=== PATIENT | male | born 1970 ===

== ENCOUNTER 2021-03-23 11:44 | Emergency (ER) | payer MEDICAID, SELFPAY ==
[2021-03-23 12:10] VITALS: BP 158/92; PULSE 94; RESP 18; TEMP 36.6; O2SAT 98; BMI 27.8
[2021-03-23 15:34] LABS: MANUAL DIFF FLAG NO
[2021-03-23 15:36] LABS: Basophils Percent Auto 0.4 % (0-2); Eosinophils Absolute Auto 0.3 X10*3/uL (0.0-0.4); Eosinophils Percent Auto 3.6 % (0-4); Hemoglobin 16.1 g/dl (14.0-18.0); Imm Gran Abs Auto 0.03 X10*3/uL (0.00-0.03); Imm Gran Pct Auto 0.4 % (0.0-0.4); Lymphocytes Absolute Auto 1.2 X10*3/uL (1.2-4.9); Lymphocytes Percent Auto 17.4 % (20-40); Mean Corpuscular HGB Conc 33.5 g/dl (31.0-36.0); Mean Corpuscular Hemoglobin 28.2 pg (27.0-33.0); Mean Corpuscular Volume 84.1 fL (80.0-98.0); Mean Platelet Volume 9.8 fL (9.4-12.4); Monocytes Absolute Auto 0.4 X10*3/uL (0.1-1.2); Monocytes Percent Auto 6.2 % (2-11); Platelet Count 180 X10*3/uL (160-400); Red Blood Count 5.71 X10*6/uL (4.60-5.80); Red Cell Distribution Width 12.3 % (11.0-16.0)
--- NOTE | 2021-03-23 15:50 | ED_ITS ---
HPI - General Adult General Chief complaint: Weakness Stated complaint: HEADACHE WEAK Time Seen by Provider: 03/23/21 15:50 Source: patient Mode of arrival: ambulatory Limitations: no limitations History of Present Illness HPI narrative: Patient is here today for complaining of headache for the past month. Patient was placed by his PCP on medications for migraine, however he reports that this is not working. Patient reports that last year he had right temporal discomfort and had biopsy that was normal and negative for temporal arthritis per patient. Patient denies any dizziness, blurry vision, any cold symptoms. Denies any chest pain, palpitations, shortness of breath with or without exertion. Patient reports that he has frontal and paranasal sinus pressure. Reports to have lymph nodes swelling, denies dysphagia, dyspepsia or odynophagia. Onset (ago): week(s) Location: head Radiation: non-radiation Severity: moderate Quality: aching Related Data Previous Rx's Medication Instructions Recorded omeprazole 20 mg capsule,delayed 20 mg PO BID 30 Days #60 cap 12/01/20 release ciprofloxacin 0.3 %-dexamethasone 4 drp OTIC (EARS) Q12H #7.5 ml 03/23/21 0.1 % ear drops,suspension (Ciprodex) fluticasone propionate 50 1 spray INTRANASAL BID #16 g 03/23/21 mcg/actuation nasal spray,suspension (Flonase Allergy Relief) ibuprofen 600 mg tablet 600 mg PO Q8H PRN #20 tab 03/23/21 Allergies Allergy/AdvReac Type Severity Reaction Status Date / Time No Known Allergies Allergy Verified 03/23/21 12:10 [No Known Allergies*] Review of Systems Review of Systems: Constitutional : No Weight loss, No Fever, No Chills, No Night Sweats, No Fatigue, No Malaise ENT/Mouth : No Hearing loss, No Ear Pain, No Nasal Congestion, Sinus Pain, No Hoarseness, sore throat, No Rhinorrhea, No Swallowing Difficulty Eyes: No Eye Pain, No Swelling, No Redness, No Foreign Body, No Discharge, No Vision Changes Head: Headache for over a month Cardiovascular : No Chest Pain, No SOB, No Dyspnea on Exertion, No Orthopnea, No Edema, No Palpitations Respiratory : No Cough, No Sputum, No Wheezing, No Smoke Exposure, No Dyspnea Gastrointestinal : No Nausea, No Vomiting, No Diarrhea, No Constipation, No abdominal Pain, No Hematochezia, No Melena Genitourinary : no irregular bleeding, No Dysuria, No Urinary Frequency, No Hematuria, No Urinary Incontinence, No Urgency, No Flank Pain, No Urinary Flow Changes, No Hesitancy Musculoskeletal : No joint pain, No Myalgias, No Joint Swelling Skin : No Skin Lesions, No rash Neuro : No Weakness, No Numbness, No Paresthesias, No Loss of Consciousness, No Dizziness, No Headache Psych : No Anxiety/Panic, No Depression, No SI/HI/AH/VH, No Social Issues, Yes all other systems are reviewed and are negative [facility] Social History Social History Advance Directives: No Advance Directives Information Provided: No Physical Exam Vital Signs: Vital Signs: Last Vital Signs Temp 98.2 F 03/23/21 19:23 Pulse 85 03/23/21 20:12 Resp 16 03/23/21 20:12 BP 175/99 H 03/23/21 20:12 Pulse Ox 97 03/23/21 19:23 Body Mass Index 27.8 Const: General: healthy appearing, no acute distress and well developed Nutritional Appearance: well nourished Orientation/consciousness: patient oriented x3 HENMT: Other: 50-year-old male is here today for complaining of headache for the last month. Patient reports that last year he was ruled out for temporal arthritis. Patient reports that the pain started about month ago, does not remember any contributing factors to it. Patient reports to have frontal lobe headache and paint below his eyes around paranasal sinuses. Patient denies postnasal drip rhinorrhea. Denies any ear pain. Reports to have swelling of his tonsils and lymph nodes. Patient denies any nausea or vomiting. Patient reports that he was placed on medication for migraine however reports that that has not been affective. Patient denies any dizziness, blurred vision, sensitivity to light. Patient denies any dyspepsia, dysphagia or odynophagia. Denies any chest pain, palpitation, shortness of breath with or without exertion, presyncope, syncope, PND. Head: Yes normal to inspection, Yes normocephalic, Yes atraumatic and Yes other Ears: hearing grossly normal bilaterally and external ear abnormal (Bilaterally) General nose exam: Normal external nose present Face and sinus: Yes normal facial exam and Yes sinus tenderness (Frontal and paranasal) Mouth: Normal oral and palatal mucosa present Throat: Yes posterior oropharynx normal, Yes tonsils normal and Yes uvula midline Eyes: General: appearance normal, both eyes and all related structures Neck: Neck: Yes normal visual inspection, Yes full ROM and Yes trachea midline Thyroid: Thyroid normal Resp: Effort & Inspection: normal respiratory effort, able to speak in complete sentences, no tracheal deviation and symmetric chest movement Auscultation: clear to auscultation bilaterally Cardio: Jugular venous distension: no JVD Rate: regular rate Rhythm: regular rhythm Heart sounds: S1 normal heart sound present, S2 normal heart sound present, no gallops and no murmurs GI: Inspection: Yes normal to inspection and No distended Palpation (GI): Soft to palpation, not firm, nontender and No hepatosplenomegaly present Auscultation: normal bowel sounds : General: Yes no CVA tenderness Back/Spine/Pelvis: Back: no CVA tenderness Skin: General skin exam: elasticity normal, turgor normal and dry skin Neuro: General: patient oriented x3 Psych: Appearance: grossly normal Mental Status: mental status grossly normal Speech and movement: Normal speech and movement present Affect: normal affect Attitude: cooperative Thought process: Normal thought process present Thought content: Normal thought content present Insight: Good insight present (Psych) Judgement: Good judgement present (Psych) Course Course Course Narrative: 50-year-old male is here today for complaining of headache for over a month. Patient was given script for migraine headache, however he reports that this is not working. Reports to have a sinus pressure and frontal and paraspinal area. Exam shows bilateral external otitis media and maxillary lymph node swelling. Positive tenderness to frontal and paranasal sinuses. Will do blood work to check for infection. Reevaluation(s) Reevaluation #1: Blood work show no leukocytosis. Patient was medicated with Toradol and had some improvement. Will send patient home to follow-up with his PCP and neurologist. Will send him home with ibuprofen and script for antibiotic ear drops, ibuprofen and Flonase. Patient is agreeable to this plan and verbalizes understanding of instructions. Medical Decision Making Lab Data Result diagrams: 03/23/21 15:29 03/23/21 15:29 Labs: Lab Results 03/23/21 03/23/21 03/23/21 Range/Units 15:29 15:29 17:37 WBC 7.0 (4.8-10.8) X10*3/uL RBC 5.71 (4.60-5.80) X10*6/uL Hgb 16.1 (14.0-18.0) g/dl Hct 48.0 (42.0-52.0) % MCV 84.1 (80.0-98.0) fL MCH 28.2 (27.0-33.0) pg MCHC 33.5 (31.0-36.0) g/dl RDW 12.3 (11.0-16.0) % Plt Count 180 (160-400) X10*3/uL MPV 9.8 (9.4-12.4) fL Immature Gran % (Auto) 0.4 (0.0-0.4) % Neut % (Auto) 72.0 (45-73) % Lymph % (Auto) 17.4 L (20-40) % [place] % (Auto) 6.2 (2-11) % Eos % (Auto) 3.6 (0-4) % Baso % (Auto) 0.4 (0-2) % Lymph # (Auto) 1.2 (1.2-4.9) X10*3/uL [place] # (Auto) 0.4 (0.1-1.2) X10*3/uL Eos # (Auto) 0.3 (0.0-0.4) X10*3/uL Baso # (Auto) 0.0 (0.0-0.2) X10*3/uL Abs Immat Gran (auto) 0.03 (0.00-0.03) X10*3/uL Absolute Neuts (auto) 5.0 (2.0-8.3) x10*3/uL Absolute Nucleated RBC 0.000 (0.0-0.012) X10*3/uL Nucleated RBC % (auto) 0.0 (0.0-0.2) /100WBC Sodium 138 (135-145) mmol/L Potassium 4.2 (3.3-5.1) mmol/L Chloride 103 (96-108) mmol/L Carbon Dioxide 28 (22-29) mmol/L Anion Gap 11 L (12-20) BUN 14 (9-16) mg/dL Creatinine 1.10 (0.5-1.4) mg/dL Estim Creat Clear Calc 87.2 Estimated GFR > 60 Random Glucose 195 H (60-115) mg/dL Calcium 9.0 (8.4-10.2) mg/dL Total Bilirubin 0.3 (0.0-1.0) mg/dL AST 23 (5-37) U/L ALT 45 H (0-40) U/L Alkaline Phosphatase 128 H (39-117) U/L Total Protein 7.5 (6.5-8.0) g/dL Albumin 4.2 (3.5-5.0) g/dL Influenza Type A (PCR) NEGATIVE (Negative) Influenza Type B (PCR) NEGATIVE (Negative) RSV RNA Qual (PCR) NEGATIVE (Negative) SARS-CoV-2 RNA (RT-PCR) NEGATIVE (Negative) S. pyogenes GrpA JOSE (Negative) 03/23/21 Range/Units 17:37 WBC (4.8-10.8) X10*3/uL RBC (4.60-5.80) X10*6/uL Hgb (14.0-18.0) g/dl Hct (42.0-52.0) % MCV (80.0-98.0) fL MCH (27.0-33.0) pg MCHC (31.0-36.0) g/dl RDW (11.0-16.0) % Plt Count (160-400) X10*3/uL MPV (9.4-12.4) fL Immature Gran % (Auto) (0.0-0.4) % Neut % (Auto) (45-73) % Lymph % (Auto) (20-40) % [place] % (Auto) (2-11) % Eos % (Auto) (0-4) % Baso % (Auto) (0-2) % Lymph # (Auto) (1.2-4.9) X10*3/uL [place] # (Auto) (0.1-1.2) X10*3/uL Eos # (Auto) (0.0-0.4) X10*3/uL Baso # (Auto) (0.0-0.2) X10*3/uL Abs Immat Gran (auto) (0.00-0.03) X10*3/uL Absolute Neuts (auto) (2.0-8.3) x10*3/uL Absolute Nucleated RBC (0.0-0.012) X10*3/uL Nucleated RBC % (auto) (0.0-0.2) /100WBC Sodium (135-145) mmol/L Potassium (3.3-5.1) mmol/L Chloride (96-108) mmol/L Carbon Dioxide (22-29) mmol/L Anion Gap (12-20) BUN (9-16) mg/dL Creatinine (0.5-1.4) mg/dL Estim Creat Clear Calc Estimated GFR Random Glucose (60-115) mg/dL Calcium (8.4-10.2) mg/dL Total Bilirubin (0.0-1.0) mg/dL AST (5-37) U/L ALT (0-40) U/L Alkaline Phosphatase (39-117) U/L Total Protein (6.5-8.0) g/dL Albumin (3.5-5.0) g/dL Influenza Type A (PCR) (Negative) Influenza Type B (PCR) (Negative) RSV RNA Qual (PCR) (Negative) SARS-CoV-2 RNA (RT-PCR) (Negative) S. pyogenes GrpA JOSE Negative (Negative) Discharge Plan Discharge Clinical Impression: Sinus pressure Headache Qualifiers: Headache type: unspecified Headache chronicity pattern: chronic headache Int ractability: not intractable Qualified Code(s): R51.9 - Headache, unspecified Otitis externa Qualifiers: Otitis externa type: unspecified type Chronicity: unspecified Laterality: bilateral Qualified Code(s): H60.93 - Unspecified otitis externa, bilateral Patient Disposition: Home, Self-Care Instructions: Sinusitis (ED) Additional Instructions: Lo vieron aqu? hoy por un dolor de jorden que liriano estado sucediendo rebecca m?s de un mes. Puede vernon ibuprofeno. Tiene infecci?n en los o?dos externos de 2 a?os. Lleve gotas para los o?dos a ambos a?os dos veces al d?a rebecca 7 d?as. Tambi?n puede vernon Flonase para ayudarlo con la presi?n y el dolor de los senos nasales. Puede regresar al departamento de emergencias si yin s?ntomas empeoran o si experimenta s?ntomas preocupantes adicionales. Prescriptions: New ibuprofen 600 mg tablet 600 mg PO Q8H PRN (Reason: pain) Qty: 20 RF: 0 fluticasone propionate [Flonase Allergy Relief] 50 mcg/actuation spray,suspension 1 spray intranasal BID Qty: 16 RF: 0 ciprofloxacin-dexamethasone [Ciprodex] 0.3-0.1 % drops,suspension 4 drp otic (ears) Q12H Qty: 7.5 RF: 0 No Action omeprazole 20 mg capsule,delayed release(DR/EC) 20 mg PO BID 30 Days Qty: 60 RF: 6 Interventions: ED Discharge Assessment Last Done: 03/23/21 20:13 Discharge Date/Time: 03/23/21 20:14
[2021-03-23 15:53] LABS: Alanine Aminotransferase 45 U/L (0-40); Albumin Level 4.2 g/dL (3.5-5.0); Alkaline Phosphatase 128 U/L (39-117); Anion Gap 11 (12-20); Aspartate Amino Transferase 23 U/L (5-37); Bilirubin Total 0.3 mg/dL (0.0-1.0); Blood Urea Nitrogen 14 mg/dL (9-16); Carbon Dioxide 28 mmol/L (22-29); Chloride 103 mmol/L (96-108); Creatinine Clr Calc Pharmacy 87.2; Estimated Glomerular Filt Rate > 60; Glucose Random 195 mg/dL (60-115); Potassium 4.2 mmol/L (3.3-5.1); Sodium 138 mmol/L (135-145); Total Protein 7.5 g/dL (6.5-8.0)
[2021-03-23] MEDS: Ketorolac Tromethamine 15 MG/ML VIAL 30 MG IVPUSH (17:36)
[2021-03-23] MEDS: 0.9 % Sodium Chloride 1,000 ML 999 ML IV (17:36)
[2021-03-23 18:00] LABS: IDNOW Serial# 9DD0AD1C; Strep A Nucleic Acid Negative (Negative)
[2021-03-23 18:36] LABS: Influenza A PCR NEGATIVE (Negative); Influenza B PCR NEGATIVE (Negative); Resp Syncy Virus RNA Qual PCR NEGATIVE (Negative); SARS COV2 PCR INHOUSE NEGATIVE (Negative)
[2021-03-23 19:23] VITALS: BP 185/98; PULSE 89; RESP 16; TEMP 36.8; O2SAT 97
[2021-03-23 20:12] VITALS: BP 175/99; PULSE 85; RESP 16
== END 2021-03-23 20:14 | disposition home or self-care (01) ==
PROVIDERS: Nurse Practitioner Family; Emergency Provider Emergency Medicine Emergency Medical Services
DX: J32.9 Chronic sinusitis, unspecified (principal); R51.9 Headache, unspecified; H60.93 Unspecified otitis externa, bilateral; Z20.822 Contact with and (suspected) exposure to COVID-19
CPT/HCPCS: 0241U; 36415; 80053; 85025; 87651; 96361; 96374; 99284; J1885

== ENCOUNTER 2021-05-09 12:17 | Emergency (ER) | payer MEDICAID, SELFPAY ==
--- NOTE | 2021-05-09 | ECG_ITS ---
Test Reason : palpitations Blood Pressure : / mmHG Vent. Rate : 105 BPM Atrial Rate : 105 BPM P-R Int : 186 ms QRS Dur : 100 ms QT Int : 346 ms P-R-T Axes : 054 -41 020 degrees QTc Int : 457 ms Sinus tachycardia Inferior infarct Left axis deviation Abnormal ECG When compared with ECG of 28-AUG-2018 09:38, T wave amplitude has increased in Anterior leads Referred By: Generic ED Physician Electronically Signed By:PATRICIA LOYA MD
[2021-05-09 13:52] VITALS: BP 163/105; PULSE 108; RESP 16; TEMP 36.9; O2SAT 98; BMI 27.6
[2021-05-09 14:40] LABS: COVID-19 Test Positive (Negative)
[2021-05-09 14:46] LABS: Alanine Aminotransferase 73 U/L (0-40); Albumin Level 4.2 g/dL (3.5-5.0); Alkaline Phosphatase 136 U/L (39-117); Anion Gap 9 (12-20); Aspartate Amino Transferase 34 U/L (5-37); Blood Urea Nitrogen 13 mg/dL (9-16); Calcium 9.1 mg/dL (8.4-10.2); Carbon Dioxide 29 mmol/L (22-29); Chloride 104 mmol/L (96-108); Creatinine Clr Calc Pharmacy 86.2; Estimated Glomerular Filt Rate > 60; Glucose Random 184 mg/dL (60-115); Potassium 4.4 mmol/L (3.3-5.1); Sodium 138 mmol/L (135-145); Total Protein 7.8 g/dL (6.5-8.0)
[2021-05-09 14:53] LABS: Bilirubin Total 0.4 mg/dL (0.0-1.0)
== END 2021-05-09 18:45 | disposition left against medical advice (07) ==
PROVIDERS: Emergency Provider Emergency Medicine
DX: U07.1 COVID-19 (principal); R51.9 Headache, unspecified; E11.9 Type 2 diabetes mellitus without complications; I10 Essential (primary) hypertension
CPT/HCPCS: 36415; 80053; 87635; 93005; 99283

== ENCOUNTER 2021-07-19 15:18 | Emergency (ER) | payer MEDICAID, SELFPAY ==
--- NOTE | 2021-07-19 | ECG_ITS ---
Test Reason : sob/chest pain Blood Pressure : / mmHG Vent. Rate : 097 BPM Atrial Rate : 097 BPM P-R Int : 182 ms QRS Dur : 094 ms QT Int : 344 ms P-R-T Axes : 030 -46 014 degrees QTc Int : 436 ms Normal sinus rhythm Left axis deviation Inferior infarct , age undetermined Abnormal ECG When compared with ECG of 09-MAY-2021 14:11, No significant change was found Referred By: Harris Mccoy Electronically Signed By:CHRIS LOPES
--- NOTE | ~2021-07-19 | CT_ITS ---
EXAMINATION: CT ABDOMEN AND PELVIS WITH CONTRAST CLINICAL INFORMATION: Epigastric pain radiating to right lower quadrant COMPARISON: CT abdomen pelvis 08/28/2018 TECHNIQUE: Multidetector volumetric images were obtained from the superior aspect of the liver through the pubic symphysis following administration 85 mL of Omnipaque 350 intravenous contrast. Sagittal and coronal reformatted images were obtained on the technologist's workstation. Oral contrast: No This CT examination was performed using dose optimization techniques as appropriate, variously including the following: *Automated exposure control *Adjustment of mA and/or kV according to patient size (this includes techniques or standardized protocols for targeted exams where dose is matched to indication/reason for exam; i.e. extremities or head) *Use of iterative reconstruction technique DLP: 689 mGy-cm FINDINGS: LUNG BASES: New right lower lobe platelike atelectasis is present. There is continued presence of atelectasis at the left lung base. No pleural effusions or suspicious lung masses are seen. There is a small 5 mm right paracardiac lymph node present (3:1). LIVER, GALLBLADDER, AND BILIARY TREE: The liver is enlarged measuring 19 cm in greatest length and demonstrates decreased attenuation consistent with hepatic steatosis. This finding was better seen on the 08/28/[address] scan. No focal hepatic lesion or biliary ductal dilatation is present. Status post cholecystectomy. PANCREAS: Unremarkable. A single punctate calcification is present in the pancreatic tail. SPLEEN: There is mild splenomegaly with the spleen measuring 12.9 cm in greatest dimension. ADRENAL GLANDS: Unremarkable. KIDNEYS AND URETERS: The kidneys are normal in size, shape, and attenuation. Two. Bosniak class I renal cysts are noted in the right kidney, the largest 3.4 cm. There are some smaller cysts present bilaterally as well. These findings need no further imaging or follow-up. No solid renal masses. No hydronephrosis, hydroureter, or calculi seen. No perinephric stranding. BLADDER: Bladder is markedly distended but unremarkable GASTROINTESTINAL TRACT: The small and large bowel are unremarkable. The appendix is unremarkable. ABDOMINAL WALL: No significant hernia is appreciated. LYMPH NODES: Normal. VASCULAR: Unremarkable. PELVIC VISCERA: Unremarkable. OSSEOUS STRUCTURES: Mild degenerative changes present spine most marked at L5-S1. No bony destructive lesions. CT/CT abdomen pelvis w con IMPRESSION: An etiology for the patient's epigastric pain has not been found. Incidental findings as described above. Fleischner guidelines were followed.
[2021-07-19 16:06] VITALS: BP 176/98; PULSE 101; RESP 18; TEMP 36.9; O2SAT 98; BMI 27.6
--- NOTE | 2021-07-19 16:22 | ED.CHESTPAIN ---
HPI - Chest Pain General Chief Complaint: Chest Pain Stated Complaint: sob, headache Time Seen by Provider: 07/19/21 16:22 Source: patient Mode of arrival: ambulatory Limitations: no limitations History of Present Illness HPI narrative: This is a 51-year-old male past medical history significant for hypertension, diabetes presenting to the emergency department with chest pain, shortness of breath and abdominal pain X2 days. He tells me that this chest pain is episodic, substernal, stabbing, nonradiating. He cannot tell me what makes this chest pain better or worse. He also reports shortness of breath, he tells me it is worse with exertion, particularly climbing stairs. He also reports epigastric pain that is radiating to his right lower quadrant. Patient reports a normal appetite normal diet with no dietary changes recently. Patient tells me that he has headaches every single day he has a little 1 right now and feels like his typical headache. He denies fevers, chills, nausea, vomiting, vision changes, dizziness. To note, patient tells me that he has been seen here multiple times for the same thing over the past few months. Denies any anxiety or stress at this time. MD complaint: chest pain Onset (ago): day(s) (1) Timing of current episode: episodic Prior episodes: Yes Pain location: substernal Pain radiation: none Severity: mild Quality: tightness Relieving factors: nothing Exacerbating factors: nothing Associated symptoms: dyspnea Treatment prior to arrival: none Related Data Previous Rx's Medication Instructions Recorded omeprazole 20 mg capsule,delayed 20 mg PO BID 30 Days #60 cap 12/01/20 release ciprofloxacin 0.3 %-dexamethasone 4 drp OTIC (EARS) Q12H #7.5 ml 03/23/21 0.1 % ear drops,suspension (Ciprodex) fluticasone propionate 50 1 spray INTRANASAL BID #16 g 03/23/21 mcg/actuation nasal spray,suspension (Flonase Allergy Relief) ibuprofen 600 mg tablet 600 mg PO Q8H PRN #20 tab 03/23/21 Allergies Allergy/AdvReac Type Severity Reaction Status Date / Time No Known Allergies Allergy Verified 03/23/21 12:10 [No Known Allergies*] Review of Systems Review of Systems: Constitutional : No Weight loss, No Fever, No Chills, No Fatigue, No Malaise ENT/Mouth : No sore throat, No Rhinorrhea Eyes: No Eye Pain, No Swelling, No Redness Cardiovascular : + Chest Pain, No SOB, + Dyspnea on Exertion, No Orthopnea, No Edema, No Palpitations Respiratory : No Cough, No Sputum, No Wheezing Gastrointestinal : No Nausea, No Vomiting, No Diarrhea, No Constipation, + abdominal Pain, No Hematochezia, No Melena Genitourinary : No Dysuria, No Urinary Frequency, No Hematuria, Musculoskeletal : No joint pain, No Myalgias, No Joint Swelling Skin : No Skin Lesions, No rash Neuro : No Weakness, No Numbness, No Dizziness, No Headache Psych : No Anxiety/Panic, No Depression All other systems reviewed and are negative Yes all other systems are reviewed and are negative [facility] Past Medical History Attestation statement: The following information was validated with the patient. Source: old records reviewed and nursing notes reviewed Medical History Diabetes mellitus, type 2 Fibromyalgia Hypertension Social History Social History Advance Directives: No Advance Directives Information Provided: No Physical Exam Vital Signs: Vital Signs: Last Vital Signs Temp 98.5 F 07/19/21 19:30 Pulse 88 07/19/21 19:30 Resp 18 07/19/21 19:30 BP 166/96 H 07/19/21 19:30 Pulse Ox 98 07/19/21 19:30 BMI result Body Mass Index 27.6 Vital signs stable. Appearance: Alert.? Oriented X3.? No acute distress.? Head: Normocephalic, atraumatic, no step-offs or deformities Eyes: Pupils equal, round and reactive to light.? ENT: Pharynx normal.? Neck: Normal inspection.? Neck supple.? CVS: Normal heart rate and rhythm.? Pulses normal.? Respiratory: No respiratory distress.? Breath sounds normal.? Abdomen: Soft and + tenderness to epigastric region RLQ.? Skin: Skin warm and dry.? Normal skin color.? Normal skin turgor.? Extremities: No lower extremity edema.? No calf ttp. 5/5 strength to bilateral upper and lower extremities Back: No midline tenderness, no C-spine tenderness, full range of motion, no CVA tenderness bilaterally Neuro: Oriented X 3.? No motor deficit.? No sensory deficit. CN 2-12 intact Course Reevaluation(s) Reevaluation #1: CBC appears to be at patient's baseline. No acute electrolyte abnormalities. Troponin negative, no acute ischemia on EKG unlikely that this is ACS. Lipase within normal limits. COVID negative. CT of abdomen and pelvis within normal limits unable to identify a reason for patient's pain. Time: 20:04 Reevaluation #2: Patient tells me that his chest pain has subsided. And his abdominal pain is much better after GI cocktai. I informed patient that this may be gastritis. I will give him follow-up with the GI doctor. Advised him to return to the emergency department with new or worsening symptoms and to follow-up with his PCP. Patient feels good to go home. Patient's epigastric pain likely gastritis. Patient's cardiac workup was negative, unlikely that this is ACS. Time: 20:07 MDM - Chest Pain MDM Narrative Medical decision making narrative: 1625 51 yo m pmhx dm, htn presents w/ cp, sob and epigastric pain radiating to RLQ. Physical examination significant for pain on palpation in epigastric region and right lower quadrant. Negative Wilma bilaterally. History and physical examination not consistent with pulmonary embolism. Plan at this time is urine, basic labs and imaging. Will rule out appendicitis, ACS. Medical Records Data Attestation: I reviewed the patient's medical records. Lab Data Attestation: I reviewed the patient's lab results. Result diagrams: 07/19/21 17:02 07/19/21 17:02 Labs: Lab Results 07/19/21 07/19/21 07/19/21 Range/Units 17:02 17:02 17:02 WBC 6.9 (4.8-10.8) X10*3/uL RBC 5.22 (4.60-5.80) X10*6/uL Hgb 14.7 (14.0-18.0) g/dl Hct 44.3 (42.0-52.0) % MCV 84.9 (80.0-98.0) fL MCH 28.2 (27.0-33.0) pg MCHC 33.2 (31.0-36.0) g/dl RDW 12.8 (11.0-16.0) % Plt Count 167 (160-400) X10*3/uL MPV 10.1 (9.4-12.4) fL Immature Gran % (Auto) 0.4 (0.0-0.4) % Neut % (Auto) 73.8 H (45-73) % Lymph % (Auto) 16.5 L (20-40) % [place] % (Auto) 6.7 (2-11) % Eos % (Auto) 2.3 (0-4) % Baso % (Auto) 0.3 (0-2) % Lymph # (Auto) 1.1 L (1.2-4.9) X10*3/uL [place] # (Auto) 0.5 (0.1-1.2) X10*3/uL Eos # (Auto) 0.2 (0.0-0.4) X10*3/uL Baso # (Auto) 0.0 (0.0-0.2) X10*3/uL Abs Immat Gran (auto) 0.03 (0.00-0.03) X10*3/uL Absolute Neuts (auto) 5.1 (2.0-8.3) x10*3/uL Absolute Nucleated RBC 0.000 (0.0-0.012) X10*3/uL Nucleated RBC % (auto) 0.0 (0.0-0.2) /100WBC Sodium 139 (135-145) mmol/L Potassium 4.8 (3.3-5.1) mmol/L Chloride 104 (96-108) mmol/L Carbon Dioxide 29 (22-29) mmol/L Anion Gap 11 L (12-20) BUN 11 (9-16) mg/dL Creatinine 1.01 (0.5-1.4) mg/dL Estim Creat Clear Calc 93.9 Estimated GFR > 60 Random Glucose 146 H (60-115) mg/dL Calcium 9.1 (8.4-10.2) mg/dL Magnesium 1.5 L (1.6-2.6) mg/dL Total Bilirubin 0.3 (0.0-1.0) mg/dL AST 28 (5-37) U/L ALT 60 H (0-40) U/L Alkaline Phosphatase 115 (39-117) U/L Troponin I High Sens (<3.5-35.0) ng/L B-Natriuretic Peptide (<100) pg/mL Total Protein 7.1 (6.5-8.0) g/dL Albumin 4.0 (3.5-5.0) g/dL Lipase 31 (8-78) U/L COVID-19 (JULIA) Negative (Negative) COVID-19 Clin Com See Note 07/19/21 Range/Units 17:02 WBC (4.8-10.8) X10*3/uL RBC (4.60-5.80) X10*6/uL Hgb (14.0-18.0) g/dl Hct (42.0-52.0) % MCV (80.0-98.0) fL MCH (27.0-33.0) pg MCHC (31.0-36.0) g/dl RDW (11.0-16.0) % Plt Count (160-400) X10*3/uL MPV (9.4-12.4) fL Immature Gran % (Auto) (0.0-0.4) % Neut % (Auto) (45-73) % Lymph % (Auto) (20-40) % [place] % (Auto) (2-11) % Eos % (Auto) (0-4) % Baso % (Auto) (0-2) % Lymph # (Auto) (1.2-4.9) X10*3/uL [place] # (Auto) (0.1-1.2) X10*3/uL Eos # (Auto) (0.0-0.4) X10*3/uL Baso # (Auto) (0.0-0.2) X10*3/uL Abs Immat Gran (auto) (0.00-0.03) X10*3/uL Absolute Neuts (auto) (2.0-8.3) x10*3/uL Absolute Nucleated RBC (0.0-0.012) X10*3/uL Nucleated RBC % (auto) (0.0-0.2) /100WBC Sodium (135-145) mmol/L Potassium (3.3-5.1) mmol/L Chloride (96-108) mmol/L Carbon Dioxide (22-29) mmol/L Anion Gap (12-20) BUN (9-16) mg/dL Creatinine (0.5-1.4) mg/dL Estim Creat Clear Calc Estimated GFR Random Glucose (60-115) mg/dL Calcium (8.4-10.2) mg/dL Magnesium (1.6-2.6) mg/dL Total Bilirubin (0.0-1.0) mg/dL AST (5-37) U/L ALT (0-40) U/L Alkaline Phosphatase (39-117) U/L Troponin I High Sens < 3.5 (<3.5-35.0) ng/L B-Natriuretic Peptide 29 (<100) pg/mL Total Protein (6.5-8.0) g/dL Albumin (3.5-5.0) g/dL Lipase (8-78) U/L COVID-19 (JULIA) (Negative) COVID-19 Clin Com ECG Data ECG #1: Attestation: I personally reviewed and interpreted this ECG as follows: ECG interpretation date: 07/19/21 ECG interpretation time: 18:59 Prior ECG tracings: available for review Interpretation: Ventricular rate 97, [place] normal, QRS normal, QT/QTC normal. No ST elevations or inversions concerning for ischemia. No significant changes when compared to EKG from August 2018. Critical Care Time Critical Care Time Critical Care Time: No Discharge Plan Discharge Clinical Impression: Chest pain not due to acute coronary syndrome, Epigastric abdominal pain, Gastritis Patient Disposition: Home, Self-Care Instructions: Epigastric Pain (ED), Upper Endoscopy (DC), Gastritis (DC), Diet for Stomach Ulcers and Gastritis (ED), Chest Pain (ED) Additional Instructions: Take your medications as prescribed. If you were prescribed antibiotics today, it is important that you take your medication to their entirety, do not skip any doses, do not finish them early. Follow-up with your primary care provider this week. Follow-up with the GI doctor, number attached below. Return to the emergency department with new or worsening symptoms. Such as fevers, chills, chest pain, shortness of breath, nausea, vomiting, dizziness, headache, vision changes, lethargy In case of emergency call 911 Prescriptions: No Action omeprazole 20 mg capsule,delayed release(DR/EC) 20 mg PO BID 30 Days Qty: 60 6RF Rx Instructions: Take one capsule by mouth twice daily in the morning and in the evening ibuprofen 600 mg tablet 600 mg PO Q8H PRN (Reason: pain) Qty: 20 0RF fluticasone propionate [Flonase Allergy Relief] 50 mcg/actuation spray,suspension 1 spray intranasal BID Qty: 16 0RF Rx Instructions: administer into each nostril ciprofloxacin-dexamethasone [Ciprodex] 0.3-0.1 % drops,suspension 4 drp otic (ears) Q12H Qty: 7.5 0RF Rx Instructions: For drops in each ear twice a day for 7 days Referrals: Mikhail Moore [Physician] - 1 week Center,[facility] [Primary Care Provider] - 2 days Stand Alone Forms: Work/School Release
[2021-07-19 17:10] LABS: MANUAL DIFF FLAG NO
[2021-07-19 17:13] LABS: Basophils Percent Auto 0.3 % (0-2); Eosinophils Absolute Auto 0.2 X10*3/uL (0.0-0.4); Eosinophils Percent Auto 2.3 % (0-4); Hematocrit 44.3 % (42.0-52.0); Hemoglobin 14.7 g/dl (14.0-18.0); Imm Gran Abs Auto 0.03 X10*3/uL (0.00-0.03); Imm Gran Pct Auto 0.4 % (0.0-0.4); Lymphocytes Absolute Auto 1.1 X10*3/uL (1.2-4.9); Lymphocytes Percent Auto 16.5 % (20-40); Mean Corpuscular HGB Conc 33.2 g/dl (31.0-36.0); Mean Corpuscular Hemoglobin 28.2 pg (27.0-33.0); Mean Corpuscular Volume 84.9 fL (80.0-98.0); Mean Platelet Volume 10.1 fL (9.4-12.4); Monocytes Absolute Auto 0.5 X10*3/uL (0.1-1.2); Monocytes Percent Auto 6.7 % (2-11); Neutrophils Absolute Auto 5.1 x10*3/uL (2.0-8.3); Neutrophils Percent Auto 73.8 % (45-73); Platelet Count 167 X10*3/uL (160-400); Red Blood Count 5.22 X10*6/uL (4.60-5.80); Red Cell Distribution Width 12.8 % (11.0-16.0); White Blood Count 6.9 X10*3/uL (4.8-10.8)
[2021-07-19] MEDS: Lidocaine HCl Viscous 2 % 15 ML SOLUTION MUCOUS MEM (17:18)
[2021-07-19] MEDS: Famotidine 20 MG TABLET PO (17:18)
[2021-07-19] MEDS: Magnesium Hydrox/Alum Hydrox 30 ML ORAL.SUSP PO (17:18)
[2021-07-19 17:33] LABS: COVID-19 Test Negative (Negative)
[2021-07-19 17:37] LABS: Alanine Aminotransferase 60 U/L (0-40); Alkaline Phosphatase 115 U/L (39-117); Anion Gap 11 (12-20); Aspartate Amino Transferase 28 U/L (5-37); Bilirubin Total 0.3 mg/dL (0.0-1.0); Blood Urea Nitrogen 11 mg/dL (9-16); Calcium 9.1 mg/dL (8.4-10.2); Carbon Dioxide 29 mmol/L (22-29); Chloride 104 mmol/L (96-108); Creatinine Clr Calc Pharmacy 93.9; Estimated Glomerular Filt Rate > 60; Glucose Random 146 mg/dL (60-115); Lipase 31 U/L (8-78); Magnesium 1.5 mg/dL (1.6-2.6); Potassium 4.8 mmol/L (3.3-5.1); Sodium 139 mmol/L (135-145); Total Protein 7.1 g/dL (6.5-8.0)
[2021-07-19 17:38] LABS: Troponin-I High Sensitivity < 3.5 ng/L (<3.5-35.0)
[2021-07-19 18:21] LABS: B Type Natriuretic Peptide 29 pg/mL (<100)
[2021-07-19] MEDS: iohexoL 350 MG/ML 100 ML INFUS..BTL IV (19:08)
[2021-07-19] MEDS: Ketorolac Tromethamine 15 MG/ML VIAL IVPUSH (19:16)
--- NOTE | 2021-07-19 19:21 | PC.NURSE ---
IV placed, pt to Ct in stretcher. Pt rating midsternal cp 11/12. pt medicated for pain as per emar. will continue to monitor pt.
[2021-07-19 19:30] VITALS: BP 166/96; PULSE 88; RESP 18; TEMP 36.9; O2SAT 98
== END 2021-07-19 20:24 | disposition home or self-care (01) ==
PROVIDERS: Physician Assistant; Emergency Provider Emergency Medicine
DX: R07.89 Other chest pain (principal); K29.70 Gastritis, unspecified, without bleeding; R06.02 Shortness of breath; E11.9 Type 2 diabetes mellitus without complications; R51.9 Headache, unspecified; Z20.822 Contact with and (suspected) exposure to COVID-19; Z79.899 Other long term (current) drug therapy
CPT/HCPCS: 36415; 74177; 80053; 83690; 83735; 83880; 84484; 85025; 87635; 93005; 96374; 99284; J1885; Q9967

== ENCOUNTER 2021-08-07 09:49 | Observation (INO) | payer MEDICAID, SELFPAY ==
--- NOTE | ~2021-08-07 | NM_ITS ---
EXAMINATION: PULMONARY PERFUSION STUDY CLINICAL INFORMATION: Shortness of breath, positive d-dimer. COMPARISON: No previous lung scan is available for comparison. A radiograph the chest dated 08/07/2021, the same date as this lung scan, is available for comparison. TECHNIQUE: Following the intravenous injection of 4.0 mCi Tc-99m MAA, an 8-view perfusion study was performed using a gamma scintillation camera. FINDINGS: No segmental perfusion defects are present. There is homogeneous distribution of activity bilaterally. There are no focal anatomic appearing perfusion defects present. NM/NM pul perfusion IMPRESSION: Normal radionuclide lung perfusion scan.
--- NOTE | ~2021-08-07 | XR_ITS ---
EXAMINATION: XR CHEST CLINICAL INFORMATION: Shortness of breath COMPARISON: 08/07/2016 TECHNIQUE: Frontal view of the chest was obtained. FINDINGS: Mild elevation of the right hemidiaphragm. No consolidation, edema, or effusion. No pneumothorax. The cardiomediastinal silhouette is within normal limits. XR/XR chest 1V IMPRESSION: No acute pulmonary finding.
[2021-08-07 10:20] VITALS: BP 116/77; PULSE 98; RESP 20; TEMP 37.7; O2SAT 96; BMI 28.4
--- NOTE | 2021-08-07 10:41 | ED.GENADULT ---
HPI - General Adult General Chief complaint: General Medical Stated complaint: SOB Time Seen by Provider: 08/07/21 10:41 Source: patient Mode of arrival: ambulatory Limitations: no limitations History of Present Illness HPI narrative: shortness of breath and weakness with papitations. The patient has had these symptoms for 5 days, patient states he has fibromyalgia. Patient states he had an EKG one month prior. Onset (ago): day(s) Severity: mild Associated symptoms: shortness of breath and weakness Related Data Home Medications Medication Instructions Recorded Confirmed amitriptyline 150 mg tablet 1 tab PO BEDTIME 08/07/21 08/07/21 amlodipine 10 mg tablet 1 tab PO BEDTIME 08/07/21 08/07/21 aspirin 81 mg tablet,delayed 1 tab PO BEDTIME 08/07/21 08/07/21 release atorvastatin 10 mg tablet 1 tab PO BEDTIME 08/07/21 08/07/21 carbamazepine 200 mg tablet 1 tab PO BEDTIME 08/07/21 08/07/21 cholecalciferol (vitamin D3) 25 1 cap PO QAM 08/07/21 08/07/21 mcg (1,000 unit) capsule (Vitamin D3) clonazepam 1 mg tablet 1 tab PO BID 08/07/21 08/07/21 doxepin 75 mg capsule 1 cap PO BEDTIME 08/07/21 08/07/21 dulaglutide 1.5 mg/0.5 mL 1.5 mg SUBCUT MO 08/07/21 08/07/21 subcutaneous pen injector (Trulicity) glipizide 10 mg tablet, extended 1 tab PO BID 08/07/21 08/07/21 release 24 hr lidocaine 5 % topical patch 1 patch TOPICAL DAILY 08/07/21 08/07/21 (Lidoderm) metformin 1,000 mg tablet 1 tab PO BID 08/07/21 08/07/21 metoprolol succinate 25 mg 1 tab PO BID 08/07/21 08/07/21 tablet,extended release 24 hr omeprazole 20 mg capsule,delayed 1 cap PO BID 08/07/21 08/07/21 release pregabalin 150 mg capsule 1 cap PO BID 08/07/21 08/07/21 ropinirole 2 mg tablet 1 tab PO BEDTIME 08/07/21 08/07/21 zolpidem 10 mg tablet 1 tab PO BEDTIME PRN 08/07/21 08/07/21 Allergies Allergy/AdvReac Type Severity Reaction Status Date / Time No Known Allergies Allergy Verified 03/23/21 12:10 [No Known Allergies*] Review of Systems Constitutional: Constitutional: Reports no additional constitutional complaints Eyes: Eyes: Reports no additional eye complaints ENT: Denies dizziness Cardiovascular: Cardiovascular: Reports no additional cardiovascular complaints Respiratory: Respiratory: Reports as per HPI Gastrointestinal: Gastrointestinal: Reports no additional gastrointestinal complaints Musculoskeletal: Musculoskeletal: Reports no additional musculoskeletal complaints Integumentary/Breasts: Skin/Breast: Denies rash Neurologic: Reports system reviewed and no additional complaints, except as documented, Denies dizziness and Denies Sensory deficit (Neuro) Psychiatric: Psychiatric: Denies anxiety [facility] Past Medical History Medical History (Updated 08/16/21 @ 00:03 by Chan Moralez) Chronic pain Diabetes mellitus, type 2 Fibromyalgia History of testicular cancer Hypertension Surgical History (Updated 08/07/21 @ 15:24 by Isabela Bragg MD) History of orchiectomy Social History Social History service: No Current occupational status: disabled Physical Exam ED Vital Signs: Vital Signs - 24 hr 08/07/21 10:20 Temperature 99.9 F Pulse Rate 98 Respiratory Rate 20 Blood Pressure 116/77 Pulse Oximetry 96 BMI result Body Mass Index 28.4 Const General: healthy appearing Nutritional Appearance: average body habitus Orientation/consciousness: oriented to person and patient oriented x3 Limitations: no limitations HENMT Head: Yes normal to inspection Ears: external ears normal General nose exam: Normal external nose present Mouth: Normal oral and palatal mucosa present and oropharynx normal Throat: Yes posterior oropharynx normal Eyes General: appearance normal, both eyes and all related structures Neck Neck: Yes normal visual inspection Chest Chest palpation & inspection: normal inspection of the chest Resp Auscultation: clear to auscultation bilaterally Cardio Jugular venous distension: no JVD Rate: regular rate Rhythm: regular rhythm Heart sounds: S1 normal heart sound present and S2 normal heart sound present GI Inspection: Yes normal to inspection Palpation (GI): Soft to palpation, nontender and No hepatosplenomegaly present Auscultation: normal bowel sounds General: Yes no CVA tenderness Back/Spine/Pelvis Back: no CVA tenderness Skin General skin exam: no rashes or lesions noted Neuro General: oriented to person and patient oriented x3 Cranial nerves: Yes CN's II-XII intact bilaterally Motor exam (neuro): 5/5 motor strength present throughout Sensory Exam: No Sensory deficit (Neuro) Extrem General: Yes normal to inspection Psych Appearance: grossly normal Course Reevaluation(s) Reevaluation #1: patient did not Have PE. Needed admission for dehydration, hyperglycemia, and kidney failure Time: 10:18 Medical Decision Making Lab Data Result diagrams: 08/07/21 11:25 08/08/21 06:36 Labs: Lab Results 08/07/21 08/07/21 08/07/21 Range/Units 11:25 11:25 11:25 WBC 10.1 (4.8-10.8) X10*3/uL RBC 6.05 H (4.60-5.80) X10*6/uL Hgb 17.7 D (14.0-18.0) g/dl Hct 49.9 (42.0-52.0) % MCV 82.5 (80.0-98.0) fL MCH 29.3 (27.0-33.0) pg MCHC 35.5 (31.0-36.0) g/dl RDW 12.3 (11.0-16.0) % Plt Count 195 (160-400) X10*3/uL MPV 10.8 (9.4-12.4) fL Immature Gran % (Auto) 0.4 (0.0-0.4) % Neut % (Auto) 75.4 H (45-73) % Lymph % (Auto) 15.5 L (20-40) % [place] % (Auto) 6.5 (2-11) % Eos % (Auto) 1.9 (0-4) % Baso % (Auto) 0.3 (0-2) % Lymph # (Auto) 1.6 (1.2-4.9) X10*3/uL [place] # (Auto) 0.7 (0.1-1.2) X10*3/uL Eos # (Auto) 0.2 (0.0-0.4) X10*3/uL Baso # (Auto) 0.0 (0.0-0.2) X10*3/uL Abs Immat Gran (auto) 0.04 H (0.00-0.03) X10*3/uL Absolute Neuts (auto) 7.6 (2.0-8.3) x10*3/uL Absolute Nucleated RBC 0.000 (0.0-0.012) X10*3/uL Nucleated RBC % (auto) 0.0 (0.0-0.2) /100WBC D-Dimer High Sensitivty 292 NG/ML Sodium 132 L (135-145) mmol/L Potassium 5.9 H D (3.3-5.1) mmol/L Chloride 97 (96-108) mmol/L Carbon Dioxide 25 (22-29) mmol/L Anion Gap 16 (12-20) BUN 29 H D (9-16) mg/dL Creatinine 1.82 H (0.5-1.4) mg/dL Estim Creat Clear Calc 56.7 Estimated GFR 39 POC Glucose (60-115) mg/dL Random Glucose 427 H* (60-115) mg/dL Estimat Average Glucose mg/dL Hemoglobin A1c % % Calcium 10.0 D (8.4-10.2) mg/dL Troponin I High Sens (<3.5-35.0) ng/L TSH 1.34 (0.32-4.0) uIU/mL COVID-19 (JULIA) (Negative) COVID-19 Clin Com 08/07/21 08/07/21 08/07/21 Range/Units 11:25 11:25 14:40 WBC (4.8-10.8) X10*3/uL RBC (4.60-5.80) X10*6/uL Hgb (14.0-18.0) g/dl Hct (42.0-52.0) % MCV (80.0-98.0) fL MCH (27.0-33.0) pg MCHC (31.0-36.0) g/dl RDW (11.0-16.0) % Plt Count (160-400) X10*3/uL MPV (9.4-12.4) fL Immature Gran % (Auto) (0.0-0.4) % Neut % (Auto) (45-73) % Lymph % (Auto) (20-40) % [place] % (Auto) (2-11) % Eos % (Auto) (0-4) % Baso % (Auto) (0-2) % Lymph # (Auto) (1.2-4.9) X10*3/uL [place] # (Auto) (0.1-1.2) X10*3/uL Eos # (Auto) (0.0-0.4) X10*3/uL Baso # (Auto) (0.0-0.2) X10*3/uL Abs Immat Gran (auto) (0.00-0.03) X10*3/uL Absolute Neuts (auto) (2.0-8.3) x10*3/uL Absolute Nucleated RBC (0.0-0.012) X10*3/uL Nucleated RBC % (auto) (0.0-0.2) /100WBC D-Dimer High Sensitivty NG/ML Sodium (135-145) mmol/L Potassium (3.3-5.1) mmol/L Chloride (96-108) mmol/L Carbon Dioxide (22-29) mmol/L Anion Gap (12-20) BUN (9-16) mg/dL Creatinine (0.5-1.4) mg/dL Estim Creat Clear Calc Estimated GFR POC Glucose (60-115) mg/dL Random Glucose (60-115) mg/dL Estimat Average Glucose 209 mg/dL Hemoglobin A1c % 8.9 % Calcium (8.4-10.2) mg/dL Troponin I High Sens 7.1 D (<3.5-35.0) ng/L TSH (0.32-4.0) uIU/mL COVID-19 (JULIA) Negative (Negative) COVID-19 Clin Com See Note 08/07/21 Range/Units 14:55 WBC (4.8-10.8) X10*3/uL RBC (4.60-5.80) X10*6/uL Hgb (14.0-18.0) g/dl Hct (42.0-52.0) % MCV (80.0-98.0) fL MCH (27.0-33.0) pg MCHC (31.0-36.0) g/dl RDW (11.0-16.0) % Plt Count (160-400) X10*3/uL MPV (9.4-12.4) fL Immature Gran % (Auto) (0.0-0.4) % Neut % (Auto) (45-73) % Lymph % (Auto) (20-40) % [place] % (Auto) (2-11) % Eos % (Auto) (0-4) % Baso % (Auto) (0-2) % Lymph # (Auto) (1.2-4.9) X10*3/uL [place] # (Auto) (0.1-1.2) X10*3/uL Eos # (Auto) (0.0-0.4) X10*3/uL Baso # (Auto) (0.0-0.2) X10*3/uL Abs Immat Gran (auto) (0.00-0.03) X10*3/uL Absolute Neuts (auto) (2.0-8.3) x10*3/uL Absolute Nucleated RBC (0.0-0.012) X10*3/uL Nucleated RBC % (auto) (0.0-0.2) /100WBC D-Dimer High Sensitivty NG/ML Sodium (135-145) mmol/L Potassium (3.3-5.1) mmol/L Chloride (96-108) mmol/L Carbon Dioxide (22-29) mmol/L Anion Gap (12-20) BUN (9-16) mg/dL Creatinine (0.5-1.4) mg/dL Estim Creat Clear Calc Estimated GFR POC Glucose 205 H (60-115) mg/dL Random Glucose (60-115) mg/dL Estimat Average Glucose mg/dL Hemoglobin A1c % % Calcium (8.4-10.2) mg/dL Troponin I High Sens (<3.5-35.0) ng/L TSH (0.32-4.0) uIU/mL COVID-19 (JULIA) (Negative) COVID-19 Clin Com Imaging Data Chest x-ray: Radiologist's impression: FINDINGS: Mild elevation of the right hemidiaphragm. No consolidation, edema, or effusion. No pneumothorax. The cardiomediastinal silhouette is within normal limits. XR/XR chest 1V IMPRESSION: No acute pulmonary finding. ? V/Q scan: Radiologist's impression: FINDINGS: No segmental perfusion defects are present. There is homogeneous distribution of activity bilaterally. There are no focal anatomic appearing perfusion defects present. NM/NM pul perfusion IMPRESSION: Normal radionuclide lung perfusion scan. ECG Data Attestation: I personally reviewed and interpreted this ECG as follows: Interpretation: sinus 90, no st or twave changes Discharge Plan Discharge Clinical Impression: Acute kidney injury, Acute hyperglycemia, Acute dehydration Patient Disposition: Admitted As Inpatient Interventions: Admission Worksheet (ED) Last Done: 08/08/21 11:17 Discharge Date/Time: 08/08/21 11:18
--- NOTE | 2021-08-07 10:44 | ECG_ITS ---
Test Reason : SOB AND PALPITATION Blood Pressure : / mmHG Vent. Rate : 089 BPM Atrial Rate : 089 BPM P-R Int : 190 ms QRS Dur : 092 ms QT Int : 368 ms P-R-T Axes : 058 -35 018 degrees QTc Int : 447 ms Normal sinus rhythm Left axis deviation Possible Lateral infarct , age undetermined Inferior infarct (cited on or before 13-JUN-2016) Abnormal ECG When compared with ECG of 19-JUL-2021 16:12, No significant change was found Referred By: Tristan Gifford Electronically Signed By:PATRICIA LOYA MD
[2021-08-07 11:30] LABS: MANUAL DIFF FLAG NO
[2021-08-07 11:36] LABS: Basophils Percent Auto 0.3 % (0-2); Eosinophils Absolute Auto 0.2 X10*3/uL (0.0-0.4); Eosinophils Percent Auto 1.9 % (0-4); Hematocrit 49.9 % (42.0-52.0); Hemoglobin 17.7 g/dl (14.0-18.0); Imm Gran Abs Auto 0.04 X10*3/uL (0.00-0.03); Imm Gran Pct Auto 0.4 % (0.0-0.4); Lymphocytes Absolute Auto 1.6 X10*3/uL (1.2-4.9); Lymphocytes Percent Auto 15.5 % (20-40); Mean Corpuscular HGB Conc 35.5 g/dl (31.0-36.0); Mean Corpuscular Hemoglobin 29.3 pg (27.0-33.0); Mean Corpuscular Volume 82.5 fL (80.0-98.0); Mean Platelet Volume 10.8 fL (9.4-12.4); Monocytes Absolute Auto 0.7 X10*3/uL (0.1-1.2); Monocytes Percent Auto 6.5 % (2-11); Neutrophils Absolute Auto 7.6 x10*3/uL (2.0-8.3); Neutrophils Percent Auto 75.4 % (45-73); Platelet Count 195 X10*3/uL (160-400); Red Blood Count 6.05 X10*6/uL (4.60-5.80); Red Cell Distribution Width 12.3 % (11.0-16.0); White Blood Count 10.1 X10*3/uL (4.8-10.8)
[2021-08-07 11:46] LABS: D Dimer High Sensitivity 292 NG/ML
[2021-08-07 11:54] LABS: Anion Gap 16 (12-20); Blood Urea Nitrogen 29 mg/dL (9-16); Carbon Dioxide 25 mmol/L (22-29); Chloride 97 mmol/L (96-108); Creatinine Clr Calc Pharmacy 56.7; Estimated Glomerular Filt Rate 39; Glucose Random 427 mg/dL (60-115); Potassium 5.9 mmol/L (3.3-5.1); Sodium 132 mmol/L (135-145)
[2021-08-07 11:58] LABS: Troponin-I High Sensitivity 7.1 ng/L (<3.5-35.0)
[2021-08-07] MEDS: 0.9 % Sodium Chloride 1,000 ML 999 ML IVCONT ×2 (12:54→15:00)
[2021-08-07] MEDS: Insulin Lispro 100 UNIT/ML 3 ML VIAL 10 UNIT SUBCUT (12:57)
[2021-08-07 14:41] VITALS: BP 109/74; PULSE 83; RESP 15; O2SAT 97
[2021-08-07 14:59] LABS: Glucose, Whole Blood 205 mg/dL (60-115)
[2021-08-07 15:04] LABS: Estimated Average Glucose 209 mg/dL; Hemoglobin A1c % 8.9 %
--- NOTE | 2021-08-07 15:07 | PHA.MEDREC ---
Pharmacy Consult ? Medication Reconciliation Pharmacy has completed the medication reconciliation. Patient uses med box from [facility]. Verified all meds with patient. Thanks Tre
[2021-08-07 15:08] LABS: COVID-19 Test Negative (Negative)
--- NOTE | 2021-08-07 15:19 | P.HPHOSP_ITS ---
History of Present Illness Date of Service: 08/07/21 Chief Complaint: dyspnea, This history was taken in English from the patient. 51yo M with DM2, HTN, HLD, and chronic pain/fibromyalgia presents to [facility] ED with 4-5 days of dyspnea and generalized weakness/malaise along with chest palpitations. No fever. No cough or wheezing. No chest pain. No lightheaddness. No nausea, vomiting, abdominal pain or diarrhea. He has not been adherent with his medications for the last few days due to depression and anxiety. He denies SI/HI/AH/VH. Denies smoking, drinking, or substance abuse. He doesn't check his blood glucose. In the ED, vital signs were normal, but SCr was elevated to 1.82 from baseline of 1. Potassium was elevated at 5.9. BG 427. Initial hs-Tn-I indeterminate at 7.9. EKG showed NSR with old inferior Q waves. D-dimer 292; V/Q negative. He was given 10 units of IV regular insulin and 1L of normal saline IV. He is now eating lunch without any abdominal pain or N/V. Review of Systems Review of Systems: Yes all other systems are reviewed and are negative [facility] Medical History (Updated 08/07/21 @ 15:24 by Isabela Bragg MD) Chronic pain Diabetes mellitus, type 2 Fibromyalgia History of testicular cancer Hypertension Surgical History (Updated 08/07/21 @ 15:24 by Isabela Bragg MD) History of orchiectomy Social History Advance Directives: No Advance Directives Information Provided: No Meds Allergies Allergy/AdvReac Type Severity Reaction Status Date / Time No Known Allergies Allergy Verified 03/23/21 12:10 [No Known Allergies*] Active Medications: Current Medications Amitriptyline HCl (Amitriptyline Hcl 50 Mg Tablet) 150 mg PO BEDTIME TARA Amlodipine Besylate (Amlodipine Besylate 10 Mg Tablet) 10 mg PO BEDTIME TARA; Protocol Aspirin (Aspirin Enteric Coated 81 Mg Tablet.) 81 mg PO BEDTIME TARA Atorvastatin Calcium (Atorvastatin Calcium 10 Mg Tablet) 10 mg PO BEDTIME TARA Carbamazepine (Carbamazepine 200 Mg Tablet) 200 mg PO BEDTIME TARA Clonazepam (Clonazepam 1 Mg Tablet) 1 mg PO BID TARA Dextrose (Dextrose 50 % 25 Gm/50 Ml Syringe) 25 gm IVPUSH Q15M PRN; Protocol PRN Reason: per Hypoglycemia Standing Ord. Glucose (Glucose Gel 15 Gm Gel..Gram.) 15 gm PO Q15M PRN; Protocol PRN Reason: per Hypoglycemia Standing Ord. Insulin Human Lispro (Insulin Lispro 100 Unit/Ml 3 Ml Vial) 0 unit SUBCUT QI [facility]; Protocol Metoprolol Succinate (Metoprolol Succinate Er 25 Mg Tab.Er.24h) 25 mg PO BID TARA; Protocol Non-Formulary Medication (Doxepin) 1 cap PO BEDTIME [facility] Non-Formulary Medication (Lidocaine [Lidoderm]) 1 patch TOPICAL DAILY [facility] Omeprazole (Omeprazole 20 Mg Capsule.Dr) 20 mg PO BID [facility] Pharmacy Consult (Consult Rx Perform Med Rec) 1 each MISCELLANE ONCE PRN PRN Reason: Consult order Pregabalin (Pregabalin 150 Mg Capsule) 150 mg PO BID [facility] Ropinirole HCl (Ropinirole Hcl 2 Mg Tablet) 2 mg PO BEDTIME [facility] Vitamin D (Cholecalciferol (Vitamin D3) 25 Mcg Tablet) 25 mcg PO QAM [facility] Zolpidem Tartrate (Zolpidem Tartrate 5 Mg Tablet) 10 mg PO BEDTIME PRN PRN Reason: Insomnia Home Medications Medication Instructions Recorded Confirmed Last Taken Type amitriptyline 150 mg tablet 1 tab PO BEDTIME 08/07/21 08/07/21 08/06/21 History amlodipine 10 mg tablet 1 tab PO BEDTIME 08/07/21 08/07/21 08/06/21 History aspirin 81 mg tablet,delayed 1 tab PO BEDTIME 08/07/21 08/07/21 08/06/21 History release atorvastatin 10 mg tablet 1 tab PO BEDTIME 08/07/21 08/07/21 08/06/21 History carbamazepine 200 mg tablet 1 tab PO BEDTIME 08/07/21 08/07/21 08/06/21 History cholecalciferol (vitamin D3) 25 1 cap PO QAM 08/07/21 08/07/21 08/06/21 History mcg (1,000 unit) capsule (Vitamin D3) clonazepam 1 mg tablet 1 tab PO BID 08/07/21 08/07/21 08/06/21 History doxepin 75 mg capsule 1 cap PO BEDTIME 08/07/21 08/07/21 08/06/21 History dulaglutide 1.5 mg/0.5 mL 1.5 mg SUBCUT MO 08/07/21 08/07/21 07/31/21 History subcutaneous pen injector (Trulicity) enalapril maleate 20 mg tablet 1 tab PO BID 08/07/21 08/07/21 08/06/21 History glipizide 10 mg tablet, extended 1 tab PO BID 08/07/21 08/07/21 08/06/21 History release 24 hr hydrochlorothiazide 25 mg tablet 1 tab PO DAILY 08/07/21 08/07/21 08/06/21 History lidocaine 5 % topical patch 1 patch TOPICAL DAILY 08/07/21 08/07/21 08/06/21 His tory (Lidoderm) metformin 1,000 mg tablet 1 tab PO BID 08/07/21 08/07/21 08/06/21 History metoprolol succinate 25 mg 1 tab PO BID 08/07/21 08/07/21 08/06/21 History tablet,extended release 24 hr omeprazole 20 mg capsule,delayed 1 cap PO BID 08/07/21 08/07/21 08/06/21 History release pregabalin 150 mg capsule 1 cap PO BID 08/07/21 08/07/21 08/06/21 History ropinirole 2 mg tablet 1 tab PO BEDTIME 08/07/21 08/07/21 08/06/21 History zolpidem 10 mg tablet 1 tab PO BEDTIME PRN 08/07/21 08/07/21 08/06/21 History Physical Exam Vital Signs and Narrative: Vital Signs: Last Vital Signs Temp 99.9 F 08/07/21 10:20 Pulse 83 08/07/21 14:41 Resp 15 08/07/21 14:41 BP 109/74 08/07/21 14:41 Pulse Ox 97 08/07/21 14:41 BMI result Body Mass Index 28.4 Gen: in no acute distress HEENT: sclera anicteric, moist mucus membranes Neck: supple Lungs: clear to auscultation bilaterally Heart: regular rate and rhythm, no murmurs Abd: soft, non-tender, non-distended Ext: no edema Skin: warm/well-perfused Neuro: alert and oriented x3, no focal findings Psych: somewhat restricted affect Results Labs CBC and Chem 7: 08/07/21 11:25 08/07/21 11:25 Labs: Laboratory Results WBC 10.1 X10*3/uL (4.8-10.8) 08/07/21 11:25 RBC 6.05 X10*6/uL (4.60-5.80) H 08/07/21 11:25 Hgb 17.7 g/dl (14.0-18.0) D 08/07/21 11:25 Hct 49.9 % (42.0-52.0) 08/07/21 11:25 MCV 82.5 fL (80.0-98.0) 08/07/21 11:25 MCH 29.3 pg (27.0-33.0) 08/07/21 11:25 MCHC 35.5 g/dl (31.0-36.0) 08/07/21 11:25 RDW 12.3 % (11.0-16.0) 08/07/21 11:25 Plt Count 195 X10*3/uL (160-400) 08/07/21 11:25 MPV 10.8 fL (9.4-12.4) 08/07/21 11:25 Immature Gran % (Auto) 0.4 % (0.0-0.4) 08/07/21 11:25 Neut % (Auto) 75.4 % (45-73) H 08/07/21 11:25 Lymph % (Auto) 15.5 % (20-40) L 08/07/21 11:25 [place] % (Auto) 6.5 % (2-11) 08/07/21 11:25 Eos % (Auto) 1.9 % (0-4) 08/07/21 11:25 Baso % (Auto) 0.3 % (0-2) 08/07/21 11:25 Lymph # (Auto) 1.6 X10*3/uL (1.2-4.9) 08/07/21 11:25 [place] # (Auto) 0.7 X10*3/uL (0.1-1.2) 08/07/21 11:25 Eos # (Auto) 0.2 X10*3/uL (0.0-0.4) 08/07/21 11:25 Baso # (Auto) 0.0 X10*3/uL (0.0-0.2) 08/07/21 11:25 Abs Immat Gran (auto) 0.04 X10*3/uL (0.00-0.03) H 08/07/21 11:25 Absolute Neuts (auto) 7.6 x10*3/uL (2.0-8.3) 08/07/21 11:25 Absolute Nucleated RBC 0.000 X10*3/uL (0.0-0.012) 08/07/21 11:25 Nucleated RBC % (auto) 0.0 /100WBC (0.0-0.2) 08/07/21 11:25 D-Dimer High Sensitivty 292 NG/ML 08/07/21 11:25 Sodium 132 mmol/L (135-145) L 08/07/21 11:25 Potassium 5.9 mmol/L (3.3-5.1) H D 08/07/21 11:25 Chloride 97 mmol/L (96-108) 08/07/21 11:25 Carbon Dioxide 25 mmol/L (22-29) 08/07/21 11:25 Anion Gap 16 (12-20) 08/07/21 11:25 BUN 29 mg/dL (9-16) H D 08/07/21 11:25 Creatinine 1.82 mg/dL (0.5-1.4) H 08/07/21 11:25 Estim Creat Clear Calc 56.7 08/07/21 11:25 Estimated GFR 39 08/07/21 11:25 POC Glucose 205 mg/dL (60-115) H 08/07/21 14:55 Random Glucose 427 mg/dL (60-115) H* 08/07/21 11:25 Estimat Average Glucose 209 mg/dL 08/07/21 11:25 Hemoglobin A1c % 8.9 % 08/07/21 11:25 Calcium 10.0 mg/dL (8.4-10.2) D 08/07/21 11:25 Troponin I High Sens 7.1 ng/L (<3.5-35.0) D 08/07/21 11:25 COVID-19 (JULIA) Negative (Negative) 08/07/21 14:40 COVID-19 Clin Com See Note 08/07/21 14:40 Impressions Chest X-Ray 08/07/21 10:52 IMPRESSION: No acute pulmonary finding. Pulmonary Perfusion Imaging 08/07/21 13:30 IMPRESSION: Normal radionuclide lung perfusion scan. Imaging Radiologist's Impressions: Impressions Chest X-Ray 08/07/21 10:52 IMPRESSION: No acute pulmonary finding. Pulmonary Perfusion Imaging 08/07/21 13:30 IMPRESSION: Normal radionuclide lung perfusion scan. Assessment and Plan (1) Acute kidney injury: Status: Acute Plan 51yo M with DM2, HTN, HLD, chronic pain/FM presenting with dyspnea, malaise, and palpitations and found to be hyperglycemic with SAAD. # SAAD - likely prerenal; check FENa - admit to M/S on observation and give IV hydration, hold HCTZ + enalapril, also hold metformin, recheck BMP in am # hyperK - no EKG changes. give SPS 15g x 1 dose and recheck BMP in am. d/c'ed enalapril # HTN - holding HCTZ + enalapril, continue amlodipine + metoprolol # HLD - continue statin # chronic pain/FM # mood disorder - continue carbamazepine, clonazepam, doxepin, lidocaine patch, pregabalin. zolpidem # VTE ppx - LMWH # code - full Quality Stroke Does the patient have a stroke diagnosis?: No VTE Prior VTE?: No VTE Risk Level:: Medical - moderate - high VTE Device Contraindication: N/A - Device Ordered VTE Drug Contraindication: N/A - Med Ordered
[2021-08-07 16:02] LABS: Thyroid Stimulating Hormone 1.34 uIU/mL (0.32-4.0)
[2021-08-07] MEDS: Enoxaparin Sodium 40 MG/0.4 ML SYRINGE SUBCUT (16:15)
[2021-08-07] MEDS: Sodium Polystyrene Sulfon/Sorb 15 GM/60 ML ORAL.SUSP PO (16:15)
[2021-08-07] MEDS: Omeprazole 20 MG CAPSULE.DR PO (16:15)
[2021-08-07] MEDS: 0.9 % Sodium Chloride 1,000 ML 100 ML IVCONT (16:16)
[2021-08-07 16:30] LABS: Venous Blood Gas Refer to POC result
[2021-08-07 16:30] LABS: VBG Base Excess -1.8 mmol/L; VBG HCO3 22 mmol/L (22-26); VBG pCO2 38 mmHg; VBG pH 7.38 (7.32-7.43); VBG pO2 82 mmHg
[2021-08-07 16:34] LABS: Acetone, serum QL Negative (Negative)
[2021-08-07 16:42] VITALS: BP 106/68; PULSE 85; RESP 18; TEMP 36.8; O2SAT 95
[2021-08-07 16:46] LABS: Troponin-I High Sensitivity 6.5 ng/L (<3.5-35.0)
--- NOTE | 2021-08-07 18:26 | MHC.CM.PN ---
CM met with pt admitted to observation with bed assignment pending. A&O x3. bilingual interpreter present, however pt does speak Estonian well. [place] 08/07/2021. PCP at [facility], cannot remember name of provider. Declines HCP at this time. Fully vax x2 with Moderna and Boosted with Pfizer. Pt lives alone. Uses a cane, walker and diabetic testing supplies. No services. D/C plan is home without services. Pt to arrange transportation home. CM to follow for d/c needs.
[2021-08-07 18:48] LABS: Glucose, Whole Blood 253 mg/dL (60-115)
[2021-08-07] MEDS: Insulin Lispro 100 UNIT/ML 3 ML VIAL SUBCUT ×2 (18:55→22:12)
[2021-08-07 20:39] LABS: Glucose, Whole Blood 385 mg/dL (60-115)
[2021-08-07 20:42] VITALS: BP 118/75; PULSE 90; RESP 16; TEMP 36.9; O2SAT 98
[2021-08-07] MEDS: Amitriptyline HCl 50 MG TABLET 150 MG PO (21:33)
[2021-08-07] MEDS: clonazePAM 1 MG TABLET PO (21:34)
[2021-08-07] MEDS: Atorvastatin Calcium 10 MG TABLET PO (21:34)
[2021-08-07] MEDS: carBAMazepine 200 MG TABLET PO (21:34)
[2021-08-07] MEDS: amLODIPine Besylate 10 MG TABLET PO (21:34)
[2021-08-07] MEDS: Aspirin Enteric Coated 81 MG TABLET.DR PO (21:34)
[2021-08-07] MEDS: Doxepin HCl 25 MG CAPSULE 75 MG PO (21:36)
[2021-08-07] MEDS: rOPINIRole HCL 2 MG TABLET PO (21:37)
[2021-08-07] MEDS: Pregabalin 150 MG CAPSULE PO (21:37)
[2021-08-07] MEDS: Metoprolol Succinate ER 25 MG TAB.ER.24H PO (21:37)
[2021-08-07] MEDS: 0.9 % Sodium Chloride Flush 3 ML SYRINGE IVFLUSH (21:38)
--- NOTE | 2021-08-07 22:27 | PC.NURSE ---
Pt had a POC of 385. Dr was notified. MD ordered coverage per sliding scale. 10 units of insulin was given
[2021-08-08] MEDS: 0.9 % Sodium Chloride 1,000 ML 100 ML IVCONT (02:33)
[2021-08-08] MEDS: Omeprazole 20 MG CAPSULE.DR PO (06:23)
[2021-08-08 06:26] VITALS: BP 98/60; PULSE 71; RESP 16; O2SAT 97
--- NOTE | 2021-08-08 06:28 | PC.NURSE ---
This rn took over patient's care at 2300, patient is alert and oriented x3, no complaints of pain or discomfort at this time. L/s clear, abd soft. Patient aware of need for urine sample.
[2021-08-08 07:21] LABS: Anion Gap 11 (12-20); Blood Urea Nitrogen 22 mg/dL (9-16); Calcium 8.3 mg/dL (8.4-10.2); Carbon Dioxide 23 mmol/L (22-29); Chloride 107 mmol/L (96-108); Creatinine Clr Calc Pharmacy 89.8; Estimated Glomerular Filt Rate > 60; Glucose Random 239 mg/dL (60-115); Potassium 4.3 mmol/L (3.3-5.1); Sodium 137 mmol/L (135-145)
[2021-08-08 07:21] LABS: Glucose, Whole Blood 227 mg/dL (60-115)
[2021-08-08] MEDS: Pregabalin 150 MG CAPSULE PO (09:44)
[2021-08-08] MEDS: Metoprolol Succinate ER 25 MG TAB.ER.24H PO (09:44)
[2021-08-08] MEDS: clonazePAM 1 MG TABLET PO (09:44)
[2021-08-08] MEDS: Insulin Lispro 100 UNIT/ML 3 ML VIAL SUBCUT (09:45)
[2021-08-08] MEDS: Cholecalciferol (Vitamin D3) 25 MCG TABLET PO (09:45)
--- NOTE | 2021-08-08 09:47 | P.DS_ITS ---
DS: Providers Provider Date of Service: 08/08/21 Date of admission: 08/07/21 15:15 Date of discharge: 08/08/21 Primary care physician: [facility] DS: Diagnosis Discharge Diagnosis (1) Acute kidney injury: Status: Acute (2) Acute hyperglycemia: Status: Acute (3) Hyperkalemia: Status: Acute DS: Summary Hospital Course Hospital Course: from my admission history and physical, 08/07/21: 51yo M with DM2, HTN, HLD, and chronic pain/fibromyalgia presents to [facility] ED with 4-5 days of dyspnea and generalized weakness/malaise along with chest palpitations.? No fever.? No cough or wheezing.? No chest pain.? No lightheaddness. ? No nausea, vomiting, abdominal pain or diarrhea.? He has not been adherent with his medications for the last few days due to depression and anxiety.? He denies SI/HI/AH/VH.? Denies smoking, drinking, or substance abuse.? He doesn't check his blood glucose.? In the ED, vital signs were normal, but SCr was elevated to 1.82 from baseline of 1.? Potassium was elevated at 5.9.? BG 427.? ? Initial hs-Tn-I indeterminate at 7.9.? EKG showed NSR with old inferior Q waves.? D-dimer 292; V/Q negative.? He was given 10 units of IV regular insulin and 1L of normal saline IV.? He is now eating lunch without any abdominal pain or N/V. He was admitted to the hospitalist service on observation and given IV fluid hydration. HCTZ and enalapril were held. Creatinine and potassium normalized. He was discharged home with instructions to stop HCTZ and enalapril, recheck BMP in 1 week, and see his primary care doctor in 1-2 weeks. Symptoms of weakness, dyspnea, and palpitations resolved. Time Spent with Patient Time attestation: Total time spent providing and/or coordinating discharge services: Discharge coordination time: Less than 30 minutes Quality: Safe Use of Opioids Does Pt have an Active Cancer Diagnosis on the Problem List?: No Quality: Stroke Does the patient have a stroke diagnosis?: No Physical Exam Vital Signs: Vital Signs: Last Vital Signs Temp 98.5 F 08/07/21 20:42 Pulse 71 08/08/21 06:26 Resp 16 08/08/21 06:26 BP 98/60 08/08/21 06:26 Pulse Ox 97 08/08/21 06:26 BMI result Body Mass Index 28.4 Gen: in no acute distress HEENT: sclera anicteric, moist mucus membranes Neck: supple Lungs: clear to auscultation bilaterally Heart: regular rate and rhythm, no murmurs Abd: soft, non-tender, non-distended Ext: no edema Skin: warm/well-perfused Neuro: alert and oriented x3, no focal findings Psych: appropriate affect DS: Data Data Completed and Pending Completed studies during hospitalization [Text1]: Laboratory Results WBC 10.1 X10*3/uL (4.8-10.8) 08/07/21 11:25 RBC 6.05 X10*6/uL (4.60-5.80) H 08/07/21 11:25 Hgb 17.7 g/dl (14.0-18.0) D 08/07/21 11:25 Hct 49.9 % (42.0-52.0) 08/07/21 11:25 MCV 82.5 fL (80.0-98.0) 08/07/21 11:25 MCH 29.3 pg (27.0-33.0) 08/07/21 11:25 MCHC 35.5 g/dl (31.0-36.0) 08/07/21 11:25 RDW 12.3 % (11.0-16.0) 08/07/21 11:25 Plt Count 195 X10*3/uL (160-400) 08/07/21 11:25 MPV 10.8 fL (9.4-12.4) 08/07/21 11:25 Immature Gran % (Auto) 0.4 % (0.0-0.4) 08/07/21 11:25 Neut % (Auto) 75.4 % (45-73) H 08/07/21 11:25 Lymph % (Auto) 15.5 % (20-40) L 08/07/21 11:25 [place] % (Auto) 6.5 % (2-11) 08/07/21 11:25 Eos % (Auto) 1.9 % (0-4) 08/07/21 11:25 Baso % (Auto) 0.3 % (0-2) 08/07/21 11:25 Lymph # (Auto) 1.6 X10*3/uL (1.2-4.9) 08/07/21 11:25 [place] # (Auto) 0.7 X10*3/uL (0.1-1.2) 08/07/21 11:25 Eos # (Auto) 0.2 X10*3/uL (0.0-0.4) 08/07/21 11:25 Baso # (Auto) 0.0 X10*3/uL (0.0-0.2) 08/07/21 11:25 Abs Immat Gran (auto) 0.04 X10*3/uL (0.00-0.03) H 08/07/21 11:25 Absolute Neuts (auto) 7.6 x10*3/uL (2.0-8.3) 08/07/21 11:25 Absolute Nucleated RBC 0.000 X10*3/uL (0.0-0.012) 08/07/21 11:25 Nucleated RBC % (auto) 0.0 /100WBC (0.0-0.2) 08/07/21 11:25 D-Dimer High Sensitivty 292 NG/ML 08/07/21 11:25 VBG pH 7.38 (7.32-7.43) 08/07/21 16:24 VBG pCO2 38 mmHg 08/07/21 16:24 VBG pO2 82 mmHg 08/07/21 16:24 VBG HCO3 22 mmol/L (22-26) 08/07/21 16:24 VBG O2 Saturation 95.0 % 08/07/21 16:24 VBG Base Excess -1.8 mmol/L 08/07/21 16:24 Sodium 137 mmol/L (135-145) 08/08/21 06:36 Potassium 4.3 mmol/L (3.3-5.1) D 08/08/21 06:36 Chloride 107 mmol/L (96-108) 08/08/21 06:36 Carbon Dioxide 23 mmol/L (22-29) 08/08/21 06:36 Anion Gap 11 (12-20) L 08/08/21 06:36 BUN 22 mg/dL (9-16) H 08/08/21 06:36 Creatinine 1.15 mg/dL (0.5-1.4) 08/08/21 06:36 Estim Creat Clear Calc 89.8 08/08/21 06:36 Estimated GFR > 60 08/08/21 06:36 POC Glucose 227 mg/dL (60-115) H 08/08/21 07:16 Random Glucose 239 mg/dL (60-115) H D 08/08/21 06:36 Estimat Average Glucose 209 mg/dL 08/07/21 11:25 Hemoglobin A1c % 8.9 % 08/07/21 11:25 Calcium 8.3 mg/dL (8.4-10.2) L D 08/08/21 06:36 Troponin I High Sens 6.5 ng/L (<3.5-35.0) 08/07/21 16:22 TSH 1.34 uIU/mL (0.32-4.0) 08/07/21 11:25 Acetone, Qual Negative (Negative) 08/07/21 16:22 COVID-19 (JULIA) Negative (Negative) 08/07/21 14:40 COVID-19 Clin Com See Note 08/07/21 14:40 Impressions Chest X-Ray 08/07/21 10:52 IMPRESSION: No acute pulmonary finding. Pulmonary Perfusion Imaging 08/07/21 13:30 IMPRESSION: Normal radionuclide lung perfusion scan. Discharge Plan Discharge Patient Disposition: Home, Self-Care Discharge Diagnosis: acute kidney injury due to dehydration Referrals: [facility] [Primary Care Provider] - 1 Week Discharge Medications: Continued atorvastatin 10 mg tablet 1 tab PO BEDTIME 0RF amitriptyline 150 mg tablet 1 tab PO BEDTIME 0RF glipizide 10 mg tablet extended release 24hr 1 tab PO BID 0RF doxepin 75 mg capsule 1 cap PO BEDTIME 0RF clonazepam 1 mg tablet 1 tab PO BID 0RF aspirin 81 mg tablet,delayed release (DR/EC) 1 tab PO BEDTIME 0RF carbamazepine 200 mg tablet 1 tab PO BEDTIME 0RF amlodipine 10 mg tablet 1 tab PO BEDTIME 0RF ropinirole 2 mg tablet 1 tab PO BEDTIME 0RF metformin 1,000 mg tablet 1 tab PO BID 0RF lidocaine [Lidoderm] 5 % adhesive patch,medicated 1 patch topical DAILY 0RF omeprazole 20 mg capsule,delayed release(DR/EC) 1 cap PO BID 0RF metoprolol succinate 25 mg tablet extended release 24 hr 1 tab PO BID 0RF zolpidem 10 mg tablet 1 tab PO BEDTIME PRN (Reason: Insomnia) 0RF cholecalciferol (vitamin D3) [Vitamin D3] 25 mcg (1,000 unit) capsule 1 cap PO QAM 0RF pregabalin 150 mg capsule 1 cap PO BID 0RF Trulicity 1.5 mg/0.5 mL pen injector 1.5 mg subcut MO 0RF Discontinued enalapril maleate 20 mg tablet 1 tab PO BID 0RF hydrochlorothiazide 25 mg tablet 1 tab PO DAILY 0RF Discharge Orders: Discharge Order (Routine); Ordered 08/08/21 Ordered By: Isabela Bragg Diet: diabetic diet and low salt diet Activity on Discharge: As tolerated Stand Alone Forms: Patient Portal Discharge page Care Plan Goals: kidney health Health Concerns: acute kidney injury due to dehydration Plan of Treatment: Stop enalapril Stop hydrochlorothiazide Drink plenty of fluid [but avoid sugary drinks like soda or juice] Recheck labs [BMP, non-fasting] in 1 week See your primary care doctor in 1-2 weeks Assessment: See Discharge Summary Patient Instructions: Acute Kidney Injury (DC)
[2021-08-08 10:35] LABS: Appearance Urine CLEAR; Color Urine YELLOW; Glucose Urine UA >=1000 MG/DL (NEG); Leukocyte Esterase Urine NEG (NEG); Nitrite Urine NEG (NEG); Specific Gravity - Urine >= 1.030 (1.005-1.025); Urine Blood NEG (NEG); Urine Ketones NEG (NEG); Urine Protein NEG (NEG-TRACE)
--- NOTE | 2021-08-08 10:37 | MHC.CM.PN ---
PT WILL DC HOME TODAY WITH NO SERVICES FAMILY TO TRANSPORT
[2021-08-08 10:44] LABS: Amphetamine Screen Urine Not Detected (Not Detect); Barbiturates, Urine Not Detected (Not Detect); Benzodiazepines Screen Urine Not Detected (Not Detect); Cannabinoid Screen Urine Not Detected (Not Detect); Cocaine Screen Urine POSITIVE (Not Detect); Fentanyl, urine Not Detected (Not Detect); Opiate Screen Urine Not Detected (Not Detect); Phencyclidine Screen Urine Not Detected (Not Detect)
[2021-08-08 10:51] LABS: Bacteria Urine TRACE /LPF; RBC Urine 0 /HPF (0); Squamous Epithelial Cell Urine TRACE /LPF
--- NOTE | 2021-08-08 11:16 | PC.NURSE ---
Pt is A&Ox4, no complaints of pain, good PO intake and good output. Pt is independant around the unit. Plan for DC once orders are in. Call rosenberg within reach, will continue to monitor.
[2021-08-08 12:39] LABS: Creatinine Urine 117.87 mg/dL
== END 2021-08-08 11:22 | disposition home or self-care (01) ==
LOC: HO.ED 14:46 → HO.EDOVER 15:26
PROVIDERS: Admitting Provider Family Medicine; Emergency Provider Emergency Medicine; Visit Provider Family Medicine
DX: N17.9 Acute kidney failure, unspecified (principal); E86.0 Dehydration; E11.65 Type 2 diabetes mellitus with hyperglycemia; E87.5 Hyperkalemia; I10 Essential (primary) hypertension; E78.5 Hyperlipidemia, unspecified; G89.29 Other chronic pain; M79.7 Fibromyalgia; R06.00 Dyspnea, unspecified; R53.1 Weakness; R53.81 Other malaise; R00.2 Palpitations; R94.31 Abnormal electrocardiogram [ECG] [EKG]; F41.8 Other specified anxiety disorders; Z20.822 Contact with and (suspected) exposure to COVID-19; Z90.79 Acquired absence of other genital organ(s); Z91.14 Patient's other noncompliance with medication regimen; Z79.84 Long term (current) use of oral hypoglycemic drugs; Z79.899 Other long term (current) drug therapy
CPT/HCPCS: 36415; 71045; 78580; 80048; 80307; 81001; 82009; 82803; 82947; 83036; 84300; 84443; 84484; 85025; 85379; 87635; 93005; 96361; 96372; 96374; 96375; 99218; 99285; A9540; J1650

== ENCOUNTER 2021-12-13 11:42 | Outpatient (REF) | payer MEDICAID, SELFPAY ==
--- NOTE | ~2021-12-13 | XR_ITS ---
EXAMINATION: RIGHT KNEE LEFT KNEE CLINICAL INFORMATION: Pain COMPARISON: None TECHNIQUE: 2 views right knee 2 views left knee FINDINGS: Right knee: No acute fracture, subluxation or suspicious focal lesion. The joint spaces appear preserved. The articular surfaces appear smooth. No opaque loose body or significant joint fluid. No significant osteophytes Left knee: There is no acute fracture, subluxation or suspicious focal lesion. The joint spaces are preserved. The articular surfaces appear smooth. There is no opaque loose body or joint fluid. No significant osteophytes or erosions. XR/XR knee RT 2V IMPRESSION: No etiology for pain demonstrated.
--- NOTE | ~2021-12-13 | XR_ITS ---
EXAMINATION: RIGHT KNEE LEFT KNEE CLINICAL INFORMATION: Pain COMPARISON: None TECHNIQUE: 2 views right knee 2 views left knee FINDINGS: Right knee: No acute fracture, subluxation or suspicious focal lesion. The joint spaces appear preserved. The articular surfaces appear smooth. No opaque loose body or significant joint fluid. No significant osteophytes Left knee: There is no acute fracture, subluxation or suspicious focal lesion. The joint spaces are preserved. The articular surfaces appear smooth. There is no opaque loose body or joint fluid. No significant osteophytes or erosions. XR/XR knee LT 2V IMPRESSION: No etiology for pain demonstrated.
== END 2021-12-13 11:43 | disposition home or self-care (01) ==
LOC: HO.XRAY 11:42
PROVIDERS: PCP Nurse Practitioner Primary Care; Visit Provider Hospitalist
DX: M25.561 Pain in right knee (principal); M25.562 Pain in left knee
CPT/HCPCS: 73560

== ENCOUNTER 2021-12-20 12:27 | Emergency (ER) | payer MEDICAID, SELFPAY ==
--- NOTE | ~2021-12-20 | CT_ITS ---
EXAMINATION: CT HEAD WITHOUT CONTRAST CLINICAL INFORMATION: Hypertension, severe headache COMPARISON: None TECHNIQUE: Contiguous axial imaging was performed from the skull base to vertex without intravenous administration of contrast. This CT examination was performed using dose optimization techniques as appropriate, variously including the following: *Automated exposure control *Adjustment of mA and/or kV according to patient size (this includes techniques or standardized protocols for targeted exams where dose is matched to indication/reason for exam; i.e. extremities or head) *Use of iterative reconstruction technique DLP: 707 mGy-cm FINDINGS: There is no evidence of acute intracranial hemorrhage or territorial infarction. No abnormal mass effect or midline shift is seen. Hernandez to white matter differentiation is well preserved. No extra-axial fluid collections are identified. The ventricles are normal in size. There is no abnormal attenuation within the brain parenchyma. The osseous structures and soft tissues are normal. The mastoid air cells and visualized portions of the paranasal sinuses are well aerated. CT/CT head/brain wo con IMPRESSION: No acute intracranial pathology.
[2021-12-20 13:15] VITALS: BP 187/103; PULSE 100; RESP 16; TEMP 36.6; O2SAT 97; BMI 28.4
--- NOTE | 2021-12-20 18:01 | ECG_ITS ---
Test Reason : HTN Blood Pressure : / mmHG Vent. 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
[2021-12-20 18:02] VITALS: BP 167/99; PULSE 95; RESP 16; O2SAT 98
--- NOTE | 2021-12-20 18:21 | ED_ITS ---
HPI - Headache General Chief Complaint: Headache Stated Complaint: migraines/L side of face tingling Time Seen by Provider: 12/20/21 18:01 Source: patient Mode of arrival: ambulatory Limitations: no limitations History of Present Illness HPI Narrative: Patient comes to the emergency room complaining of 2 weeks of right-sided headache. Patient states that he has history of migraine headaches. Patient takes carbamazepine and amitriptyline. Patient states that he has also tried [id number] medications with no relief. Patient denies chest pain or shortness of breath, no visual changes. Related Data Home Medications Medication Instructions Recorded Confirmed amitriptyline 150 mg tablet 1 tab PO BEDTIME 08/07/21 08/07/21 amlodipine 10 mg tablet 1 tab PO BEDTIME 08/07/21 08/07/21 aspirin 81 mg tablet,delayed 1 tab PO BEDTIME 08/07/21 08/07/21 release atorvastatin 10 mg tablet 1 tab PO BEDTIME 08/07/21 08/07/21 carbamazepine 200 mg tablet 1 tab PO BEDTIME 08/07/21 08/07/21 cholecalciferol (vitamin D3) 25 1 cap PO QAM 08/07/21 08/07/21 mcg (1,000 unit) capsule (Vitamin D3) clonazepam 1 mg tablet 1 tab PO BID 08/07/21 08/07/21 doxepin 75 mg capsule 1 cap PO BEDTIME 08/07/21 08/07/21 dulaglutide 1.5 mg/0.5 mL 1.5 mg subcut MO 08/07/21 08/07/21 subcutaneous pen injector (Trulicity) glipizide 10 mg tablet, extended 1 tab PO BID 08/07/21 08/07/21 release 24 hr lidocaine 5 % topical patch 1 patch topical DAILY 08/07/21 08/07/21 (Lidoderm) metformin 1,000 mg tablet 1 tab PO BID 08/07/21 08/07/21 metoprolol succinate 25 mg 1 tab PO BID 08/07/21 08/07/21 tablet,extended release 24 hr omeprazole 20 mg capsule,delayed 1 cap PO BID 08/07/21 08/07/21 release pregabalin 150 mg capsule 1 cap PO BID 08/07/21 08/07/21 ropinirole 2 mg tablet 1 tab PO BEDTIME 08/07/21 08/07/21 zolpidem 10 mg tablet 1 tab PO BEDTIME PRN Insomnia 08/07/21 08/07/21 Previous Rx's Medication Instructions Recorded sumatriptan succinate 50 mg tablet See Rx Instructions PO .COMPLEX 12/20/21 #10 tabs Allergies Allergy/AdvReac Type Severity Reaction Status Date / Time No Known Allergies Allergy Verified 03/23/21 12:10 [No Known Allergies*] Review of Systems Review of Systems: Constitutional : No Weight loss, No Fever, No Chills, No Night Sweats, No Fatigue, No Malaise ENT/Mouth : No Hearing loss, No Ear Pain, No Nasal Congestion, No Sinus Pain, No Hoarseness, No sore throat, No Rhinorrhea, No Swallowing Difficulty Eyes: No Eye Pain, No Swelling, No Redness, No Foreign Body, No Discharge, No Vision Changes, complaining of photophobia Cardiovascular : No Chest Pain, No SOB, No Dyspnea on Exertion, No Orthopnea, No Edema, No Palpitations Respiratory : No Cough, No Sputum, No Wheezing, No Smoke Exposure, No Dyspnea Gastrointestinal : No Nausea, No Vomiting, No Diarrhea, No Constipation, No abdominal Pain, No Hematochezia, No Melena Genitourinary : no irregular bleeding, No Dysuria, No Urinary Frequency, No He maturia, No Urinary Incontinence, No Urgency, No Flank Pain, No Urinary Flow Changes, No Hesitancy Musculoskeletal : No joint pain, No Myalgias, No Joint Swelling Skin : No Skin Lesions, No rash Neuro : No Weakness, No Numbness, No Paresthesias, No Loss of Consciousness, No Dizziness, complaining of a right-sided headache for 2 days, no visual changes Psych : No Anxiety/Panic, No Depression, No SI/HI/AH/VH, No Social Issues, Heme/Lymph: No Bruising, No Bleeding,No Lymphadenopathy Endocrine : No Polyuria, No Polydipsia, No Temperature Intolerance [facility] Past Medical History Medical History Chronic pain Diabetes mellitus, type 2 Fibromyalgia History of testicular cancer Hypertension Surgical History History of orchiectomy Social History Social History Alcohol intake: former Patient Tobacco Use Status: Former Tobacco user Use of substances other than those prescribed or required for medical reasons: No Advance Directives: No Advance Directives Information Provided: Yes service: No Current occupational status: disabled Physical Exam Vital Signs: Vital Signs: Last Vital Signs Temp 98.1 F 12/20/21 18:27 Pulse 89 12/20/21 18:27 Resp 20 12/20/21 18:27 BP 145/92 H 12/20/21 18:27 Pulse Ox 96 12/20/21 18:27 O2 Del Method 12/20/21 18:27 BMI result Body Mass Index 28.4 Const: Other: Appearance: Alert. Oriented X3. No acute distress. Eyes: Pupils equal, round and reactive to light. ENT: Pharynx normal. Neck: Normal inspection. Neck supple. No lymph nodes noted. No crepitus CVS: Normal heart rate and rhythm. Pulses normal. Normal S1 and S2 Respiratory: No respiratory distress. Breath sounds normal. No Wheezing. No rales Abdomen: Soft and nontender. No rigidity. No distention. Skin: Skin warm and dry. Normal skin color. Normal skin turgor. Extremities: No lower extremity edema. No Lacerations. No Rash Neuro: Oriented X 3. No motor deficit. No sensory deficit. Moving all extremities. No slurred speech. CN 2 through 12 grossly intact Psych: calm, cooperative, normal affect Course Course Course Narrative: Head CT pending. Patient states that occasionally he has blurry vision usually when his blood sugar is high. We will go ahead and order a point of care. Patient getting IV fluids, IV Reglan, Toradol and Benadryl. 20:25, patient states that he feels much better, still has a little bit of a headache but feels ready to home. Patient given 1 dose of p.o. sumatriptan. Patient states in the past it has helped him. Head CT negative Blood pressure 145/92, blood pressure decreased once the headache improved MDM - Headache Lab Data Labs: Lab Results 12/20/21 Range/Units 18:39 POC Glucose 202 H (60-115) mg/dL Imaging Data CT scan - head: Radiologist's impression: FINDINGS: There is no evidence of acute intracranial hemorrhage or territorial infarction. No abnormal mass effect or midline shift is seen. Hernandez to white matter differentiation is well preserved. No extra-axial fluid collections are identified. The ventricles are normal in size. There is no abnormal attenuation within the brain parenchyma. The osseous structures and soft tissues are normal. The mastoid air cells and visualized portions of the paranasal sinuses are well aerated. ? CT/CT head/brain wo con IMPRESSION: No acute intracranial pathology. Discharge Plan Discharge Clinical Impression: Migraine Patient Disposition: Home, Self-Care Instructions: Migraine Headache (ED) Additional Instructions: Please follow-up with your primary care physician tomorrow. If you have any worsening or new symptoms, please return to the emergency room or call 911 Prescriptions: New sumatriptan succinate 50 mg tablet See Rx Instructions .ROUTE .COMPLEX Qty: 10 0RF Rx Instructions: take 1 tab at onset of headache; if no relief may repeat 1 tab after at least 2 hrs; max = 4 tabs/24 hr No Action atorvastatin 10 mg tablet 1 tab PO BEDTIME amitriptyline 150 mg tablet 1 tab PO BEDTIME glipizide 10 mg tablet extended release 24hr 1 tab PO BID doxepin 75 mg capsule 1 cap PO BEDTIME clonazepam 1 mg tablet 1 tab PO BID aspirin 81 mg tablet,delayed release (DR/EC) 1 tab PO BEDTIME carbamazepine 200 mg tablet 1 tab PO BEDTIME amlodipine 10 mg tablet 1 tab PO BEDTIME ropinirole 2 mg tablet 1 tab PO BEDTIME metformin 1,000 mg tablet 1 tab PO BID lidocaine [Lidoderm] 5 % adhesive patch,medicated 1 patch topical DAILY omeprazole 20 mg capsule,delayed release(DR/EC) 1 cap PO BID metoprolol succinate 25 mg tablet extended release 24 hr 1 tab PO BID zolpidem 10 mg tablet 1 tab PO BEDTIME PRN (Reason: Insomnia) cholecalciferol (vitamin D3) [Vitamin D3] 25 mcg (1,000 unit) capsule 1 cap PO QAM pregabalin 150 mg capsule 1 cap PO BID Trulicity 1.5 mg/0.5 mL pen injector 1.5 mg subcut MO
[2021-12-20 18:27] VITALS: BP 145/92; PULSE 89; RESP 20; TEMP 36.7; O2SAT 96
[2021-12-20 18:42] LABS: Glucose, Whole Blood 202 mg/dL (60-115)
[2021-12-20] MEDS: Ketorolac Tromethamine 30 MG/ML VIAL IVPUSH (19:17)
[2021-12-20] MEDS: Metoclopramide HCl 10 MG/2 ML VIAL IVPUSH (19:17)
[2021-12-20] MEDS: diphenhydrAMINE HCL 50 MG/ML VIAL 25 MG IVPUSH (19:18)
[2021-12-20] MEDS: 0.9 % Sodium Chloride 1,000 ML 999 ML IVCONT (19:18)
[2021-12-20 20:57] VITALS: BP 140/89; PULSE 83; RESP 16; TEMP 531.8; TEMP 989.3; O2SAT 98
== END 2021-12-20 20:59 | disposition home or self-care (01) ==
PROVIDERS: Emergency Provider Emergency Medicine; PCP Nurse Practitioner Primary Care
DX: G43.909 Migraine, unspecified, not intractable, without status migrainosus (principal); E11.9 Type 2 diabetes mellitus without complications; I10 Essential (primary) hypertension; E78.5 Hyperlipidemia, unspecified; Z79.82 Long term (current) use of aspirin; Z79.02 Long term (current) use of antithrombotics/antiplatelets; Z79.899 Other long term (current) drug therapy; Z79.84 Long term (current) use of oral hypoglycemic drugs; Z87.891 Personal history of nicotine dependence
CPT/HCPCS: 70450; 82947; 93005; 96361; 96374; 96375; 99284; 99285; J1200; J1885; J2765

== ENCOUNTER → 2022-02-01 11:24 | Outpatient (BNVA) | payer MEDICAID, SELFPAY | PROVIDERS: PCP Nurse Practitioner Primary Care; Visit Provider Internal Medicine Gastroenterology | DX: R13.14 Dysphagia, pharyngoesophageal phase (principal); Z86.010 Personal history of colon polyps; Z86.19 Personal history of other infectious and parasitic diseases | CPT/HCPCS: 99212 ==

== ENCOUNTER 2022-10-09 08:06 | Emergency (ER) | payer MEDICAID, SELFPAY ==
[2022-10-09 08:08] VITALS: BP 154/96; PULSE 96; RESP 18; TEMP 37; O2SAT 94; BMI 27.1
--- NOTE | 2022-10-09 09:13 | ED.BACK ---
HPI - Back Pain/Injury General Chief Complaint: Back Pain/Injury Stated Complaint: Back pain rad to legs Time Seen by Provider: 10/09/22 09:08 Source: patient, RN notes reviewed and old records reviewed Mode of arrival: ambulatory History of Present Illness MD elicited complaint: back pain Related Data Home Medications Medication Instructions Recorded Confirmed amitriptyline 150 mg tablet 1 tab PO BEDTIME 08/07/21 02/01/22 amlodipine 10 mg tablet 1 tab PO BEDTIME 08/07/21 02/01/22 aspirin 81 mg tablet,delayed 1 tab PO BEDTIME 08/07/21 02/01/22 release atorvastatin 10 mg tablet 1 tab PO BEDTIME 08/07/21 02/01/22 carbamazepine 200 mg tablet 1 tab PO BEDTIME 08/07/21 02/01/22 cholecalciferol (vitamin D3) 25 1 cap PO QAM 08/07/21 02/01/22 mcg (1,000 unit) capsule (Vitamin D3) clonazepam 1 mg tablet 1 tab PO BID 08/07/21 02/01/22 doxepin 75 mg capsule 1 cap PO BEDTIME 08/07/21 02/01/22 dulaglutide 1.5 mg/0.5 mL 1.5 mg subcut MO 08/07/21 02/01/22 subcutaneous pen injector (Trulicity) glipizide 10 mg tablet, extended 1 tab PO BID 08/07/21 02/01/22 release 24 hr lidocaine 5 % topical patch 1 patch topical DAILY 08/07/21 02/01/22 (Lidoderm) metformin 1,000 mg tablet 1 tab PO BID 08/07/21 02/01/22 metoprolol succinate 25 mg 1 tab PO BID 08/07/21 02/01/22 tablet,extended release 24 hr pregabalin 150 mg capsule 1 cap PO BID 08/07/21 02/01/22 ropinirole 2 mg tablet 1 tab PO BEDTIME 08/07/21 02/01/22 zolpidem 10 mg tablet 1 tab PO BEDTIME PRN Insomnia 08/07/21 02/01/22 Previous Rx's Medication Instructions Recorded sumatriptan succinate 50 mg tablet See Rx Instructions PO .COMPLEX 12/20/21 #10 tabs bisacodyl 5 mg tablet,delayed 10 mg PO ONCE 5 days #10 tabs 02/01/22 release (Dulcolax (bisacodyl)) polyethylene glycol 3350 17 17 g PO DAILY 1 day #238 grams 02/01/22 gram/dose oral powder (Miralax) omeprazole 20 mg capsule,delayed 20 mg PO BID #60 caps 05/31/22 release Allergies Allergy/AdvReac Type Severity Reaction Status Date / Time No Known Allergies Allergy Verified 10/09/22 08:13 [No Known Allergies*] Review of Systems Review of Systems: Constitutional: No Fever, No Chills ENT/Mouth: No Ear Pain, No Nasal Congestion, No sore throat, No Rhinorrhea, No Swallowing Difficulty Cardiovascular: No Chest Pain, No SOB Respiratory: No Cough, No Sputum, No Wheezing Gastrointestinal: No Nausea, No Vomiting, No Diarrhea, No Constipation, No Abdominal pain Genitourinary: No Dysuria, No Urinary Frequency, No Hematuria, No Urinary Incontinence/retention, No Urgency, No Flank Pain Musculoskeletal: + joint pain, No Myalgias, No Joint Swelling Skin: No Skin Lesions, No rash Neuro: No Weakness, No Numbness, + Paresthesias Yes all other systems are reviewed and are negative Constitutional: Constitutional: Reports as per [facility] Past Medical History Attestation statement: The following information was validated with the patient. Source: old records reviewed Medical History Chronic pain Diabetes mellitus, type 2 Fibromyalgia History of testicular cancer Hypertension Surgical History History of orchiectomy Social History Social History Alcohol intake: never Patient Tobacco Use Status: Former Tobacco user Smoked in Last 30 Days: No Use of substances other than those prescribed or required for medical reasons: No Advance Directives: No Advance Directives Information Provided: Yes service: No Current occupational status: disabled Physical Exam Vital Signs: Vital Signs: Last Vital Signs Temp 98.6 F 10/09/22 08:08 Pulse 96 10/09/22 08:08 Resp 18 10/09/22 08:08 BP 154/96 H 10/09/22 08:08 Pulse Ox 94 10/09/22 08:08 O2 Del Method Room Air 10/09/22 08:08 BMI result Body Mass Index 27.1 Const: General: cooperative, healthy appearing and no acute distress Orientation/consciousness: patient oriented x3 Limitations: no limitations HEENT: Head: Yes normal to inspection and Yes atraumatic Ears: hearing grossly normal bilaterally General nose exam: Normal external nose present Face and sinus: Yes normal facial exam Eyes: General: appearance normal, both eyes and all related structures EOM: EOMs intact bilaterally Neck: Neck: Yes normal visual inspection and Yes no meningeal signs Resp: Effort & Inspection: normal respiratory effort and no respiratory distress Auscultation: clear to auscultation bilaterally Cardio: Rate: regular rate Heart sounds: S1 normal heart sound present and S2 normal heart sound present GI: Inspection: Yes normal to inspection Palpation (GI): Soft to palpation, nontender, no guarding and not rigid : General: Yes no CVA tenderness Back/Spine/Pelvis: Back: no CVA tenderness Skin: Rashes: no rashes Wounds: no wounds Neuro: General: patient oriented x3, tone normal and no meningeal signs Gait exam (Neuro): Normal gait present Extrem: General: Yes normal to inspection Medical Decision Making Medical Decision Making MDM Narrative: Please refer to course for remaining clinical decision making, interpretation of labs/imaging results, and discussions with consultants and/or family members. Differential Diagnosis Differential Diagnoses: The differential diagnosis associated with the presentation includes As above Admission/Observation Consideration of admission/observation: Escalation of care including admission/observation considered Lab Data [facility] Lab Attestation statement: I reviewed the patient's lab results. Radiology Impression Discussion of test interpretation with radiology: I have reviewed the radiologist's reading. External Record Review External record reviewed: Inpatient record, Office record, Outpatient record, Prior outpatient labs, Prior outpatient radiology, Primary care record and Outside ED record Tests considered The following testing was considered but not selected: As above Discharge Plan Discharge Prescriptions: No Action omeprazole 20 mg capsule,delayed release(DR/EC) 20 mg PO BID Qty: 60 1RF atorvastatin 10 mg tablet 1 tab PO BEDTIME amitriptyline 150 mg tablet 1 tab PO BEDTIME glipizide 10 mg tablet extended release 24hr 1 tab PO BID doxepin 75 mg capsule 1 cap PO BEDTIME clonazepam 1 mg tablet 1 tab PO BID aspirin 81 mg tablet,delayed release (DR/EC) 1 tab PO BEDTIME carbamazepine 200 mg tablet 1 tab PO BEDTIME amlodipine 10 mg tablet 1 tab PO BEDTIME ropinirole 2 mg tablet 1 tab PO BEDTIME metformin 1,000 mg tablet 1 tab PO BID lidocaine [Lidoderm] 5 % adhesive patch,medicated 1 patch topical DAILY metoprolol succinate 25 mg tablet extended release 24 hr 1 tab PO BID zolpidem 10 mg tablet 1 tab PO BEDTIME PRN (Reason: Insomnia) cholecalciferol (vitamin D3) [Vitamin D3] 25 mcg (1,000 unit) capsule 1 cap PO QAM pregabalin 150 mg capsule 1 cap PO BID Trulicity 1.5 mg/0.5 mL pen injector 1.5 mg subcut MO sumatriptan succinate 50 mg tablet See Rx Instructions .ROUTE .COMPLEX Qty: 10 0RF Rx Instructions: take 1 tab at onset of headache; if no relief may repeat 1 tab after at least 2 hrs; max = 4 tabs/24 hr bisacodyl [Dulcolax (bisacodyl)] 5 mg tablet,delayed release (DR/EC) 10 mg PO ONCE 5 Days Qty: 10 0RF Rx Instructions: Take 2 tablets at 12 pm starting 5 days before colonoscopy polyethylene glycol 3350 [Miralax] 17 gram/dose powder 17 g PO DAILY 1 Days Qty: 238 0RF Rx Instructions: Mix Miralax with 64 oz(8 cups) of Crystal light. Take 2 tablets of Dulcolax qt 12 pm. Wait to have your 1st bowel movement, then begin drinking Miralax. Drink a glass of Miralax every 10-15 minutes until you are finished. You will drink at least another 4 cups of clear liquid of your choice over the next 2 hours. Please drink as many clear liquids as possible You may have clear liquids up to four hours before your procedure
--- NOTE | 2022-10-09 09:27 | PC.NURSE ---
Patient presents with 1 week of back pain that has been slowly getting worse; patient denies any trauma to the area, unsure what happened. Patient also complaining of a migraine that started this morning. Patient generally well appearing at this time sitting on stretcher calmly and cooperative at this time, able to move all extremities at this time.
--- NOTE | 2022-10-09 09:46 | ED_ITS ---
HPI - Back Pain/Injury General Chief Complaint: Back Pain/Injury Stated Complaint: Back pain rad to legs Time Seen by Provider: 10/09/22 09:08 Source: patient, RN notes reviewed and old records reviewed Mode of arrival: ambulatory Limitations: no limitations History of Present Illness HPI Narrative: 52 year old male with history significant for sciatica, migraines, HDL, & testicular cancer presenting to the ED with atraumatic bilateral lower back pain, greater on right with radiation down b/l LE x1 week. Reports history of sciatica 6-8 mo ago however states this feels worse. Able to ambulate without difficulty. Additionally complains of migraine treated with at-home meds carbamazapine, sumatriptan, and amytriptiline. Denies bowel/ bladder incontinence or retention, nausea, vomiting, fever, chills, groin paresthesias, LE numbness or weakness. Denies history of IVDU or spinal surgeries. no injury/fall MD elicited complaint: back pain Pertinent past history: other (sciatica) Onset (ago): week(s) (1) Timing: constant Severity: moderate Similar Symptoms Previously: Yes Location: lumbar spine and thoracic spine Radiation: left leg below the knee and right leg below the knee Exacerbating factors: movement Relieving factors: immobilization Related Data Home Medications Medication Instructions Recorded Confirmed amitriptyline 150 mg tablet 1 tab PO BEDTIME 08/07/21 02/01/22 amlodipine 10 mg tablet 1 tab PO BEDTIME 08/07/21 02/01/22 aspirin 81 mg tablet,delayed 1 tab PO BEDTIME 08/07/21 02/01/22 release atorvastatin 10 mg tablet 1 tab PO BEDTIME 08/07/21 02/01/22 carbamazepine 200 mg tablet 1 tab PO BEDTIME 08/07/21 02/01/22 cholecalciferol (vitamin D3) 25 1 cap PO QAM 08/07/21 02/01/22 mcg (1,000 unit) capsule (Vitamin D3) clonazepam 1 mg tablet 1 tab PO BID 08/07/21 02/01/22 doxepin 75 mg capsule 1 cap PO BEDTIME 08/07/21 02/01/22 dulaglutide 1.5 mg/0.5 mL 1.5 mg subcut MO 08/07/21 02/01/22 subcutaneous pen injector (Trulicity) glipizide 10 mg tablet, extended 1 tab PO BID 08/07/21 02/01/22 release 24 hr lidocaine 5 % topical patch 1 patch topical DAILY 08/07/21 02/01/22 (Lidoderm) metformin 1,000 mg tablet 1 tab PO BID 08/07/21 02/01/22 metoprolol succinate 25 mg 1 tab PO BID 08/07/21 02/01/22 tablet,extended release 24 hr pregabalin 150 mg capsule 1 cap PO BID 08/07/21 02/01/22 ropinirole 2 mg tablet 1 tab PO BEDTIME 08/07/21 02/01/22 zolpidem 10 mg tablet 1 tab PO BEDTIME PRN Insomnia 08/07/21 02/01/22 Previous Rx's Medication Instructions Recorded sumatriptan succinate 50 mg tablet See Rx Instructions PO .COMPLEX 12/20/21 #10 tabs bisacodyl 5 mg tablet,delayed 10 mg PO ONCE 5 days #10 tabs 02/01/22 release (Dulcolax (bisacodyl)) polyethylene glycol 3350 17 17 g PO DAILY 1 day #238 grams 02/01/22 gram/dose oral powder (Miralax) omeprazole 20 mg capsule,delayed 20 mg PO BID #60 caps 05/31/22 release acetaminophen 500 mg tablet 500 mg PO Q6H PRN fever or pain 10/09/22 (Tylenol Extra Strength) #14 tabs cyclobenzaprine 5 mg tablet 5 mg PO Q8H PRN pain (scale score 10/09/22 7-10) 5 days #14 tabs lidocaine 5 % topical patch 1 patch topical DAILY PRN pain #30 10/09/22 (Lidoderm) ea naproxen 500 mg tablet 500 mg PO BID PRN pain 10 days #20 10/09/22 tabs Allergies Allergy/AdvReac Type Severity Reaction Status Date / Time No Known Allergies Allergy Verified 10/09/22 08:13 [No Known Allergies*] Review of Systems Review of Systems: Constitutional: No Fever, No Chills ENT/Mouth: No Ear Pain, No Nasal Congestion, No Sinus Pain Cardiovascular: No Chest Pain, No SOB Respiratory: No Cough, No Sputum, No Wheezing Gastrointestinal: No Nausea, No Vomiting, No Diarrhea, No Constipation, No Abdominal pain Genitourinary: No Dysuria, No Urinary Frequency, No Hematuria, No Urinary Incontinence/retention, No Flank Pain Musculoskeletal: + back pain, + Myalgias, No Joint Swelling Skin: No Skin Lesions, No rash Neuro: No Weakness, No Numbness, No Paresthesias, + Headache Yes all other systems are reviewed and are negative Constitutional: Constitutional: Reports as per [facility] Past Medical History Attestation statement: The following information was validated with the patient. Source: old records reviewed Medical History Chronic pain Diabetes mellitus, type 2 Fibromyalgia History of testicular cancer Hypertension Surgical History History of orchiectomy Social History Social History Alcohol intake: never Patient Tobacco Use Status: Former Tobacco user Smoked in Last 30 Days: No Use of substances other than those prescribed or required for medical reasons: No Advance Directives: No Advance Directives Information Provided: Yes service: No Current occupational status: disabled Physical Exam Vital Signs: Vital Signs: Last Vital Signs Temp 98.6 F 10/09/22 08:08 Pulse 96 10/09/22 08:08 Resp 18 10/09/22 08:08 BP 154/96 H 10/09/22 08:08 Pulse Ox 94 10/09/22 08:08 O2 Del Method Room Air 10/09/22 08:08 BMI result Body Mass Index 27.1 VSS Const: General: cooperative, healthy appearing, no acute distress and alert Orientation/consciousness: patient oriented x3 Limitations: no limitations HEENT: Head: Yes normal to inspection and Yes atraumatic Ears: hearing grossly normal bilaterally General nose exam: Normal external nose present Face and sinus: Yes normal facial exam Eyes: General: appearance normal, both eyes and all related structures EOM: EOMs intact bilaterally Neck: Neck: Yes normal visual inspection and Yes no meningeal signs Resp: Effort & Inspection: normal respiratory effort and no respiratory distress Auscultation: clear to auscultation bilaterally Cardio: Rate: regular rate Heart sounds: S1 normal heart sound present and S2 normal heart sound present GI: Inspection: Yes normal to inspection Palpation (GI): Soft to palpation, nontender, no guarding and not rigid : General: Yes no CVA tenderness Back/Spine/Pelvis: Other: No midline cervical/thoracic/lumbar spinous tenderness/step-off or deformity. No erythema, ecchymosis, or deformity. +Right thoracic and lumbar paraspinal and msk tenderness. No CVA tenderness. Back: no CVA tenderness Thoracic/Lumbar Spine: thoracic and lumbar spine normal to inspection, paraspinal muscle tenderness on the right, No thoracic spinal tenderness and No lumbar spinal tenderness Skin: Rashes: no rashes Wounds: no wounds Neuro: Other: Strength intact throughout. No saddle anesthesia. Sensation intact to light touch. Neurovascular intact distally General: patient oriented x3, tone normal, moves all extremities, no meningeal signs and no focal motor deficits Gait exam (Neuro): Normal gait present Motor exam (neuro): 5/5 motor strength present throughout Extrem: General: Yes normal to inspection Psych: Appearance: grossly normal Mental Status: mental status grossly normal Speech and movement: Normal speech and movement present Affect: normal affect Attitude: cooperative Thought content: Normal thought content present Course Course Course Narrative: -[id number]--patient reports symptomatic improvement after medications given in the ED, sitting up in bed, requesting discharge Results discussed with patient including worrisome signs and symptoms and strict return precautions, and when to return to the emergency department. They verbalized understanding and feel safe for discharge at this time. Medications Administered Discontinued Medications Generic Name Dose Route Start Last Admin Trade Name Marcella PRN Reason Stop Dose Admin Cyclobenzaprine HCl 10 mg 10/09/22 09:49 10/09/22 10:37 Cyclobenzaprine Hcl 10 Mg Tablet PO 10/09/22 09:50 10 mg ONCE ONE Administration Ketorolac Tromethamine 30 mg 10/09/22 09:49 10/09/22 10:36 Ketorolac Tromethamine 30 Mg/Ml Vial IM 10/09/22 09:50 30 mg ONCE ONE Administration Lidocaine 1 patch 10/09/22 09:49 10/09/22 10:37 Lidocaine 4 % Patch Adh..Patch TRANSDERMA 10/09/22 09:50 1 patch ONCE ONE Administration Protocol Medical Decision Making Medical Decision Making MDM Narrative: 52 year old male with history significant for sciatica, migraines, HDL, & testicular cancer presenting to the ED with atraumatic bilateral lower back pain right more than left with radiation down b/l LE x1 week with previous episode 6- 8 mo ago, now worsening. On exam VSS, NAD, nontoxic appearing, PE as above, no midline midline spinous tenderness or red flag symptoms, ambulating with steady gait, reproducible pain. No focal neuro deficits. Concern for muscle strain vs sciatica & migraine headache. Low suspicion for cauda equina or spinal abscess, fracture cord compression, renal stone/pyelo, ICH/meningitis or encephalitis Plan: IM Toradol, p.o. Flexeril/Lidoderm patch, re-evaluate Please refer to course for remaining clinical decision making, interpretation of labs/imaging results, and discussions with consultants and/or family members. Differential Diagnosis Differential Diagnoses: The differential diagnosis associated with the presentation includes As above External Record Review External record reviewed: Inpatient record, Office record, Outpatient record, Prior outpatient labs, Prior outpatient radiology, Primary care record and Outside ED record Prescription Management I considered prescription management with: Pain Medication Discharge Plan Discharge Clinical Impression: Lumbar radiculopathy Patient Disposition: Home, Self-Care Instructions: Lumbar Radiculopathy (ED) Additional Instructions: Your pain is likely musculoskeletal Flexeril is a muscle relaxer, take at night as it makes you drowsy, do not drive, drink alcohol, or operate machinery while taking it Naproxen as an anti-inflammatory / pain medication, take with food Lidoderm patches are numbing patches, apply to painful area In addition take Tylenol at home If symptoms persist or worsen, pain becomes unbearable, you developed urinary retention or incontinence, or weakness return to the ED Prescriptions: New acetaminophen [Tylenol Extra Strength] 500 mg tablet 500 mg PO Q6H PRN (Reason: fever or pain) Qty: 14 0RF lidocaine [Lidoderm] 5 % adhesive patch,medicated 1 patch topical DAILY MDD remove after 12 hours PRN (Reason: pain) Qty: 30 0RF Rx Instructions: leave on most painful area for up to 12 hrs naproxen 500 mg tablet 500 mg PO BID PRN (Reason: pain) 10 Days Qty: 20 0RF cyclobenzaprine 5 mg tablet 5 mg PO Q8H PRN (Reason: pain (scale score 7-10)) 5 Days Qty: 14 0RF No Action omeprazole 20 mg capsule,delayed release(DR/EC) 20 mg PO BID Qty: 60 1RF atorvastatin 10 mg tablet 1 tab PO BEDTIME amitriptyline 150 mg tablet 1 tab PO BEDTIME glipizide 10 mg tablet extended release 24hr 1 tab PO BID doxepin 75 mg capsule 1 cap PO BEDTIME clonazepam 1 mg tablet 1 tab PO BID aspirin 81 mg tablet,delayed release (DR/EC) 1 tab PO BEDTIME carbamazepine 200 mg tablet 1 tab PO BEDTIME amlodipine 10 mg tablet 1 tab PO BEDTIME ropinirole 2 mg tablet 1 tab PO BEDTIME metformin 1,000 mg tablet 1 tab PO BID lidocaine [Lidoderm] 5 % adhesive patch,medicated 1 patch topical DAILY metoprolol succinate 25 mg tablet extended release 24 hr 1 tab PO BID zolpidem 10 mg tablet 1 tab PO BEDTIME PRN (Reason: Insomnia) cholecalciferol (vitamin D3) [Vitamin D3] 25 mcg (1,000 unit) capsule 1 cap PO QAM pregabalin 150 mg capsule 1 cap PO BID Trulicity 1.5 mg/0.5 mL pen injector 1.5 mg subcut MO sumatriptan succinate 50 mg tablet See Rx Instructions .ROUTE .COMPLEX Qty: 10 0RF Rx Instructions: take 1 tab at onset of headache; if no relief may repeat 1 tab after at least 2 hrs; max = 4 tabs/24 hr bisacodyl [Dulcolax (bisacodyl)] 5 mg tablet,delayed release (DR/EC) 10 mg PO ONCE 5 Days Qty: 10 0RF Rx Instructions: Take 2 tablets at 12 pm starting 5 days before colonoscopy polyethylene glycol 3350 [Miralax] 17 gram/dose powder 17 g PO DAILY 1 Days Qty: 238 0RF Rx Instructions: Mix Miralax with 64 oz(8 cups) of Crystal light. Take 2 tablets of Dulcolax qt 12 pm. Wait to have your 1st bowel movement, then begin drinking Miralax. Drink a glass of Miralax every 10-15 minutes until you are finished. You will drink at least another 4 cups of clear liquid of your choice over the next 2 hours. Please drink as many clear liquids as possible You may have clear liquids up to four hours before your procedure Referrals: Gemma Dennison, [employer] [Primary Care Provider] - 1 week
[2022-10-09] MEDS: Ketorolac Tromethamine 30 MG/ML VIAL IM (10:36)
[2022-10-09] MEDS: Cyclobenzaprine HCl 10 MG TABLET PO (10:37)
[2022-10-09] MEDS: Lidocaine 4 % Patch ADH..PATCH 1 PATCH TRANSDERMA (10:37)
== END 2022-10-09 11:05 | disposition home or self-care (01) ==
PROVIDERS: Emergency Provider Emergency Medicine; PCP Nurse Practitioner Primary Care
DX: M54.16 Radiculopathy, lumbar region (principal)
CPT/HCPCS: 96372; 99284; J1885

== ENCOUNTER 2022-11-20 10:01 | Emergency (ER) | payer MEDICAID, SELFPAY ==
--- NOTE | ~2022-11-20 | CT_ITS ---
EXAMINATION: CT HEAD WITHOUT CONTRAST CLINICAL INFORMATION: Frontal headache. New tremors. COMPARISON: 12/20/2021 TECHNIQUE: Contiguous axial imaging was performed from the skull base to vertex without intravenous contrast. This CT examination was performed using dose optimization techniques as appropriate, variously including the following: * Automated exposure control * Adjustment of mA and/or kV according to patient size (this includes techniques or standardized protocols for targeted exams where dose is matched to indication/reason for exam; i.e. extremities or head) Use of iterative reconstruction technique DLP: 684 mGy-cm. FINDINGS: There is no evidence of acute intracranial hemorrhage or territorial infarction. No abnormal mass effect or midline shift is seen. Hernandez to white matter differentiation is well preserved. No extra-axial fluid collections are identified. No hydrocephalus. No significant volume loss. There is no abnormal attenuation within the brain parenchyma. The osseous structures and soft tissues are normal. Mild opacification of the right maxillary sinus. The mastoid air cells and visualized portions of the paranasal sinuses are otherwise well aerated. CT/CT head/brain wo IV con IMPRESSION: No acute intracranial pathology.
[2022-11-20 10:19] VITALS: BP 152/89; PULSE 75; RESP 16; TEMP 36.1; O2SAT 99; BMI 27.5
[2022-11-20 10:36] LABS: MANUAL DIFF FLAG NO
[2022-11-20 10:40] LABS: Basophils Percent Auto 0.4 % (0-2); Eosinophils Absolute Auto 0.3 X10*3/uL (0.0-0.4); Eosinophils Percent Auto 4.1 % (0-4); Hematocrit 43.8 % (42.0-52.0); Hemoglobin 14.6 g/dl (14.0-18.0); Imm Gran Abs Auto 0.02 X10*3/uL (0.00-0.03); Imm Gran Pct Auto 0.2 % (0.0-0.4); Lymphocytes Absolute Auto 1.6 X10*3/uL (1.2-4.9); Lymphocytes Percent Auto 20.5 % (20-40); Mean Corpuscular HGB Conc 33.3 g/dl (31.0-36.0); Mean Corpuscular Hemoglobin 28.4 pg (27.0-33.0); Mean Corpuscular Volume 85.2 fL (80.0-98.0); Mean Platelet Volume 9.7 fL (9.4-12.4); Monocytes Absolute Auto 0.7 X10*3/uL (0.1-1.2); Monocytes Percent Auto 8.4 % (2-11); Neutrophils Absolute Auto 5.3 x10*3/uL (2.0-8.3); Neutrophils Percent Auto 66.4 % (45-73); Platelet Count 202 X10*3/uL (160-400); Red Blood Count 5.14 X10*6/uL (4.60-5.80); Red Cell Distribution Width 12.7 % (11.0-16.0)
[2022-11-20 10:54] LABS: Anion Gap 10 (12-20); Blood Urea Nitrogen 19 mg/dL (9-16); COVID-19 Test Negative (Negative); Calcium 8.8 mg/dL (8.4-10.2); Carbon Dioxide 30 mmol/L (22-29); Chloride 104 mmol/L (96-108); Creatinine Clr Calc Pharmacy 82.9; Estimated Glomerular Filt Rate > 60; Glucose Random 149 mg/dL (60-115); IDNOW Serial# 9DB6401D; Potassium 4.5 mmol/L (3.3-5.1); Sodium 139 mmol/L (135-145)
--- NOTE | 2022-11-20 14:12 | ED.HA ---
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 He states he has a prescription for migraine medication and has been taking it with some relief. He states he intermittently has some photophobia with his headache, is sharp in nature. It does not radiate. No neck pain. No fever or chills. He states he has intermittent shortness of breath for the last several years, no change from prior. He states he has ?whole body shakes.? He states involves his arms, legs, head and entire body. He denies history of baseline tremor. He denies any muscle pain. He states the tremors are constant but waxes and wane. States once in his legs are worse at night. There are causing him difficulty sleeping. MD elicited complaint: headache Pertinent past history: migraines Onset (ago): day(s) Onset description: gradually Location: frontal Severity: moderate Quality & Timing: sharp Exacerbating factors: light and noise Relieving factors: rest and prescription medication Context: occurred at rest Associated symptoms: photophobia and sensitivity to sound Treatments prior to arrival: none Related Data Home Medications Medication Instructions Recorded Confirmed amitriptyline 150 mg tablet 1 tab PO BEDTIME 08/07/21 02/01/22 amlodipine 10 mg tablet 1 tab PO BEDTIME 08/07/21 02/01/22 aspirin 81 mg tablet,delayed 1 tab PO BEDTIME 08/07/21 02/01/22 release atorvastatin 10 mg tablet 1 tab PO BEDTIME 08/07/21 02/01/22 carbamazepine 200 mg tablet 1 tab PO BEDTIME 08/07/21 02/01/22 cholecalciferol (vitamin D3) 25 1 cap PO QAM 08/07/21 02/01/22 mcg (1,000 unit) capsule (Vitamin D3) clonazepam 1 mg tablet 1 tab PO BID 08/07/21 02/01/22 doxepin 75 mg capsule 1 cap PO BEDTIME 08/07/21 02/01/22 dulaglutide 1.5 mg/0.5 mL 1.5 mg subcut MO 08/07/21 02/01/22 subcutaneous pen injector (Trulicity) glipizide 10 mg tablet, extended 1 tab PO BID 08/07/21 02/01/22 release 24 hr lidocaine 5 % topical patch 1 patch topical DAILY 08/07/21 02/01/22 (Lidoderm) metformin 1,000 mg tablet 1 tab PO BID 08/07/21 02/01/22 metoprolol succinate 25 mg 1 tab PO BID 08/07/21 02/01/22 tablet,extended release 24 hr pregabalin 150 mg capsule 1 cap PO BID 08/07/21 02/01/22 ropinirole 2 mg tablet 1 tab PO BEDTIME 08/07/21 02/01/22 zolpidem 10 mg tablet 1 tab PO BEDTIME PRN Insomnia 08/07/21 02/01/22 Previous Rx's Medication Instructions Recorded sumatriptan succinate 50 mg tablet See Rx Instructions PO .COMPLEX 12/20/21 #10 tabs bisacodyl 5 mg tablet,delayed 10 mg PO ONCE 5 days #10 tabs 02/01/22 release (Dulcolax (bisacodyl)) polyethylene glycol 3350 17 17 g PO DAILY 1 day #238 grams 02/01/22 gram/dose oral powder (Miralax) acetaminophen 500 mg tablet 500 mg PO Q6H PRN fever or pain 10/09/22 (Tylenol Extra Strength) #14 tabs cyclobenzaprine 5 mg tablet 5 mg PO Q8H PRN pain (scale score 10/09/22 7-10) 5 days #14 tabs lidocaine 5 % topical patch 1 patch topical DAILY PRN pain #30 10/09/22 (Lidoderm) ea naproxen 500 mg tablet 500 mg PO BID PRN pain 10 days #20 10/09/22 tabs omeprazole 20 mg capsule,delayed 20 mg PO BID 90 days #180 caps 10/26/22 release Allergies Allergy/AdvReac Type Severity Reaction Status Date / Time No Known Allergies Allergy Verified 10/09/22 08:13 [No Known Allergies*] Review of Systems Review of Systems: Yes all other systems are reviewed and are negative PMFSH Past Medical History Medical History Chronic pain Diabetes mellitus, type 2 Fibromyalgia History of testicular cancer Hypertension Surgical History History of orchiectomy Social History Social History Alcohol intake: never Patient Tobacco Use Status: Former Tobacco user Smoked in Last 30 Days: No Use of substances other than those prescribed or required for medical reasons: No Advance Directives: No Advance Directives Information Provided: No service: No Current occupational status: disabled Physical Exam Vital Signs: Vital Signs: Last Vital Signs Temp 97 F 11/20/22 10:19 Pulse 75 11/20/22 10:19 Resp 16 11/20/22 10:19 BP 152/89 H 11/20/22 10:19 Pulse Ox 99 11/20/22 10:19 O2 Del Method Room Air 11/20/22 10:19 BMI result Body Mass Index 27.5 Appearance: Alert. Oriented X3. No acute distress. Head: normocephalic, atraumatic. Eyes: Pupils equal, round and reactive to light. ENT: Pharynx normal. No tonsillar swelling or exudate. Neck: Normal inspection. Neck supple. CVS: Normal heart rate and rhythm. Pulses normal. Respiratory: No respiratory distress. Breath sounds normal. Abdomen: Soft and nontender. +BS x4 Skin: Skin warm and dry. Normal skin color. Normal skin turgor. No rashes. Extremities: No lower extremity edema. No joint swelling. Neuro/psych: Oriented X 3. No motor deficit. No sensory deficit. Normal DTRs. CN II-XII intact. Normal speech and cognition. Resting tremor RUE and of the head. improves/resolves w/ intent.no cogwheel rigidity Medications Administered Discontinued Medications Generic Name Dose Route Start Last Admin Trade Name Freq PRN Reason Stop Dose Admin Ketorolac Tromethamine 30 mg 11/20/22 14:40 11/20/22 15:06 Ketorolac Tromethamine 30 Mg/Ml Vial IM 11/20/22 14:41 30 mg ONCE ONE Administration Medical Decision Making Medical Decision Making MDM Narrative: 52 yo male presenting with headache, SOB and new tremors. Lab workup was unremarkable. Tremors are minor, most prevalent at rest and improved with intent. His neuro exam is nonfocal. His CT scan was unremarkable. At this time comfortable discharge home with outpatient follow-up with his PCP. Patient is feeling better after a dose of Toradol. His headache is improved. He is stable for discharge. Differential Diagnosis Differential Diagnoses: The differential diagnosis associated with the presentation includes Essential tremor, metabolic derangement, thyroid abnormality, dehydration, withdrawal from medication, alcohol or illicit substance, brain tumor Lab Data MDM Lab Attestation statement: I reviewed the patient's lab results. no significant metabolic derranagement, no anemia 11/20/22 10:32 11/20/22 10:33 Labs: Lab Results 11/20/22 11/20/22 11/20/22 Range/Units 10:32 10:33 10:33 WBC 8.0 (4.8-10.8) X10*3/uL RBC 5.14 (4.60-5.80) X10*6/uL Hgb 14.6 (14.0-18.0) g/dl Hct 43.8 (42.0-52.0) % MCV 85.2 (80.0-98.0) fL MCH 28.4 (27.0-33.0) pg MCHC 33.3 (31.0-36.0) g/dl RDW 12.7 (11.0-16.0) % Plt Count 202 (160-400) X10*3/uL MPV 9.7 (9.4-12.4) fL Immature Gran % (Auto) 0.2 (0.0-0.4) % Neut % (Auto) 66.4 (45-73) % Lymph % (Auto) 20.5 (20-40) % [place] % (Auto) 8.4 (2-11) % Eos % (Auto) 4.1 H (0-4) % Baso % (Auto) 0.4 (0-2) % Lymph # (Auto) 1.6 (1.2-4.9) X10*3/uL [place] # (Auto) 0.7 (0.1-1.2) X10*3/uL Eos # (Auto) 0.3 (0.0-0.4) X10*3/uL Baso # (Auto) 0.0 (0.0-0.2) X10*3/uL Abs Immat Gran (auto) 0.02 (0.00-0.03) X10*3/uL Absolute Neuts (auto) 5.3 (2.0-8.3) x10*3/uL Absolute Nucleated RBC 0.000 (0.0-0.012) X10*3/uL Nucleated RBC % (auto) 0.0 (0.0-0.2) /100WBC Sodium 139 (135-145) mmol/L Potassium 4.5 (3.3-5.1) mmol/L Chloride 104 (96-108) mmol/L Carbon Dioxide 30 H (22-29) mmol/L Anion Gap 10 L (12-20) BUN 19 H (9-16) mg/dL Creatinine 1.13 (0.5-1.4) mg/dL Estim Creat Clear Calc 82.9 Estimated GFR > 60 Random Glucose 149 H (60-115) mg/dL Calcium 8.8 D (8.4-10.2) mg/dL TSH 2.85 (0.32-4.0) uIU/mL COVID-19 (JULIA) Negative (Negative) COVID-19 Clin Com See Note Independent Interpretation I performed an independent interpretation of an: CT Scan Interpretation: no edema or bleed, agree w/ radiology read Radiology Impression Discussion of test interpretation with radiology: I have reviewed the radiologist's reading. Radiologist Impression: ?CT/CT head/brain wo IV con IMPRESSION: No acute intracranial pathology External Record Review External record reviewed: Office record, Outpatient record, Prior outpatient labs and Prior outpatient radiology Prescription Management I considered prescription management with: Pain Medication Chronic Conditions Patient?s care impacted by: Diabetes and Hypertension Critical Care Time Critical Care Time Critical Care Time: No Discharge Plan Discharge Clinical Impression: Essential tremor, Migraine Patient Disposition: Home, Self-Care Instructions: Migraine Headache (ED), Tremors (ED) Additional Instructions: Your lab workup today and CT scan were normal. Recommend following up with your primary care doctor for further evaluation and treatment. If you develop new or worsening symptoms call 911 or come back to the ER for further evaluation. Prescriptions: No Action omeprazole 20 mg capsule,delayed release(DR/EC) 20 mg PO BID 90 Days Qty: 180 1RF atorvastatin 10 mg tablet 1 tab PO BEDTIME amitriptyline 150 mg tablet 1 tab PO BEDTIME glipizide 10 mg tablet extended release 24hr 1 tab PO BID doxepin 75 mg capsule 1 cap PO BEDTIME clonazepam 1 mg tablet 1 tab PO BID aspirin 81 mg tablet,delayed release (DR/EC) 1 tab PO BEDTIME carbamazepine 200 mg tablet 1 tab PO BEDTIME amlodipine 10 mg tablet 1 tab PO BEDTIME ropinirole 2 mg tablet 1 tab PO BEDTIME metformin 1,000 mg tablet 1 tab PO BID lidocaine [Lidoderm] 5 % adhesive patch,medicated 1 patch topical DAILY metoprolol succinate 25 mg tablet extended release 24 hr 1 tab PO BID zolpidem 10 mg tablet 1 tab PO BEDTIME PRN (Reason: Insomnia) cholecalciferol (vitamin D3) [Vitamin D3] 25 mcg (1,000 unit) capsule 1 cap PO QAM pregabalin 150 mg capsule 1 cap PO BID Trulicity 1.5 mg/0.5 mL pen injector 1.5 mg subcut MO sumatriptan succinate 50 mg tablet See Rx Instructions .ROUTE .COMPLEX Qty: 10 0RF Rx Instructions: take 1 tab at onset of headache; if no relief may repeat 1 tab after at least 2 hrs; max = 4 tabs/24 hr acetaminophen [Tylenol Extra Strength] 500 mg tablet 500 mg PO Q6H PRN (Reason: fever or pain) Qty: 14 0RF lidocaine [Lidoderm] 5 % adhesive patch,medicated 1 patch topical DAILY MDD remove after 12 hours PRN (Reason: pain) Qty: 30 0RF Rx Instructions: leave on most painful area for up to 12 hrs naproxen 500 mg tablet 500 mg PO BID PRN (Reason: pain) 10 Days Qty: 20 0RF cyclobenzaprine 5 mg tablet 5 mg PO Q8H PRN (Reason: pain (scale score 7-10)) 5 Days Qty: 14 0RF bisacodyl [Dulcolax (bisacodyl)] 5 mg tablet,delayed release (DR/EC) 10 mg PO ONCE 5 Days Qty: 10 0RF Rx Instructions: Take 2 tablets at 12 pm starting 5 days before colonoscopy polyethylene glycol 3350 [Miralax] 17 gram/dose powder 17 g PO DAILY 1 Days Qty: 238 0RF Rx Instructions: Mix Miralax with 64 oz(8 cups) of Crystal light. Take 2 tablets of Dulcolax qt 12 pm. Wait to have your 1st bowel movement, then begin drinking Miralax. Drink a glass of Miralax every 10-15 minutes until you are finished. You will drink at least another 4 cups of clear liquid of your choice over the next 2 hours. Please drink as many clear liquids as possible You may have clear liquids up to four hours before your procedure Referrals: Gemma Dennison SOLAR SITE ASSESSMENT SPECIALIST [Primary Care Provider] - (new tremors) Print Language: Urdu
[2022-11-20] MEDS: Ketorolac Tromethamine 30 MG/ML VIAL IM (15:06)
[2022-11-20 15:19] LABS: TSH reflex Free T4 2.85 uIU/mL (0.32-4.0)
== END 2022-11-20 15:48 | disposition home or self-care (01) ==
PROVIDERS: Physician Assistant; Emergency Provider Emergency Medicine; PCP Nurse Practitioner Primary Care
DX: G43.909 Migraine, unspecified, not intractable, without status migrainosus (principal); G25.0 Essential tremor; Z20.822 Contact with and (suspected) exposure to COVID-19; Z20.828 Contact with and (suspected) exposure to other viral communicable diseases; Z79.899 Other long term (current) drug therapy
CPT/HCPCS: 70450; 80048; 84443; 85025; 87635; 96372; 99284; J1885

== ENCOUNTER 2023-06-20 11:50 | Outpatient (AMB) | payer MEDICAID, SELFPAY ==
--- NOTE | 2023-06-20 11:52 | MHC.OFFVIS ---
Vital Signs 06/20/23 11:57 Height 6 ft Weight 192 lb BMI 26.0 BP 136/71 Blood Pressure Location Lt brachial Position Sitting Pulse 79 Intake Visit Reasons: medication,GERD Intake Note: Patient follow up for GERD and dysphagia Patient denies any other GI issue and also no show for his Barium swallow test. Mounted Police Required: No Mounted Police Name: [facility] Accompanied by: Self / Same As Patient Allergies No Known Allergies [No Known Allergies*] Allergy (Verified 01/13/24 09:59) Medication List - Last Reconciled 06/20/23 by Rani Franco MD acetaminophen (Tylenol Extra Strength) 500 mg PO Q6H PRN amitriptyline 1 tab PO BEDTIME amlodipine 1 tab PO BEDTIME aspirin 1 tab PO BEDTIME atorvastatin 1 tab PO BEDTIME carbamazepine 1 tab PO BEDTIME cholecalciferol (vitamin D3) (Vitamin D3) 1 cap PO QAM clonazepam 1 tab PO BID cyclobenzaprine 5 mg PO Q8H PRN 5 days doxepin 1 cap PO BEDTIME dulaglutide (Trulicity) 1.5 mg subcut MO glipizide ER 1 tab PO BID lidocaine 5% (Lidoderm) 1 patch topical DAILY PRN MDD remove after 12 hours metformin 1 tab PO BID metoprolol succinate ER 1 tab PO BID naproxen 500 mg PO BID PRN 10 days omeprazole 20 mg PO BID 90 days polyethylene glycol 3350 (Miralax) 17 grams PO DAILY 1 day pregabalin 1 cap PO BID ropinirole 1 tab PO BEDTIME sumatriptan succinate take 1 tab at onset of headache; if no relief may repeat 1 tab after at least 2 hrs; max = 4 tabs/24 hr zolpidem 1 tab PO BEDTIME PRN HPI HPI medication,GERD: Details: GI clinic visit for this 53-year-old Kyrgyz-speaking male here for follow-up of abdominal pain and to schedule a colonoscopy (Hx of colon polyps). Pt is followed by Gemma Dennison NP. He has not been seen in the GI clinic since 01/2022 CHRONIC ILLNESSES: HTN, DM II, TACHYCARDIA, SHORTNESS OF BREATH, HISTORY OF TESTICULAR CANCER, Pt uses a cane for back problems/neuropathy (legs give out while walking) ? TODAY'S VISIT: [facility] Security DirectorNury Patient follow up for GERD and dysphagia Patient denies any other GI issue and also no show for his Barium swallow test. My body shakes and I have lost 15 lbs Appetite is decreased. Denies ETOH or IVDA or ongoing cocaine abuse Denies abdominal pain. Complains if intermittent dysphagia to solid food and not with liquids. Intermittent constipation. Diagnosed with DM 20 yrs agp. Sometimes notes pain in the left side of the abdomen - can last a few minutes Pain can be stabbing in character. No pain for 2-3 days and then pain recurs. Sometimes has relief of pain after a BM and sometimes it does not help. Pain can increase with eating. Notes nausea when he has migraine HAs. Notes intermittent dysphagia with solids and liquids. Food gets stuck and dysphagia resolves when he drinks some water Patient denies symptoms of heartburn, change in appetite or weight. Notes constipation and denies diarrhea, black stools or rectal bleeding. Notes palpitations and denies major cardiac or pulmonary problems, loud snoring or sleep apnea Denies problems with anesthesia in the past. Denies being on chronic anticoagulation. Patient denies known family history of colon polyps, colon cancer or other GI malignancies. PAST GI HISTORY BY REVIEW OF MEDICAL RECORDS: Last seen on 12/14/2019: ?Colonoscopy results were reviewed with Tin - serafin repeat colon in 1-2 yrs due to fair prep. ? Sometimes notes left sided abdominal pain and has to use the bathroom - started having these symptoms after he had his last colonoscopy.. ?Sometimes he is able to have a BM and sometimes not. ?Abd pain improves after he is able to have a BM ?Finished antibiotic therapy for Helicobacter pylori IN 07/2019 ?FU stool antigen was negative for H Pylori. ?Weight fluctuates from 204 to 210. ?Intermittent constipation and denies black stools or rectal bleeding. ?Denies major cardiac or pulmonary problems, denies snoring or sleep apnea. ?Denies problems with anesthesia with past surgeries (GB and testicular Ca). ?Denies known FH of colon polyps, colon cancer, or GI malignancy LAB[facility]: 04/27/19 CBC was normal with resolution of mild anemia, normal Chem panel and LFTs, INR 1 ?IMAGING STUDIES 08/[address] scan showed: ?1. No acute intra-abdominal findings seen. ?2. Status post cholecystectomy. ?3. There is atelectasis/scarring in the visualized lung bases, as detailed above. ?4. Limited evaluation of the stomach. Hazy density along the posterior aspect of the fundus may reflect luminal contents. Clinical correlate. Further evaluation with endoscopy as clinically warranted. ?5. Additional findings and details in the body of the report. ENDOSCOPIC STUDIES: 11/24/2019 colonoscopy showed: ?Two polyps removed. Moderate dverticulosis seen in the sigmoid colon ?Moderate hemorrhoids on retroflexed exam. ?Plan: Patient has an appointment on 12/14/19 in the GI Clinic with Rani Franco M.D.-. ?Repeat Colonoscopy interval based on path results in 1-2 years due to fair prep. ?BIOPSIES SHOWED: ?Colon, transverse polyps, polypectomy: Fragments of tubular adenomas; negative for high-grade dysplasia. Jun, 2019 EGD AND COLON SHOWED: Endoscopy Findings: ESOPHAGUS: Tortuous and dilated appearing esophagus with increased tertiary contractions without stricture or ring. GE junction at 40 cms. No esophagitis or Barton?s. STOMACH: Moderate diffuse gastric erythema with prominent gastric folds - biopsied. Biopsies were obtained from the gastric antrum. Grade 2 flap valve on retroflexed examination of the cardia DUODENUM: Duodenitis in the bulb with a few 2-3 mm erosions and normal descending duodenum Colonoscopy Findings: One large 2 cms pedunculated polyp removed from the transverse colon Moderate internal hemorrhoids on retroflexed exam. Plan: Consider solid and liquid phase barium swalow if he continues to have dysphagia Repeat Colonoscopy interval based on path results - in 3-5 years if polyps are adenomatous and 10 years if polyps are hyperplastic. BIOPSIES SHOWED: A. Stomach, antrum, biopsy: - Antral-type mucosa with severe chronic, active, inflammation. - Positive for H. pylori. B. Stomach folds, biopsy: - Oxyntic mucosa with moderate chronic, focally active, inflammation. - Positive for H. pylori. C. Colon, transverse, polypectomy: Tubulovillous adenoma with focal high grade dysplasia; no carcinoma seen. [facility] Medical History Elevated cholesterol Chronic pain History of testicular cancer Diabetes mellitus, type 2 Fibromyalgia Hypertension Surgical History History of esophagogastroduodenoscopy (EGD) Hx of colonoscopy History of orchiectomy Social History Alcohol intake: never Patient Tobacco Use Status: Former Tobacco user service: No Current occupational status: disabled Review of Systems Const All systems reviewed & are unremarkable except as noted in HPI and below Physical Exam Vital Signs: Last Vital Signs Pulse 79 06/20/23 11:57 BP 136/71 06/20/23 11:57 BMI result Body Mass Index 26.0 Const General: healthy appearing and no acute distress Nutritional Appearance: overweight Orientation/consciousness: patient oriented x3 Limitations: language barrier HEENT Head: Yes normal to inspection Ears: hearing grossly normal bilaterally Eyes Sclerae: sclerae normal Pupils: Equal, round and reactive pupils present Neck Neck: Yes normal visual inspection Chest Chest palpation & inspection: normal inspection of the chest Resp Effort & Inspection: normal respiratory effort Auscultation: clear to auscultation bilaterally Cardio Palpation: normal PMI Rate: regular rate Rhythm: regular rhythm Heart sounds: S1 normal heart sound present, S2 normal heart sound present and no murmurs GI Palpation (GI): Soft to palpation, nontender and No hepatosplenomegaly present Auscultation: normal bowel sounds Rectal Exam - Male: Yes deferred Skin General skin exam: no rashes or lesions noted Neuro General: patient oriented x3, gait normal and moves all extremities Cranial nerves: Yes Equal, round and reactive pupils present Psych Appearance: grossly normal Mental Status: mental status grossly normal Assessment & Plan Assessment & Plan (1) History of Helicobacter pylori infection: Comment: 06/25/19 EGD showed gastritis and duodenitis. Gastric biopsies were positive for Helicobacter pylori. Patient was treated with triple therapy. Follow-up stool test was negative for H pylori antigen. Code(s): Z86.19 - Personal history of other infectious and parasitic diseases Category: Medical (2) History of colon polyps: Comment: 06/25/19 Colonoscopy showed a 2 cm pedunculated polyp which was removed from the transverse colon and biopsies showed Tubulovillous adenoma with focal high grade dysplasia; no carcinoma seen. 11/24/19 Repeat colonoscopy in November revealed two additional adenomatous polyps in the TC. Repeat Colon in 2 yrs (due to fair prep) 10/2023 A 10 - 12 mm sessile, ulcerated adenomatous polyp in the distal TC - removed with a hot snare on FU colon FU colon in 3 years Code(s): Z86.010 - Personal history of colonic polyps Category: Medical (3) Dysphagia, pharyngoesophageal phase: Code(s): R13.14 - Dysphagia, pharyngoesophageal phase Category: Medical (4) Early satiety: Code(s): R68.81 - Early satiety Category: Medical Plan 53 YM followed in GI for Helicobacter pylori gastritis and adenomatous colon polyp. 06/25/19 EGD showed gastritis and duodenitis. Gastric biopsies were positive for Helicobacter pylori. Patient was treated with triple therapy. Follow-up stool test was negative for H pylori antigen. Same day colonoscopy showed a 2 cm pedunculated polyp which was removed from the transverse colon and biopsies showed Tubulovillous adenoma with focal high grade dysplasia; no carcinoma seen. 11/24/19 Repeat colonoscopy in November revealed two additional adenomatous polyps in the TC. 02/01/22 Patient was advised to schedule a barium swallow for evaluation of dysphagia. Patient will be scheduled for an upper endoscopy (dysphagia) and a colonoscopy (FU of colon polyps) On 11/27/22 @ 14:33 Radha Basurto Wrote To Radha Basurto several attemps with no response, closing 06/20/23 patient was advised to schedule a gastric emptying study, an EGD and a colonoscopy (FU of colon polyps) Follow-up in 3 months Orders: Orders NM gastric emptying study 06/20/23 R68.81 - Early satiety Coding Level of Care Code Est Pt Level 3 (37287) Diagnoses History of Helicobacter pylori infection Z86.19 History of colon polyps Z86.010 Dysphagia, pharyngoesophageal phase R13.14 Early satiety R68.81 Time Spent (min) 18
[2023-06-20 11:57] VITALS: BP 136/71; PULSE 79; BMI 26.0
== END 2023-06-20 13:20 | disposition home or self-care (01) ==
PROVIDERS: PCP Nurse Practitioner Primary Care; Visit Provider Internal Medicine Gastroenterology
DX: Z86.19 Personal history of other infectious and parasitic diseases (principal); Z86.010 Personal history of colon polyps; R13.14 Dysphagia, pharyngoesophageal phase; R68.81 Early satiety
CPT/HCPCS: 99499

== ENCOUNTER → 2023-06-20 11:50 | Outpatient (BNVA) | payer MEDICAID, SELFPAY | PROVIDERS: PCP Nurse Practitioner Primary Care; Visit Provider Internal Medicine Gastroenterology ==

== ENCOUNTER → 2023-07-31 08:27 | Outpatient (REF) | payer MEDICAID, SELFPAY ==
--- NOTE | ~2023-07-31 | NM_ITS ---
EXAMINATION: NC RADIONUCLIDE SOLID FOOD GASTRIC EMPTYING 4-HOUR STUDY CLINICAL INFORMATION: Early satiety. Suspected gastroparesis. COMPARISON: None TECHNIQUE: A standard meal consisting of 4 oz of Egg Beaters brand tagged with 1000 microcuries Tc-99m Sulfur Colloid, 8 oz water and 2 slices of toast with jelly was administered orally to the patient. Images were obtained using a dual head gamma camera in the anterior and posterior projections over of the stomach immediately post ingestion and at hourly intervals up to 4 hours post ingestion. The anterior and posterior counts at each time interval were averaged using the geometric mean and expressed as percentage of the immediate post ingestion counts. FINDINGS: There is good visualization of activity in the stomach immediately post ingestion. As the study progresses, there is good clearance of activity from the stomach and visualization of progressively increasing small bowel activity. By the end of the study, there is almost no retention noted in the stomach. Retention in the stomach at each time interval was: 1 hour 66% (normal 37%-90%) 2 hours 23% (normal 30%-60%) 3 hours 3% 4 hours retention was not calculated since only 3% retention was noted at 3 hours interval. NM/NC gastric emptying study IMPRESSION: Normal 4-hour solid food gastric emptying study. For solid meal, rapid gastric emptying is less than 30% at 60 minutes. Delayed gastric emptying criteria is more than 60% remaining at 120 minutes or more than 10% at 240 minutes. The 4-hour value is the best discriminator of a normal or abnormal result). Gastric emptying study grading per JNMT Consensus Recommendations in 2008 (https://tech.snmjournals.org/content/36/44) Grade 1 (mild retention): 11-20% at 4h Grade 2 (moderate retention): 21-35% at 4h Grade 3 (severe retention): 36-50% at 4h Grade 4 (very severe retention): >50% retention at 4h
== END ==
LOC: HO.NUCMED 08:27
PROVIDERS: PCP Nurse Practitioner Primary Care; Visit Provider Internal Medicine Gastroenterology
DX: R68.81 Early satiety (principal)
CPT/HCPCS: 78264; A9541

== ENCOUNTER 2023-08-01 09:00 | Outpatient (AMB) | payer MEDICAID, SELFPAY ==
--- NOTE | 2023-08-01 09:02 | MHC.OFFVIS ---
Intake Vital Signs 08/01/23 09:11 Height 6 ft Weight 200 lb BMI 27.1 BP 130/78 Blood Pressure Location Lt brachial Position Sitting Respiration 16 Pulse 73 Pulse Source Pulse Oximeter Pulse Oximetry (%) 100 Oxygen Delivery Method Room Air Intake Visit Reasons: Low Back Pain Radiating Down B/l LE Intake Note: Patient comes in for initial visit was referred by primary care. Reports pain 11/12. Machine Molder Squeeze Required: Yes Machine Molder Squeeze Name: Ry Allergies No Known Allergies [No Known Allergies*] Allergy (Verified 08/01/23 09:11) HPI HPI Comments History of Present Illness Details Tin is very pleasant 53 years old gentleman who presents in my office with complains on pain in the lower back with radiation into bilateral lower extremities all the way to his feet. He reports that this pain started 10 years ago. He reports no inciting events no trauma no car accident no fall. He reports walking hurts more than standing sitting or laying down he reports that bending forward hurts more than bending backwards. He is unable to sleep normally can not do activities of daily living he can not take care of himself can not function normally. He is on permanent disability for chronic widespread pain. He reports that weather changes aggravate his pain. Morning and night pain is more severe that pain during the daytime. In terms of tissue damage he reports his pain is throbbing pounding shooting hot burning cool cold sensation at night. He currently takes Tylenol and NSAIDs for his pain he admits minimal help from this medications. He reports to me that he had an MRI with [facility] however when I went to read database there is no MRI of the patient's name. We need to find out where he had an MRI done. He had physical therapy 5 years ago which aggravated his pain tremendously he is very scared of physical therapy. He never had chiropractic manipulations massage therapy acupuncture or 10s unit. He reported that 7 years ago unknown provider performed some injections in his back it does not seem to be that those injections were image guided. He denies any help from those injections. His past medical history significant for hypertension history of dysrhythmia diabetes and history of testicular cancer. His cancer was operated 30 years ago now he is cancer free. He denies smoking cigarettes drinking alcohol or using recreational drugs he denies caffeinated beverages. [facility] Medical History Chronic pain Diabetes mellitus, type 2 Fibromyalgia History of testicular cancer Hypertension Surgical History History of orchiectomy Social History Alcohol intake: never Patient Tobacco Use Status: Former Tobacco user service: No Current occupational status: disabled Review of Systems Const Reports no additional complaints ENT Reports Normal hearing present Card Reports as per HPI Resp Reports no additional complaints GI Reports no additional complaints Musc Reports as per HPI Neuro Reports no additional complaints, Reports Normal hearing present, Denies Abnormal speech present, Denies confusion and Denies Sensory deficit (Neuro) Psych Reports no additional complaints and Denies confusion Physical Exam Vital Signs: Last Vital Signs Pulse 73 08/01/23 09:11 Resp 16 08/01/23 09:11 BP 130/78 08/01/23 09:11 Pulse Ox 100 08/01/23 09:11 Oxygen Delivery Method Room Air 08/01/23 09:11 BMI result Body Mass Index 27.1 Const General: no acute distress; No confusion Orientation/consciousness: patient oriented x3 and No confusion Eyes General: appearance normal, both eyes and all related structures Pupils: Equal, round and reactive pupils present EOM: EOMs intact bilaterally Neck Neck: Yes full ROM Chest Chest palpation & inspection: normal inspection of the chest Resp Effort & Inspection: normal respiratory effort, able to speak in complete sentences, normal respiratory pattern, no audible wheezes and no cough Cardio Jugular venous distension: no JVD GI Inspection: Yes normal to inspection Back/Spine/Pelvis Other: Unable to stand on bilateral tiptoes in bilateral heels. Reports weakness on bilateral lower extremities. Reports numbness in bilateral lower extremities, reports tingling sensation in bilateral lower extremities. Flexing forward aggravates pain more than flexing backwards. Reports tenderness on palpation in the paraspinal spinal region of lower thoracic entire lumbar and upper sacral spine. SLR is positive bilaterally. Foot dorsiflexion with maximal SLR does not contribute to pain increase. Loading test is equivocal bilaterally. Marck test is positive on the right, unable to perform on the left patient reports severe pain in the groin. Lateral rotation of the left hip results in severe pain in the groin. Neuro General: patient oriented x3, gait normal and No confusion Cranial nerves: Yes CN's II-XII intact bilaterally, Yes Equal, round and reactive pupils present, Yes Normal hearing present and Yes Ability to bilaterally elevate shoulders present Speech: No Abnormal speech present Gait exam (Neuro): Normal gait present Motor exam (neuro): 5/5 motor strength present throughout Sensory Exam: No Sensory deficit (Neuro) Extrem General: No pedal edema Psych Speech and movement: Normal speech and movement present Affect: normal affect Attitude: cooperative Thought process: Normal thought process present Thought content: Normal thought content present Insight: Good insight present (Psych) Judgement: Good judgement present (Psych) Assessment & Plan Assessment & Plan (1) Arthritis of left hip: Code(s): M16.12 - Unilateral primary osteoarthritis, left hip (2) Spondylosis without myelopathy or radiculopathy, lumbar region: Code(s): M47.816 - Spondylosis without myelopathy or radiculopathy, lumbar region (3) Disc degeneration, lumbar: Code(s): M51.36 - Other intervertebral disc degeneration, lumbar region (4) Chronic pain syndrome: Code(s): G89.4 - Chronic pain syndrome Plan I sent this patient for the x-ray of the left hip due to very profound presentation of groin pain on lateral rotation of the left hip. In 1 week I will evaluate this x-ray and we will send this patient for left hip injection if there is left hip arthritis. The patient informed me that he had an MRI done at [facility], however I was not able to find patient's name in [facility] database. We need to contact the patient and find out where did he have MRI done. We need to obtain at least MRI report if not the images. I personally evaluated CT scan he had here in [facility] radiology and on the images there are significant spurs mostly anterior some of them bridging in the lumbar spine. The maybe he is also endplate changes there. As of his testicular cancer he has no longer cancer patient and should not be treated as such. I will see this patient in 1 week and plan his care at this time. Orders: Orders XR hip LT min 2V Today M16.12 - Unilateral primary osteoarthritis, left hip Patient Instructions: I here by testify that I spent 48 minutes in conversation with this patient as well as planning his care and organizing this note. Coding Level of Care Code New Pt Level 4 (33526) Diagnoses Arthritis of left hip M16.12 Spondylosis without myelopathy or radiculopathy, lumbar region M47.816 Disc degeneration, lumbar M51.36 Chronic pain syndrome G89.4
[2023-08-01 09:11] VITALS: BP 130/78; PULSE 73; RESP 16; O2SAT 100; BMI 27.1
== END 2023-08-01 09:35 | disposition home or self-care (01) ==
PROVIDERS: PCP Nurse Practitioner Primary Care; Referring Provider Nurse Practitioner Primary Care; Visit Provider Anesthesiology
DX: M16.12 Unilateral primary osteoarthritis, left hip (principal); M47.816 Spondylosis without myelopathy or radiculopathy, lumbar region; M51.36 Other intervertebral disc degeneration, lumbar region; G89.4 Chronic pain syndrome
CPT/HCPCS: 99204

== ENCOUNTER 2023-08-01 09:00 | Outpatient (REF) | payer MEDICAID, SELFPAY ==
--- NOTE | ~2023-08-01 | XR_ITS ---
EXAMINATION: XR HIP, LEFT CLINICAL INFORMATION: Unilateral primary osteoarthritis, left hip COMPARISON: CT scan abdomen and pelvis 08/28/2018 TECHNIQUE: Two views of the left hip. FINDINGS: No fracture. Alignment is anatomic. Hip joint space is maintained. Soft tissues are unremarkable. XR/XR hip LT min 2V IMPRESSION: No bony abnormality.
== END 2023-08-01 09:01 | disposition home or self-care (01) ==
LOC: HO.XRAY 09:00
PROVIDERS: PCP Nurse Practitioner Primary Care; Visit Provider Anesthesiology
DX: M16.12 Unilateral primary osteoarthritis, left hip (principal)
CPT/HCPCS: 73502; 99202

== ENCOUNTER → 2023-08-08 15:07 | Outpatient (BNVA) | payer MEDICAID, SELFPAY | PROVIDERS: PCP Nurse Practitioner Primary Care; Visit Provider Anesthesiology ==

== ENCOUNTER → 2023-08-08 15:11 | Outpatient (AMB) | payer MEDICAID, SELFPAY ==
--- NOTE | 2023-08-08 15:07 | MHC.OFFVIS ---
Intake Intake Visit Reasons: Xray Follow Up Allergies No Known Allergies [No Known Allergies*] Allergy (Verified 08/08/23 15:07) HPI HPI Comments History of Present Illness Details Tin is on the telephone today to discuss the results of the left hip x-ray. Last time on physical examination I had the impression that patient has left hip osteoarthritis. However x-ray did not demonstrate any bony changes in the left hip. I was not able also to get the MRI at [facility]. I requested him today to bring me the MRI disc in the MRI report. I will make another evaluation on physical exam and compared to what MRI demonstrates. I will see him on the appointment in person in the office in 2 weeks. Prior: very pleasant 53 years old gentleman who presents in my office with complains on pain in the lower back with radiation into bilateral lower extremities all the way to his feet. this pain started 10 years ago. no inciting events ,, walking hurts more than standing, sitting or laying down. bending forward hurts more than bending backwards. on permanent disability for chronic widespread pain. weather changes aggravate his pain. Morning and night pain is more severe that pain during the daytime. Tylenol and NSAIDs minimally helped his pain. He e had an MRI of the lumbar spine. physical therapy 5 years ago aggravated his pain tremendously he is very scared of physical therapy. He never had chiropractic manipulations massage therapy acupuncture or 10s unit. 7 years ago unknown provider performed some injections in his back it does not seem to be that those injections were image guided. He denies any help from those injections. FOR[facility]LY [facility] Medical History Chronic pain Diabetes mellitus, type 2 Fibromyalgia History of testicular cancer Hypertension Surgical History History of orchiectomy Social History Alcohol intake: never Patient Tobacco Use Status: Former Tobacco user service: No Current occupational status: disabled Review of Systems Const All systems reviewed & are unremarkable except as noted in HPI and below Results Reviewed Results Reviewed: R HIP, LEFT CLINICAL INFORMATION: Unilateral primary osteoarthritis, left hip TECHNIQUE: Two views of the left hip. FINDINGS: No fracture. Alignment is anatomic. Hip joint space is maintained. Soft tissues are unremarkable. IMPRESSION: No bony abnormality. Assessment & Plan Assessment & Plan (1) Arthritis of left hip: Code(s): M16.12 - Unilateral primary osteoarthritis, left hip (2) Spondylosis without myelopathy or radiculopathy, lumbar region: Code(s): M47.816 - Spondylosis without myelopathy or radiculopathy, lumbar region (3) Disc degeneration, lumbar: Code(s): M51.36 - Other intervertebral disc degeneration, lumbar region (4) Chronic pain syndrome: Code(s): G89.4 - Chronic pain syndrome Plan I sent this patient for the x-ray of the left hip due to very profound presentation of groin pain on lateral rotation of the left hip. However no bony abnormalities were seen on the x-ray as above. [facility] MRI is also not available for me. I requested him to bring me to the office the disc and the report of the MRI. I will schedule him for an appointment in 2 weeks, I will examine him again and I will compare findings to the MRI. As of his testicular cancer he has no longer cancer patient and should not be treated as such. Patient Instructions: I here by testify that I spent 20 minutes in conversation with this patient as well as in evaluating of his prior records and diagnostic studies as well as organizing this note. Telehealth Telehealth Location of provider rendering services: practice address Location of patient: address on file Patient Identification confirmed using: Name, : Yes Telehealth method: voice only Patient verbally consented to treatment: Yes Patient verbally consented to billing insurance company: Yes Patient informed of any privacy concerns related to visit: Yes Coding Level of Care Code Tele Est Pt Level 3 (95782) Diagnoses Arthritis of left hip M16.12 Spondylosis without myelopathy or radiculopathy, lumbar region M47.816 Disc degeneration, lumbar M51.36 Chronic pain syndrome G89.4
== END | disposition home or self-care (01) ==
LOC: HO.PMC 15:07
PROVIDERS: PCP Nurse Practitioner Primary Care; Referring Provider Nurse Practitioner Primary Care; Visit Provider Anesthesiology
DX: M16.12 Unilateral primary osteoarthritis, left hip (principal); M47.816 Spondylosis without myelopathy or radiculopathy, lumbar region; M51.36 Other intervertebral disc degeneration, lumbar region; G89.4 Chronic pain syndrome
CPT/HCPCS: 99213

== ENCOUNTER 2023-08-16 09:33 | Emergency (ER) | payer MEDICAID, SELFPAY ==
--- NOTE | ~2023-08-16 | XR_ITS ---
EXAMINATION: XR CHEST CLINICAL INFORMATION: Cough COMPARISON: Previous chest x-ray 08/07/2021 TECHNIQUE: 2 views of the chest were obtained. FINDINGS: No significant abnormality is noted involving the heart, lungs, mediastinum, bony thorax or soft tissues. XR/XR chest 2V IMPRESSION: Unremarkable examination.
--- NOTE | 2023-08-16 09:43 | ECG_ITS ---
Test Reason : CP Blood Pressure : / mmHG Vent. 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
[2023-08-16 09:54] VITALS: BP 109/67; PULSE 80; RESP 18; TEMP 36.4; O2SAT 100; BMI 26.6
--- NOTE | 2023-08-16 11:02 | ED.URI ---
HPI - URI/Sore Throat General Chief Complaint: Upper Respiratory Symptoms Stated Complaint: headache, chest tightness Time Seen by Provider: 08/16/23 10:23 Source: patient and old records reviewed Mode of arrival: ambulatory Limitations: no limitations History of Present Illness HPI Narrative: 53 yo male with history of DM2, HTN, chronic pain syndrome presents today for tight substernal chest pain and right sided headache for 2 days. Headache is pounding and pulsatile in nature. Took ibuprofen and tylenol at home yesterday with no effect. Chest pain occurs at rest and movement, worse with coughing and tender to touch. Denies shortness of breath, palpitations, radiation of pain. On further questioning, he reports dry cough for about a week. Denies N/V/D. Reports nonspecific RUQ abdominal pain that is tender to touch. Says that he has had that pain for a while . MD elicited complaint: cough Onset (ago): day(s) Consistency: intermittent Severity: moderate Pain scale (0-10): 7 Able to tolerate fluids by mouth: Yes Exacerbating factors: deep breaths Relieving factors: rest Associated symptoms: headache Treatments prior to arrival: acetaminophen and ibuprofen Related Data Home Medications ?Medication ?Instructions ?Recorded ?Confirmed amitriptyline 150 mg tablet 1 tab PO BEDTIME 08/07/21 06/20/23 amlodipine 10 mg tablet 1 tab PO BEDTIME 08/07/21 06/20/23 aspirin 81 mg tablet,delayed 1 tab PO BEDTIME 08/07/21 06/20/23 release atorvastatin 10 mg tablet 1 tab PO BEDTIME 08/07/21 06/20/23 carbamazepine 200 mg tablet 1 tab PO BEDTIME 08/07/21 06/20/23 cholecalciferol (vitamin D3) 25 1 cap PO QAM 08/07/21 06/20/23 mcg (1,000 unit) capsule (Vitamin D3) clonazepam 1 mg tablet 1 tab PO BID 08/07/21 06/20/23 doxepin 75 mg capsule 1 cap PO BEDTIME 08/07/21 06/20/23 dulaglutide 1.5 mg/0.5 mL 1.5 mg subcut MO 08/07/21 06/20/23 subcutaneous pen injector (Trulicity) glipizide 10 mg tablet, extended 1 tab PO BID 08/07/21 06/20/23 release 24 hr metformin 1,000 mg tablet 1 tab PO BID 08/07/21 06/20/23 metoprolol succinate 25 mg 1 tab PO BID 08/07/21 06/20/23 tablet,extended release 24 hr pregabalin 150 mg capsule 1 cap PO BID 08/07/21 06/20/23 ropinirole 2 mg tablet 1 tab PO BEDTIME 08/07/21 06/20/23 zolpidem 10 mg tablet 1 tab PO BEDTIME PRN Insomnia 08/07/21 06/20/23 Previous Rx's ?Medication ?Instructions ?Recorded sumatriptan succinate 50 mg tablet See Rx Instructions PO .COMPLEX 12/20/21 #10 tabs polyethylene glycol 3350 17 17 g PO DAILY 1 day #238 grams 02/01/22 gram/dose oral powder (Miralax) acetaminophen 500 mg tablet 500 mg PO Q6H PRN fever or pain 10/09/22 (Tylenol Extra Strength) #14 tabs cyclobenzaprine 5 mg tablet 5 mg PO Q8H PRN pain (scale score 10/09/22 7-10) 5 days #14 tabs lidocaine 5 % topical patch 1 patch topical DAILY PRN pain #30 10/09/22 (Lidoderm) ea naproxen 500 mg tablet 500 mg PO BID PRN pain 10 days #20 10/09/22 tabs omeprazole 20 mg capsule,delayed 20 mg PO BID 90 days #180 caps 07/17/23 release benzonatate 100 mg capsule 100 mg PO TID PRN cough #30 caps 08/16/23 Allergies Allergy/AdvReac Type Severity Reaction Status Date / Time No Known Allergies Allergy Verified 08/16/23 09:54 [No Known Allergies*] Review of Systems Review of Systems: Yes all other systems are reviewed and are negative [facility] Past Medical History Medical History Chronic pain Diabetes mellitus, type 2 Fibromyalgia History of testicular cancer Hypertension Surgical History History of orchiectomy Social History Social History Alcohol intake: never Patient Tobacco Use Status: Former Tobacco user Advance Directives: No Advance Directives Information Provided: Yes service: No Current occupational status: disabled Physical Exam Vital Signs: Vital Signs: Last Vital Signs Temp 97.6 F 08/16/23 13:50 Pulse 80 08/16/23 13:50 Resp 18 08/16/23 13:50 BP 109/68 08/16/23 13:50 Pulse Ox 100 08/16/23 13:50 O2 Del Method Room Air 08/16/23 13:50 BMI result Body Mass Index 26.6 Appearance: Alert. Oriented X3. No acute distress. Head: normocephalic, atraumatic. . Neck: Normal inspection. Neck supple. CVS: Normal heart rate and rhythm. Pulses normal. Chest: substernal region tender to touch Respiratory: No respiratory distress. Breath sounds normal. Abdomen: Soft, nondistended. Reports pain to palpation RUQ. negative murphys sign Skin: Skin warm and dry. Normal skin color. Normal skin turgor. No rashes. Extremities: No lower extremity edema. No joint swelling. Neuro/psych: Oriented X 3. Nonfocal Medical Decision Making Medical Decision Making [facility] Narrative: 53 y/o year old male with history of diabetes, HTN, chronic pain syndrome presents today for tight substernal chest pain and right sided headache for 2 days. Chest xray is unremarkable, low clinical suspicion for pneumonia. Viral testing including COVID, flu negative. ECG performed today is normal sinus rhythm without ST elevation or depression. Ordered troponin to assess for myocardial injury. Trop is negative, patient is negative for On exam, pain is reproducible at substernal region. Low concern for ACS at this time. Patient is resting comfortably and VSS. Presentation most likely due to muscular pain secondary to viral URI. Differential Diagnosis Differential Diagnoses: The differential diagnosis associated with the presentation includes viral URI, COVID, flu, pneumonia, bronchitis, stable angina, ACS Admission/Observation Consideration of admission/observation: Escalation of care including admission/observation considered Lab Data [facility] Lab Attestation statement: I reviewed the patient's lab results. No leukocytosis, troponin is negative 08/16/23 12:17 08/16/23 12:17 Labs: Lab Results 08/16/23 08/16/23 Range/Units 10:47 12:17 WBC 6.6 (4.8-10.8) X10*3/uL RBC 4.90 (4.60-5.80) X10*6/uL Hgb 14.1 (14.0-18.0) g/dl Hct 40.8 L (42.0-52.0) % MCV 83.3 (80.0-98.0) fL MCH 28.8 (27.0-33.0) pg MCHC 34.6 (31.0-36.0) g/dl RDW 12.1 (11.0-16.0) % Plt Count 203 (160-400) X10*3/uL MPV 9.8 (9.4-12.4) fL Immature Gran % (Auto) 0.5 H (0.0-0.4) % Neut % (Auto) 71.6 (45-73) % Lymph % (Auto) 16.2 L (20-40) % Rosebud % (Auto) 8.2 (2-11) % Eos % (Auto) 3.3 (0-4) % Baso % (Auto) 0.2 (0-2) % Lymph # (Auto) 1.1 L (1.2-4.9) X10*3/uL Rosebud # (Auto) 0.5 (0.1-1.2) X10*3/uL Eos # (Auto) 0.2 (0.0-0.4) X10*3/uL Baso # (Auto) 0.0 (0.0-0.2) X10*3/uL Abs Immat Gran (auto) 0.03 (0.00-0.03) X10*3/uL Absolute Neuts (auto) 4.7 (2.0-8.3) x10*3/uL Absolute Nucleated RBC 0.000 (0.0-0.012) X10*3/uL Nucleated RBC % (auto) 0.0 (0.0-0.2) /100WBC Sodium 144 (135-145) mmol/L Potassium 4.5 (3.3-5.1) mmol/L Chloride 110 H (96-108) mmol/L Carbon Dioxide 27 (22-29) mmol/L Anion Gap 12 (12-20) BUN 19 H (9-16) mg/dL Creatinine 0.97 (0.5-1.4) mg/dL Estim Creat Clear Calc 95.5 Estimated GFR > 60 Random Glucose 86 (60-115) mg/dL Calcium 9.0 (8.4-10.2) mg/dL Magnesium 1.7 (1.6-2.6) mg/dL Total Bilirubin 0.3 (0.0-1.0) mg/dL Direct Bilirubin 0.1 (0.0-0.5) mg/dL AST 38 H (5-37) U/L ALT 80 H (0-40) U/L Alkaline Phosphatase 87 (39-117) U/L Troponin I High Sens < 2.7 (<3.5-35.0) ng/L Total Protein 7.6 (6.5-8.0) g/dL Albumin 3.8 (3.5-5.0) g/dL Lipase 36 (8-78) U/L COVID-19 (JULIA) Negative (Negative) COVID-19 Clin Com See Note Influenza Type A (JOSE) Negative (Negative) Influenza Type B (JOSE) Negative (Negative) Influenza A & B Note See Note Independent Interpretation I performed an independent interpretation of an: EKG and Plain X-Ray Interpretation: Normal sinus rhythm with ventricular rate of [address] changes, no elevation or depression x-ray without focal infiltration Radiology Impression Discussion of test interpretation with radiology: I have reviewed the radiologist's reading. Radiologist Impression: EXAMINATION: XR CHEST CLINICAL INFORMATION: Cough COMPARISON: Previous chest x-ray 08/07/2021 TECHNIQUE: 2 views of the chest were obtained. FINDINGS: No significant abnormality is noted involving the heart, lungs, mediastinum, bony thorax or soft tissues. XR/XR chest 2V IMPRESSION: Unremarkable examination. External Record Review External record reviewed: Inpatient record and Outpatient record Prescription Management I considered prescription management with: Pain Medication and Antibiotic Chronic Conditions Patient?s care impacted by: Hypertension Critical Care Time Critical Care Time Critical Care Time: No Discharge Plan Discharge Clinical Impression: Viral URI with cough Patient Disposition: Home, Self-Care Instructions: Viral Syndrome (ED) Additional Instructions: Your lab workup today was unremarkable. Your chest x-ray was normal. Your EKG did not show any evidence of stress on your heart. You tested negative for COVID, flu, RSV. Your symptoms most likely viral in etiology. Treatment is rest and supportive care. Take the prescribed medication as needed for cough. Take [id number] cold and flu medications as needed for your symptoms. Continue to take Tylenol and ibuprofen as needed for your headaches. Make sure you are staying hydrated drinking plenty of fluids. Follow-up with your doctor. If you develop new or worsening symptoms call 911 or come back to the ER for further evaluation. Prescriptions: New benzonatate 100 mg capsule 100 mg PO TID PRN (Reason: cough) Qty: 30 0RF No Action omeprazole 20 mg capsule,delayed release(DR/EC) 20 mg PO BID 90 Days Qty: 180 0RF atorvastatin 10 mg tablet 1 tab PO BEDTIME amitriptyline 150 mg tablet 1 tab PO BEDTIME glipizide 10 mg tablet extended release 24hr 1 tab PO BID doxepin 75 mg capsule 1 cap PO BEDTIME clonazepam 1 mg tablet 1 tab PO BID aspirin 81 mg tablet,delayed release (DR/EC) 1 tab PO BEDTIME carbamazepine 200 mg tablet 1 tab PO BEDTIME amlodipine 10 mg tablet 1 tab PO BEDTIME ropinirole 2 mg tablet 1 tab PO BEDTIME metformin 1,000 mg tablet 1 tab PO BID metoprolol succinate 25 mg tablet extended release 24 hr 1 tab PO BID zolpidem 10 mg tablet 1 tab PO BEDTIME PRN (Reason: Insomnia) cholecalciferol (vitamin D3) [Vitamin D3] 25 mcg (1,000 unit) capsule 1 cap PO QAM pregabalin 150 mg capsule 1 cap PO BID Trulicity 1.5 mg/0.5 mL pen injector 1.5 mg subcut MO sumatriptan succinate 50 mg tablet See Rx Instructions .ROUTE .COMPLEX Qty: 10 0RF Rx Instructions: take 1 tab at onset of headache; if no relief may repeat 1 tab after at least 2 hrs; max = 4 tabs/24 hr acetaminophen [Tylenol Extra Strength] 500 mg tablet 500 mg PO Q6H PRN (Reason: fever or pain) Qty: 14 0RF lidocaine [Lidoderm] 5 % adhesive patch,medicated 1 patch topical DAILY MDD remove after 12 hours PRN (Reason: pain) Qty: 30 0RF Rx Instructions: leave on most painful area for up to 12 hrs naproxen 500 mg tablet 500 mg PO BID PRN (Reason: pain) 10 Days Qty: 20 0RF cyclobenzaprine 5 mg tablet 5 mg PO Q8H PRN (Reason: pain (scale score 7-10)) 5 Days Qty: 14 0RF polyethylene glycol 3350 [Miralax] 17 gram/dose powder 17 g PO DAILY 1 Days Qty: 238 0RF Rx Instructions: Mix Miralax with 64 oz(8 cups) of Crystal light. Take 2 tablets of Dulcolax qt 12 pm. Wait to have your 1st bowel movement, then begin drinking Miralax. Drink a glass of Miralax every 10-15 minutes until you are finished. You will drink at least another 4 cups of clear liquid of your choice over the next 2 hours. Please drink as many clear liquids as possible You may have clear liquids up to four hours before your procedure Referrals: Kiel Eastman MD [Primary Care Provider] - Interventions: ED Discharge Assessment Last Done: 08/16/23 13:50 Discharge Date/Time: 08/16/23 13:51 Print Language: [place]
[2023-08-16 11:10] LABS: COVID-19 Test Negative (Negative); IDNOW Serial# 08D9AD1C; IDNOW Serial# 152EDE1D; Influenza A Negative (Negative); Influenza B2 Negative (Negative)
[2023-08-16 12:28] LABS: MANUAL DIFF FLAG NO
[2023-08-16 12:31] LABS: Basophils Percent Auto 0.2 % (0-2); Eosinophils Absolute Auto 0.2 X10*3/uL (0.0-0.4); Eosinophils Percent Auto 3.3 % (0-4); Hematocrit 40.8 % (42.0-52.0); Hemoglobin 14.1 g/dl (14.0-18.0); Imm Gran Abs Auto 0.03 X10*3/uL (0.00-0.03); Imm Gran Pct Auto 0.5 % (0.0-0.4); Lymphocytes Absolute Auto 1.1 X10*3/uL (1.2-4.9); Lymphocytes Percent Auto 16.2 % (20-40); Mean Corpuscular HGB Conc 34.6 g/dl (31.0-36.0); Mean Corpuscular Hemoglobin 28.8 pg (27.0-33.0); Mean Corpuscular Volume 83.3 fL (80.0-98.0); Mean Platelet Volume 9.8 fL (9.4-12.4); Monocytes Absolute Auto 0.5 X10*3/uL (0.1-1.2); Monocytes Percent Auto 8.2 % (2-11); Neutrophils Absolute Auto 4.7 x10*3/uL (2.0-8.3); Neutrophils Percent Auto 71.6 % (45-73); Platelet Count 203 X10*3/uL (160-400); Red Cell Distribution Width 12.1 % (11.0-16.0); White Blood Count 6.6 X10*3/uL (4.8-10.8)
[2023-08-16 12:47] LABS: Alanine Aminotransferase 80 U/L (0-40); Albumin Level 3.8 g/dL (3.5-5.0); Anion Gap 12 (12-20); Aspartate Amino Transferase 38 U/L (5-37); Bilirubin Direct 0.1 mg/dL (0.0-0.5); Bilirubin Total 0.3 mg/dL (0.0-1.0); Blood Urea Nitrogen 19 mg/dL (9-16); Carbon Dioxide 27 mmol/L (22-29); Chloride 110 mmol/L (96-108); Creatinine Clr Calc Pharmacy 95.5; Estimated Glomerular Filt Rate > 60; Glucose Random 86 mg/dL (60-115); Lipase 36 U/L (8-78); Magnesium 1.7 mg/dL (1.6-2.6); Potassium 4.5 mmol/L (3.3-5.1); Sodium 144 mmol/L (135-145); Total Protein 7.6 g/dL (6.5-8.0)
[2023-08-16 12:54] LABS: Troponin-I High Sensitivity < 2.7 ng/L (<3.5-35.0)
[2023-08-16 13:35] LABS: Alkaline Phosphatase 87 U/L (39-117)
[2023-08-16 13:50] VITALS: BP 109/68; PULSE 80; RESP 18; TEMP 36.4; O2SAT 100
== END 2023-08-16 13:51 | disposition home or self-care (01) ==
PROVIDERS: Physician Assistant; Emergency Provider Emergency Medicine Emergency Medical Services; PCP Internal Medicine
DX: J06.9 Acute upper respiratory infection, unspecified (principal); E11.9 Type 2 diabetes mellitus without complications; I10 Essential (primary) hypertension; Z11.52 Encounter for screening for COVID-19
CPT/HCPCS: 36415; 71046; 80048; 80076; 83690; 83735; 84484; 85025; 87502; 87635; 93005; 99283

== ENCOUNTER → 2023-08-16 09:43 | Outpatient (BNV) | payer MEDICAID, SELFPAY | PROVIDERS: Emergency Provider Emergency Medicine Emergency Medical Services; PCP Internal Medicine; Visit Provider Internal Medicine Cardiovascular Disease | DX: R94.31 Abnormal electrocardiogram [ECG] [EKG] (principal) | CPT/HCPCS: 93010 ==

== ENCOUNTER 2023-08-22 13:07 | Outpatient (AMB) | payer MEDICAID, SELFPAY ==
--- NOTE | 2023-08-22 13:12 | A.OFFVIS_ITS ---
Vital Signs 08/22/23 13:21 Height 6 ft Weight 193 lb 4 oz BMI 26.2 BP 126/80 Blood Pressure Location Lt brachial Position Sitting Respiration 16 Pulse 93 Pulse Source Pulse Oximeter Pulse Oximetry (%) 99 Oxygen Delivery Method Room Air Intake Visit Reasons: MRI EVALUATION LUMBAR SPINE Intake Note: Patient comes in to discuss MRI results. Reports pain 5-10. Allergies No Known Allergies [No Known Allergies*] Allergy (Verified 08/16/23 09:54) HPI Comments Details: Tin is in the office today to assess results of the MRI which was done at [facility]. The conversation was held today by voice [employer] music instructor Monica [phone]. The MRI report is rather remarkable the full dictation is as below. However when I examined the images myself I found Modic type 1 and possibly type 2 changes at the L4-5 and S1 vertebra. However with repeated physical examination I noticed that of the loading test is highly positive for this patient. I suspect that there are 2 different pain generators existing in this patient coinciding. One is facet arthropathy in the lower lumbar spine and the other is vertebra genic pain syndrome. I decided to offer him diagnostic medial branch block 1st. If diagnostic medial branch block will not help his pain or help his pain partially we will proceed for intraseptal procedure. I will see him next time for the injection and for the evaluation after the injection. Left hipx-ray is negative for pathology in the left hip. Prior: very pleasant 53 years old gentleman who presents in my office with complains on pain in the lower back with radiation into bilateral lower extremities all the way to his feet. this pain started 10 years ago. no inciting events ,, walking hurts more than standing, sitting or laying down. bending forward hurts more than bending backwards. on permanent disability for chronic widespread pain. weather changes aggravate his pain. Morning and night pain is more severe that pain during the daytime. Tylenol and NSAIDs minimally helped his pain. He e had an MRI of the lumbar spine. physical therapy 5 years ago aggravated his pain tremendously he is very scared of physical therapy. He never had chiropractic manipulations massage therapy acupuncture or 10s unit. 7 years ago unknown provider performed some injections in his back it does not seem to be that those injections were image guided. He denies any help from those injections. [facility] Medical History Chronic pain Diabetes mellitus, type 2 Fibromyalgia History of testicular cancer Hypertension Surgical History History of orchiectomy Social History Alcohol intake: never Patient Tobacco Use Status: Former Tobacco user service: No Current occupational status: disabled Review of Systems Const All systems reviewed & are unremarkable except as noted in HPI and below ENT Reports Normal hearing present Neuro Reports Normal hearing present, Denies Abnormal speech present, Denies confusion and Denies Sensory deficit (Neuro) Psych Denies confusion Physical Exam Vital Signs: Last Vital Signs Pulse 93 08/22/23 13:21 Resp 16 08/22/23 13:21 BP 126/80 08/22/23 13:21 Pulse Ox 99 08/22/23 13:21 Oxygen Delivery Method Room Air 08/22/23 13:21 BMI result Body Mass Index 26.2 Const General: no acute distress; No confusion Orientation/consciousness: patient oriented x3 and No confusion Eyes General: appearance normal, both eyes and all related structures Pupils: Equal, round and reactive pupils present EOM: EOMs intact bilaterally Neck Neck: Yes full ROM Chest Chest palpation & inspection: normal inspection of the chest Resp Effort & Inspection: normal respiratory effort, able to speak in complete sentences, normal respiratory pattern, no audible wheezes and no cough Cardio Jugular venous distension: no JVD GI Inspection: Yes normal to inspection Back/Spine/Pelvis Other: Unable to stand on bilateral tiptoes in bilateral heels. Reports weakness on bilateral lower extremities. Reports numbness in bilateral lower extremities, reports tingling sensation in bilateral lower extremities. Flexing forward aggravates pain more than flexing backwards. Reports tenderness on palpation in the paraspinal spinal region of lower thoracic entire lumbar and upper sacral spine. SLR is positive bilaterally. Foot dorsiflexion with maximal SLR does not contribute to pain increase. Loading test is positive today bilaterally. Marck test is positive on the right, unable to perform on the left patient reports severe pain in the groin. Lateral rotation of the left hip results in severe pain in the groin. Reports difficulty with prolonged sitting prolonged driving, reports difficulty lifting objects from the floor, reports pain with flexing back forward and backwards. Neuro General: patient oriented x3, gait normal and No confusion Cranial nerves: Yes CN's II-XII intact bilaterally, Yes Equal, round and reactive pupils present, Yes Normal hearing present and Yes Ability to bilaterally elevate shoulders present Speech: No Abnormal speech present Gait exam (Neuro): Normal gait present Motor exam (neuro): 5/5 motor strength present throughout Sensory Exam: No Sensory deficit (Neuro) Extrem General: No pedal edema Psych Speech and movement: Normal speech and movement present Affect: normal affect Attitude: cooperative Thought process: Normal thought process present Thought content: Normal thought content present Insight: Good insight present (Psych) Judgement: Good judgement present (Psych) Results Reviewed Results Reviewed: MRI report ramus 07/23/2023. Findings normal lumbar alignment this demonstrated vertebral heights are well- maintained. Bone marrow signal is within normal limits. No suspicious osseous lesions are identified. Conus medullaris is unremarkable. L1-L2, L2-L3, L3-L4, L4-5: There is no significant disc herniation or protrusion. No central canal or neural foraminal stenosis is demonstrated L5-S1 no significant disc herniation or protrusion. No central canal or neural foraminal stenosis is demonstrated. There is a moderate-sized disc osteophyte complex on the left causing left-sided neural foraminal stenosis without nerve root encroachment. Multiple bilateral renal cysts. Assessment & Plan Assessment & Plan (1) Spondylosis without myelopathy or radiculopathy, lumbar region: Code(s): M47.816 - Spondylosis without myelopathy or radiculopathy, lumbar region Category: Medical (2) Disc degeneration, lumbar: Code(s): M51.36 - Other intervertebral disc degeneration, lumbar region Category: Medical (3) Chronic pain syndrome: Code(s): G89.4 - Chronic pain syndrome Category: Medical (4) Vertebrogenic low back pain: Code(s): M54.51 - Vertebrogenic low back pain Category: Medical Plan Risks MRIs rather unremarkable however with personal examination I noticed profound L5-S1 and subtle L4 Modic type changes. However today loading test is very impressive. I decided to try medial branch block on the patient 1st. This will be diagnostic L3-L4 does ramus L5 bilateral. If this will not help I will proceed with intercept right away. As of his pain in the left side today he did not mentioned anything he says that his pain is across the lumbar spine so I guess we have to put this at rest. Patient Instructions: I here by testify that I spent 36 minutes in conversation with this patient as well as as evaluating his prior images and prior records as well as organizing this note.
[2023-08-22 13:21] VITALS: BP 126/80; PULSE 93; RESP 16; O2SAT 99; BMI 26.2
== END 2023-08-22 13:43 | disposition home or self-care (01) ==
PROVIDERS: PCP Internal Medicine; Referring Provider Nurse Practitioner Primary Care; Visit Provider Anesthesiology
DX: M47.816 Spondylosis without myelopathy or radiculopathy, lumbar region (principal); M51.36 Other intervertebral disc degeneration, lumbar region; G89.4 Chronic pain syndrome; M54.51 Vertebrogenic low back pain
CPT/HCPCS: 99214

== ENCOUNTER → 2023-08-22 13:07 | Outpatient (BNVA) | payer MEDICAID, SELFPAY | PROVIDERS: PCP Internal Medicine; Visit Provider Anesthesiology | DX: M54.51 Vertebrogenic low back pain (principal); G89.4 Chronic pain syndrome; M51.36 Other intervertebral disc degeneration, lumbar region; M47.816 Spondylosis without myelopathy or radiculopathy, lumbar region | CPT/HCPCS: 99212 ==

== ENCOUNTER 2023-09-10 06:17 | Outpatient (REF) | payer MEDICAID, SELFPAY ==
--- NOTE | ~2023-09-10 | FL_ITS ---
EXAMINATION: XR FLUOROSCOPY WITH IMAGES CLINICAL INFORMATION: Spondylosis. COMPARISON: None available. TECHNIQUE: Fluoroscopy Supervised By: Dr. Kwan's. Fluoroscopy Time: 0.6 minutes. Cumulative Dose: 8.04 mGy. DAP: 0.139 Gy-cm2. Images: 11. FINDINGS: Intraoperative fluoroscopy and spot films were performed during a procedure in the OR. Spinal lesions are seen at multiple levels bilaterally overlying the regions of the pedicles with contrast around the tips. Please see Dr. Kwan's report for complete details. FL/FL guidance in treatment room IMPRESSION: Intraoperative fluoroscopy and spot films were obtained. Please see Dr. Kwan's report for complete details.
== END 2023-09-10 06:18 | disposition home or self-care (01) ==
LOC: CF 06:17
PROVIDERS: Visit Provider Anesthesiology
DX: M47.816 Spondylosis without myelopathy or radiculopathy, lumbar region (principal)
CPT/HCPCS: 64493; 64494; J2795; Q9967

== ENCOUNTER 2023-09-10 14:10 | Outpatient (AMB) | payer MEDICAID, SELFPAY ==
--- NOTE | 2023-09-10 14:15 | A.OFFVIS_ITS ---
Vital Signs 09/10/23 15:18 09/10/23 15:18 Height 6 ft Weight 193 lb BMI 26.2 BP 138/88 124/76 Blood Pressure Location Lt brachial Lt brachial Position Sitting Sitting Respiration 18 18 Pulse 79 82 Pulse Source Pulse Oximeter Pulse Oximeter Pulse Oximetry (%) 98 96 Oxygen Delivery Method Room Air Room Air Comment Pre-Op Post-Op Intake Visit Reasons: BILATERAL DIAGNOSTIC L3, L4, DRL5 MBB Allergies No Known Allergies [No Known Allergies*] Allergy (Verified 08/16/23 09:54) [facility] Medical History Chronic pain Diabetes mellitus, type 2 Fibromyalgia History of testicular cancer Hypertension Surgical History History of orchiectomy Social History Alcohol intake: never Patient Tobacco Use Status: Former Tobacco user service: No Current occupational status: disabled Physical Exam Vital Signs: Last Vital Signs Pulse 82 09/10/23 15:18 Resp 18 09/10/23 15:18 BP 124/76 09/10/23 15:18 Pulse Ox 96 09/10/23 15:18 Oxygen Delivery Method Room Air 09/10/23 15:18 BMI result Body Mass Index 26.2 Assessment & Plan Assessment & Plan (1) Spondylosis without myelopathy or radiculopathy, lumbar region: Code(s): M47.816 - Spondylosis without myelopathy or radiculopathy, lumbar region Category: Medical Plan Diagnostic medial branch block L3,L4 dorsal ramus L5 bilateral.? ? ?Informed consent was explained to the patient. All questions were explained and? answered.? The patient was taken inside the operating room where she was positioned prone on the operating table. Time-out was performed delineating correct site, side, the nature of the procedure, patient's allergy, . All operating room staff was participating in OR time-out procedure. ? ? The lower back was prepped with ChloraPrep and draped with sterile towels.? C- arm was brought over the operating field and sq picture of L4-, L5 vertebra and S1 AREA were delineated on the screen.? Point of interest were delineated as confluence of superior articular process of L4 and L5 vertebra bilaterally with corresponding transverse processes as well as confluence of the sacral alae bilaterally with superior articular process of S1.? The projection of the point of interest to the skin were injected with the small amount of local anesthetic lidocaine 2% 1-1.5 cc.? After that 22 gauge 3.5 inch spinal needle was driven sequentially to the points of interest in tunnel vision fashion. After needles gently contacted the bone at the point of interests the needle was injected with small amount of the contrast.? The injection of the contrast did not demonstrate any intravascular or intrathecal spread of the contrast.? After that injection of the? ropivacaine 0.5%-1cc was performed at each needle location.??after that the needles were removed and Bandaids were applied. ? Upon completion of the injections? needle was? removed and sterile Band-Aids were applied.? The patient tolerated procedure very well. Orders: Orders FL guidance in treatment room 09/10/23 M47.816 - Spondylosis without myelopathy or radiculopathy, lumbar region Coding Level of Care Code Procedure Only Diagnoses Spondylosis without myelopathy or radiculopathy, lumbar region M47.816
[2023-09-10 15:18] VITALS: BP 124/76; BP 138/88; PULSE 79; PULSE 82; RESP 18; O2SAT 96; O2SAT 98; BMI 26.2
== END 2023-09-10 15:11 | disposition home or self-care (01) ==
LOC: HO.PMCPRC 14:10
PROVIDERS: PCP Nurse Practitioner Primary Care; Visit Provider Anesthesiology
DX: M47.816 Spondylosis without myelopathy or radiculopathy, lumbar region (principal)
CPT/HCPCS: 64493; 64494

== ENCOUNTER 2023-09-16 11:45 | Outpatient (AMB) | payer MEDICAID, SELFPAY ==
--- NOTE | 2023-09-16 11:52 | A.OFFVIS_ITS ---
Vital Signs 09/16/23 11:53 Height 6 ft Weight 196 lb 4 oz BMI 26.6 BP 114/68 Blood Pressure Location Lt brachial Position Sitting Respiration 16 Pulse 84 Pulse Source Pulse Oximeter Pulse Oximetry (%) 97 Oxygen Delivery Method Room Air Intake Visit Reasons: BILATERAL DIAGNOSTIC L3, L4, DRL5 MBB Intake Note: Patient comes in for post-op appointment. Reports pain 10. Allergies No Known Allergies [No Known Allergies*] Allergy (Verified 09/16/23 11:52) HPI Comments Details: Tin is in the office today after diagnostic medial branch block in the lumbar spine. The conversation was helped today by front office spec Aleja Gardner who is certified rehabilitation therapy aide. It looks like that he received at least 60% pain improvement after the procedure. I offered him sprint PNS today. I explained procedure to him, I will schedule him for the right and after that for the left sprint PNS. Patient understood The conversation was held today by front office spec Aleja The MRI report is rather remarkable the full dictation is as below. However w hen I examined the images myself I found Modic type 1 and possibly type 2 changes at the L4-5 and S1 vertebra. However with repeated physical examination I noticed that of the loading test is highly positive for this patient. I suspect that there are 2 different pain generators existing in this patient coinciding. One is facet arthropathy in the lower lumbar spine and the other is vertebra genic pain syndrome. I decided to offer him diagnostic medial branch block 1st. Diagnostic medial branch block appeared to be 60% effective for his pain control. Discussion was made about sprint PNS. If sprint PNS will not help his pain or help his pain partially we will proceed for intrasept procedure. I will see him next time for the injection and for the evaluation after the injection. Left hipx-ray is negative for pathology in the left hip. Prior: very pleasant 53 years old gentleman who presents in my office with complains on pain in the lower back with radiation into bilateral lower extremities all the way to his feet. this pain started 10 years ago. no inciting events ,, walking hurts more than standing, sitting or laying down. bending forward hurts more than bending backwards. on permanent disability for chronic widespread pain. weather changes aggravate his pain. Morning and night pain is more severe that pain during the daytime. Tylenol and NSAIDs minimally helped his pain. He e had an MRI of the lumbar spine. physical therapy 5 years ago aggravated his pain tremendously he is very scared of physical therapy. He never had chiropractic manipulations massage therapy acupuncture or 10s unit. 7 years ago unknown provider performed some injections in his back it does not seem to be that those injections were image guided. He denies any help from those injections. [facility]LY [facility] Medical History Chronic pain Diabetes mellitus, type 2 Fibromyalgia History of testicular cancer Hypertension Surgical History History of orchiectomy Social History Alcohol intake: never Patient Tobacco Use Status: Former Tobacco user service: No Current occupational status: disabled Review of Systems Const All systems reviewed & are unremarkable except as noted in HPI and below ENT Reports Normal hearing present Neuro Reports Normal hearing present, Denies Abnormal speech present, Denies confusion and Denies Sensory deficit (Neuro) Psych Denies confusion Physical Exam Vital Signs: Last Vital Signs Pulse 84 09/16/23 11:53 Resp 16 09/16/23 11:53 BP 114/68 09/16/23 11:53 Pulse Ox 97 09/16/23 11:53 Oxygen Delivery Method Room Air 09/16/23 11:53 BMI result Body Mass Index 26.6 Const General: no acute distress; No confusion Orientation/consciousness: patient oriented x3 and No confusion Eyes General: appearance normal, both eyes and all related structures Pupils: Equal, round and reactive pupils present EOM: EOMs intact bilaterally Neck Neck: Yes full ROM Chest Chest palpation & inspection: normal inspection of the chest Resp Effort & Inspection: normal respiratory effort, able to speak in complete sentences, normal respiratory pattern, no audible wheezes and no cough Cardio Jugular venous distension: no JVD GI Inspection: Yes normal to inspection Back/Spine/Pelvis Other: Unable to stand on bilateral tiptoes in bilateral heels. Reports weakness on bilateral lower extremities. Reports numbness in bilateral lower extremities, reports tingling sensation in bilateral lower extremities. Flexing forward aggravates pain more than flexing backwards. Reports tenderness on palpation in the paraspinal spinal region of lower thoracic entire lumbar and upper sacral spine. SLR is positive bilaterally. Foot dorsiflexion with maximal SLR does not contribute to pain increase. Loading test is positive today bilaterally. Marck test is positive on the right, unable to perform on the left patient reports severe pain in the groin. Lateral rotation of the left hip results in severe pain in the groin. Reports difficulty with prolonged sitting prolonged driving, reports difficulty lifting objects from the floor, reports pain with flexing back forward and backwards. Neuro General: patient oriented x3, gait normal and No confusion Cranial nerves: Yes CN's II-XII intact bilaterally, Yes Equal, round and reactive pupils present, Yes Normal hearing present and Yes Ability to bilaterally elevate shoulders present Speech: No Abnormal speech present Gait exam (Neuro): Normal gait present Motor exam (neuro): 5/5 motor strength present throughout Sensory Exam: No Sensory deficit (Neuro) Extrem General: No pedal edema Psych Speech and movement: Normal speech and movement present Affect: normal affect Attitude: cooperative Thought process: Normal thought process present Thought content: Normal thought content present Insight: Good insight present (Psych) Judgement: Good judgement present (Psych) Results Reviewed Results Reviewed: MRI report ramus 07/23/2023. Findings normal lumbar alignment this demonstrated vertebral heights are well- maintained. Bone marrow signal is within normal limits. No suspicious osseous lesions are identified. Conus medullaris is unremarkable. L1-L2, L2-L3, L3-L4, L4-5: There is no significant disc herniation or protrusion. No central canal or neural foraminal stenosis is demonstrated L5-S1 no significant disc herniation or protrusion. No central canal or neural foraminal stenosis is demonstrated. There is a moderate-sized disc osteophyte complex on the left causing left-sided neural foraminal stenosis without nerve root encroachment. Multiple bilateral renal cysts. Assessment & Plan Assessment & Plan (1) Spondylosis without myelopathy or radiculopathy, lumbar region: Code(s): M47.816 - Spondylosis without myelopathy or radiculopathy, lumbar region Category: Medical (2) Disc degeneration, lumbar: Code(s): M51.36 - Other intervertebral disc degeneration, lumbar region Category: Medical (3) Chronic pain syndrome: Code(s): G89.4 - Chronic pain syndrome Category: Medical (4) Vertebrogenic low back pain: Code(s): M54.51 - Vertebrogenic low back pain Category: Medical Plan Risks MRIs rather unremarkable however with personal examination I noticed profound L5-S1 and subtle L4 Modic type changes. However on physical exam loading test was very impressive. Bilateral medial branch block demonstrated at least 60% pain improvement for the 1st 4-5 hours. I offered him sprint PNS. If this procedure will not be effective 3 weeks after the beginning of the treatment, I will offer him L4-L5 S1 intercept procedure. Coding Level of Care Code Est Pt Level 3 (39308) Diagnoses Spondylosis without myelopathy or radiculopathy, lumbar region M47.816 Disc degeneration, lumbar M51.36 Chronic pain syndrome G89.4 Vertebrogenic low back pain M54.51
[2023-09-16 11:53] VITALS: BP 114/68; PULSE 84; RESP 16; O2SAT 97; BMI 26.6
== END 2023-09-16 12:03 | disposition home or self-care (01) ==
PROVIDERS: PCP Nurse Practitioner Primary Care; Visit Provider Anesthesiology
DX: M47.816 Spondylosis without myelopathy or radiculopathy, lumbar region (principal); M51.36 Other intervertebral disc degeneration, lumbar region; G89.4 Chronic pain syndrome; M54.51 Vertebrogenic low back pain
CPT/HCPCS: 99213

== ENCOUNTER → 2023-09-16 11:45 | Outpatient (BNVA) | payer MEDICAID, SELFPAY | PROVIDERS: PCP Nurse Practitioner Primary Care; Visit Provider Anesthesiology | DX: M47.816 Spondylosis without myelopathy or radiculopathy, lumbar region (principal); M51.36 Other intervertebral disc degeneration, lumbar region; M54.51 Vertebrogenic low back pain; G89.4 Chronic pain syndrome | CPT/HCPCS: 99212 ==

== ENCOUNTER 2023-10-18 10:01 | Day surgery (SDC) | payer MEDICAID, SELFPAY ==
--- NOTE | 2023-10-16 10:49 | HO.ANESPROP2 ---
Documented by User: Mame Spence NP 10/16/23 10:52 HPI - Anesthesia Eval Consult details Narrative: 53yo M for Upper Endoscopy and Colonoscopy Anesthesia Pre-Procedure Meds Is the patient on any of the following meds?: GLP1/DPP4 PMFSH Active Problems Active Problems: All Active Problems Vertebrogenic low back pain (Acute) Chronic pain syndrome (Acute) Disc degeneration, lumbar (Acute) Spondylosis without myelopathy or radiculopathy, lumbar region (Acute) Arthritis of left hip (Acute) Early satiety (Acute) History of Helicobacter pylori infection (Acute) History of colon polyps (Acute) Dysphagia, pharyngoesophageal phase (Acute) Hyperkalemia (Acute) Chronic pain (Acute) History of orchiectomy (Acute) History of testicular cancer (Acute) Hyperlipidemia (Acute) Past Medical History Medical History (Updated 10/17/23 @ 13:30 by Aleja Alexis RN) Elevated cholesterol Chronic pain History of testicular cancer Diabetes mellitus, type 2 Fibromyalgia Hypertension Surgical History Surgical History History of orchiectomy Social History Social History Alcohol intake: never Patient Tobacco Use Status: Former Tobacco user Use of substances other than those prescribed or required for medical reasons: No Are you DNR?: No Advance Directives: No Advance Directives Information Provided: Yes service: No Current occupational status: disabled Meds Allergies Allergy/AdvReac Type Severity Reaction Status Date / Time No Known Allergies Allergy Verified 09/16/23 11:52 [No Known Allergies*] Home Medications ?Medication ?Instructions ?Recorded ?Confirmed ?Last Taken ?Type amitriptyline 150 mg tablet 1 tab PO BEDTIME 08/07/21 06/20/23 08/06/21 History amlodipine 10 mg tablet 1 tab PO BEDTIME 08/07/21 06/20/23 08/06/21 History aspirin 81 mg tablet,delayed 1 tab PO BEDTIME 08/07/21 06/20/23 08/06/21 History release atorvastatin 10 mg tablet 1 tab PO BEDTIME 08/07/21 06/20/23 08/06/21 History carbamazepine 200 mg tablet 1 tab PO BEDTIME 08/07/21 06/20/23 08/06/21 History cholecalciferol (vitamin D3) 25 1 cap PO QAM 08/07/21 06/20/23 08/06/21 History mcg (1,000 unit) capsule (Vitamin D3) clonazepam 1 mg tablet 1 tab PO BID 08/07/21 06/20/23 08/06/21 History doxepin 75 mg capsule 1 cap PO BEDTIME 08/07/21 06/20/23 08/06/21 History dulaglutide 1.5 mg/0.5 mL 1.5 mg subcut MO 08/07/21 06/20/23 07/31/21 History subcutaneous pen injector (Trulicity) glipizide 10 mg tablet, extended 1 tab PO BID 08/07/21 06/20/23 08/06/21 History release 24 hr metformin 1,000 mg tablet 1 tab PO BID 08/07/21 06/20/23 08/06/21 History metoprolol succinate 25 mg 1 tab PO BID 08/07/21 06/20/23 08/06/21 History tablet,extended release 24 hr pregabalin 150 mg capsule 1 cap PO BID 08/07/21 06/20/23 08/06/21 History ropinirole 2 mg tablet 1 tab PO BEDTIME 08/07/21 06/20/23 08/06/21 History zolpidem 10 mg tablet 1 tab PO BEDTIME PRN Insomnia 08/07/21 06/20/23 08/06/21 History Exam Pertinent Lab Results Pertinent Lab Results: Laboratory Tests 08/16/23 12:17 WBC 6.6 Hgb 14.1 Hct 40.8 L Plt Count 203 Sodium 144 Potassium 4.5 Chloride 110 H Carbon Dioxide 27 BUN 19 H Creatinine 0.97 Narrative Narrative: EKG 08/2023 Vent. Rate : 076 BPM Atrial Rate : 076 BPM P-R Int : 174 ms QRS Dur : 084 ms QT Int : 366 ms P-R-T Axes : 034 -39 025 degrees QTc Int : 411 ms Normal sinus rhythm Left axis deviation Inferior infarct (cited on or before 13-JUN-2016) Abnormal ECG When compared with ECG of 20-DEC-2021 18:07, No significant change was found Assessment and Plan Assessment Anesthesia Assessment: Chart Reviewed Documented by User: Cely Cody MD 10/18/23 10:50 [facility] Past Medical History Medical History (Updated 10/17/23 @ 13:30 by Aleja Alexis RN) Elevated cholesterol Chronic pain History of testicular cancer Diabetes mellitus, type 2 Fibromyalgia Hypertension Family History Family history of problems with anesthesia: No Surgical History Surgical History History of orchiectomy History of Problems with Anesthesia: No Social History Social History Alcohol intake: never Patient Tobacco Use Status: Former Tobacco user Use of substances other than those prescribed or required for medical reasons: No Are you DNR?: No Advance Directives: No Advance Directives Information Provided: Yes service: No Current occupational status: disabled Meds Allergies Allergy/AdvReac Type Severity Reaction Status Date / Time No Known Allergies Allergy Verified 09/16/23 11:52 [No Known Allergies*] Home Medications ?Medication ?Instructions ?Recorded ?Confirmed ?Last Taken ?Type amitriptyline 150 mg tablet 1 tab PO BEDTIME 08/07/21 06/20/23 08/06/21 History amlodipine 10 mg tablet 1 tab PO BEDTIME 08/07/21 06/20/23 08/06/21 History aspirin 81 mg tablet,delayed 1 tab PO BEDTIME 08/07/21 06/20/23 08/06/21 History release atorvastatin 10 mg tablet 1 tab PO BEDTIME 08/07/21 06/20/23 08/06/21 History carbamazepine 200 mg tablet 1 tab PO BEDTIME 08/07/21 06/20/23 08/06/21 History cholecalciferol (vitamin D3) 25 1 cap PO QAM 08/07/21 06/20/23 08/06/21 History mcg (1,000 unit) capsule (Vitamin D3) clonazepam 1 mg tablet 1 tab PO BID 08/07/21 06/20/23 08/06/21 History doxepin 75 mg capsule 1 cap PO BEDTIME 08/07/21 06/20/23 08/06/21 History dulaglutide 1.5 mg/0.5 mL 1.5 mg subcut MO 08/07/21 06/20/23 07/31/21 History subcutaneous pen injector (Trulicity) glipizide 10 mg tablet, extended 1 tab PO BID 08/07/21 06/20/23 08/06/21 History release 24 hr metformin 1,000 mg tablet 1 tab PO BID 08/07/21 06/20/23 08/06/21 History metoprolol succinate 25 mg 1 tab PO BID 08/07/21 06/20/23 08/06/21 History tablet,extended release 24 hr pregabalin 150 mg capsule 1 cap PO BID 08/07/21 06/20/23 08/06/21 History ropinirole 2 mg tablet 1 tab PO BEDTIME 08/07/21 06/20/23 08/06/21 History zolpidem 10 mg tablet 1 tab PO BEDTIME PRN Insomnia 08/07/21 06/20/23 08/06/21 History Exam Airway Mallampati Class: II TM Dist: >3cm Neck ROM: Full Partial: Lower Heart: rrr Lungs: cta Assessment and Plan Assessment Anesthesia Assessment: Anesthesia Plan Discussed Final Anesthetic Review Family History of Problems with Anesthesia: No History of Problems with Anesthesia: No NPO: Yes ASA Class: III Final Preanesthetic Review: No Changes in Pt Med Stat, Meds/Allgs Chart Reviewed and Consent Obtained/Reviewed Patient Risk: Intermediate Procedure Risk: Intermediate Anesthetic Plan Anesthetic Plan: MAC: Disposition: Standard PACU
[2023-10-16 12:31] VITALS: BMI 26.0
[2023-10-18 10:17] VITALS: BMI 26.2
[2023-10-18 10:18] VITALS: BP 130/75; PULSE 73; RESP 16; TEMP 36.4; O2SAT 100
[2023-10-18 10:37] LABS: Glucose, Whole Blood 123 mg/dL (60-115)
[2023-10-18] MEDS: Lactated Ringers 1,000 ML 100 ML IVCONT (10:39)
--- NOTE | 2023-10-18 10:51 | MHC.SHP ---
Pre-Procedural Eval Section A - 24 Hr Update-Section A only Date of Service: 10/18/23 The patient is an INPATIENT: No The patient has been examined within 24 hours of the surgical procedure. The History & Physical has been completed within 30 days and I have reviewed it.: No Section B - Complete if H&P > 30 days Chief Complaint: Follow-up of colon polyps, dysphagia, abd pain Relevant Family History (Specify if Yes): No Relevant Social History: Tobacco Use (Former smoker) Present Medications: see Short Stay Collaborative assessment Medical History: Significant History (Chronic pain Diabetes mellitus, type 2 Fibromyalgia History of testicular cancer Hypertension) History of Previous Operations: Relevant previous surgery/procedure and date(s) (History of orchiectomy) Allergies: Allergies Allergy/AdvReac Type Severity Reaction Status Date / Time No Known Allergies Allergy Verified 09/16/23 11:52 [No Known Allergies*] Review of Systems Sugical H&P ROS: Negative: Constitution, Cardiovascular and Respiratory and Yes, Specify: Gastrointestinal (dysphagia, abd pain) Exam Surgical H&P Exam: Normal: Heart, Normal: Lungs, Normal: Extremities and Normal: Abdomen Plan Diagnosis/Plan: Unchanged I have reviewed the history and physical and performed a pertinent physical examination on my patient. No changes have occurred unless specified. Time Spent With Patient Time: Total time managing care of this patient today ____ minutes.
--- NOTE | 2023-10-18 11:22 | P.OPN-COLO_ITS ---
Colonoscopy Operative Note Operative Note Date of Service: 10/18/23 Narrative: FLEXIBLE TRANSORAL UPPER GASTROINTESTINAL ENDOSCOPY WITH BIOPSIES AND ESOPHAGEAL BALLOON DILATION AND COLONOSCOPY TILL CECUM WITH SNARE POLYPECTOMY Pre-op diagnosis: Surveillance of colon polyps, GERD, dysphagia, abdominal pain Post-op diagnosis: Dysphagia, GERD, Gastritis, Gastric ulcer, duodenitis, Colon Polyps, Diverticulosis, hemorrhoids Endoscopist:? Rani Franco MD Anesthesia:?MAC UPPER ENDOSCOPY Consent: Indications for the procedure and potential complications of bleeding, perforation, reaction to medications and missed diagnosis were discussed with the patient and informed consent was obtained. Instrument: Olympus GIF H 190 mid size upper endoscope Monitoring: Vital signs and clinical assessment, continuous EKG monitoring, Pulse oximetry, Carbon Dioxide monitoring and blood pressure monitoring were done throughout the procedure. Procedure: The patient was placed in the left lateral decubitis position and pre-procedure medications were administered and a bite block was placed. The endoscope was inserted into the mouth and advanced under direct vision to the third part of duodenum. A careful inspection was made as the upper endoscope was withdrawn including a retroflexed examination of the proximal stomach; Findings and interventions are described below. Findings: Larynx: Normal Esophagus: GE junction at 40 cms. Mildly tortuous esophagus without stricture or ring. No esophagitis or Barton's. Biopsies were obtained from proximal esophagus to check for EOE. Esophageal balloon dilation was performed with a 20 F CRE balloon x 60 seconds Stomach: Moderate diffuse gastric erythema - biopsies were obtained from the antrum. Multiple antral erosions and a 5-6 mm chronic appearing ulcer in the antrum - biopsied. Grade 2 flap valve on retroflexed examination of the cardia. Duodenum: Mild duodenitis in the bulb and normal descending duodenum Biopsies were obtained from descending duodenum to check for celiac sprue Intervention: Biopsies as noted above COLONOSCOPY PROCEDURE NOTE Instrument: Olympus CF H 190 L variable stiffness adult colonoscope Monitoring: Vital signs and clinical assessment, intermittent blood pressure monitoring, continuous EKG monitoring, Pulse oximetry and Carbon Dioxide monitoring were done throughout the procedure. Please see anesthesia flowsheet. Colon withdrawl time was 24 minutes. Procedure: The patient was placed in the left lateral decubitis position and pre-procedure medications were administered. After a digital rectal examination of the ano-rectum, the video colonoscope was inserted into the rectum and advanced through the colon to the cecum. The colonoscope was slowly withdrawn in a retrograde panoramic fashion and the colon mucosa was carefully examined including a retroflexed view of the rectum. Findings and interventions are described below. Procedure Difficulty: Colon was long and tortuous and there was some loop formation. LLQ pressure was applied to intubate the cecum Findings: Terminal Ileum: Not evaluated Cecum: Normal Ascending Colon: Normal Transverse Colon: A 10 - 12 mm sessile, ulcerated polyp in the distal TC - removed with a hot snare Descending Colon: Normal Sigmoid Colon: Moderate diverticulosis Rectum: Normal Ano-rectum: Moderate internal hemorrhoids Colon preparation: Good after copious irrigation and fair in the left colon due to undigested vegetable matter which could not be suctioned. [place] Bowel Preparation Scale Right colon; 2 Transverse colon: 2 Left colon; 1 (0 = Unprepared colon segment with mucosa not seen due to solid stool that cannot be cleared. 1 = Portion of mucosa of the colon segment seen, but other areas of the colon segment not well seen due to staining, residual stool and/or opaque liquid. 2 = Minor amount of residual staining, small fragments of stool and/or opaque liquid, but mucosa of colon segment seen well. 3 = Entire mucosa of colon segment seen well with no residual staining, small fragments of stool or opaque liquid) Impression and Post Procedure Diagnosis: Endoscopy Findings: ESOPHAGUS: Mildly tortuous esophagus without stricture or ring. No esophagitis or Barton's. Biopsies were obtained from proximal esophagus to check for EOE. Esophageal balloon dilation was performed with a 20 F CRE balloon x 60 seconds STOMACH: Moderate diffuse gastric erythema - biopsies were obtained from the an trum. Multiple antral erosions and a 5-6 mm chronic appearing ulcer in the antrum - likely due to NSAID use. DUODENUM: Mild duodenitis in the bulb. Biopsied to check for celiac sprue Colonoscopy Findings: One medium sized polyp was removed Moderate diverticulosis seen in the sigmoid left colon Moderate hemorrhoids on retroflexed exam. Plan: Pt has a FU appointment on 10/31/[address] Franco Repeat Colonoscopy in 3-5 years if polyps are adenomatous and due to a history of adenomatous colon polyps. Above findings were reviewed with the patient and relevant handouts were given and the discharge area. Patient advised to switch to acetaminophen.
[2023-10-18 12:04] VITALS: BP 109/69; PULSE 73; RESP 16; TEMP 36.2; O2SAT 98
[2023-10-18 12:19] VITALS: BP 132/80; PULSE 70; RESP 16; TEMP 36.2; O2SAT 100
== END 2023-10-18 13:11 | disposition home or self-care (01) ==
PROVIDERS: PCP Internal Medicine; Visit Provider Internal Medicine Gastroenterology
PROC: (CPT 45385; principal; 2023-10-18 11:50)
DX: Z12.11 Encounter for screening for malignant neoplasm of colon (principal); D12.3 Benign neoplasm of transverse colon; K56.2 Volvulus; K57.30 Diverticulosis of large intestine without perforation or abscess without bleeding; K64.8 Other hemorrhoids; Z86.010 Personal history of colon polyps; R13.14 Dysphagia, pharyngoesophageal phase; K22.89 Other specified disease of esophagus; K29.70 Gastritis, unspecified, without bleeding; K25.9 Gastric ulcer, unspecified as acute or chronic, without hemorrhage or perforation; K21.9 Gastro-esophageal reflux disease without esophagitis; K29.80 Duodenitis without bleeding; E11.9 Type 2 diabetes mellitus without complications; I10 Essential (primary) hypertension; Z79.82 Long term (current) use of aspirin; Z79.84 Long term (current) use of oral hypoglycemic drugs; Z79.899 Other long term (current) drug therapy
CPT/HCPCS: 45385; 43249; 43239; 82947; 88305; 88313; 88342; C1726; J2704

== ENCOUNTER → 2023-10-18 10:01 | Outpatient (BNV) | payer MEDICAID, SELFPAY | PROVIDERS: PCP Internal Medicine; Visit Provider Internal Medicine Gastroenterology | DX: Z12.11 Encounter for screening for malignant neoplasm of colon (principal); Z86.010 Personal history of colon polyps; K63.5 Polyp of colon; K57.90 Diverticulosis of intestine, part unspecified, without perforation or abscess without bleeding; R13.10 Dysphagia, unspecified; K21.9 Gastro-esophageal reflux disease without esophagitis; K29.70 Gastritis, unspecified, without bleeding; K25.9 Gastric ulcer, unspecified as acute or chronic, without hemorrhage or perforation; K29.80 Duodenitis without bleeding | CPT/HCPCS: 43239; 43249; 45385 ==

== ENCOUNTER 2023-10-31 10:42 | Outpatient (AMB) | payer MEDICAID, SELFPAY ==
--- NOTE | 2023-10-31 11:25 | MHC.OFFVIS ---
Vital Signs 10/31/23 11:27 Height 6 ft Weight 190 lb BMI 25.8 BP 108/63 Blood Pressure Location Lt brachial Position Sitting Pulse 75 Intake Visit Reasons: s/p egd/colon Intake Note: Patient follow up for EGD/Colonoscopy results Patient denies any GI issues. Jr. Systems Administrator Required: Yes Jr. Systems Administrator Name: dalton Smith [id number] Accompanied by: Self / Same As Patient Allergies No Known Allergies [No Known Allergies*] Allergy (Verified 11/05/23 10:08) Medication List - Last Reconciled 10/31/23 by Rani Franco MD acetaminophen (Tylenol Extra Strength) 500 mg PO Q6H PRN amitriptyline 1 tab PO BEDTIME amlodipine 1 tab PO BEDTIME aspirin 1 tab PO BEDTIME atorvastatin 1 tab PO BEDTIME benzonatate 100 mg PO TID PRN carbamazepine 1 tab PO BEDTIME cholecalciferol (vitamin D3) (Vitamin D3) 1 cap PO QAM clonazepam 1 tab PO BID cyclobenzaprine 5 mg PO Q8H PRN 5 days doxepin 1 cap PO BEDTIME dulaglutide (Trulicity) 1.5 mg subcut MO glipizide ER 1 tab PO BID lidocaine 5% (Lidoderm) 1 patch topical DAILY PRN MDD remove after 12 hours metformin 1 tab PO BID metoprolol succinate ER 1 tab PO BID naproxen 500 mg PO BID PRN 10 days omeprazole 20 mg PO BID 90 days pregabalin 1 cap PO BID ropinirole 1 tab PO BEDTIME sumatriptan succinate take 1 tab at onset of headache; if no relief may repeat 1 tab after at least 2 hrs; max = 4 tabs/24 hr zolpidem 1 tab PO BEDTIME PRN HPI HPI s/p egd/colon: Details: GI clinic visit for this 53-year-old Fijian-speaking male here for follow-up of abdominal pain and to schedule a colonoscopy (Hx of colon polyps). Pt is followed by Gemma Dennison NP. He has not been seen in the GI clinic since 01/2022 CHRONIC ILLNESSES: HTN, DM II, TACHYCARDIA, SHORTNESS OF BREATH, HISTORY OF TESTICULAR CANCER, Pt uses a cane for back problems/neuropathy (legs give out while walking) ?LABS IN [facility]: 04/27/19 CBC was normal with resolution of mild anemia, normal Chem panel and LFTs, INR 1 ?IMAGING STUDIES 08/[address] scan showed: ?1. No acute intra-abdominal findings seen. ?2. Status post cholecystectomy. ?3. There is atelectasis/scarring in the visualized lung bases, as detailed above. ?4. Limited evaluation of the stomach. Hazy density along the posterior aspect of the fundus may reflect luminal contents. Clinical correlate. Further evaluation with endoscopy as clinically warranted. ?5. Additional findings and details in the body of the report. ENDOSCOPIC STUDIES: 11/24/2019 colonoscopy showed: ?Two polyps removed. Moderate dverticulosis seen in the sigmoid colon ?Moderate hemorrhoids on retroflexed exam. ?Plan: Patient has an appointment on 12/14/19 in the GI Clinic with Rani Franco M.D.-. ?Repeat Colonoscopy interval based on path results in 1-2 years due to fair prep. ?BIOPSIES SHOWED: ?Colon, transverse polyps, polypectomy: Fragments of tubular adenomas; negative for high-grade dysplasia. Jun, 2019 EGD AND COLON SHOWED: Endoscopy Findings: ESOPHAGUS: Tortuous and dilated appearing esophagus with increased tertiary contractions without stricture or ring. GE junction at 40 cms. No esophagitis or Barton?s. STOMACH: Moderate diffuse gastric erythema with prominent gastric folds - biopsied. Biopsies were obtained from the gastric antrum. Grade 2 flap valve on retroflexed examination of the cardia DUODENUM: Duodenitis in the bulb with a few 2-3 mm erosions and normal descending duodenum Colonoscopy Findings: One large 2 cms pedunculated polyp removed from the transverse colon Moderate internal hemorrhoids on retroflexed exam. Plan: Consider solid and liquid phase barium swalow if he continues to have dysphagia Repeat Colonoscopy interval based on path results - in 3-5 years if polyps are adenomatous and 10 years if polyps are hyperplastic. BIOPSIES SHOWED: A. Stomach, antrum, biopsy: - Antral-type mucosa with severe chronic, active, inflammation. - Positive for H. pylori.B. Stomach folds, biopsy: - Oxyntic mucosa with moderate chronic, focally active, inflammation. - Positive for H. pylori.C. Colon, transverse, polypectomy: Tubulovillous adenoma with focal high grade dysplasia; no carcinoma seen. 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 My body shakes and I have lost 15 lbs Appetite is decreased. Denies ETOH or IVDA or ongoing cocaine abuse Denies abdominal pain. Complains if intermittent dysphagia to solid food and not with liquids. Intermittent constipation. Diagnosed with DM 20 yrs agp. PAST VISITS: Sometimes notes pain in the left side of the abdomen - can last a few minutes Pain can be stabbing in character. No pain for 2-3 days and then pain recurs. Sometimes has relief of pain after a BM and sometimes it does not help. Pain can increase with eating. Notes nausea when he has migraine HAs. Notes intermittent dysphagia with solids and liquids. Food gets stuck and dysphagia resolves when he drinks some water Patient denies symptoms of heartburn, change in appetite or weight. Notes constipation and denies diarrhea, black stools or rectal bleeding. Notes palpitations and denies major cardiac or pulmonary problems, loud snoring or sleep apnea Denies problems with anesthesia in the past. Denies being on chronic anticoagulation. Patient denies known family history of colon polyps, colon cancer or other GI malignancies. PAST GI HISTORY BY REVIEW OF MEDICAL RECORDS: Last seen on 12/14/2019: ?Colonoscopy results were reviewed with Tin - needs repeat colon in 1-2 yrs due to fair prep. ? Sometimes notes left sided abdominal pain and has to use the bathroom - started having these symptoms after he had his last colonoscopy.. ?Sometimes he is able to have a BM and sometimes not. ?Abd pain improves after he is able to have a BM ?Finished antibiotic therapy for Helicobacter pylori IN 07/2019 ?FU stool antigen was negative for H Pylori. ?Weight fluctuates from 204 to 210. ?Intermittent constipation and denies black stools or rectal bleeding. ?Denies major cardiac or pulmonary problems, denies snoring or sleep apnea. ?Denies problems with anesthesia with past surgeries (GB and testicular Ca). ?Denies known FH of colon polyps, colon cancer, or GI malignancy FORMERLY [facility], [facility]1983 Medical History (Updated 11/06/23 @ 17:15 by Rani Franco MD) Elevated cholesterol Chronic pain History of testicular cancer Diabetes mellitus, type 2 Fibromyalgia Hypertension Surgical History History of esophagogastroduodenoscopy (EGD) Hx of colonoscopy History of orchiectomy Social History Alcohol intake: never Patient Tobacco Use Status: Former Tobacco user service: No Current occupational status: disabled Review of Systems Const All systems reviewed & are unremarkable except as noted in HPI and below Physical Exam Vital Signs: Last Vital Signs Pulse 75 10/31/23 11:27 BP 108/63 10/31/23 11:27 BMI result Body Mass Index 25.8 Const General: healthy appearing and no acute distress Nutritional Appearance: overweight Orientation/consciousness: patient oriented x3 Limitations: language barrier HEENT Head: Yes normal to inspection Ears: hearing grossly normal bilaterally Eyes Sclerae: sclerae normal Pupils: Equal, round and reactive pupils present Neck Neck: Yes normal visual inspection Chest Chest palpation & inspection: normal inspection of the chest Resp Effort & Inspection: normal respiratory effort Auscultation: clear to auscultation bilaterally Cardio Palpation: normal PMI Rate: regular rate Rhythm: regular rhythm Heart sounds: S1 normal heart sound present, S2 normal heart sound present and no murmurs GI Palpation (GI): Soft to palpation, nontender and No hepatosplenomegaly present Auscultation: normal bowel sounds Rectal Exam - Male: Yes deferred Skin General skin exam: no rashes or lesions noted Neuro General: patient oriented x3, gait normal and moves all extremities Cranial nerves: Yes Equal, round and reactive pupils present Psych Appearance: grossly normal Mental Status: mental status grossly normal Assessment & Plan Assessment & Plan (1) Dysphagia, pharyngoesophageal phase: Code(s): R13.14 - Dysphagia, pharyngoesophageal phase Category: Medical (2) History of colon polyps: Comment: 06/25/19 Colonoscopy showed a 2 cm pedunculated polyp which was removed from the transverse colon and biopsies showed Tubulovillous adenoma with focal high grade dysplasia; no carcinoma seen. 11/24/19 Repeat colonoscopy in November revealed two additional adenomatous polyps in the TC. Repeat Colon in 2 yrs (due to fair prep) 10/2023 A 10 - 12 mm sessile, ulcerated adenomatous polyp in the distal TC - removed with a hot snare on FU colon FU colon in 3 years Code(s): Z86.010 - Personal history of colonic polyps Category: Medical (3) History of Helicobacter pylori infection: Comment: 06/25/19 EGD showed gastritis and duodenitis. Gastric biopsies were positive for Helicobacter pylori. Patient was treated with triple therapy. Follow-up stool test was negative for H pylori antigen. Code(s): Z86.19 - Personal history of other infectious and parasitic diseases Category: Medical (4) Early satiety: Code(s): R68.81 - Early satiety Category: Medical (5) Elevated LFTs: Code(s): R79.89 - Other specified abnormal findings of blood chemistry Category: Medical Plan 53 YM followed in GI for Helicobacter pylori gastritis and adenomatous colon polyp. 06/25/19 EGD showed gastritis and duodenitis. Gastric biopsies were positive for Helicobacter pylori. Patient was treated with triple therapy. Follow-up stool test was negative for H pylori antigen. Same day colonoscopy showed a 2 cm pedunculated polyp which was removed from the transverse colon and biopsies showed Tubulovillous adenoma with focal high grade dysplasia; no carcinoma seen. 11/24/19 Repeat colonoscopy in November revealed two additional adenomatous polyps in the TC. 02/01/22 Patient was advised to schedule a barium swallow for evaluation of dysphagia. Patient will be scheduled for an upper endoscopy (dysphagia) and a colonoscopy (FU of colon polyps) 10/31/23 fu after EGD and colon on 10/18/2310/2023 A 10 - 12 mm sessile, ulcerated adenomatous polyp in the distal TC - removed with a hot snare on FU colon FU colon in 3 years Patient follow up for GERD and dysphagia and was a no show for his Barium swallow test. My body shakes and I have lost 15 lbs Appetite is decreased. Denies ETOH or IVDA or ongoing cocaine abuse Denies abdominal pain. Complains if intermittent dysphagia to solid food and not with liquids. Patient was advised labs for gerard of elevated LFTs and to reschedule barium swallow for evaluation of dysphagia FU in 4 months after barium swallow (scheduled 01/09/24) Orders: Orders Ferritin 10/31/23 R79.89 - Other specified abnormal findings of blood chemistry Liver Panel 10/31/23 R79.89 - Other specified abnormal findings of blood chemistry Hepatitis C Antibody 10/31/23 R79.89 - Other specified abnormal findings of blood chemistry Hepatitis B Surface Antibody 10/31/23 R79.89 - Other specified abnormal findings of blood chemistry Hepatitis B Surface Antigen 10/31/23 R79. - Other specified abnormal findings of blood chemistry Prothrombin Time INR 10/31/23 R79.89 - Other specified abnormal findings of blood chemistry IRON PROFILE 10/31/23 R7. - Other specified abnormal findings of blood chemistry Vitamin D 25-OH Total 10/31/23 R7.89 - Other specified abnormal findings of blood chemistry FL barium swallow 10/31/23 R13.14 - Dysphagia, pharyngoesophageal phase Hepatitis B Core Antibody 10/31/23 R7.89 - Other specified abnormal findings of blood chemistry Vitamin B12 and Folate 10/31/23 R79.89 - Other specified abnormal findings of blood chemistry Coding Level of Care Code Est Pt Level 4 (23176) Diagnoses Dysphagia, pharyngoesophageal phase R13.14 History of colon polyps Z86.010 History of Helicobacter pylori infection Z86.19 Early satiety R68.81 Elevated LFTs R79.89 Time Spent (min) 21
[2023-10-31 11:27] VITALS: BP 108/63; PULSE 75; BMI 25.8
== END 2023-10-31 12:14 | disposition home or self-care (01) ==
PROVIDERS: PCP Nurse Practitioner Primary Care; Visit Provider Internal Medicine Gastroenterology
DX: R13.14 Dysphagia, pharyngoesophageal phase (principal); Z86.010 Personal history of colon polyps; Z86.19 Personal history of other infectious and parasitic diseases; R68.81 Early satiety; R79.89 Other specified abnormal findings of blood chemistry
CPT/HCPCS: 99214

== ENCOUNTER → 2023-10-31 10:42 | Outpatient (BNVA) | payer MEDICAID, SELFPAY | PROVIDERS: PCP Nurse Practitioner Primary Care; Visit Provider Internal Medicine Gastroenterology | DX: R13.14 Dysphagia, pharyngoesophageal phase (principal); R79.89 Other specified abnormal findings of blood chemistry; R68.81 Early satiety; Z86.010 Personal history of colon polyps; Z86.19 Personal history of other infectious and parasitic diseases | CPT/HCPCS: 99212 ==

== ENCOUNTER 2023-11-05 06:14 | Outpatient (REF) | payer MEDICAID, SELFPAY ==
--- NOTE | ~2023-11-05 | FL_ITS ---
EXAMINATION: XR FLUOROSCOPY WITH IMAGES CLINICAL INFORMATION: Lumbar spondylosis. COMPARISON: None available. TECHNIQUE: Fluoroscopy Supervised By: Dr. Gera Kwan. Fluoroscopy Time: 0.1 minute. Cumulative Dose: 1.63 mGy. DAP: 0.0275 Gycm2. Images: 2. FINDINGS: Intraoperative fluoroscopy and spot films were performed during a procedure in the OR. A cannula is present overlying L5 on the right with final image demonstrating a lead present at that level. Please correlate with Dr. Gera Kwan's report for complete details. FL/FL guidance in treatment room IMPRESSION: Intraoperative fluoroscopy and spot films were obtained. Please see Dr. Gera Kwan's report for complete details.
== END 2023-11-05 06:15 | disposition home or self-care (01) ==
LOC: CF 06:14
PROVIDERS: Visit Provider Anesthesiology
DX: M47.816 Spondylosis without myelopathy or radiculopathy, lumbar region (principal)
CPT/HCPCS: 64555; C1778

== ENCOUNTER 2023-11-05 09:01 | Outpatient (AMB) | payer MEDICAID, SELFPAY ==
--- NOTE | 2023-11-05 10:08 | MHC.OFFVIS ---
Vital Signs 11/05/23 10:09 11/05/23 10:09 Height 6 ft 6 ft Weight 190 lb 190 lb BMI 25.8 25.8 BP 124/67 129/74 Blood Pressure Location Lt brachial Lt brachial Position Sitting Sitting Respiration 16 16 Pulse 71 71 Pulse Source Pulse Oximeter Pulse Oximeter Pulse Oximetry (%) 97 98 Oxygen Delivery Method Room Air Room Air Comment pre-op post-op Intake Visit Reasons: RIGHT L5 SPRINT PNS TRIAL(POSS L4, POSS S1) Allergies No Known Allergies [No Known Allergies*] Allergy (Verified 11/05/23 10:08) [facility] Medical History (Updated 10/31/23 @ 12:14 by Rani Franco MD) Elevated cholesterol Chronic pain History of testicular cancer Diabetes mellitus, type 2 Fibromyalgia Hypertension Surgical History History of esophagogastroduodenoscopy (EGD) Hx of colonoscopy History of orchiectomy Social History Alcohol intake: never Patient Tobacco Use Status: Former Tobacco user service: No Current occupational status: disabled Physical Exam Vital Signs: Last Vital Signs Pulse 71 11/05/23 10:09 Resp 16 11/05/23 10:09 BP 129/74 11/05/23 10:09 Pulse Ox 98 11/05/23 10:09 Oxygen Delivery Method Room Air 11/05/23 10:09 BMI result Body Mass Index 25.8 Office Procedures Sprint PNS Device: Sprint PNS Device [id number] Percutaneous Peripheral Neuroelectrode Procedure: 80219 - Percutaneous Peripheral Neuroelectrode Procedure code (CPT) selection complete Office Meds lidocaine (PF) 50 mg/5 mL (1 %) injection syringe Performing Provider: Ermelinda Mcconnell APRN, FURNITURE INSTALLER Performing Location: [facility] Administered by: Gera Kwan MD on 11/05/23 10:14 Dose Route Admin Location Dispensed Lot Number Expiration Date [facility] [employer] [facility] [employer] 5 mL subcut 5 mL Assessment & Plan Assessment & Plan (1) Spondylosis without myelopathy or radiculopathy, lumbar region: Code(s): M47.816 - Spondylosis without myelopathy or radiculopathy, lumbar region Category: Medical Plan Sprint PNS L5 on the right Percutaneous implantation of peripheral nerve stimulation Sprint system. After the risks, benefits and alternatives were discussed with the patient and informed consent was obtained, patient was placed in the prone position and padded to foster comfort. Time out was performed delineating correct site and side of the procedure , name and of the patient, patient participated in time out procedure. Sterily draped C-arm was brought over the operating field and clear picture of the L5 lamina on the on the right was delineated on the screen. The upper central portion of the lamina was chosen as a target of the needle tip insertion . After identifying and marking the intended target, the skin around the planned entry point and the subcutaneous tissues were injected with local anesthetic forming skin wheal.. A percutaneous sleeve and stimulating probe lead introduction system were assembled, inserted and advanced through the skin wheal to the point of interest under C-arm view in tunnel vision fashion, the introducer needle was delivered to a location in proximity to the nerve. Multiple stimulation parameters were used to deliver stimulation to the nerve in concert with stimulating at multiple positions around the nerve. nerve target acquisition was confirmed noting generation of in the corresponding to the nerve being stimulated. Various electrical parameter combinations were tested, and the lead location was adjusted (physically relocated) until the patient indicated overlapping the distribution of the patient?s typical region of pain. The stimulating probe was removed from the introducer and a percutaneous lead was guided through the needle and delivered to a location in similar proximity to the nerve. Final location was verified with electrical stimulation. The introducer needle was removed, and the exposed end of the percutaneous lead was attached to an external stimulator unit. At the end of the case various electrical parameter combinations were again tested until the patient indicated paresthesia or muscle tension overlapping the distribution of the patient?s typical region of pain. After confirming that lead impedance was in the normal range, the external unit was detached, the needle was removed, and the lead was anchored at the skin. The lead was threaded into the connector block and electrical continuity and desired patient response was confirmed. The connector block was attached to the external stimulator unit. The site was covered with a sterile occlusive dressing and a image was taken to document final placement Orders: Orders FL guidance in treatment room Today M47.816 - Spondylosis without myelopathy or radiculopathy, lumbar region AMB Sprint PNS Today M47.816 - Spondylosis without myelopathy or radiculopathy, lumbar region Coding Level of Care Code Procedure Only Diagnoses Spondylosis without myelopathy or radiculopathy, lumbar region M47.816 CPT Codes Sprint PNS - Sprint PNS Device: Sprint PNS Device ([id number]) Sprint PNS - SPRINT: [id number] - Percutaneous Peripheral Neuroelectrode ([id number])
[2023-11-05 10:09] VITALS: BP 124/67; BP 129/74; PULSE 71; RESP 16; O2SAT 97; O2SAT 98; BMI 25.8
== END 2023-11-05 11:46 | disposition home or self-care (01) ==
LOC: HO.PMCPRC 09:01
PROVIDERS: PCP Nurse Practitioner Primary Care; Visit Provider Anesthesiology
DX: M47.816 Spondylosis without myelopathy or radiculopathy, lumbar region (principal)
CPT/HCPCS: 64555

== ENCOUNTER 2023-11-13 10:22 | Outpatient (AMB) | payer MEDICAID, SELFPAY ==
--- NOTE | 2023-11-13 10:36 | MHC.OFFVIS ---
Vital Signs 11/13/23 10:57 Height 6 ft Weight 192 lb 8 oz BMI 26.1 BP 110/66 Blood Pressure Location Lt brachial Position Sitting Respiration 16 Pulse 81 Pulse Source Pulse Oximeter Pulse Oximetry (%) 100 Oxygen Delivery Method Room Air Intake Visit Reasons: RIGHT L5 SPRINT PNS TRIAL/11/05/23 Intake Note: Patient comes in for right Sprint PNS post-op. Site was cleared no redness/drainage/swelling at site. Site clean with alcohol prep pad, and new dsd/tegaderm applied. Today stimulation was set at 79 with good tolerance and reports pain level 11/12. Allergies No Known Allergies [No Known Allergies*] Allergy (Verified 11/13/23 11:00) HPI Comments Details: Tin is in the office today after sprint PNS insertion on 11/05/2023. He reports it is only minimal pain relief. He reports that the stimulation corresponds to his pain level, however he denies significant pain improvement. We decided to wait until the completion of the procedure next week. If in 1 week after the completion of the procedure with insertion of the left electrode will not alleviate this patient's pain I will schedule him for L4-L5 S1 intercept procedure for basivertebral pain syndrome. He reports increased pain with prolonged sitting, he reports pain with flexing forward and picking up stuff from the ground.. The conversation was helped today by office support Aleja Gardner who is certified certified court/medical interpreter Medial branch block was effective for at least 60% pain improvement after the procedure. I offered him sprint PNS today. I explained procedure to him, I will schedule him for the right and after that for the left sprint PNS. Patient understood The MRI report is rather remarkable the full dictation is as below. However when I examined the images myself I found Modic type 1 and possibly type 2 changes at the L4-5 and S1 vertebra. However with repeated physical examination I noticed that of the loading test is highly positive for this patient. I suspect that there are 2 different pain generators existing in this patient coinciding. One is facet arthropathy in the lower lumbar spine and the other is vertebra genic pain syndrome. I decided to offer him diagnostic medial branch block 1st. Diagnostic medial branch block appeared to be 60% effective for his pain control. Discussion was made about sprint PNS. If sprint PNS will not help his pain or help his pain partially we will proceed for intrasept procedure. I will see him next time for the injection and for the evaluation after the injection. Left hipx-ray is negative for pathology in the left hip. Prior: very pleasant 53 years old gentleman who presents in my office with complains on pain in the lower back with radiation into bilateral lower extremities all the way to his feet. this pain started 10 years ago. no inciting events ,, walking hurts more than standing, sitting or laying down. bending forward hurts more than bending backwards. on permanent disability for chronic widespread pain. weather changes aggravate his pain. Morning and night pain is more severe that pain during the daytime. Tylenol and NSAIDs minimally helped his pain. He e had an MRI of the lumbar spine. physical therapy 5 years ago aggravated his pain tremendously he is very scared of physical therapy. He never had chiropractic manipulations massage therapy acupuncture or 10s unit. 7 years ago unknown provider performed some injections in his back it does not seem to be that those injections were image guided. He denies any help from those injections. [facility] Medical History (Updated 11/06/23 @ 17:15 by Rani Franco MD) Elevated cholesterol Chronic pain History of testicular cancer Diabetes mellitus, type 2 Fibromyalgia Hypertension Surgical History History of esophagogastroduodenoscopy (EGD) Hx of colonoscopy History of orchiectomy Social History Alcohol intake: never Patient Tobacco Use Status: Former Tobacco user service: No Current occupational status: disabled Review of Systems Const All systems reviewed & are unremarkable except as noted in HPI and below ENT Reports Normal hearing present Neuro Reports Normal hearing present, Denies Abnormal speech present, Denies confusion and Denies Sensory deficit (Neuro) Psych Denies confusion Physical Exam Vital Signs: Last Vital Signs Pulse 81 11/13/23 10:57 Resp 16 11/13/23 10:57 BP 110/66 11/13/23 10:57 Pulse Ox 100 11/13/23 10:57 Oxygen Delivery Method Room Air 11/13/23 10:57 BMI result Body Mass Index 26.1 Const General: no acute distress; No confusion Orientation/consciousness: patient oriented x3 and No confusion Eyes General: appearance normal, both eyes and all related structures Pupils: Equal, round and reactive pupils present EOM: EOMs intact bilaterally Neck Neck: Yes full ROM Chest Chest palpation & inspection: normal inspection of the chest Resp Effort & Inspection: normal respiratory effort, able to speak in complete sentences, normal respiratory pattern, no audible wheezes and no cough Cardio Jugular venous distension: no JVD GI Inspection: Yes normal to inspection Back/Spine/Pelvis Other: Unable to stand on bilateral tiptoes in bilateral heels. Reports weakness on bilateral lower extremities. Reports numbness in bilateral lower extremities, reports tingling sensation in bilateral lower extremities. Flexing forward aggravates pain more than flexing backwards. Reports tenderness on palpation in the paraspinal spinal region of lower thoracic entire lumbar and upper sacral spine. SLR is positive bilaterally. Foot dorsiflexion with maximal SLR does not contribute to pain increase. Loading test is positive today bilaterally. Marck test is positive on the right, unable to perform on the left patient reports severe pain in the groin. Lateral rotation of the left hip results in severe pain in the groin. Reports difficulty with prolonged sitting prolonged driving, reports difficulty lifting objects from the floor, reports pain with flexing back forward and backwards. Neuro General: patient oriented x3, gait normal and No confusion Cranial nerves: Yes CN's II-XII intact bilaterally, Yes Equal, round and reactive pupils present, Yes Normal hearing present and Yes Ability to bilaterally elevate shoulders present Speech: No Abnormal speech present Gait exam (Neuro): Normal gait present Motor exam (neuro): 5/5 motor strength present throughout Sensory Exam: No Sensory deficit (Neuro) Extrem General: No pedal edema Psych Speech and movement: Normal speech and movement present Affect: normal affect Attitude: cooperative Thought process: Normal thought process present Thought content: Normal thought content present Insight: Good insight present (Psych) Judgement: Good judgement present (Psych) Assessment & Plan Assessment & Plan (1) Spondylosis without myelopathy or radiculopathy, lumbar region: Code(s): M47.816 - Spondylosis without myelopathy or radiculopathy, lumbar region Category: Medical (2) Disc degeneration, lumbar: Code(s): M51.36 - Other intervertebral disc degeneration, lumbar region Category: Medical (3) Chronic pain syndrome: Code(s): G89.4 - Chronic pain syndrome Category: Medical (4) Vertebrogenic low back pain: Code(s): M54.51 - Vertebrogenic low back pain Category: Medical Plan The dictation of the report of the MRIs rather unremarkable however with personal examination I noticed profound L5-S1 and subtle L4 Modic type changes. On physical exam loading test was very impressive. Bilateral medial branch block demonstrated at least 60% pain improvement for the 1st 4-5 hours. Now he is with right-sided sprint PNS electrode at L5 which was inserted on 11/05/2023. It is 1 week only after the procedure. We need to complete this procedure in 1 more week. If this procedure will not be effective 3 weeks after the beginning of the treatment, I will offer him L4-L5 S1 intercept procedure as it is discussed above.. Patient Instructions: I here by testify that I spent 30 minutes in conversation with this patient as well as planning his care and organizing this note. leadership program internship Aleja Gardner who is certified certified court/medical interpreter helped us to maintain this conversation is Turkmen. Coding Level of Care Code Est Pt Level 4 (01322) Diagnoses Spondylosis without myelopathy or radiculopathy, lumbar region M47.816 Disc degeneration, lumbar M51.36 Chronic pain syndrome G89.4 Vertebrogenic low back pain M54.51
[2023-11-13 10:57] VITALS: BP 110/66; PULSE 81; RESP 16; O2SAT 100; BMI 26.1
== END 2023-11-13 11:21 | disposition home or self-care (01) ==
PROVIDERS: PCP Nurse Practitioner Primary Care; Referring Provider Nurse Practitioner Primary Care; Visit Provider Anesthesiology
DX: G89.4 Chronic pain syndrome (principal); M47.816 Spondylosis without myelopathy or radiculopathy, lumbar region; M51.36 Other intervertebral disc degeneration, lumbar region; M54.51 Vertebrogenic low back pain
CPT/HCPCS: 99024

== ENCOUNTER → 2023-11-13 10:22 | Outpatient (BNVA) | payer MEDICAID, SELFPAY | PROVIDERS: PCP Nurse Practitioner Primary Care; Visit Provider Anesthesiology | DX: G89.4 Chronic pain syndrome (principal); M47.816 Spondylosis without myelopathy or radiculopathy, lumbar region; M51.36 Other intervertebral disc degeneration, lumbar region; M54.51 Vertebrogenic low back pain | CPT/HCPCS: 99212 ==

== ENCOUNTER 2023-11-19 07:23 | Outpatient (REF) | payer MEDICAID, SELFPAY ==
--- NOTE | ~2023-11-19 | FL_ITS ---
EXAMINATION: XR FLUOROSCOPY WITH IMAGES CLINICAL INFORMATION: Left lumbar SPRINT COMPARISON: None available. TECHNIQUE: Fluoroscopy Supervised By: Dr. Kwan. Fluoroscopy Time: 0.2 min. Cumulative Dose: 3.32 mGy. DAP: 0.0577 Gycm2. Images: 3. FINDINGS: Intraoperative fluoroscopy and spot films were performed during a procedure in the OR. A catheter/lead is seen overlying the left lumbosacral spine with its distal tip overlying L5. Similar catheter is present on the right placed previously. Please correlate with Dr. Kwan's report for complete details. FL/FL guidance in treatment room IMPRESSION: Intraoperative fluoroscopy and spot films were obtained. Please see Dr. Kwan's report for complete details.
== END 2023-11-19 07:24 | disposition home or self-care (01) ==
LOC: CF 07:23
PROVIDERS: Visit Provider Anesthesiology
DX: M47.816 Spondylosis without myelopathy or radiculopathy, lumbar region (principal)
CPT/HCPCS: 64555

== ENCOUNTER 2023-11-19 09:42 | Outpatient (AMB) | payer MEDICAID, SELFPAY ==
[2023-11-19 09:40] VITALS: BP 108/72; PULSE 86; RESP 16; O2SAT 96; BMI 26.1
--- NOTE | 2023-11-19 09:40 | MHC.OFFVIS ---
Vital Signs 11/19/23 09:40 11/19/23 10:28 Height 6 ft 6 ft Weight 192 lb 8 oz 192 lb 8 oz BMI 26.1 26.1 BP 108/72 106/70 Blood Pressure Location Lt brachial Lt brachial Position Sitting Sitting Respiration 16 16 Pulse 86 77 Pulse Source Pulse Oximeter Pulse Oximeter Pulse Oximetry (%) 96 98 Oxygen Delivery Method Room Air Room Air Comment pre-op post-op Intake Visit Reasons: LEFT L5 SPRINT PNS TRIAL(POSS L4, POSS S1) Allergies No Known Allergies [No Known Allergies*] Allergy (Verified 11/19/23 09:41) [facility] Medical History (Updated 11/06/23 @ 17:15 by Rani Franco MD) Elevated cholesterol Chronic pain History of testicular cancer Diabetes mellitus, type 2 Fibromyalgia Hypertension Surgical History History of esophagogastroduodenoscopy (EGD) Hx of colonoscopy History of orchiectomy Social History Alcohol intake: never Patient Tobacco Use Status: Former Tobacco user service: No Current occupational status: disabled Physical Exam Vital Signs: Last Vital Signs Pulse 77 11/19/23 10:28 Resp 16 11/19/23 10:28 BP 106/70 11/19/23 10:28 Pulse Ox 98 11/19/23 10:28 Oxygen Delivery Method Room Air 11/19/23 10:28 BMI result Body Mass Index 26.1 Assessment & Plan Assessment & Plan (1) Spondylosis without myelopathy or radiculopathy, lumbar region: Code(s): M47.816 - Spondylosis without myelopathy or radiculopathy, lumbar region Category: Medical Plan Sprint PNS L5 on the left. Percutaneous implantation of peripheral nerve stimulation Sprint system. After the risks, benefits and alternatives were discussed with the patient and informed consent was obtained, patient was placed in the prone position and padded to foster comfort. Time out was performed delineating correct site and side of the procedure , name and of the patient, patient participated in time out procedure. Sterily draped C-arm was brought over the operating field and clear picture of the L5 lamina on the on the left was delineated on the screen. The upper central portion of the lamina was chosen as a target of the needle tip insertion . After identifying and marking the intended target, the skin around the planned entry point and the subcutaneous tissues were injected with local anesthetic forming skin wheal.. A percutaneous sleeve and stimulating probe lead introduction system were assembled, inserted and advanced through the skin wheal to the point of interest under C-arm view in tunnel vision fashion, the introducer needle was delivered to a location in proximity to the nerve. Multiple stimulation parameters were used to deliver stimulation to the nerve in concert with stimulating at multiple positions around the nerve. nerve target acquisition was confirmed noting generation of in the corresponding to the nerve being stimulated. Various electrical parameter combinations were tested, and the lead location was adjusted (physically relocated) until the patient indicated overlapping the distribution of the patient?s typical region of pain. The stimulating probe was removed from the introducer and a percutaneous lead was guided through the needle and delivered to a location in similar proximity to the nerve. Final location was verified with electrical stimulation. Unfortunately at this moment patient started to complain on stimulation of the left lower extremity. It looks like that the stimulating wire migrated slightly deeper and now positioned next to the foramina on the left. The decision was made to withdraw this wire, the new wire was obtained and reinserted as described above now the care was taken that the tip of the wire located in the center of the left L5 vertebra. Final location was again verified with electrical stimulation. The introducer needle was removed, and the exposed end of the percutaneous lead was attached to an external stimulator unit. At the end of the case various electrical parameter combinations were again tested until the patient indicated paresthesia or muscle tension overlapping the distribution of the patient?s typical region of pain. After confirming that lead impedance was in the normal range, the external unit was detached, the needle was removed, and the lead was anchored at the skin. The lead was threaded into the connector block and electrical continuity and desired patient response was confirmed. The connector block was attached to the external stimulator unit. The site was covered with a sterile occlusive dressing and a image was taken to document final placement Orders: Orders FL guidance in treatment room Today M47.816 - Spondylosis without myelopathy or radiculopathy, lumbar region Coding Level of Care Code Procedure Only Diagnoses Spondylosis without myelopathy or radiculopathy, lumbar region M47.816
[2023-11-19 10:28] VITALS: BP 106/70; PULSE 77; RESP 16; O2SAT 98; BMI 26.1
== END 2023-11-19 10:50 | disposition home or self-care (01) ==
LOC: HO.PMCPRC 09:42
PROVIDERS: PCP Nurse Practitioner Primary Care; Visit Provider Anesthesiology
DX: M47.816 Spondylosis without myelopathy or radiculopathy, lumbar region (principal)
CPT/HCPCS: 64555

== ENCOUNTER 2023-11-25 09:35 | Outpatient (AMB) | payer MEDICAID, SELFPAY ==
--- NOTE | 2023-11-25 10:09 | A.OFFVIS_ITS ---
Vital Signs 11/25/23 10:26 Height 6 ft Weight 192 lb BMI 26.0 BP 134/78 Blood Pressure Location Lt brachial Position Sitting Respiration 16 Pulse 73 Pulse Source Pulse Oximeter Pulse Oximetry (%) 97 Oxygen Delivery Method Room Air Intake Visit Reasons: LEFT L5 SPRINT PNS TRIAL/11/19/23 Intake Note: Patient comes in for post-op. Site was cleared no redness/drainage/swelling at site. Site clean with alcohol prep pad, and new dsd/tegaderm applied. Today stimulation was set at 79 with good tolerance and reports pain level 2/10. Allergies No Known Allergies [No Known Allergies*] Allergy (Verified 11/25/23 10:28) HPI Comments Details: Tin is in the office today after 2nd left-sided sprint PNS insertion on 11/05/2023. He reports significant pain relief. He reports today his pain is 2/10., he reports good activities of daily living, better mobility, better social interactions. He needs to continue to change his dressings on sprint PNS. He would need to remove the devices in 6 weeks from now. The dressing was changed today there is no redness no swelling no pathological discharge no tenderness on palpation. After that we would expect his pain relief lasting from 6-8 months. Medial branch block was effective for at least 60% pain improvement after the procedure. I The MRI report is rather remarkable the full dictation is as below. However when I examined the images myself I found Modic type 1 and possibly type 2 changes at the L4-5 and S1 vertebra. However with repeated physical examination I noticed that of the loading test is highly positive for this patient. I suspect that there are 2 different pain generators existing in this patient coinciding. One is facet arthropathy in the lower lumbar spine and the other is vertebra genic pain syndrome. I decided to offer him diagnostic medial branch block 1st. Diagnostic medial branch block appeared to be 60% effective for his pain control. Discussion was made about sprint PNS. If sprint PNS will not help his pain or help his pain partially we will proceed for intrasept procedure. I will see him next time for the injection and for the evaluation after the injection. Left hipx-ray is negative for pathology in the left hip. Prior: very pleasant 53 years old gentleman who presents in my office with complains on pain in the lower back with radiation into bilateral lower extremities all the way to his feet. this pain started 10 years ago. no inciting events ,, walking hurts more than standing, sitting or laying down. bending forward hurts more than bending backwards. on permanent disability for chronic widespread pain. weather changes aggravate his pain. Morning and night pain is more severe that pain during the daytime. Tylenol and NSAIDs minimally helped his pain. He e had an MRI of the lumbar spine. physical therapy 5 years ago aggravated his pain tremendously he is very scared of physical therapy. He never had chiropractic manipulations massage therapy acupuncture or 10s unit. 7 years ago unknown provider performed some injections in his back it does not seem to be that those injections were image guided. He denies any help from those injections. [facility] Medical History (Updated 11/06/23 @ 17:15 by Rani Franco MD) Elevated cholesterol Chronic pain History of testicular cancer Diabetes mellitus, type 2 Fibromyalgia Hypertension Surgical History History of esophagogastroduodenoscopy (EGD) Hx of colonoscopy History of orchiectomy Social History Alcohol intake: never Patient Tobacco Use Status: Former Tobacco user service: No Current occupational status: disabled Review of Systems Const All systems reviewed & are unremarkable except as noted in HPI and below ENT Reports Normal hearing present Neuro Reports Normal hearing present, Denies Abnormal speech present, Denies confusion and Denies Sensory deficit (Neuro) Psych Denies confusion Physical Exam Vital Signs: Last Vital Signs Pulse 73 11/25/23 10:26 Resp 16 11/25/23 10:26 BP 134/78 11/25/23 10:26 Pulse Ox 97 11/25/23 10:26 Oxygen Delivery Method Room Air 11/25/23 10:26 BMI result Body Mass Index 26.0 Const General: no acute distress; No confusion Orientation/consciousness: patient oriented x3 and No confusion Eyes General: appearance normal, both eyes and all related structures Pupils: Equal, round and reactive pupils present EOM: EOMs intact bilaterally Neck Neck: Yes full ROM Chest Chest palpation & inspection: normal inspection of the chest Resp Effort & Inspection: normal respiratory effort, able to speak in complete sentences, normal respiratory pattern, no audible wheezes and no cough Cardio Jugular venous distension: no JVD GI Inspection: Yes normal to inspection Back/Spine/Pelvis Other: Unable to stand on bilateral tiptoes in bilateral heels. Reports weakness on bilateral lower extremities. Reports numbness in bilateral lower extremities, reports tingling sensation in bilateral lower extremities. Flexing forward aggravates pain more than flexing backwards. Reports tenderness on palpation in the paraspinal spinal region of lower thoracic entire lumbar and upper sacral spine. SLR is positive bilaterally. Foot dorsiflexion with maximal SLR does not contribute to pain increase. Loading test is positive today bilaterally. Marck test is positive on the right, unable to perform on the left patient reports severe pain in the groin. Lateral rotation of the left hip results in severe pain in the groin. Reports difficulty with prolonged sitting prolonged driving, reports difficulty lifting objects from the floor, reports pain with flexing back forward and backwards. Neuro General: patient oriented x3, gait normal and No confusion Cranial nerves: Yes CN's II-XII intact bilaterally, Yes Equal, round and reactive pupils present, Yes Normal hearing present and Yes Ability to bilaterally elevate shoulders present Speech: No Abnormal speech present Gait exam (Neuro): Normal gait present Motor exam (neuro): 5/5 motor strength present throughout Sensory Exam: No Sensory deficit (Neuro) Extrem General: No pedal edema Psych Speech and movement: Normal speech and movement present Affect: normal affect Attitude: cooperative Thought process: Normal thought process present Thought content: Normal thought content present Insight: Good insight present (Psych) Judgement: Good judgement present (Psych) Results Reviewed Results Reviewed: MRI report ramus 07/23/2023. Findings normal lumbar alignment this demonstrated vertebral heights are well- maintained. Bone marrow signal is within normal limits. No suspicious osseous lesions are identified. Conus medullaris is unremarkable. L1-L2, L2-L3, L3-L4, L4-5: There is no significant disc herniation or protrusion. No central canal or neural foraminal stenosis is demonstrated L5-S1 no significant disc herniation or protrusion. No central canal or neural foraminal stenosis is demonstrated. There is a moderate-sized disc osteophyte complex on the left causing left-sided neural foraminal stenosis without nerve root encroachment. Multiple bilateral renal cysts. Assessment & Plan Assessment & Plan (1) Spondylosis without myelopathy or radiculopathy, lumbar region: Code(s): M47.816 - Spondylosis without myelopathy or radiculopathy, lumbar region Category: Medical (2) Disc degeneration, lumbar: Code(s): M51.36 - Other intervertebral disc degeneration, lumbar region Category: Medical (3) Chronic pain syndrome: Code(s): G89.4 - Chronic pain syndrome Category: Medical (4) Vertebrogenic low back pain: Code(s): M54.51 - Vertebrogenic low back pain Category: Medical Plan The dictation of the report of the MRIs rather unremarkable however with personal examination I noticed profound L5-S1 and subtle L4 Modic type changes. On physical exam loading test was very impressive. Bilateral medial branch block demonstrated at least 60% pain improvement for the 1st 4-5 hours. Now he is with bilateral sprint PNS electrode at L5 which was inserted on 11/05/2023 and left side was inserted on 11/19/2023. It has been 2 weeks. He reports excellent activities of daily living. We will continue observation. The patient needs to change dressing once a week. He is requesting it to perform in the office. He will be scheduled for office appointment once a week to to change his dressing. After that in 6 weeks interval the device will be removed and the pain of the patient will be assessed again. Coding Level of Care Code Est Pt Level 3 (95896) Diagnoses Spondylosis without myelopathy or radiculopathy, lumbar region M47.816 Disc degeneration, lumbar M51.36 Chronic pain syndrome G89.4 Vertebrogenic low back pain M54.51
[2023-11-25 10:26] VITALS: BP 134/78; PULSE 73; RESP 16; O2SAT 97; BMI 26.0
== END 2023-11-25 10:31 | disposition home or self-care (01) ==
PROVIDERS: PCP Nurse Practitioner Primary Care; Referring Provider Nurse Practitioner Primary Care; Visit Provider Anesthesiology
DX: M47.816 Spondylosis without myelopathy or radiculopathy, lumbar region (principal); M51.36 Other intervertebral disc degeneration, lumbar region; G89.4 Chronic pain syndrome; M54.51 Vertebrogenic low back pain
CPT/HCPCS: 99024

== ENCOUNTER → 2023-11-25 09:35 | Outpatient (BNVA) | payer MEDICAID, SELFPAY | PROVIDERS: PCP Nurse Practitioner Primary Care; Visit Provider Anesthesiology | DX: M47.816 Spondylosis without myelopathy or radiculopathy, lumbar region (principal); M51.36 Other intervertebral disc degeneration, lumbar region; G89.4 Chronic pain syndrome; M54.51 Vertebrogenic low back pain; Z96.82 Presence of neurostimulator | CPT/HCPCS: 99212 ==

== ENCOUNTER 2023-12-05 09:43 | Outpatient (REF) | payer MEDICAID, SELFPAY ==
[2023-12-05 10:00] LABS: MANUAL DIFF FLAG NO
[2023-12-05 10:47] LABS: Basophils Percent Auto 0.5 % (0-2); Eosinophils Absolute Auto 0.6 X10*3/uL (0.0-0.4); Eosinophils Percent Auto 7.5 % (0-4); Hematocrit 37.1 % (42.0-52.0); Hemoglobin 12.7 g/dl (14.0-18.0); Imm Gran Abs Auto 0.05 X10*3/uL (0.00-0.03); Imm Gran Pct Auto 0.6 % (0.0-0.4); Lymphocytes Absolute Auto 1.6 X10*3/uL (1.2-4.9); Lymphocytes Percent Auto 19.9 % (20-40); Mean Corpuscular HGB Conc 34.2 g/dl (31.0-36.0); Mean Corpuscular Hemoglobin 28.6 pg (27.0-33.0); Mean Corpuscular Volume 83.6 fL (80.0-98.0); Mean Platelet Volume 10.6 fL (9.4-12.4); Monocytes Absolute Auto 0.7 X10*3/uL (0.1-1.2); Monocytes Percent Auto 8.6 % (2-11); Neutrophils Absolute Auto 4.9 x10*3/uL (2.0-8.3); Neutrophils Percent Auto 62.9 % (45-73); Platelet Count 206 X10*3/uL (160-400); Red Blood Count 4.44 X10*6/uL (4.60-5.80); Red Cell Distribution Width 12.6 % (11.0-16.0); White Blood Count 7.8 X10*3/uL (4.8-10.8)
[2023-12-05 10:49] LABS: INTERNATIONAL NORM RATIO 0.9 (0.9-1.1); Prothrombin Time 11.1 SEC (11.1-13.3)
[2023-12-05 11:22] LABS: Alanine Aminotransferase 29 U/L (0-40); Alkaline Phosphatase 108 U/L (39-117); Anion Gap 11 (12-20); Aspartate Amino Transferase 14 U/L (5-37); Bilirubin Direct 0.1 mg/dL (0.0-0.5); Bilirubin Total 0.4 mg/dL (0.0-1.0); Blood Urea Nitrogen 17 mg/dL (9-16); Calcium 9.4 mg/dL (8.4-10.2); Carbon Dioxide 28 mmol/L (22-29); Chloride 106 mmol/L (96-108); Cholesterol 114 mg/dL (<200); Estimated Glomerular Filt Rate > 60; Glucose Random 223 mg/dL (60-115); HDL Cholesterol 32 mg/dL (>40); Iron 78 mcg/dL (45-160); LDL Cholesterol Calculated 48 mg/dL (<100); Percent Iron Saturation 32 % (15-50); Potassium 4.1 mmol/L (3.3-5.1); Sodium 141 mmol/L (135-145); Total Iron Binding Capacity 244 mcg/dL (228-428); Total Protein 7.4 g/dL (6.5-8.0); Triglycerides 174 mg/dL (<150); Unsaturated Iron Binding 166 ug/dL
[2023-12-05 11:24] LABS: HBS Num1 159.75 mIU/mL (0-7.99); HBc Num1 0.13 S/CO (0.00-0.79); HBsAGNum1 0.25 S/CO (0.00-0.99); Hepatitis B Core Antibody Nonreactive (Nonreactive); Hepatitis B Surface Antigen Negative (Negative); ~HepC Num1 0.36 S/CO (0.00-0.79); ~Hepatitis B Surface Antibody REACTIVE (Nonreactive); ~Hepatitis C Antibody Nonreactive (Nonreactive)
[2023-12-05 11:26] LABS: Microalbum/Creatinine Ratio Ur 10.7 ug/mg cr (<30)
[2023-12-05 11:37] LABS: Folate 7.6 ng/mL (> or = 4.0); Vitamin B12 441 pg/mL (200-900)
[2023-12-05 11:44] LABS: Ferritin 245 ng/mL (20-250); Vitamin D 25-OH Total 35.6 ng/mL (>30)
== END 2023-12-05 09:44 | disposition home or self-care (01) ==
LOC: HO.LAB 09:43
PROVIDERS: PCP Nurse Practitioner Primary Care; Visit Provider Internal Medicine Gastroenterology
DX: E11.65 Type 2 diabetes mellitus with hyperglycemia (principal); E11.69 Type 2 diabetes mellitus with other specified complication; E78.5 Hyperlipidemia, unspecified; R79.89 Other specified abnormal findings of blood chemistry; M47.816 Spondylosis without myelopathy or radiculopathy, lumbar region; M51.36 Other intervertebral disc degeneration, lumbar region; G89.4 Chronic pain syndrome; M54.51 Vertebrogenic low back pain
CPT/HCPCS: 36415; 80048; 80061; 80076; 82043; 82306; 82570; 82607; 82728; 82746; 83540; 85025; 85610; 86704; 86706; 86803; 87340; 99212

== ENCOUNTER 2023-12-05 11:21 | Outpatient (AMB) | payer MEDICAID, SELFPAY ==
--- NOTE | 2023-12-05 11:27 | A.OFFVIS_ITS ---
Vital Signs 12/05/23 11:37 Height 6 ft Weight 192 lb BMI 26.0 BP 136/78 Blood Pressure Location Lt brachial Position Sitting Respiration 16 Pulse 73 Pulse Source Pulse Oximeter Pulse Oximetry (%) 99 Oxygen Delivery Method Room Air Intake Visit Reasons: Dressing Change Intake Note: Patient comes in for bilateral Sprint dressing change. Site was cleared no redness/drainage/swelling at site. Site clean with alcohol prep pad, and new dsd/tegaderm applied. Today stimulation was set at 78 with good tolerance and reports pain level 2-3/10. Allergies No Known Allergies [No Known Allergies*] Allergy (Verified 12/05/23 11:44) HPI Comments Details: Tin is in the office today after 2nd left-sided sprint PNS insertion on 11/05/2023. He reports significant pain relief. He reports today his pain is 2/10., he reports good activities of daily living, better mobility, better social interactions. He needs to continue to change his dressings on sprint PNS. He would need to remove the devices in 6 weeks from now. The implications of further treatment were discussed with the patient. The consequences of the current stimulation and the results of the stimulation for the further post stimulation time were explained to the patient. The patient expressed understanding. He is very satisfied with device. The dressing was changed today there is no redness no swelling no pathological discharge no tenderness on palpation. After that we would expect his pain relief lasting from 6-8 months. Medial branch block was effective for at least 60% pain improvement after the procedure. I The MRI report is rather remarkable the full dictation is as below. However when I examined the images myself I found Modic type 1 and possibly type 2 changes at the L4-5 and S1 vertebra. However with repeated physical examination I noticed that of the loading test is highly positive for this patient. I suspect that there are 2 different pain generators existing in this patient coinciding. One is facet arthropathy in the lower lumbar spine and the other is vertebra genic pain syndrome. I decided to offer him diagnostic medial branch block 1st. Diagnostic medial branch block appeared to be 60% effective for his pain control. Discussion was made about sprint PNS. If sprint PNS will not help his pain or help his pain partially we will proceed for intrasept procedure. [facility] Medical History (Updated 11/06/23 @ 17:15 by Rani Franco MD) Elevated cholesterol Chronic pain History of testicular cancer Diabetes mellitus, type 2 Fibromyalgia Hypertension Surgical History History of esophagogastroduodenoscopy (EGD) Hx of colonoscopy History of orchiectomy Social History Alcohol intake: never Patient Tobacco Use Status: Former Tobacco user service: No Current occupational status: disabled Review of Systems Const All systems reviewed & are unremarkable except as noted in HPI and below ENT Reports Normal hearing present Neuro Reports Normal hearing present, Denies Abnormal speech present, Denies confusion and Denies Sensory deficit (Neuro) Psych Denies confusion Physical Exam Vital Signs: Last Vital Signs Pulse 73 12/05/23 11:37 Resp 16 12/05/23 11:37 BP 136/78 12/05/23 11:37 Pulse Ox 99 12/05/23 11:37 Oxygen Delivery Method Room Air 12/05/23 11:37 BMI result Body Mass Index 26.0 Const General: no acute distress; No confusion Orientation/consciousness: patient oriented x3 and No confusion Eyes General: appearance normal, both eyes and all related structures Pupils: Equal, round and reactive pupils present EOM: EOMs intact bilaterally Neck Neck: Yes full ROM Chest Chest palpation & inspection: normal inspection of the chest Resp Effort & Inspection: normal respiratory effort, able to speak in complete sentences, normal respiratory pattern, no audible wheezes and no cough Cardio Jugular venous distension: no JVD GI Inspection: Yes normal to inspection Back/Spine/Pelvis Other: Unable to stand on bilateral tiptoes in bilateral heels. Reports weakness on bilateral lower extremities. Reports numbness in bilateral lower extremities, reports tingling sensation in bilateral lower extremities. Flexing forward aggravates pain more than flexing backwards. Reports tenderness on palpation in the paraspinal spinal region of lower thoracic entire lumbar and upper sacral spine. SLR is positive bilaterally. Foot dorsiflexion with maximal SLR does not contribute to pain increase. Loading test is positive today bilaterally. Marck test is positive on the right, unable to perform on the left patient reports severe pain in the groin. Lateral rotation of the left hip results in severe pain in the groin. Reports difficulty with prolonged sitting prolonged driving, reports difficulty lifting objects from the floor, reports pain with flexing back forward and backwards. Neuro General: patient oriented x3, gait normal and No confusion Cranial nerves: Yes CN's II-XII intact bilaterally, Yes Equal, round and reactive pupils present, Yes Normal hearing present and Yes Ability to bilaterally elevate shoulders present Speech: No Abnormal speech present Gait exam (Neuro): Normal gait present Motor exam (neuro): 5/5 motor strength present throughout Sensory Exam: No Sensory deficit (Neuro) Extrem General: No pedal edema Psych Speech and movement: Normal speech and movement present Affect: normal affect Attitude: cooperative Thought process: Normal thought process present Thought content: Normal thought content present Insight: Good insight present (Psych) Judgement: Good judgement present (Psych) Results Reviewed Results Reviewed: MRI report ramus 07/23/2023. Findings normal lumbar alignment this demonstrated vertebral heights are well- maintained. Bone marrow signal is within normal limits. No suspicious osseous lesions are identified. Conus medullaris is unremarkable. L1-L2, L2-L3, L3-L4, L4-5: There is no significant disc herniation or protrusion. No central canal or neural foraminal stenosis is demonstrated L5-S1 no significant disc herniation or protrusion. No central canal or neural foraminal stenosis is demonstrated. There is a moderate-sized disc osteophyte complex on the left causing left-sided neural foraminal stenosis without nerve root encroachment. Multiple bilateral renal cysts. Assessment & Plan Assessment & Plan (1) Spondylosis without myelopathy or radiculopathy, lumbar region: Code(s): M47.816 - Spondylosis without myelopathy or radiculopathy, lumbar region Category: Medical (2) Disc degeneration, lumbar: Code(s): M51.36 - Other intervertebral disc degeneration, lumbar region Category: Medical (3) Chronic pain syndrome: Code(s): G89.4 - Chronic pain syndrome Category: Medical (4) Vertebrogenic low back pain: Code(s): M54.51 - Vertebrogenic low back pain Category: Medical Plan The dictation of the report of the MRIs rather unremarkable however with personal examination I noticed profound L5-S1 and subtle L4 Modic type changes. On physical exam loading test was very impressive. Bilateral medial branch block demonstrated at least 60% pain improvement for the 1st 4-5 hours. bilateral sprint PNS electrode at L5 which was inserted on 11/05/2023 and left side was inserted on 11/19/2023. He reports advanced pain relief. He reports today pain 10. He reports excellent activities of daily living. The patient is dressing once a week which can not be done on a nursing schedule. Coding Level of Care Code Est Pt Level 3 (25606) Diagnoses Spondylosis without myelopathy or radiculopathy, lumbar region M47.816 Disc degeneration, lumbar M51.36 Chronic pain syndrome G89.4 Vertebrogenic low back pain M54.51
[2023-12-05 11:37] VITALS: BP 136/78; PULSE 73; RESP 16; O2SAT 99; BMI 26.0
== END 2023-12-05 11:42 | disposition home or self-care (01) ==
PROVIDERS: PCP Nurse Practitioner Primary Care; Visit Provider Anesthesiology
DX: M47.816 Spondylosis without myelopathy or radiculopathy, lumbar region (principal); M51.36 Other intervertebral disc degeneration, lumbar region; G89.4 Chronic pain syndrome; M54.51 Vertebrogenic low back pain
CPT/HCPCS: 99213

== ENCOUNTER 2024-01-09 09:37 | Outpatient (REF) | payer MEDICAID, SELFPAY ==
--- NOTE | ~2024-01-09 | FL_ITS ---
EXAMINATION: XR FLUOROSCOPY UPPER GI WITH AIR CLINICAL INFORMATION: Dysphagia. EGD negative for stricture. COMPARISON: None TECHNIQUE: Fluoroscopic air contrast upper GI examination was performed utilizing standard techniques with thin and thick barium and effervescent granules. Numerous spot images were obtained. FINDINGS: Lateral cine images of the oropharynx and hypopharynx demonstrate normal swallow mechanism with normal epiglottic inversion and soft palate elevation. There is excessive pooling of barium in the vallecula and piriform sinuses. There is trace laryngeal penetration with thick barium. No tracheal penetration, glottic or subglottic aspiration identified. No nasopharyngeal reflux present. Hypopharyngeal structures appear normal without evidence of mass or diverticulum. There was no significant cricopharyngeal achalasia. There is a small anterior bridging osteophyte at C6-C7 that is causing mild posterior compression of the cervical esophagus. Uncertain clinical significance. Dual and single contrast images of the esophagus demonstrate normal caliber, contour, and mucosal pattern. No evidence of stricture, mass, or ulcerations identified. Esophageal peristalsis is moderately disorganized. A very small type I hiatal hernia is present. No significant gastroesophageal reflux was seen during the course of the examination and on reflux views. Dual contrast and single contrast images of the stomach demonstrated a normal contour. There are multiple small foci of contrast pooling in the fundus and body of the stomach that may represent small superficial abscess ulcers. No masses are seen. Contrast freely passed into the gastric antrum and duodenal bulb without delay. Single and air-contrast images of the duodenal bulb demonstrate no abnormality. The duodenal sweep has a normal appearance, course, and mucosal fold appearance. The imaged proximal jejunum has a normal fold pattern and caliber. There are cholecystectomy clips present. FLUOROSCOPY TIME: 4 minutes 23 seconds Number of Spot Images: 12 Number of Cine: 13 DOSE AREA PRODUCT: 3007 uGy-m2 (microgray-meter squared) FL/FL barium swallow with air IMPRESSION: 1. Excessive pooling of barium in the vallecula and piriform sinuses. 2. Small anterior bridging osteophyte at C6-C7 that is causing mild posterior compression of the cervical esophagus. Uncertain clinical significance. 3. Moderately disordered esophageal peristalsis. 4. Very small type I hiatal hernia. 5. Multiple small foci of contrast pooling in the fundus and body of the stomach that may represent small superficial apthous ulcers. Recommend correlation with recent EGD. This procedure was performed by Jose Luis Phipps PA-C, and supervised by Dr. Simmons Electronically signed by: Case Simmons MD 01/09/2024 04:38 PM EDT
== END 2024-01-09 09:38 | disposition home or self-care (01) ==
LOC: HO.XRAY 09:37
PROVIDERS: PCP Nurse Practitioner Primary Care; Visit Provider Internal Medicine Gastroenterology
DX: R13.14 Dysphagia, pharyngoesophageal phase (principal)
CPT/HCPCS: 74221

== ENCOUNTER → 2024-01-09 09:40 | Outpatient (BNV) | payer MEDICAID, SELFPAY | PROVIDERS: PCP Nurse Practitioner Primary Care; Visit Provider Radiology Diagnostic Radiology | DX: R13.10 Dysphagia, unspecified (principal) | CPT/HCPCS: 74221 ==

== ENCOUNTER 2024-01-13 09:44 | Outpatient (AMB) | payer MEDICAID, SELFPAY ==
--- NOTE | 2024-01-13 09:49 | A.OFFVIS_ITS ---
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 Right side was due to removal on 12/30/23, patient was unable to attend that visit. Patient reports ongoing 50-60% pain relief at 78 stimulation with positive paresthesia with moderate improvement in daily functioning, range of motion and sleep. Patient reports his pain today at 5/10 and 2/10 on average for the past 2 weeks. He occasionally takes Tylenol for low back pain worse with bending, flexion forward than extension. The dressing was removed today. Lead insertion sites are clean, dry, intact, no redness, no swelling, no pathological discharge. Areas were cleansed with Chloraprep. Both leads were pulled with the tips intact. The areas were cleansed again with Chloraprep, applied Bacitracin and covered it with gauze and Tegaderm film dressing. Denies any recent cough, cold, infection, fever, any significant changes in her medical history, medications or recent hospitalizations. PRIOR Dr. Kwan 12/05/23: Tin is in the office today after 2nd left-sided sprint PNS insertion on 11/05/2023. He reports significant pain relief. He reports today his pain is 2/10., he reports good activities of daily living, better mobility, better social interactions. He needs to continue to change his dressings on sprint PNS. He would need to remove the devices in 6 weeks from now. The implications of further treatment were discussed with the patient. The consequences of the current stimulation and the results of the stimulation for the further post stimulation time were explained to the patient. The patient expressed understanding. He is very satisfied with device. The dressing was changed today there is no redness no swelling no pathological discharge no tenderness on palpation. After that we would expect his pain relief lasting from 6-8 months. Medial branch block was effective for at least 60% pain improvement after the procedure. I The MRI report is rather remarkable the full dictation is as below. However when I examined the images myself I found Modic type 1 and possibly type 2 changes at the L4-5 and S1 vertebra. However with repeated physical examination I noticed that of the loading test is highly positive for this patient. I suspect that there are 2 different pain generators existing in this patient coinciding. One is facet arthropathy in the lower lumbar spine and the other is vertebra genic pain syndrome. I decided to offer him diagnostic medial branch block 1st. Diagnostic medial branch block appeared to be 60% effective for his pain control. Discussion was made about sprint PNS. If sprint PNS will not help his pain or help his pain partially we will proceed for intrasept procedure. [facility] Medical History Elevated cholesterol Chronic pain History of testicular cancer Diabetes mellitus, type 2 Fibromyalgia Hypertension Surgical History History of esophagogastroduodenoscopy (EGD) Hx of colonoscopy History of orchiectomy Social History Alcohol intake: never Patient Tobacco Use Status: Former Tobacco user service: No Current occupational status: disabled Review of Systems Const All systems reviewed & are unremarkable except as noted in HPI and below Physical Exam Vital Signs: Last Vital Signs Pulse 66 01/13/24 09:58 BP 119/74 01/13/24 09:58 Pulse Ox 99 01/13/24 09:58 Oxygen Delivery Method Room Air 01/13/24 09:58 BMI result Body Mass Index 26.3 General: Appears afebrile. No acute distress. Alert and oriented. Mood and affect appropriate. Follows and participates in conversation appropriately. Respiratory effort is unlabored. Able to transition from sit to stand unassisted. Ambulates with bilaterally normal heel strike and toe off. Lead Insertion Site: Lead insertion site looks clean, dry, intact.? No pathological discharge, no swelling and no erythema. Leads pulled with the tips intact. Assessment & Plan Assessment & Plan (1) Spondylosis without myelopathy or radiculopathy, lumbar region: Code(s): M47.816 - Spondylosis without myelopathy or radiculopathy, lumbar region Category: Medical (2) Disc degeneration, lumbar: Code(s): M51.36 - Other intervertebral disc degeneration, lumbar region Category: Medical (3) Chronic pain syndrome: Code(s): G89.4 - Chronic pain syndrome Category: Medical Plan Patient presented today Sprint PNS lead removal. She reports ongoing 50-60% pain relief. Lead insertion sites are clean, dry, intact, no pathological discharge. Area was cleansed with Chloraprep. Leads were pulled with tips intact. Patient will continue to monitor his pain levels and notify our office when his symptoms return to baseline. All questions and concerns have been answered and the patient agreed with the plan. Follow up as needed. Coding Level of Care Code Est Pt Level 3 (01806) Complex EM visit Add On G2211 Diagnoses Spondylosis without myelopathy or radiculopathy, lumbar region M47.816 Disc degeneration, lumbar M51.36 Chronic pain syndrome G89.4
[2024-01-13 09:58] VITALS: BP 119/74; PULSE 66; O2SAT 99; BMI 26.3
== END 2024-01-13 10:04 | disposition home or self-care (01) ==
PROVIDERS: PCP Nurse Practitioner Primary Care; Visit Provider Nurse Practitioner Family
DX: M47.816 Spondylosis without myelopathy or radiculopathy, lumbar region (principal); M51.36 Other intervertebral disc degeneration, lumbar region; G89.4 Chronic pain syndrome
CPT/HCPCS: 99213

== ENCOUNTER → 2024-01-13 09:44 | Outpatient (BNVA) | payer MEDICAID, SELFPAY | PROVIDERS: PCP Nurse Practitioner Primary Care; Visit Provider Nurse Practitioner Family | DX: M47.816 Spondylosis without myelopathy or radiculopathy, lumbar region (principal); M51.36 Other intervertebral disc degeneration, lumbar region; G89.4 Chronic pain syndrome; Z45.42 Encounter for adjustment and management of neurostimulator | CPT/HCPCS: 99212 ==

== ENCOUNTER 2025-01-06 09:45 | Outpatient (REF) | payer MEDICAID, SELFPAY ==
--- OUTSIDE RECORDS SUMMARY | 2025-01-01 11:15 | XMS_ITS | Encounter Summary ---
Author Organization [employer] Address [address] [facility] [address] [place] [address] Care Team Providers Care Security Incident Response Specialist Name Role Phone Dennison Gemma ELMORE Primary Care Provider [phone] Maninder Warren Unavailable Unavailable Reason for Visit * Reason Comments Follow-up Encounter Details Date Type Department Care Team (Latest Contact Info) Description 01/01/2025 11:15 AM EDT Office Visit [facility] [address] [place], [place] [phone] Radha Dahl, OD [address] [place] [address] Both eyes affected by mild nonproliferative diabetic retinopathy with macular edema, associated with type 2 diabetes mellitus (CMS/HCC) (Primary Dx) Social History Tobacco Use Types Packs/Day Years Used Date Smoking Tobacco: Never Passive Smoke Exposure: Never Smokeless Tobacco: Never Alcohol Use Standard Drinks/Week Comments Never 0 (1 standard drink = 0.6 oz pur e alcohol) Depression Answer Date Recorded Patient Health Questionnaire-9 Score 19 06/08/2024 Patient Health Questionnaire-9 Score 19 06/08/2024 Last PHQ-9: Questionnaire Data Not on file 0 06/08/2024 Housing Stability Answer Date Recorded What is your housing situation today? I have germania nogueira 12/18/[address] you li ve. Do you have problems with any of the following? None of the above 12/18/2024 Food Insecurity Answer Date Recorded Within the past 12 months, y ou worried that your food would run out before you got money to buy more: Never True 12/18/2024 Within the past 12 months,th e food you bought just didn't last and you didn't have enough money to get more: Never True Transportation Answer Date Recorded In the past 12 months, has l ack of transportation kept you from medical appts, meetings, work or from getting things needed for daily living? No 12/18/2024 Utilities Answer Date Recorded In the past 12 months, has t he electric, gas, oil or water company threatened to shut off services in your home? No 12/18/2024 Depression Answer Date Recorded Patient Health Questionnaire-2 Score 6 06/08/2024 Internet Access Answer Date Recorded Internet Access Q1 Yes 12/18/2024 Internet Access Q2 Not on file 12/18/2024 Sex and Gender Information Value Date Recorded Sex Assigned at Male 03/05/2022 10:29 AM EDT Legal Sex Male 10:29 AM EDT Gender Identity Male 03/05/2022 10:29 AM EDT Sexual Orientation Straight 04/10/2022 9: 44 AM EST documented as of this encounter Progress Notes * Radha Dahl, YUMI - 01/01/2025 11:15 AM EDT Eye Care Progress Note Patient ID: Tin Norman is a 54 y.o. male. Chief Complaint Follow-up HPI Patient presents for 3 month follow up for mild NPDR with macular edema OU. Patient denies any visual or ocular concerns. Patient reports his glasses are working well for him. Patient's last A1c was 7.5% on 12/18/24. Last edited by Radha Dahl, YUMI on 01/05/2025 10:09 AM. Current Medications[1] Medical History[2] Surgical History[3] Family History[4] Tobacco Use: Low Risk (12/18/2024) Tobacco Smoking Tobacco Use: Never Smokeless Tobacco Use: Never Passive Exposure: Never Allergies[5] ROS Positive for: Endocrine, Eyes Negative for: Constitutional, Gastrointestinal, Neurological, Skin, Genitourinary, Musculoskeletal,HENT, Cardiovascular, Respiratory, Psychiatric, Allergic/Imm, Heme/Lymph Last edited by Radha Dahl, YUMI on 01/05/2025 10:09 AM. Base Eye Exam Visual Acuity (Snellen - Linear) Right Left Dist sc 20/30+2 20/25+1 Dist ph sc NI NI Tonometry ([facility] , 11:22 AM) Right Left Pressure 15 14 Pupils Pupils APD Right PERRL None Left PERRL None Visual Sellers (Counting fingers) Left Right Full Full Extraocular Movement Right Left Full Full Neuro/Psych Oriented x3: Yes Mood/Affect: Normal Dilation Both eyes: 1.0% tropicamide @ 11:23 AM Slit Lamp and Fundus Exam External Exam Right Left External Normal Normal Slit Lamp Exam Right Left Lids/Lashes Normal Normal Conjunctiva/Sclera 1+ injection, pinguecula 1+ injection, pinguecula Cornea Clear Clear Anterior Chamber Deep and quiet Deep and quiet Iris Flat. no NVI Flat, no NVI Lens tr NS, tr ACC tr NS, tr ACC Fundus Exam Right Left Vitreous Clear Clear Disc Braden and Distinct, no NVD Braden and Distinct, no NVD C/D Ratio Vertical 0.20 0.30 C/D Ratio Horizontal 0.20 0.30 Macula (+) DME, exudates temporal (+) DME, exudates temporal Vessels Normal course and caliber, (-) NVE Normal course and caliber, (-) NVE Periphery Scattered MAs, no holes/tears/detachments 360 Blot heme inferior, scattered MAs, no holes/tears/detachments 360 Assessment and Plan Diagnoses and all orders for this visit: Both eyes affected by mild nonproliferative diabetic retinopathy with macular edema, associated with type 2 diabetes mellitus (CMS/HCC) - Type 2 DM with mild NPDR and non-foveal diabetic macular edema OU. Very stable to last visit. BCVA improved by 1 line in each eye compared to last with BCVA OD 20/30+2, OS 20/25+1 today. - Discussed importance of tight blood glucose control, medication compliance and regular follow up with PCP. Today's exam notes will be made available for PCP to review. - Monitor in 6 months or sooner if any changes in vision are noted Radha Dahl, OD 01/05/2025, 10:23 AM [1] Current Outpatient Medications Medication Sig Dispense Refill acetaminophen (Tylenol) 500 MG tablet Take 1 tablet (500 mg) by mouth every 8 (eight) hours if needed for mild pain or moderate pain. Take 1-2 tablet (1000mg) by oral route up to 3x/d as needed max 6tabs/24 hours 90 tablet 1 amitriptyline (Elavil) 75 MG tablet TAKE 1 TABLET BY MOUTH AT BEDTIME 90 tablet 3 amLODIPine (Norvasc) 10 MG tablet TAKE 1 TABLET BY MOUTH AT BEDTIME 90 tablet 1 Aspirin Low Dose 81 MG EC tablet TAKE 1 TABLET BY MOUTH AT BEDTIME 90 tablet 3 atorvastatin (Lipitor) 10 MG tablet TAKE 1 TABLET BY MOUTH AT BEDTIME 90 tablet 1 Benzocaine-Menthol (Cepacol INSTAMAX) 15-20 MG lozenge Take 1 lozenge by mouth if needed. For sore throat up to every 1-2 hours carBAMazepine (TEGretol) 200 MG tablet TAKE 1 TABLET BY MOUTH TWICE DAILY IN THE MORNING AND AT BEDTIME 180 tablet 1 clonazePAM (KlonoPIN) 1 MG tablet TAKE 1 TABLET BY MOUTH EVERY TWELVE HOURS NEEDED FOR ANXIETY 60 tablet 5 Continuous Blood Gluc Soda Dispenser (FreeStyle Zaira 2 [place]) device Scan sensor every 6 hours 1 each 0 Continuous Glucose Sensor (FreeStyle Zaira 2 Sensor) [facility] [place] DIRECTED TO TEST BLOOD SUGAR. CHANGE EVERY 14 DAYS . 2 each 11 cyclobenzaprine (Flexeril) 10 MG tablet One tab po at bedtime prn pain of muscles, do not drive with medicaion 10 tablet 0 D3-1000 25 MCG (1000 UT) capsule TAKE 1 CAPSULE BY MOUTH EVERY MORNING 90 capsule 1 enalapril (Vasotec) 10 MG tablet Take 1 tablet (10 mg) by mouth in the morning. 90 tablet 0 escitalopram (Lexapro) 20 MG tablet TAKE 1 TABLET BY MOUTH AT BEDTIME 30 tablet 1 FreeStyle Precision Jewle Test test strip USE DIRECTED TO TEST BLOOD SUGAR THREE TIMES DAILY OR MORE NEEDED 100 strip 11 glipiZIDE XL (Glucotrol XL) 10 MG 24 hr tablet TAKE 1 TABLET BY MOUTH TWICE DAILY IN THE MORNING AND IN THE EVENING WITH FOOD. Do not crush, chew, or split. 180 tablet 1 metFORMIN (Glucophage) 1000 MG tablet TAKE 1 TABLET BY MOUTH TWICE DAILY IN THE MORNING AND IN THE EVENING WITH MEALS 180 tablet 3 metoprolol succinate XL (Toprol-XL) 25 MG 24 hr tablet TAKE 1 TABLET BY MOUTH TWICE DAILY IN THE MORNING AND IN THE EVENING 180 tablet 1 omeprazole (PriLOSEC) [address] capsule Take 1 capsule by mouth 1 (one) time each day. Every day before a meal perphenazine 16 MG tablet Take 1 tablet orally in the morning and 1 tablet in the evening 180 tablet 1 pregabalin (Lyrica) 150 MG capsule Take 1 capsule by mouth every 12 (twelve) hours. rOPINIRole (Requip) 2 MG tablet TAKE 1 TABLET BY MOUTH AT BEDTIME (1-3 HOURS BEFORE BEDTIME) 90 tablet 5 traZODone (Desyrel) 50 MG tablet TAKE 1 TABLET BY MOUTH AT BEDTIME NEEDED FOR SLEEP 30 tablet 1 triamcinolone (Kenalog) 0.1 % cream Apply topically 2 times daily. 80 g 1 TRUEplus Lancets 33G misc TEST BLOOD SUGAR THREE TIMES DAILY DIRECTED 100 each 5 UltiCare Mini Pen [place] 31G X 6 MM misc USE DIRECTED DAILY 100 each 5 zolpidem (Ambien) 10 MG tablet Take 1 tablet (10 mg) by mouth at bedtime. for sleep 30 tablet 5 zoster vaccine-recombinant adjuvanted (Shingrix) 50 MCG/0.5ML vaccine Inject 0.5 mL into the shoulder, thigh, or buttocks. Once 2-6 months after the first dose (total of 2 doses) No current facility-administered medications for this visit. [2] No past medical history on file. [3] No past surgical history on file. [4] No family history on file. [5] No Known Allergies documented in this encounter Plan of Treatment Upcoming Encounters Date Type Department Care Team (Late st Contact Info) Description 01/21/2025 11:15 AM EDT Office Visit [facility] [address] [place] [address] Gemma Dennison ANP [address] [place] [address] 07/06/2025 10:00 AM EST Office Visit [facility] [address] [place], [place] [phone] Radha Dahl OD [address] [place] [address] documented as of this encounter Procedures Procedure Name Priority Date/Time Associated Diagnosis Comments OCT, RETINA - OU - BOTH EYES Routine 01/01/2025 11:15 AM EDT Both eyes affected by mild nonproliferative diabetic retinopathy with macular edema, associated with type 2 diabetes mellitus (CMS/HCC) documented in this encounter Results * OCT, Retina - OU - Both Eyes (01/01/2025 11:15 AM EDT) Radha Victor, OD - 01/05/2025 10:23 AM EDT OCT RETINA INTERPRETATION Optical Coherence Tomography Interpretation Report Reliability: OD: SS 56 - good quality scan OS: SS 30 - poor quality scan (debris in tear film) Measurements: Central subfoveal thickness OD: 226 microns OS: 230 microns Test findings: OD: Intra retinal fluid and exudates temporal to the fovea, normal foveal contour, all layers intact, partial PVD with posterior hyaloid attached at fovea and optic nerve head. Stable to last. OS: Cystic pockets of intraretinal fluid throughout macula, normal foveal contour, all layers intact. Stable to last. Impression and Plan: Type 2 diabetes mellitus (DM) with mild non-proliferative diabetic retinopathy (NPDR) ou with diabetic macular edema ou. Stable to 3 months ago. Monitor in 6 months. Radha Dahl OD OPHTH TOMOGRAPHY Final Result documented in this encounter Visit Diagnoses Diagnosis Both eyes affected by mild nonproliferative diabetic retinopathy with macular edema, associated with type 2 diabetes mellitus (CMS/HCC)- Primary documented in this encounter Additional Health Concerns Assessment Noted Time PHQ-9 Depression Total Score: 19 025 11:45 AM EST documented as of this encounter Care Teams Security Incident Response Specialist Relationship Specialty Start Date End Date Gemma Dennison ANP [address] [place] [address] PCP - General Family Medicine 06/14/20 Maninder Warren FNP [address] [place] [address] Nurse Practitioner Family Medicine 04/09/23 documented as of this encounter
--- NOTE | ~2025-01-06 | CT_ITS ---
CLINICAL HISTORY: persistent WOODS CT head without contrast Comparison: CT/REG/SR - CT HEAD WITHOUT IV CONTRAST - 11/20/22 13:01 EDT Findings: No acute hemorrhage, acute major vascular distribution infarct, intracranial mass, midline shift or hydrocephalus. No extra-axial fluid collection. Mucoperiosteal thickening of bilateral maxillary sinuses, other visualized paranasal sinuses and mastoid air cells clear. Orbits unremarkable. The cranium appears intact. Superficial soft tissue is unremarkable. Impression: 1. No acute intracranial finding. This document has been electronically signed by: Wendy Deshpande MD on 01/07/2025 08:59:29
--- OUTSIDE RECORDS SUMMARY | 2025-01-06 10:49 | XMS_ITS | Encounter Summary ---
Author Organization [employer] Address [address] [place] [address] Care Team Providers Care [place] Man Name Role Phone Gemma Dennison Primary Care Provider [phone] Maninder Warren Unavailable Unavailable Reason for Visit * Reason Comments Med Refill Encounter Details Date Type Department Care Team ([facility] st Contact Info) Description 01/01/2025 Refill [facility] [address] [place], [place] [phone] Gemma Dennison ANP [address] [place] [address] Bipolar disorder with psychotic features (CMS/HCC) Social History Tobacco Use Types Packs/Day Years [...] AM EST documented as of this encounter Plan of Treatment Upcoming Encounters Date Type Department Care Team (Late st Contact Info) Description 01/21/2025 11:15 AM EDT Office Visit [facility] [address] [place] [address] Gemma Dennison ANP [address] [place] [address] 07/06/2025 10:00 AM EST Office Visit [facility] [address] [place] [address] TarRadha carias, OD [address] [place] [address] documented as of this encounter Visit Diagnoses Diagnosis Bipolar disorder with psychotic features (CMS/HCC) documented in this encounter Additional Health Concerns Assessment Noted Time PHQ-9 Depression Total Score: 19 025 11:45 AM EST documented as of this encounter Care Teams [place] Man Relationship Specialty Start Date End Date Gemma Dennison ANP [address] [place] [phone] PCP - General Family Medicine 06/14/20 Maninder Warren FNP [address] [place] [phone] Nurse Practitioner Family Medicine 04/09/23 documented as of this encounter
--- OUTSIDE RECORDS SUMMARY | 2025-01-06 10:49 | XMS_ITS | Clinical Summary ---
Author Organization [employer] Address [address] [facility] [address] [address] Care Team Providers Care Acls Nurse Name Role Phone Juma Gemma ELMORE Primary Care Provider [phone] Maninder Warren Unavailable Unavailable Allergies No known active allergies Medications * This document contains information received from the source organization and may not represent a complete record from that organization. Benzocaine-Mentho l (Cepacol INSTAMAX) 15-20 MG lozenge Take 1 lozenge by mouth if needed. For sore throat up to every 1-2 hours 05/23/19 22 Active zoster vaccine-recombina nt adjuvanted (Shingrix) 50 MCG/0.5ML vaccine Inject 0.5 mL into the shoulder, thigh, or buttocks. Once 2-6 months after the first dose (total of 2 doses) 05/05/20 19 Active omeprazole (PriLOSEC) [address] capsule Take 1 capsule by mouth 1 (one) time each day. Every day before a meal Active rOPINIRole (Requip) 2 MG tablet TAKE 1 TABLET BY MOUTH AT BEDTIME (1-3 HOURS BEFORE BEDTIME) 90 tablet 5 04/16/20 23 Active UltiCare Mini Pen Gage 31G X 6 MM miscIndications:T ype 2 diabetes mellitus with diabetic polyneuropathy, with long-term current use of insulin ([facility]) USE DIRECTED DAILY 100 each 5 06/10/19 24 Active Continuous Blood Gluc Student Outreach Coordinator (FreeStyle Zaira 2 [place]) deviceIndications :Type 2 diabetes mellitus with hyperglycemia, without long-term current use of insulin (CMS/HCC) Scan sensor every 6 hours 1 each 07/08/19 24 Active carBAMazepine (TEGretol) 200 MG tabletIndications :Bipolar disorder with psychotic features (CMS/HCC) TAKE 1 TABLET BY MOUTH TWICE DAILY IN THE MORNING AND AT BEDTIME 180 tablet 1 08/13/19 24 Active zolpidem (Ambien) 10 MG tabletIndications :Bipolar disorder with psychotic features (CMS/HCC) Take 1 tablet (10 mg) by mouth at bedtime. for sleep 30 tablet 10/28/19 24 Active TRUEplus Lancets 33G [facility] TEST BLOOD SUGAR THREE TIMES DAILY DIRECTED 100 each 5 04/20/20 24 Active perphenazine 16 MG tabletIndications :Bipolar disorder with psychotic features (CMS/HCC) Take 1 tablet orally in the morning and 1 tablet in the evening 180 tablet 1 06/08/19 25 Active atorvastatin (Lipitor) 10 MG tablet TAKE 1 TABLET BY MOUTH AT BEDTIME 90 tablet 1 06/11/19 25 Active metFORMIN (Glucophage) 1000 MG tabletIndications :Diabetic polyneuropathy associated with type 2 diabetes mellitus (CMS/HCC) TAKE 1 TABLET BY MOUTH TWICE DAILY IN THE MORNING AND IN THE EVENING WITH MEALS 180 tablet 3 06/11/19 25 Active D3-1000 25 MCG (1000 UT) capsuleIndication s:Vitamin D deficiency TAKE 1 CAPSULE BY MOUTH EVERY MORNING 90 capsule 1 06/11/19 25 Active FreeStyle Precision Jewel Test test stripIndications: Type 2 diabetes mellitus with hyperglycemia (CMS/HCC) USE DIRECTED TO TEST BLOOD SUGAR THREE TIMES DAILY OR MORE NEEDED 100 strip 10/09/19 25 Active Continuous Glucose Sensor (FreeStyle Zaira 2 Sensor) miscIndications:T ype 2 diabetes mellitus with hyperglycemia, without long-term current use of insulin ([facility]) USE DIRECTED TO TEST BLOOD SUGAR. CHANGE EVERY 14 DAYS . 2 each 10/09/19 25 Active enalapril (Vasotec) 10 MG tablet Take 1 tablet (10 mg) by mouth in the morning. 90 tablet 11/11/19 25 2024 Active escitalopram (Lexapro) 20 MG tablet TAKE 1 TABLET BY MOUTH AT BEDTIME 30 tablet 1 12/01/19 25 Active cyclobenzaprine (Flexeril) 10 MG tabletIndications :Tension headache One tab po at bedtime prn pain of muscles, do not drive with medicaion 10 tablet 12/04/19 25 Active glipiZIDE XL (Glucotrol XL) 10 MG 24 hr tabletIndications :Type 2 diabetes mellitus with diabetic polyneuropathy, without long-term current use of insulin (CMS/HCC) TAKE 1 TABLET BY MOUTH TWICE DAILY IN THE MORNING AND IN THE EVENING WITH FOOD. Do not crush, chew, or split. 180 tablet 1 12/19/19 25 Active acetaminophen (Tylenol) 500 MG tabletIndications :Acute intractable headache, unspecified headache type Take 1 tablet (500 mg) by mouth every 8 (eight) hours if needed for mild pain or moderate pain. Take 1-2 tablet (1000mg) by oral route up to 3x/d as needed max 6 tabs/24 hours 90 tablet 1 12/19/19 25 Active triamcinolone (Kenalog) 0.1 % creamIndications: Rash Apply topically 2 times daily. 80 g 1 12/19/19 25 Active Aspirin Low Dose 81 MG EC tablet TAKE 1 TABLET BY MOUTH AT BEDTIME 90 tablet 3 12/30/19 25 Active metoprolol succinate XL (Toprol-XL) 25 MG 24 hr tablet TAKE 1 TABLET BY MOUTH TWICE DAILY IN THE MORNING AND IN THE EVENING 180 tablet 1 12/30/19 25 Active amitriptyline (Elavil) 75 MG tabletIndications :Bipolar disorder with psychotic features (CMS/HCC) TAKE 1 TABLET BY MOUTH AT BEDTIME 90 tablet 3 12/30/19 25 Active amLODIPine (Norvasc) 10 MG tablet TAKE 1 TABLET BY MOUTH AT BEDTIME 90 tablet 1 01/06/20 25 Active traZODone (Desyrel) 50 MG tablet TAKE 1 TABLET BY MOUTH AT BEDTIME NEEDED FOR SLEEP 30 tablet 1 01/06/20 25 Active clonazePAM (KlonoPIN) 1 MG tabletIndications :Bipolar disorder with psychotic features (CMS/HCC) Take 1 tablet (1 mg) by mouth if needed in the morning and at bedtime for anxiety. 60 tablet 2 01/06/20 25 Active pregabalin (Lyrica) 150 MG capsule Take 1 capsule (150 mg) by mouth every 12 (twelve) hours. 60 capsule 3 01/06/20 25 Active pregabalin (Lyrica) 150 MG capsule Take 1 capsule by mouth every 12 (twelve) hours. 09/28/19 21 2024 Discontinued(R eorder (will not trigger notification to Pharmacy)) acetaminophen (Tylenol) 500 MG tablet Take 1 tablet (500 mg) by mouth every 6 (six) hours if needed for mild pain or moderate pain. Take 1-2 tablet (1000mg) by oral route up to 3x/d as needed max 6 tabs/24 hours 90 tablet 1 09/26/192024 Discontinued(R eorder (will not trigger notification to Pharmacy)) amitriptyline (Elavil) 75 MG tabletIndications :Bipolar disorder with psychotic features (CMS/HCC) Take 1 tablet (75 mg) by mouth at bedtime. 90 tablet 3 10/28/19 24 2024 Discontinued(R eorder (will not trigger notification to Pharmacy)) Aspirin Low Dose 81 MG EC tablet TAKE 1 TABLET BY MOUTH AT BEDTIME 90 tablet 3 11/26/19 24 2024 Discontinued metoprolol succinate XL (Toprol-XL) 25 MG 24 hr tablet TAKE 1 TABLET BY MOUTH TWICE DAILY IN THE MORNING AND IN THE EVENING 180 tablet 1 05/14/192024 Discontinued clonazePAM (KlonoPIN) 1 MG tabletIndications :Bipolar disorder with psychotic features (CMS/HCC) TAKE 1 TABLET BY MOUTH EVERY TWELVE HOURS NEEDED FOR ANXIETY 60 tablet 5 06/08/192024 Discontinued amLODIPine (Norvasc) 10 MG tablet TAKE 1 TABLET BY MOUTH AT BEDTIME 90 tablet 1 06/11/192024 Discontinued glipiZIDE XL (Glucotrol XL) 10 MG 24 hr tabletIndications :Type 2 diabetes mellitus with diabetic polyneuropathy, with long-term current use of insulin (CMS/HCC) TAKE 1 TABLET BY MOUTH TWICE DAILY IN THE MORNING AND IN THE EVENING WITH FOOD 180 tablet 1 06/11/192024 Discontinued(R eorder (will not trigger notification to Pharmacy)) traZODone (Desyrel) 50 MG tablet TAKE 1 TABLET BY MOUTH AT BEDTIME NEEDED FOR SLEEP 30 tablet 1 10/31/192024 Discontinued enalapril (Vasotec) 10 MG tablet Take 1 tablet (10 mg) by mouth in the morning. 90 tablet 11/11/19 25 2024 Discontinued(D uplicate order (will not trigger notification to Pharmacy)) ibuprofen 800 MG tabletIndications :Tension headache Take 1 tablet (800 mg) by mouth every 8 (eight) hours if needed for moderate pain or fever for up to 10 days. 30 tablet 12/04/19 25 2024 Active Problems Problem Noted Date Diagnosed Date Dysphagia, pharyngoesophageal phase 12/18/2024 Essential tremor 12/18/2024 Arthritis of left hip 10/03/2023 Chronic pain syndrome 10/03/2023 Disc degeneration, lumbar 10/03/2023 History of colon polyps 10/03/2023 History of orchiectomy 10/03/2023 Low back pain radiating to both legs 07/08/2023 Bilateral leg weakness 07/08/2023 Whole body pain 07/08/2023 Tremor 11/29/2022 Assessment & Plan (11/29/2022 8:58 AM EDT): - Negative head CT -DDx essential tremor; medication side effect; anxiety; - upcoming appt with neurologist History of testicular cancer 10/03/2022 Overview (10/03/2022): 1989: S/p L orchiectomy, 6 mos chemotherapy; tx in [place] Bipolar 2 disorder 04/10/2022 Assessment & Plan (10/28/2023 10:41 AM EDT): Pt gives a compelling history for this: Episodes of hypomania: Days without needing to sleep, moving/speaking fast; alternating with episodes of severe depression, unable to get out of bed. Presented with constant auditory hallucinations, racing thoughts, mild paranoia. Mood is more stable, sleeping better, hallucinations are essentially controlled. Will continue Perphenazine 16 mg 1 tablet in amd and 1.5 tablets at bedtime, Amitriptyline 75 mg at bedtime, Clonazepam 1 mg BID, and Zolpidem 10 mg atbedtime. Continue Carbamazepine per Neurologist. Sine this provider will be retiring, we will not schedule F/U. He will continue with his therapist at [facility] and await intake with agency prescriber. He may also contact [facility] with any issues or concerns. All his questions were answered. I have wished him well. He agrees with the plan. Assessment & Plan (08/27/2023 1:17 PM EDT): Pt gives a compelling history for this: Episodes of hypomania: Days without needing to sleep, moving/speaking fast; alternating with episodes of severe depression, unable to get out of bed. Presented with constant auditory hallucinations, racing thoughts, mild paranoia. Mood is more stable, sleeping better. Hallucinations are improved but not eradicated and pt finds them distressing. Will increase to Perphenazine 16 mg 1 tablet in amd and 1.5 tablets at bedtime. Continue Amitriptyline 100 mg at bedtime, Continue Clonazepam 1 mg BID, and Zolpidem 10 mg atbedtime. Continue Carbamazepine per Neurologist. He will continue with his therapist at [facility] and await intake with agency prescriber. He may also contact [facility] with any issues or concerns. All his questions were answered. I have wished him well. He agrees with the plan. Assessment & Plan (07/16/2023 11:46 AM EDT): Pt gives a compelling history for this: Episodes of hypomania: Days without needing to sleep, moving/speaking fast; alternating with episodes of severe depression, unable to get out of bed. Presented with constant auditory hallucinations, racing thoughts, mild paranoia. Depression and poor sleep persist, although hallucinations now controlled. Tremor also improved. Also note that DM is much better controlled. He has only been taking Perphenazine 16 mg once daily, will increase to BID as directed. Will cautiously trial increased dose of Amitriptyline 100 mg (previously had dry mouth with 150 mg). Continue Clonazepam 1 mg BID, and Zolpidem 10 mg atbedtime. Continue Carbamazepine per Neurologist. He will continue with his therapist at [facility]. On 01/22/2023 Provider informed pt that I would be retiring, he is on waiting list for intake with agency psychiatrist. Meanwhile, F/U with me in 6 weeks. He agrees with the plan. Assessment & Plan (02/25/2023 3:36 PM EDT): Pt gives a compelling history for this: Episodes of hypomania: Days without needing to sleep, moving/speaking fast; alternating with episodes of severe depression, unable to get out of bed. Presented with constant auditory hallucinations, racing thoughts, mild paranoia. He has had tremor since before he started with this provider in 08/2021, however says that had worsened significantly about 3 months ago without obvious provoking factor: no med change, no stop and start of meds, etc. Both the Carbamazepine and Perphenazine could be causative. Carbamazepine was started by Neurologist for migraines, but dose increased by this provider as mood stabilizer. Perphenazine has worked well to control psychotic features with the advantage of being metabolically neutral in pt with poorly controlled DM. Reviewing Neurologist consult note of 11/29/2022, there was note of some decreased DTRs and strength, but nothing about tremor. Unfortunately the tremor persists despite trial of decreased dose of Perphenazine, and mood has worsened. Mood now improved with resumption of Perphenazine 16 mg BID and will continue. Tremor did improve with decreased Carbamazepine 200 mg at bedtime only. Suggest he request a sooner appt with Neurologist to discuss alternative treatment for migraines. Meanwhile also continue Clonazepam 1 mg BID prn, Amitriptyline 75 mg at bedtime and Zolpidem 10 mg atbedtime. He will continue with his therapist at [facility]. On 01/22/2023 Provider informed pt that I would be retiring within the year, and recommended that he speak with his therapist about requesting referral to agency psychiatrist. F/U with me in 2 months. He agrees with the plan. Assessment & Plan (01/22/2023 4:15 PM EDT): Pt gives a compelling history for this: Episodes of hypomania: Days without needing to sleep, moving/speaking fast; alternating with episodes of severe depression, unable to get out of bed. Presented with constant auditory hallucinations, racing thoughts, mild paranoia. He has had tremor since before he started with this povider in 08/2021, however says that has worsened significantly about 1 1/2 months ago without obvious provoking factor: no med change, no stop and start of meds, etc. Both the Carbamazepine and Perphenazine could be causative. Carbamazepine was started by Neurologist for migraines, but dose increased by this provider as mood stabilizer. Perphenazine has worked well to control psychotic features with the advantage of being metabolically neutral in pt with poorly controlled DM. Reviewing Neurologist consult note of 11/29/2022, there was note of some decreased DTRs and strength, but nothing about tremor. Unfortunately the tremor persists despite trial of decreased dose of Perphenazine, and mood has worsened. At this time he will resume the Perphenazine 16 mg tablets twice daily. Instead, he will hold the morning dose of Carbamazepine 200 mg but continue evening dose. Continue other meds: Clonazepam 1 mg BID prn, Amitriptyline 75 mg at bedtime and Zolpidem 10 mg atbedtime. F/U in 3-4 weeks. He will continue with his therapist at [facility]. Today 01/22/2023 Provider informed pt that I would be retiring within the year, and recommended that he speak with his therapist about requesting referral to agency psychiatrist. He agrees with the plan. Assessment & Plan (12/25/2022 1:35 PM EDT): Pt gives a compelling history for this: Episodes of hypomania: Days without needing to sleep, moving/speaking fast; alternating with episodes of severe depression, unable to get out of bed. Presented with constant auditory hallucinations, racing thoughts, mild paranoia. He has had tremor since before he started with this povider in 08/2021, however says that has worsened significantly about 1 1/2 months ago without obvious provoking factor: no med change, no stop and start of meds, etc. Both the Carbamazepine and Perphenazine could be causative. Carbamazepine was started by Neurologist for migraines, but dose increased by this provider as mood stabilizer. Perphenazine has worked well to control psychotic features with the advantage of being metabolically neutral in pt with poorly controlled DM. He saw Neurologist 2 weeks ago, but Neurologist didn't mention any interventions r/t the tremor and there is no consult note available. We are requesting that now. Meanwhile, he will decrease the Perphenazine to take 1/2 tab of the 16 mg tablets twice daily. Cautioned that this might provoke recurrence of hallucinations. Will contue Carbamazepine 200 mg BID, Clonazepam 1 mg BID prn, Amitriptyline 75 mg at bedtime and Zolpidem 10 mg atbedtime. F/U in 3 weeks. He agrees with the plan. Assessment & Plan (09/24/2022 1:35 PM EDT): Pt gives a compelling history for this: Episodes of hypomania: Days without needing to sleep, moving/speaking fast; alternating with episodes of severe depression, unable to get out of bed. Presented with constant auditory hallucinations, racing thoughts, mild paranoia. The shaking of arms and legs is concerning and it will be important to watch for medication-related EPS, but so far no worsening with increased dose of first generation antipsychotic. I've asked him to please tell me right away if any medication seems to make this worse (or causes other unpleasant symptoms). With poorly controlled DM will be important to avoid medication with metabolic S/E. He is doing quite well, and will continue Carbamazepine 200 mg BID, Perphenazine 16 mg BID, Clonazepam 1 mg BID prn, Amitriptyline 75 mg at bedtime and Zolpidem 10 mg at bedtime prn. Continue with therapist through [facility]. If psychiatrist becomes available there, pt may consider transfer as desired, but it is not compulsory. F/u wth me in 2 months. He agrees with the plan Assessment & Plan (07/12/2022 1:05 PM EST): Pt gives a compelling history for this: Episodes of hypomania: Days without needing to sleep, moving/speaking fast; alternating with episodes of severe depression, unable to get out of bed. Presented with constant auditory hallucinations, racing thoughts, mild paranoia. The shaking of arms and legs is concerning and it will be important to watch for medication-related EPS, but so far no worsening with increased dose of first generation antipsychotic. I've asked him to please tell me right away if any medication seems to make this worse (or causes other unpleasant symptoms). With poorly controlled DM will be important to avoid medication with metabolic S/E. For afternoon anxiety, try taking second dose of Clonazepam in the afternoon rather than at bedtime. Continue other medications as usual. Continue with therapist through [facility]. If psychiatrist becomes available there, pt may consider transfer as desired, but it is not compulsory. F/u wth me in 2 months. Heagrees with the plan Assessment & Plan (05/17/2022 10:41 AM EST): Pt gives a compelling history for this: Episodes of hypomania: Days without needing to sleep, moving/speaking fast; alternating with episodes of severe depression, unable to get out of bed. Presented with constant auditory hallucinations, racing thoughts, mild paranoia. The shaking of arms and legs is concerning and it will be important to watch for medication-related EPS, but so far no worsening with increased dose of first generation antipsychotic. I've asked him to please tell me right away if any medication seems to make this worse (or causes other unpleasant symptoms). With poorly controlled DM will be important to avoid medication with metabolic S/E. Doing better, continue current medications. Continue with therapist through [facility]. If psychiatrist becomes available there, pt may consider transfer as desired, but it is not compulsory. Assessment & Plan (04/10/2022 10:44 AM EST): Pt gives a compelling history for this: Episodes of hypomania: Days without needing to sleep, moving/speaking fast; alternating with episodes of severe depression, unable to get out of bed. Presented with constant auditory hallucinations, racing thoughts, mild paranoia. The shaking of arms and legs is concerning and it will be important to watch for medication-related EPS, but so far no worsening with increased dose of first generation antipsychotic. I've asked him to please tell me right away if any medication seems to make this worse (or causes other unpleasant symptoms). With poorly controlled DM will be important to avoid medication with metabolic S/E. Recently increased Carbamazapine 200 mg to BID, but pt often forgets am dosing. Will review meds with pharmacy and update Medboxes. Pt has been getting Amitriptyline [address] Delacruz. At this time will decrease to Amitriptyline 75 mg at bedtime. May continue Lyrica, and Ropinirole per Neuro. Continue Perphenazine 16 mg BID. Continue Clonazepam 1 mg BID, Zolpidem 10 mg at bedtime. Continue with therapist through [facility]. If psychiatrist becomes available there, pt may consider transfer as desired, but it is not compulsory. Acute kidney injury 01/26/2022 Vitamin D deficiency 12/23/2018 Acute gastric ulcer without hemorrhage or perfor ation 09/08/2018 First degree atrioventricular block 09/08/2018 History of myocardial infarction 09/08/2018 Mild cognitive disorder 09/08/2018 Microalbuminuria 01/19/2016 Nonproliferative diabetic retinopathy 01/19/2016 Retinopathy 01/19/2016 Type 2 diabetes mellitus 01/19/2016 Assessment & Plan (11/29/2022 8:59 AM EDT): - last A1C 9% on 09/25/22 - continue current treatment plan per PCP Allergic rhinitis 07/07/2015 Diabetic neuropathy 07/07/2015 Essential hypertension 07/07/2015 Overweight 07/07/2015 Encounters * This document contains information received from the source organization and may not represent a complete record from that organization. Date Type Department Care Team Description 01/05/2025 Refill [facility] [address] [place] [address] Gemma Dennison ANP Bipolar disorder with psychotic features (CMS/HCC) 01/01/2025 11:15 AM EDT Office Visit [facility] [address] [place] [address] Tararetha, Radha, OD Both eyes affected by mild nonproliferative diabetic retinopathy with macular edema, associated with type 2 diabetes mellitus (CMS/HCC) (Primary Dx) 01/01/2025 Travel 01/01/2025 Refill [facility] [address] [place] [address] Gemma Dennison ANP Bipolar disorder with psychotic features (CMS/HCC) 12/29/2024 Refill [facility] [address] [place] [address] Gemma Dennison ANP Bipolar disorder with psychotic features (CMS/HCC) 12/27/2024 Refill [facility] [address] [place] [address] Gemma Dennison ANP Bipolar disorder with psychotic features (CMS/HCC) 12/21/2024 Outside Procedure [facility] [address] [place] [address] Nam, Ana, OD Presbyopia of both eyes (Primary Dx) 12/18/2024 9:45 AM EDT Office Visit [facility] [address] [place] [address] Gemma Dennison ANP Type 2 diabetes mellitus with diabetic polyneuropathy, without long-term current use of insulin ([facility]) (Primary Dx); Type 2 diabetes mellitus with hyperglycemia, without long-term current use of insulin ([facility]); Rash; Acute intractable headache, unspecified headache type; Testicle swelling 12/18/2024 9:00 AM EDT Office Visit [facility] [address] [place] [address] Nam, Ana, OD Hyperopia of both eyes (Primary Dx) 12/18/2024 Travel 12/17/2024 Telephone [facility] [address] [place] [address] Gemma Dennison ANP Chart Prep 12/11/2024 Patient Outreach [facility] [address] [place] [id number] Gemma Dennison ANP Pre-visit Planning (Pre visit planning LVM ) 12/03/2024 1:00 PM EDT Office Visit [facility] [address] [place] [id number] Nury Palomo MD Tension headache (Primary Dx) 12/03/2024 Travel 11/28/2024 Refill [facility] [address] [place] [id number] Gemma Dennison ANP 11/10/2024 Refill [facility] [address] [place] [address] Gemma Dennison ANP 11/09/2024 Refill [facility] [address] [place] [address] Gemma Dennison ANP 10/30/2024 Refill [facility] [address] [place] [id number] Gemma Dennison ANP 10/15/2024 Telephone [facility] [address] [place] [phone] Kellee Jonas RNlaborer beam house 10/07/2024 Refill [facility] [address] [place] [address] Gemma Dennison ANP Type 2 diabetes mellitus with hyperglycemia ([facility]); Type 2 diabetes mellitus with hyperglycemia, without long-term current use of insulin ([facility]) from Last 3 Months Immunizations Immunization Administration Dates Next Due Hep A, Adult 07/12/2016,10/20/2015 Hep B, adult 07/12/2016,03/01/2016,10/20/2015 Influenza Injectable Quadriv alant Preservative Free IIV4 MDCK 2021,03/11/2020 Influenza injectable quadriv alent IIV4 with preservative 03/13/2018,04/19/2017,01/19/2016,07/06 Influenza injectable quadriv alent preservative free 07/08/2023,01/26/2022,05/05/2019 Influenza, seasonal, injecta ble, preservative free 06/08/2024 Moderna Covid-19 Vaccine 12+ 09/13/2020,08/17/19 21 Pfizer Covid-19 Vaccine 12+ 06/08/2024,,03/15/2021 Pneumococcal Conjugate PCV 20 07/08/2023 Pneumococcal Polysaccharide PPSV23 10/20/2015 Tdap 07/07/2015 Zoster, Recombinant 03/11/2020,01/08/2020 Social History Tobacco Use Types Packs/Day Years Used Date Smoking Tobacco: Never Passive Smoke Exposure: Never Smokeless Tobacco: Never Tobacco Cessation:Counseling Given: Not Answered Alcohol Use Standard Drinks/Week Comments Never 0 [...] Orientation Straight 04/10/2022 9: 44 AM EST Last Filed Vital Signs Vital Sign Reading Time Taken Comments Blood Pressure 98/60 12/18/2024 10:07 AM EDT Pulse 69 12/18/2024 10:07 AM EDT Temperature 36.7 C (98 F) 12/03/2024 1:08 PM EDT Respiratory Rate 18 12/18/2024 10:07 AM EDT Oxygen Saturation 97% 12/03/2024 1:08 PM EDT Inhaled Oxygen Concentration - - Weight 90.3 kg (199 lb) 12/18/2024 10:07 AM EDT Height 182.9 cm (6') 12/18/2024 10:07 AM EDT Body Mass Index 26.99 12/18/2024 10:07 AM EDT Plan of Treatment Upcoming Encounters Date Type Department Care Team (Late st Contact Info) Description 01/21/2025 11:15 AM EDT Office Visit [facility] [address] [place] [address] Gemma Dennison ANP [address] [place] [address] 07/06/2025 10:00 AM EST Office Visit [facility] [address] [place] [address] Radha Dahl, OD [address] [place] [address] Health Maintenance Due Date Last Done Comments CT Colonography 1969 FIT DNA/Cologuard 1969 FIT 1969 FOBT 1969 Sigmoidoscopy 1969 Lipid Panel 08/16/2023 08/15/2022, 08/31/2020 Diabetes: Foot Exam 07/07/2024 07/08/2023, 07/08/2023, 07/08/2023 Diabetes: Urine Protein Screening 12/04/2024 12/05/2023, 08/15/2022, 10/16/2021, Additional history exists Depression Monitoring 12/06/2024 06/08/2024, 025 Influenza Vaccine (#1) 2025 , 07/08/2023, 01/26/2022, Additional history exists Diabetes: Hemoglobin A1C 03/20/2025 025, 06/08/2024, 07/08/2023, Additional history exists DTaP/Tdap/Td Vaccines (2 - Td or Tdap) 07/06/2025 07/07/2015 Alcohol/Substance Use Screening 12/18/2025 12/18/2024 Disability Screening 12/18/2025 12/18/2024 SDOH Screening 12/18/2025 12/18/2024 Tobacco Screening 12/18/2025 12/18/2024 Eye Exam 01/01/2026 01/01/2025, 12/05, 01/01/2025, Additional history exists Colonoscopy 10/17/2028 10/18/2023 Colorectal Cancer Screening 10/17/2028 RSV Patients and Patients Aged 60 years or older (1 - 1-dose 75+ series) 2044 Hepatitis A Vaccines Aged Out 07/12/2016, 10/20/19 16 No longer eligible based on patient's age to complete this topic Hepatitis B Vaccines Completed 07/12/2016, 03/01/2016, 10/20/2015 Zoster Vaccines Completed 03/11/2020, 01/08/2020 HIV Screening Completed 08/31/2020 Pneumococcal Vaccine: 50+ Years Completed 07/08/2023, 10/20/2015 Hepatitis C Screening Completed 12/05/2023, 021 COVID-19 Vaccine Completed 06/08/2024, 08/2023, 04/03/2022, Additional history exists HIB Vaccines Aged Out No longer eligi ble based on patient's age to complete this topic HPV Vaccines Aged Out No longer eligi ble based on patient's age to complete this topic IPV Vaccines Aged Out No longer eligi ble based on patient's age to complete this topic Meningococcal B Vaccine Aged Out No l onger eligible based on patient's age to complete this topic Meningococcal Vaccine Aged Out No gayle maggie eligible based on patient's age to complete this topic RSV under 20 months Aged Out No longe r eligible based on patient's age to complete this topic Rotavirus Vaccines Aged Out No longer eligible based on patient's age to complete this topic Procedures Procedure Name Priority Date/Time Associated Diagnosis Comments OCT, RETINA - OU - BOTH EYES Routine 01/01/2025 11:15 AM EDT Both eyes affected by mild nonproliferative diabetic retinopathy with macular edema, associated with type 2 diabetes mellitus (CMS/HCC) POCT GLYCATED HEMOGLOBIN, TOTAL Routine 12/18/2024 10:09 AM EDT Type 2 diabetes mellitus with hyperglycemia, without long-term current use of insulin (CMS/HCC) POCT GLUCOSE Routine 12/18/2024 10:08 AM EDT Type 2 diabetes mellitus with hyperglycemia, without long-term current use of insulin (CMS/HCC) ALBUMIN, RANDOM URINE W/CREATININE Routine 12/05/2023 9:59 AM EDT Type 2 diabetes mellitus with hyperglycemia, without long-term current use of insulin (CMS/HCC) HEPATITIS C ANTIBODY Routine 12/05/2023 9:57 AM EDT HM COLONOSCOPY Routine 10/18/2023 LIPID PANEL, STANDARD Routine 08/15/2022 11:42 AM EDT HIV 1/2 ANTIGEN/ANTIBODY, FOURTH GENERATION W/RFL Routine 08/31/2020 11:30 AM EDT from Last 3 Months or Most Recently Relevant to Health Maintenance Results * OCT, Retina - OU - Both Eyes (01/01/2025 11:15 AM EDT) Narrative Radha Dahl, OD - 01/05/2025 10:23 AM EDT OCT [...] Radha Dahl OD OPHTH TOMOGRAPHY Final Result * (ABNORMAL) POCT HGB A1C (12/18/2024 10:09 AM EDT) Hemoglobin A1C 7.5(A) 4.0 - 5.7 % QC Media Lot # [id number] Lot# Expiration Date 4162, Blood 12/18/2024 10:0 9 AM EDT us Gemma ELMORE POINT OF CARE TEST ENTER/EDIT OR DERABLES Final Result * (ABNORMAL) POCT Glucose (12/18/2024 10:08 AM EDT) Glucose Blood, POC 232(A) 60 - 200 mg/dL QC Media Lot # [id number] Lot# Expiration Date [id number] Blood Capillary blood specimen / Unknown 12/18/2024 10:08 AM EDT Gemma Dennison [facility] POINT OF CARE TEST ENTER/EDIT OR DERABLES Final Result * Albumin, Random Urine W/Creatinine (12/05/2023 9:59 AM EDT) Pathologist [facility] Creatinine, Urine 362.17 mg/dL [facility] Microalbumin Urine 39.0 mg/L [facility] Microalbum Creatinine Ratio Ur 10.7 <30 ug/mg cr [facility] Comment:Albumin/Creatinine R atio Reference Ranges: Normal: < 30 ug/mg creatinine Microalbuminuria: 30 - 300 ug/mg creatinineClinical Albuminuria: > 300 ug/mg creatinine Urine 12/05/2023 9:59 AM EDT 12/05/2023 10:34 AM EDT [facility] LAB URINE ORDERABLES Final Resul t Performing Organization Address [facility]/ZIP Co de Phone Number [facility] [address] [place] [phone] * Hepatitis C Ab (12/05/2023 9:57 AM EDT) [facility] Hepatitis C Antibody Nonreactive Nonreactive [facility] Comment:Antibodies to HCV no t detected; does not exclude early acuteHCV infection. 12/05/2023 9:57 AM EDT 12/05/2023 9:[address] [facility] LAB BLOOD ORDERAB LES Final Result Performing Organization Address [facility]/ZIP Co de Phone Number [facility] [address] [place] [phone] * (ABNORMAL) Colonoscopy (10/18/2023) [facility] Colonoscopy Abnormal(A ) Normal Kiel Daugherty MD HEALTH MAINTENANCE nal Result * Lipid Panel, Standard (08/15/2022 11:42 AM EDT) [facility] Cholesterol, Total 135 <200 mg/dL [facility] [employer] Comment: Verified by repeat analysis. HDL Cholesterol 40 > OR = 40 mg/dL [facility] [employer] Diagnost Triglycerides 135 <150 mg/dL [facility] [employer] LDL Cholesterol 73 mg/dL (calc) [facility] [employer] Comment: Reference range: <100 Desirable range <100 mg/dL for primary prevention; <70 mg/dL for patients with CHD or diabetic patients with > or = 2 CHD risk factors. LDL-C is now calculated using the Keenan calculation, which is a validated novel method providing better accuracy than the Friedewald equation in the estimation of LDL-C. Rolando SS et al. HARVEY. 2013;310(18): 7154-5680 (http://education.USEUM/faq/KLU533) Chol/HDLC Ratio 3.4 <5.0 (calc) [facility] [employer] Non-HDL Cholesterol 95 <130 mg/dL (calc) [facility] [employer] Comment: For patients with diabetes plus 1 major ASCVD risk factor, treating to a non-HDL-C goal of <100 mg/dL (LDL-C of <70 mg/dL) is considered a therapeutic option. 08/15/2022 11:4 2 AM EDT 08/15/2022 11:43 AM EDT Narrative [facility] - 08/18/2022 7:52 PM EDT FASTING:YES FASTING: YES [facility] LAB BLOOD ORDERABLES Final Resul t [facility] [address], [place] [address] [facility] [address] [place] [address] * HIV 1/2 ANTIGEN/ANTIBODY,FOURTH GENERATION W/RFL (08/31/2020 11:30 AM EDT) HIV-1/2 ANTIGEN AND ANTIBODIES, 4TH GENERATION W/ REFLEX NON-REACT MALISSA NON-REACT MALISSA [facility] Comment: HIV-1 antigen and HIV-1/HIV-2 antibodies were not detected. There is no laboratory evidence of HIV infection. PLEASE NOTE: This information has been disclosed to you from records whose confidentiality may be protected by state law. If your state requires such protection, then the state law prohibits you from making any further disclosure of the information without the specific written consent of the person to whom it pertains, or as otherwise permitted by law. A general authorization for the release of medical or other information is NOT sufficient for this purpose. For additional information please refer to http://education.[employer]/faq/NUY766 (This link is being provided for informational/ educational purposes only.) The performance of this assay has not been clinically validated in patients less than 2 years old. 08/31/2020 11:3 0 AM EDT Gemma Dennison [facility] LAB BLOOD ORDERABLES Final Resul t [facility] [address] from Last 3 Months or Most Recently Relevant to Health Maintenance [place] [address] [place] [address] C3 Care Teams Acls Nurse Relationship Specialty Start Date End Date Gemma Dennison ANP [address] [place] [address] PCP - General Family Medicine 06/14/20 Maninder Warren FNP [address] [place] [address] Nurse Practitioner Family Medicine 04/09/23
--- OUTSIDE RECORDS SUMMARY | 2025-01-06 10:49 | XMS_ITS | Encounter Summary ---
Author Organization [employer] Address [address] [facility] [address]t [place] [address] Care Team Providers Care Weather Forecaster Name Role Phone Gemma Dennison Primary Care Provider Maninder Warren Unavailable Unavailable Encounter Details Date Type Department Care Team (Latest Contact Info) Description 06/16/2021 Abstract [facility] CONVERSIONS Dental, Provider, DDS Social History Tobacco Use Types Packs/Day Years Used Date Smoking Tobacco: Never Assessed Sex and Gender Information Value Date Recorded Sex Assigned at Male 03/05/2022 10:29 AM EDT Legal Sex Male 10:29 AM EDT Gender Identity Male 03/05/2022 10:29 AM EDT Sexual Orientation Straight 04/10/2022 9: 44 AM EST documented as of this encounter Plan of Treatment Upcoming Encounters Date Type Department Care Team (Late st Contact Info) Description 01/21/2025 11:15 AM EDT Office Visit [facility] [address] [place] [address] Gemma Dennison ANP [address] [place] [address] 07/06/2025 10:00 AM EST Office Visit [facility] [address] [place] [address] Radha Dahl OD [address] [place] [address] documented as of this encounter Visit Diagnoses Not on filedocumented in this encounter Care Teams Weather Forecaster Relationship Specialty Start Date End Date Gemma Dennison ANP [address] [place] [address] PCP - General Family Medicine 06/14/20 Maninder Warren FNP [address] [place] [address] Nurse Practitioner Family Medicine 04/09/23 documented as of this encounter
--- OUTSIDE RECORDS SUMMARY | 2025-01-06 10:49 | XMS_ITS | Encounter Summary ---
Author Organization [employer] Address [address] [facility] 7t [place] [address] Care Team Providers Care Sanitarian Aide Name Role Phone Juma Gemma ELMORE Primary Care Provider [phone] Maninder Warren Unavailable Unavailable Encounter Details Date Type Department Care Team (Latest Contact Info) Description 01/01/2025 Travel Social History Tobacco Use Types Packs/Day Years [...] Description 01/21/2025 11:15 AM EDT Office Visit [facility] [address] [place] [address] Gemma Dennison ANP [address] [place] [address] 07/06/2025 10:00 AM EST Office Visit [facility] [address] [place] [address] Radha Dahl, OD [address] [place] [address] documented as of this encounter Visit Diagnoses Not on filedocumented in this encounter Additional Health Concerns Assessment Noted Time PHQ-9 Depression Total Score: 19 025 11:45 AM EST documented as of this encounter Care Teams Sanitarian Aide Relationship Specialty Start Date End Date Gemma Dennison ANP [address] [place] [address] PCP - General Family Medicine 06/14/20 Maninder Warren FNP [address] [place] [phone] Nurse Practitioner Family Medicine 04/09/23 documented as of this encounter
--- OUTSIDE RECORDS SUMMARY | 2025-01-06 10:49 | XMS_ITS | Encounter Summary ---
Author Organization [employer] Address [address] [facility] 7t [place] [address] Care Team Providers Care Taper/Finisher Name Role Phone Gemma Dennison Primary Care Provider [phone] Maninder Warren Unavailable Unavailable Reason for Visit * Reason Comments Med Refill Encounter Details Date Type Department Care Team ([facility] st Contact Info) Description 07/26/2023 Refill [facility] [address] [place], [place] [phone] Gemma Dennison ANP [address] [place] [address] Type 2 diabetes mellitus with diabetic neuropathy, unspecified whether strategy associate insulin use ([facility]) Social History Tobacco Use Types Packs/Day Years Used Date Smoking Tobacco: Never Passive Smoke Exposure: Never Smokeless Tobacco: Never Alcohol Use Standard Drinks/Week Comments Never 0 (1 standard drink = 0.6 oz pur e alcohol) Depression Answer Date Recorded Patient Health Questionnaire-9 Score 10 07/16/2023 Patient Health Questionnaire-9 Score 10 07/16/2023 Last PHQ-9: Questionnaire Data Not on file 0 07/16/2023 Housing Stability Answer Date Recorded What is your housing situation today? I have germania nogueira 07/01/[address] you li ve. Do you have problems with any of the following? None of the above 07/01/2023 Food Insecurity Answer Date Recorded Within the past 12 months, y ou worried that your food would run out before you got money to buy more: Sometimes True 2023 Within the past 12 months,th e food you bought just didn't last and you didn't have enough money to get more: Sometimes True 07/01/2023 Transportation Answer Date Recorded In the past 12 months, has l ack of transportation kept you from medical appts, meetings, work or from getting things needed for daily living? No 07/01/2023 Utilities Answer Date Recorded In the past 12 months, has t he electric, gas, oil or water company threatened to shut off services in your home? No 07/01/2023 Depression Answer Date Recorded Patient Health Questionnaire-2 Score 3 07/16/2023 Sex and Gender Information Value Date Recorded Sex Assigned at Male 03/05/2022 10:29 AM EDT Legal Sex Male 10:29 AM EDT Gender Identity Male 03/05/2022 10:29 AM EDT Sexual Orientation Straight 04/10/2022 9: 44 AM EST documented as of this encounter Plan of Treatment Upcoming Encounters Date Type Department Care Team (Late st Contact Info) Description 01/21/2025 11:15 AM EDT Office Visit [facility] [address] [place] [address] Gemma Dennison ANP [address] [place] [address] 07/06/2025 10:00 AM EST Office Visit [facility] [address] [place] [address] Radha Dahl, OD [address] [place] [address] documented as of this encounter Visit Diagnoses Diagnosis Type 2 diabetes mellitus with diabetic neuropathy, unspecified whether correction insulin use ([facility]) documented in this encounter Additional Health Concerns Assessment Noted Time PHQ-9 Depression Total Score: 10 024 10:32 AM EDT documented as of this encounter Care Teams Taper/Finisher Relationship Specialty Start Date End Date Gemma Dennison ANP [address] [place] [address] PCP - General Family Medicine 06/14/20 Maninder Warren FNP [address] [place] [phone] Nurse Practitioner Family Medicine 04/09/23 documented as of this encounter
--- OUTSIDE RECORDS SUMMARY | 2025-01-06 10:49 | XMS_ITS | Encounter Summary ---
Author Organization [employer] Address [address] [facility] 7t [place] [address] Care Team Providers Care Territory Sales Manager Medical Name Role Phone Gemma Dennison Primary Care Provider [phone] Maninder Warren Unavailable Unavailable Encounter Details Date Type Department Care Team (Late st Contact Info) Description 04/04/2022 Abstract [facility] [address] [place] [phone] Provider, MD Sorin Social History Tobacco Use Types Packs/Day Years [...] Description 01/21/2025 11:15 AM EDT Office Visit [facility] [address] [place] [address] Gemma Dennison ANP [address] [place] [address] 07/06/2025 10:00 AM EST Office Visit [facility] OPT[facility]RY [address] [place] [address] Radha Dahl, OD [address] [place] [address] documented as of this encounter Visit Diagnoses Not on filedocumented in this encounter Care Teams Territory Sales Manager Medical Relationship Specialty Start Date End Date Gemma Dennison ANP [address] [place] [address] PCP - General Family Medicine 06/14/20 Maninder Warren FNP [address] [place] [address] Nurse Practitioner Family Medicine 04/09/23 documented as of this encounter
--- OUTSIDE RECORDS SUMMARY | 2025-01-06 10:49 | XMS_ITS | Clinical Summary ---
Author Organization [facility] Address [id number] [place] [phone] Care Team Providers Care Content Development Manager Name Role Phone Gemma Dennison JEZ Primary Care Provider [phone] Medical History Medical History Date Comments Type 2 diabetes mellitus ( S/HCC V24, [facility] V28) DX:Type 2 diabetes mellitus (HCC) Type 2 diabetes mellitus wit h both eyes affected by mild nonproliferative retinopathy and macular edema, with long-term current use of insulin (CMS/HCC V24, CMS/[facility] V28) DX:Type 2 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, with long-term current use of insulin ([facility]) Diabetic neuropathy (CMS/HCC V24, CMS/HCC V28) DX:Diabetic neuropathy ([facility]) Vitamin D deficiency DX:Vitamin D deficiency Hypertension DX:Hypertension Microalbuminuria DX:Microalbumin uria Retinopathy DX:Retinopathy Myocardial infarct (CMS/HCC V24, [facility] V28) DX:Myocardial infarct ([facility]) AV block, 1st degree DX:AV block , 1st degree Allergic rhinitis, unspecified D X:Allergic rhinitis, unspecified Social History Tobacco Use Types Packs/Day Years Used Date Smoking Tobacco: Former Alcohol Use Standard Drinks/Week Comments Never 0 (1 standard drink = 0.6 oz pur e alcohol) Sex and Gender Information Value Date Recorded Sex Assigned at Not on file Legal Sex Male 3:14 PM EST Gender Identity Not on file Sexual Orientation Not on file Obstetrics History Plan of Treatment Health Maintenance Due Date Last Done Comments DTaP,Tdap,and Td Vaccines (1 - Tdap) 1988 Hepatitis B Vaccines (1 of 3 - 19+ 3-dose series) 1988 Pneumococcal Vaccine: 50+ Ye ars (1 of 1 - PCV) 2019 Zoster Vaccines (1 of 2) 2019 COVID-19 Vaccine (2023-2 5 season) 2024 Depression Screening 05/06/2024 Influenza Vaccine (#1) 2025 HIB Vaccines Aged Out No longer eligi ble based on patient's age to complete this topic HPV Vaccines Aged Out No longer eligi ble based on patient's age to complete this topic Hepatitis A Vaccines Aged Out No long er eligible based on patient's age to complete this topic IPV Vaccines Aged Out No longer eligi ble based on patient's age to complete this topic MMR Vaccines Aged Out No longer eligi ble based on patient's age to complete this topic Meningococcal ACWY Vaccine Aged Out N o longer eligible based on patient's age to complete this topic Meningococcal B Vaccine Aged Out No l onger eligible based on patient's age to complete this topic RSV Immunization Patients Un haris 20 months Aged Out No longer eligible b ased on patient's age to complete this topic Varicella Vaccines Aged Out No longer eligible based on patient's age to complete this topic Care Teams Content Development Manager Relationship Specialty Start Date End Date Gemma Dennison NP [address] [place] [address] [place] [phone] PCP - General 10/27/20
--- OUTSIDE RECORDS SUMMARY | 2025-01-06 10:49 | XMS_ITS | Encounter Summary ---
Author Organization [employer] Address [address] [facility] 7t [place] [address] Care Team Providers Care Whizzer Name Role Phone Gemma Dennison Primary Care Provider [phone] Maninder Warren Unavailable Unavailable Reason for Visit * Reason Comments Med Refill Encounter Details Date Type Department Care Team ([facility] st Contact Info) Description 12/27/2024 Refill [facility] [address] [place], [place] [phone] Gemma Dennison ANP [address] [place] [address] Bipolar disorder with psychotic features (CMS/HCC) Social [...] Description 01/21/2025 11:15 AM EDT Office Visit [facility] [address] [place] [address] Gemma Dennison ANP [address] [place] [address] 07/06/2025 10:00 AM EST Office Visit [facility] OPT[facility] [address] [place] [address] TarRadha carias, OD [address] [place] [address] documented as of this encounter Visit Diagnoses Diagnosis Bipolar disorder with psychotic features (CMS/HCC) documented in this encounter Additional Health Concerns Assessment Noted Time PHQ-9 Depression Total Score: 19 025 11:45 AM EST documented as of this encounter Care Teams Whizzer Relationship Specialty Start Date End Date Gemma Dennison ANP [address] [place] [address] PCP - General Family Medicine 06/14/20 Maninder Warren FNP [address] [place] [address] Nurse Practitioner Family Medicine 04/09/23 documented as of this encounter
--- OUTSIDE RECORDS SUMMARY | 2025-01-06 10:49 | XMS_ITS | Encounter Summary ---
Author Organization [employer] Address [address] [facility] 7t [place] [address] Care Team Providers Care Sr. Director Name Role Phone Juma Gemma ELMORE Primary Care Provider [phone] Maninder Warren Unavailable Unavailable Reason for Visit * Reason Comments Med Refill Encounter Details Date Type Department Care Team ([facility] st Contact Info) Description 02/25/2023 Refill [facility] MEDICINE [address] [place] [address] Maninder Warren FNP Bipolar disorder with psychotic features (CMS/HCC) Social History Tobacco Use Types Packs/Day Years Used Date Smoking Tobacco: Never Passive Smoke Exposure: Never Smokeless Tobacco: Never Alcohol Use Standard Drinks/Week Comments Never 0 (1 standard drink = 0.6 oz pur e alcohol) Depression Answer Date Recorded Patient Health Questionnaire-9 Score 13 02/25/2023 Patient Health Questionnaire-9 Score 13 02/25/2023 Last PHQ-9: Questionnaire Data Not on file 1 Housing Stability Answer Date Recorded What is your housing situation today? I have germania nogueira 02/22/[address] you li ve. Do you have problems with any of the following? None of the above 02/22/2023 Food Insecurity Answer Date Recorded Within the past 12 months, y ou worried that your food would run out before you got money to buy more: Sometimes True 2022 Within the past 12 months,th e food you bought just didn't last and you didn't have enough money to get more: Sometimes True 02/22/2023 Transportation Answer Date Recorded In the past 12 months, has l ack of transportation kept you from medical appts, meetings, work or from getting things needed for daily living? No 02/22/2023 Utilities Answer Date Recorded In the past 12 months, has t he electric, gas, oil or water company threatened to shut off services in your home? No 02/22/2023 Depression Answer Date Recorded Patient Health Questionnaire-2 Score 4 02/25/2023 Sex and Gender Information Value Date Recorded Sex Assigned at Male 03/05/2022 10:29 AM EDT Legal Sex Male 10:29 AM EDT Gender Identity Male 03/05/2022 10:29 AM EDT Sexual Orientation Straight 04/10/2022 9: 44 AM EST documented as of this encounter Functional Status * Over the past 2 weeks, how often have you been bothered by any of the following problems? Question Answer Date of Assessment Author Patient Health Questionnaire -2 Score 4 02/25/2023 3:05 PM EDT Stefanie Moraes MA * If you checked off any problems on this questionnaire so far, Question Answer Date of Assessment Author How difficult have these problems made it for you to do your work, take care of things at home, or get along with other people? Very difficult 02/25/2023 3:05 PM YVANT Stefanie Moraes MA * Over the past 2 weeks, how often have you been bothered by any of the following problems? Question Answer Date of Assessment Author Little interest or pleasure in doing things More than half the days 02/25/2023 3:05 PM Snow Yang MA Feeling down, depressed, or hopeless More than half the days 02/25/2023 3:05 PM Snow Yang MA Trouble falling or staying asleep, or sleeping too much Nearly every day 02/25/2023 3:05 PM Snow Yang MA Feeling tired or having little energy More than half the days 02/25/2023 3:05 PM Snow Yang MA Poor appetite or overeating Several days 02/25/2023 3:05 PM Snow Yang MA Feeling bad about yourself - or that you are a failure or have let yourself or your family down Not at all 02/25/2023 3:05 PM EDT Snow Moraes MA Trouble concentrating on things, such as reading the newspaper or watching television More than half the days 02/25/2023 3:05 PM EDT Snow Moraes MA Moving or speaking so slowly that other people could have noticed? Or the opposite - being so fidgety or restless that you have been moving around a lot more than usual. Several days 02/25/2023 3:05 PM EDT Snow Moraes MA Thoughts that you would be better off or hurting yourself in some way Not at all 02/25/2023 3:05 PM EDT Snow Moraes MA Patient Health Questionnaire-9 Score 13 02/25/2023 3:05 PM EDT Snow Moraes MA documented as of this encounter Plan of Treatment Upcoming Encounters Date Type Department Care Team (Late st Contact Info) Description 01/21/2025 11:15 AM EDT Office Visit [facility] MEDICINE [address] [place] [address] Gemma Dennison ANP [address] [place] [address] 07/06/2025 10:00 AM EST Office Visit [facility] OPTOMETRY [address] [place] [address] Radha Dahl, OD [address] [place] [address] documented as of this encounter Visit Diagnoses Diagnosis Bipolar disorder with psychotic features (CMS/HCC) documented in this encounter Additional Health Concerns Assessment Noted Time PHQ-9 Depression Total Score: 13 023 3:05 PM EDT documented as of this encounter Care Teams Sr. Director Relationship Specialty Start Date End Date Gemma Dennison ANP [address] [place] [address] PCP - General Family Medicine 06/14/20 Maninder Warren FNP [address] [place] [address] Nurse Practitioner Family Medicine 04/09/23 documented as of this encounter
--- OUTSIDE RECORDS SUMMARY | 2025-01-06 10:49 | XMS_ITS | Encounter Summary ---
Author Organization [employer] Address [address] [facility] 7t [place] [address] Care Team Providers Care Machine Feeder Floorperson Name Role Phone Gemma Dennison Primary Care Provider [phone] Maninder Warren Unavailable Unavailable Reason for Visit * Reason Comments Med Refill Encounter Details Date Type Department Care Team (Late st Contact Info) Description 07/12/2022 Refill [facility] MEDICINE [address] [place] [address] Maninder Warren FNP Bipolar disorder with psychotic [...] Author Patient Health Questionnaire -2 Score 4 07/12/2022 11:20 AM Melba Fink MA * If you checked off any problems on this questionnaire so far, Question Answer Date of Assessment Author How difficult have these problems made it for you to do your work, take care of things at home, or get along with other people? Somewhat difficult 07/12/2022 11:20 AM Melba Fink MA * Over the past 2 weeks, how often have you been bothered by any of the following problems? Question Answer Date of Assessment Author Little interest or pleasure in doing things More than half the days 07/12/2022 11:20 AM Snow Fink MA Feeling down, depressed, or hopeless More than half the days 07/12/2022 11:20 AM Snow Fink [place] Trouble falling or staying asleep, or sleeping too much Nearly every day 07/12/2022 11:20 AM Snow Fink MA Feeling tired or having little energy More than half the days 07/12/2022 11:20 AM Snow Fink MA Poor appetite or overeating Several days 07/12/2022 11:20 AM Snow Fink MA Feeling bad about yourself - or that you are a failure or have let yourself or your family down Not at all 07/12/2022 11:20 AM Snow Fink MA Trouble concentrating on things, such as reading the newspaper or watching television More than half the days 07/12/2022 11:20 AM Snow Fink MA Moving or speaking so slowly that other people could have noticed? Or the opposite - being so fidgety or restless that you have been moving around a lot more than usual. Several days 07/12/2022 11:20 AM Snow Fink MA Thoughts that you would be better off or hurting yourself in some way Not at all 07/12/2022 11:20 AM Snow Fink MA Patient Health Questionnaire-9 Score 13 07/12/2022 11:20 AM Snow Fink MA documented as of this encounter Plan of Treatment Upcoming Encounters Date Type Department Care Team (Late st Contact Info) Description 01/21/2025 11:15 AM EDT Office Visit [facility] MEDICINE [address] [place] [address] Gemma Dennison ANP [address] [place] [address] 07/06/2025 10:00 AM EST Office Visit [facility] OPTOMETRY [address] [place], [place] [phone] Radha Dahl, OD [address] [place], [place] [phone] documented as of this encounter Visit Diagnoses Diagnosis Bipolar disorder with psychotic features (CMS/HCC) documented in this encounter Additional Health Concerns Assessment Noted Time PHQ-9 Depression Total Score: 13 023 11:20 AM EST documented as of this encounter Care Teams Machine Feeder Floorperson Relationship Specialty Start Date End Date Gemma Dennison ANP [address] [place] [address] PCP - General Family Medicine 06/14/20 Maninder Warren FNP [address] [place] [address] Nurse Practitioner Family Medicine 04/09/23 documented as of this encounter
--- OUTSIDE RECORDS SUMMARY | 2025-01-06 10:49 | XMS_ITS | Encounter Summary ---
Author Organization [employer] Address [address] [facility] 7t [place] [address] Care Team Providers Care Draw Furnace Tender Name Role Phone Gemma Dennison Primary Care Provider [phone] Maninder Warren Unavailable Unavailable Encounter Details Date Type Department Care Team (Late st Contact Info) Description 01/05/2025 Refill [facility] MEDICINE [address] [place], [place] [phone] Gemma Dennison ANP [address] [place] [address] Bipolar disorder with psychotic features (CMS/HCC) Social [...] Description 01/21/2025 11:15 AM EDT Office Visit [facility] MEDICINE [address] [place] [address] Gemma Dennison ANP [address] [place] [address] 07/06/2025 10:00 AM EST Office Visit [facility] OPTOMETRY [address] [place] [address] TarRadha carias, OD [address] [place] [address] documented as of this encounter Visit Diagnoses Diagnosis Bipolar disorder with psychotic features (CMS/HCC) documented in this encounter Additional Health Concerns Assessment Noted Time PHQ-9 Depression Total Score: 19 025 11:45 AM EST documented as of this encounter Care Teams Draw Furnace Tender Relationship Specialty Start Date End Date Gemma Dennison ANP [address] [place] [address] PCP - General Family Medicine 06/14/20 Maninder Warren FNP [address] [place] [address] Nurse Practitioner Family Medicine 04/09/23 documented as of this encounter
--- OUTSIDE RECORDS SUMMARY | 2025-01-06 10:49 | XMS_ITS | Encounter Summary ---
Author Organization [employer] Address [address] [facility] 7t [place] [address] Care Team Providers Care Bundle Collector Name Role Phone Juma Gemma ELMORE Primary Care Provider [phone] Maninder Warren Unavailable Unavailable Reason for Visit * Reason Comments Med Refill Encounter Details Date Type Department Care Team ([facility] st Contact Info) Description 04/14/2023 Refill [facility] MEDICINE [address] [place] [address] Maninder Warren FNP Bipolar disorder with psychotic [...] Description 01/21/2025 11:15 AM EDT Office Visit [facility] MEDICINE [address] [place] [address] Gemma Dennison ANP [address] [place] [address] 07/06/2025 10:00 AM EST Office Visit [facility] OPTOMETRY [address] [place] [address] TarRadha carias, OD [address] [place] [address] documented as of this encounter Visit Diagnoses Diagnosis Bipolar disorder with psychotic features (CMS/HCC) documented in this encounter Additional Health Concerns Assessment Noted Time PHQ-9 Depression Total Score: 13 023 3:05 PM EDT documented as of this encounter Care Teams Bundle Collector Relationship Specialty Start Date End Date Gemma Dennison ANP [address] [place] [address] PCP - General Family Medicine 06/14/20 Maninder Warren FNP [address] [place] [address] Nurse Practitioner Family Medicine 04/09/23 documented as of this encounter
== END 2025-01-06 09:46 | disposition home or self-care (01) ==
LOC: HO.CT 09:45
PROVIDERS: PCP Nurse Practitioner Primary Care; Visit Provider Nurse Practitioner Primary Care
DX: R51.9 Headache, unspecified (principal)
CPT/HCPCS: 70450

== ENCOUNTER → 2025-01-06 09:47 | Outpatient (BNV) | payer MEDICAID, SELFPAY | PROVIDERS: PCP Nurse Practitioner Primary Care; Visit Provider Radiology Diagnostic Radiology | DX: G44.52 New daily persistent headache (NDPH) (principal) | CPT/HCPCS: 70450 ==

== ENCOUNTER 2025-01-19 12:12 | Outpatient (REF) | payer MEDICAID, SELFPAY ==
[2025-01-19 13:29] LABS: MANUAL DIFF FLAG NO
[2025-01-19 14:13] LABS: Hematocrit 39.6 % (42.0-52.0); Hemoglobin 13.5 g/dl (14.0-18.0); Imm Gran Abs Auto 0.04 X10*3/uL (0.00-0.03); Imm Gran Pct Auto 0.5 % (0.0-0.4); Lymphocytes Absolute Auto 1.8 X10*3/uL (1.2-4.9); Mean Corpuscular HGB Conc 34.1 g/dl (31.0-36.0); Mean Corpuscular Hemoglobin 28.5 pg (27.0-33.0); Mean Corpuscular Volume 83.5 fL (80.0-98.0); NRBC Abs Auto 0.000 X10*3/uL (0.0-0.012); NRBC Pct Auto 0.0 /100WBC (0.0-0.2); Platelet Count 211 X10*3/uL (160-400); Red Blood Count 4.74 X10*6/uL (4.60-5.80); White Blood Count 8.6 X10*3/uL (4.8-10.8)
[2025-01-19 14:14] LABS: Alanine Aminotransferase 15 U/L (0-40); Albumin Level 4.2 g/dL (3.5-5.0); Alkaline Phosphatase 107 U/L (39-117); Anion Gap 10 (12-20); Aspartate Amino Transferase 21 U/L (5-37); Blood Urea Nitrogen 17 mg/dL (9-16); Calcium 9.0 mg/dL (8.4-10.2); Carbon Dioxide 30 mmol/L (22-29); Chloride 107 mmol/L (96-108); Estimated Glomerular Filt Rate > 60; Potassium 4.1 mmol/L (3.3-5.1); Sodium 143 mmol/L (135-145); Total Protein 7.4 g/dL (6.5-8.0)
[2025-01-19 14:35] LABS: Microalbum/Creatinine Ratio Ur 12.1 ug/mg cr (<30)
--- OUTSIDE RECORDS SUMMARY | 2025-01-19 16:18 | XMS_ITS | Encounter Summary ---
Author Organization [employer] Address [address] [facility] 7t [place] [address] Care Team Providers Care Medical Social Consultant Name Role Phone Gemma Dennison Primary Care Provider [phone] Maninder Warren Unavailable Unavailable Reason for Visit * Reason Comments Med Refill Encounter Details Date Type Department Care Team ([facility] st Contact Info) Description 07/26/2023 Refill [facility] MED & PEDS [address] [place], [place] [phone] Gemma Dennison ANP [address] [place] [address] Type 2 diabetes mellitus with diabetic neuropathy, unspecified whether intermission coordinator insulin use ([facility]) Social History Tobacco Use Types Packs/Day [...] Description 01/21/2025 11:15 AM EDT Office Visit [facility] MEDICINE [address] [place] [address] Gemma Dennison ANP [address] [place] [address] 07/06/2025 10:00 AM EST Office Visit [facility] OPTOMETRY [address] [place] [address] Radha Dahl, OD [address] [place] [address] documented as of this encounter Visit Diagnoses Diagnosis Type 2 diabetes mellitus with diabetic neuropathy, unspecified whether snf insulin use ([facility]) documented in this encounter Additional Health Concerns Assessment Noted Time PHQ-9 Depression Total Score: 10 024 10:32 AM EDT documented as of this encounter Care Teams Medical Social Consultant Relationship Specialty Start Date End Date Gemma Dennison ANP [address] [place] [address] PCP - General Family Medicine 06/14/20 Maninder Warren FNP [address] [place] [address] Nurse Practitioner Family Medicine 04/09/23 documented as of this encounter
--- OUTSIDE RECORDS SUMMARY | 2025-01-19 16:18 | XMS_ITS | Encounter Summary ---
Author Organization [employer] Address [address] [facility] 7t [place] [address] Care Team Providers Care Regional [employer] Truck Driver Name Role Phone Gemma Dennison Primary Care Provider [phone] Maninder Warern Unavailable Unavailable Reason for Visit * Reason Comments Med Refill Encounter Details Date Type Department Care Team (Late st Contact Info) Description 07/12/[address] [facility] MEDICINE [address] [place] [address] Maninder Warren FNP Bipolar disorder with psychotic [...] Description 01/21/2025 11:15 AM EDT Office Visit [facility] MEDICINE [address] [place] [address] eGmma Dennison ANP [address] [place] [address] 07/06/2025 10:00 AM EST Office Visit [facility] OPTOMETRY [address] [place], [place] [phone] Radha Dahl, OD [address] [place], [place] [phone] documented as of this encounter Visit Diagnoses Diagnosis Bipolar disorder with psychotic features (CMS/HCC) documented in this encounter Additional Health Concerns Assessment Noted Time PHQ-9 Depression Total Score: 13 023 11:20 AM EST documented as of this encounter Care Teams Regional Company Truck Driver Relationship Specialty Start Date End Date Gemma Dennison ANP [address] [place] [address] PCP - General Family Medicine 06/14/20 Maninder Warren FNP [address] [place] [address] Nurse Practitioner Family Medicine 04/09/23 documented as of this encounter
--- OUTSIDE RECORDS SUMMARY | 2025-01-19 16:19 | XMS_ITS | Clinical Summary ---
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, with long-term current use of insulin (CMS/HCC V24, [facility] V28) DX:Type 2 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, with long-term current use of insulin ([facility]) Diabetic neuropathy (CMS/HCC V24, [facility] V28) DX:Diabetic neuropathy ([facility]) Vitamin D deficiency DX:Vitamin D deficiency Hypertension DX:Hypertension Microalbuminuria DX:Microalbumin uria Retinopathy DX:Retinopathy Myocardial infarct (CMS/HCC V24, [facility] V28) DX:Myocardial infarct ([facility]) AV block, 1st degree DX:AV block , [...] 2019 Zoster Vaccines (1 of 2) 2019 Depression Screening 05/06/2024 COVID-19 Vaccine (2023-2 5 season) 2025 Influenza Vaccine (#1) 2025 HIB Vaccines Aged [...] age to complete this topic Care Teams Head Of Product Relationship Specialty Start Date End Date Gemma Dennison NP [address] [place], [place] [address] [address] PCP - General 10/27/20
--- OUTSIDE RECORDS SUMMARY | 2025-01-19 16:19 | XMS_ITS | Encounter Summary ---
Author Organization [employer] Address [address] [facility] 7t [place] [address] Care Team Providers Care Shop Tech Name Role Phone Gemma Dennison Primary Care Provider [phone] Maninder Warren Unavailable Unavailable Reason for Visit * Reason Comments Med Refill Encounter Details Date Type Department Care Team ([facility] st Contact Info) Description 12/27/[address] [facility] MEDICINE [address] [place], [place] [phone] Gemma Dennison ANP [address] [place] [address] Bipolar disorder with psychotic features (CMS/HCC) Social [...] AM EDT Office Visit [facility] MEDICINE [address] [place] [address] Gemma Dennison ANP [address] [place] [address] 07/06/2025 10:00 AM EST Office Visit [facility] OPTOMETRY [address] [place] [address] TarRadha carias, OD [address] [place] [address] documented as of this encounter Visit Diagnoses Diagnosis Bipolar disorder with psychotic features (CMS/HCC) documented in this encounter Additional Health Concerns Assessment Noted Time PHQ-9 Depression Total Score: 19 025 11:45 AM EST documented as of this encounter Care Teams Shop Tech Relationship Specialty Start Date End Date Gemma Dennison ANP [address] [place] [phone] PCP - General Family Medicine 06/14/20 Maninder Warren FNP [address] [place] [address] Nurse Practitioner Family Medicine 04/09/23 documented as of this encounter
--- OUTSIDE RECORDS SUMMARY | 2025-01-19 16:19 | XMS_ITS | Clinical Summary ---
Author Organization [employer] Address [address] [facility] 7t [place] [address] Care Team Providers Care Director Of Medicare Name Role Phone Juma Srinivasan ELMORE Primary Care Provider [phone] Maninder Warren Unavailable Unavailable Allergies No known [...] 5 04/16/20 23 Active UltiCare Mini Pen [place] 31G X 6 MM miscIndications:T ype 2 diabetes mellitus with diabetic polyneuropathy, with long-term current use of insulin ([facility]) USE DIRECTED DAILY 100 each 5 06/10/19 24 Active Continuous Blood Gluc Fingernail Technician (FreeStyle Zaira 2 [place]) deviceIndications :Type 2 diabetes mellitus with hyperglycemia, [...] tablet 10/28/19 24 Active TRUEplus Lancets 33G [facility] TEST BLOOD SUGAR THREE TIMES DAILY DIRECTED [...] hyperglycemia, without long-term current use of insulin ([facility]) USE DIRECTED TO TEST BLOOD SUGAR. CHANGE [...] AND IN THE EVENING 180 tablet 1 05/14/19 25 2024 Discontinued clonazePAM (KlonoPIN) 1 MG tabletIndications :Bipolar disorder with psychotic features (CMS/HCC) TAKE 1 TABLET BY MOUTH EVERY TWELVE HOURS NEEDED FOR ANXIETY 60 tablet 5 06/08/19 25 2024 Discontinued amLODIPine (Norvasc) 10 MG tablet TAKE 1 TABLET BY MOUTH AT BEDTIME 90 tablet 1 06/11/19 25 2024 Discontinued traZODone (Desyrel) 50 MG tablet TAKE 1 TABLET BY MOUTH AT BEDTIME NEEDED FOR SLEEP 30 tablet 1 10/31/19 25 2024 Discontinued amoxicillin-clavu lanate (Augmentin) 875-125 MG tabletIndications :Maxillary sinusitis, unspecified chronicity Take 1 tablet by mouth 2 times daily for 7 days. 14 tablet 01/12/20 25 2024 Active Problems Problem Noted Date [...] L orchiectomy, 6 mos chemotherapy; tx in [place] Bipolar 2 disorder 04/10/2022 Assessment & Plan [...] He will continue with his therapist at [facility] and await intake with agency prescriber. He may also contact [facility] with any issues or concerns. All his [...] He will continue with his therapist at [facility] and await intake with agency prescriber. He may also contact [facility] with any issues or concerns. All his [...] He will continue with his therapist at [facility]. On 01/22/2023 Provider informed pt that I [...] He will continue with his therapist at [facility]. On 01/22/2023 Provider informed pt that I [...] He will continue with his therapist at [facility]. Today 01/22/2023 Provider informed pt that I [...] desired, but it is not compulsory. F/u wt me in 2 months. He agrees with [...] desired, but it is not compulsory. F/u wt me in 2 months. Heagrees with the [...] mg at bedtime. Continue with therapist through [facility]. If psychiatrist becomes available there, pt may [...] organization. Date Type Department Care Team Description 01/11/2025 Results Follow-Up [address] [address] Srinivasan Willams, CATARINA CT Head w/o Contrast 01/05/2025 Refill [facility] [address] [place] [address] Srinivasan Willams ANP Bipolar disorder with psychotic features (CMS/HCC) 01/01/2025 11:15 AM EDT Office Visit [facility] [address] [place] [address] Lanie Dahlica, OD Both eyes affected by mild nonproliferative diabetic retinopathy with macular edema, associated with type 2 diabetes mellitus (CMS/HCC) (Primary Dx) 01/01/2025 Travel 01/01/[address] [address] Srinivasan Willams ANP Bipolar disorder with psychotic features (CMS/HCC) 12/29/2024 Refill [facility] [address] [place] [address] Srinivasan Willams ANP Bipolar disorder with psychotic features (CMS/HCC) 12/27/[address] [address] Srinivasan Willams ANP Bipolar disorder with psychotic features (CMS/HCC) 12/21/2024 Outside Procedure [facility] [address] [place] [address] Nam, Ana, OD Presbyopia of both eyes (Primary Dx) 12/18/2024 9:45 AM EDT Office Visit [address] [address] Srinivasan Willams ANP Type 2 diabetes mellitus with diabetic polyneuropathy, without long-term current use of insulin (CMS/LEIGHA) (Primary Dx); Type 2 diabetes mellitus with hyperglycemia, without long-term current use of insulin (CMS/HCC); Rash; Acute intractable headache, unspecified headache type; Testicle swelling 12/18/2024 9:00 AM EDT Office Visit [facility] [address] [place] [address] Nam, Ana, OD Hyperopia of both eyes (Primary Dx) 12/18/2024 Travel 12/17/[address] [address] Srinivasan Willams ANP Chart Prep 12/11/2024 Patient Outreach [address] [address] Srinivasan Willams ANP Pre-visit Planning (Pre visit planning LVM ) 12/03/2024 1:00 PM EDT Office Visit [facility] [address] [place] [address] Nury Palomo MD Tension headache (Primary Dx) 12/03/2024 Travel 11/28/2024 Refill [facility] [address] [place] [address] Srinivasan Willams ANP 11/10/2024 Refill [facility] [address] [place], [place] [phone] Srinivasan Willams ANP 11/09/2024 Refill [facility] [address] [place], [place] [phone] Srinivasan Willams ANP 10/30/2024 Refill [facility] [address] [place] [address] Srinivasan Willams ANP from Last 3 Months Immunizations Immunization Administration [...] Description 01/21/2025 11:15 AM EDT Office Visit [facility] [address] [place] [address] Srinivasan Willams, ANP [address] [place] [address] 07/06/2025 10:00 AM EST Office Visit [facility] [address] [place], [place] [phone] Radha Dahl, OD [address] [place], [place] [phone] Health Maintenance Due Date Last Done Comments CT Colonography 1970 FIT DNA/Cologuard 1969 FIT 1970 FOBT 1970 Sigmoidoscopy 1970 Lipid Panel 08/16/2023 08/15/2022, 08/31/2020 Diabetes: Foot Exam 07/07/2024 07/08/2023, 07/08/2023, 07/08/2023 Depression Monitoring 12/06/2024 06/08/2024, 025 Influenza Vaccine (#1) 2025 , 07/08/2023, 01/26/2022, Additional history exists Diabetes: Hemoglobin A1C 03/20/2025 025, 06/08/2024, 07/08/2023, Additional history exists DTaP/Tdap/Td Vaccines (2 - Td or Tdap) 07/06/2025 07/07/2015 Alcohol/Substance Use Screening 12/18/2025 12/18/2024 Disability Screening 12/18/2025 12/18/2024 SDOH Screening 12/18/2025 12/18/2024 Tobacco Screening 12/18/2025 12/18/2024 Eye Exam 01/01/2026 01/01/2025, 12/05, 01/01/2025, Additional history exists Diabetes: Urine Protein Screening 01/19/2026 01/19/2025, 12/05/2023, 08/15/2022, Additional history exists Colonoscopy 10/17/2028 10/18/2023 Colorectal [...] topic Meningococcal Vaccine Aged Out No gayle amggie eligible based on patient's age to complete this topic RSV under 20 months Aged Out No longe r eligible based on patient's age to complete this topic Rotavirus Vaccines Aged Out No longer eligible based on patient's age to complete this topic Procedures Procedure Name Priority Date/Time Associated Diagnosis Comments CBC WITH AUTO DIFFERENTIAL Routine 01/19/2025 12:17 PM EDT Rash ALBUMIN, RANDOM URINE W/CREATININE Routine 01/19/2025 12:17 PM EDT Type 2 diabetes mellitus with hyperglycemia, without long-term current use of insulin (CMS/HCC) COMPREHENSIVE METABOLIC PANEL Routine 01/19/2025 12:17 PM EDT Type 2 diabetes mellitus with hyperlipidemia (CMS/HCC) (CMS/HCC) CT HEAD WO CONTRAST Routine 01/07/2025 8 :59 AM EDT Acute intractable headache, unspecified headache type OCT, RETINA - OU - BOTH EYES Routine 01/01/2025 11:15 AM EDT Both eyes affected by mild nonproliferative diabetic retinopathy with macular edema, associated with type 2 diabetes mellitus ([facility]) POCT GLYCATED HEMOGLOBIN, TOTAL Routine 12/18/2024 10:09 AM EDT Type 2 diabetes mellitus with hyperglycemia, without long-term current use of insulin ([facility]) POCT GLUCOSE Routine 12/18/2024 10:08 AM EDT Type 2 diabetes mellitus with hyperglycemia, without long-term current use of insulin ([facility]) HEPATITIS C ANTIBODY Routine 12/05/2023 9:57 AM EDT HM COLONOSCOPY Routine 10/18/2023 LIPID PANEL, STANDARD Routine 08/15/2022 11:42 AM EDT HIV 1/2 ANTIGEN/ANTIBODY, FOURTH GENERATION W/RFL Routine 08/31/2020 11:30 AM EDT from Last 3 Months or Most Recently Relevant to Health Maintenance Results * Albumin, Random Urine W/Creatinine (01/19/2025 12:17 PM EDT) Creatinine, Urine 288.87 mg/dL [facility] Microalbumin Urine 35.0 mg/L [facility] Microalbum Creatinine Ratio Ur 12.1 <30 ug/mg cr [facility] Comment:Albumin/Creatinine R atio Reference Ranges: Normal: < 30 ug/mg creatinine Microalbuminuria: 30 - 300 ug/mg creatinineClinical Albuminuria: > 300 ug/mg creatinine Urine (Urine, Random) 01/19/2025 12:17 PM EDT 01/19/2025 1:08 PM EDT Srinivasan Willams [facility] LAB URINE ORDERABLES Final Resul t [facility] [address] [place], [place] [phone] * (ABNORMAL) CBC auto differential (01/19/2025 12:17 PM EDT) White Blood Count 8.6 4.8 - 10.8 X10*3/uL [facility] Red Blood Count 4.74 4.60 - 5.80 X10*6/uL [facility] Hemoglobin 13.5(L) 14.0 - 18.0 g/dl [facility] Hematocrit 39.6(L) 42.0 - 52.0 % [facility] Mean Corpuscular Volume 83.5 80.0 - 98.0 fL [facility] Mean Corpuscular Hemoglobin 28.5 27.0 - 33.0 pg [facility] Mean Corpuscular HGB Conc 34.1 31.0 - 36.0 g/dl [facility] Red Cell Distribution Width 12.7 11.0 - 16.0 % [facility] Platelet Count 211 160 - 400 X10*3/uL [facility] Mean Platelet Volume 10.5 9.4 - 12.4 fL [facility] Neutrophils Percent Auto 65.7 45 - 73 % [facility] Imm Gran Pct Auto 0.5(H) 0.0 - 0.4 % [facility] Lymphocytes Percent Auto 20.5 20 - 40 % [facility] Monocytes Percent Auto 7.9 2 - 11 % [facility] Eosinophils Percent Auto 5.1(H) 0 - 4 % [facility] Basophils Percent Auto 0.3 0 - 2 % [facility] NRBC Pct Auto 0.0 0.0 - 0.2 /100WBC [facility] Neutrophils Absolute Auto 5.6 2.0 - 8.3 x10*3/uL [facility] Imm Gran Abs Auto 0.04(H) 0.00 - 0.03 X10*3/uL [facility] Lymphocytes Absolute Auto 1.8 1.2 - 4.9 X10*3/uL [facility] Monocytes Absolute Auto 0.7 0.1 - 1.2 X10*3/uL [facility] Eosinophils Absolute Auto 0.4 0.0 - 0.4 X10*3/uL [facility] Basophils Absolute Auto 0.0 0.0 - 0.2 X10*3/uL [facility] NRBC Abs Auto 0.000 0.0 - 0.012 X10*3/uL [facility] Blood Venous blood specimen / Unknown 01/19/2025 12:17 PM EDT 01/19/2025 1:22 PM EDT Srinivasan Willams [facility] LAB BLOOD ORDERABLES Final Resul t [facility] [address] [place] [address] [phone] * (ABNORMAL) Comprehensive Metabolic Panel (01/19/2025 12:17 PM EDT) Sodium 143 135 - 145 mmol/L [facility] Potassium 4.1 3.3 - 5.1 mmol/L [facility] Chloride 107 96 - 108 mmol/L [facility] Carbon Dioxide 30(H) 22 - 29 mmol/L [facility] Anion Gap 10(L) 12 - 20 [facility] Urea Nitrogen (BUN) 17(H) 9 - 16 mg/dL [facility] Creatinine, Serum 1.22 0.5 - 1.4 mg/dL [facility] Estimated Glomerular Filt Rate >60 [facility] Comment:Chronic Kidney Disea se: Estimated GFR < 60 mL/min/1.66e3Hkjxwo Kidney Disease: Estimated GFR < 15 mL/min/1.73m2 Glucose 132(H) 60 - 115 mg/dL [facility] Calcium 9.0 8.4 - 10.2 mg/dL [facility] Bilirubin, Total 0.4 0.0 - 1.0 mg/dL [facility] Aspartate Amino Transferase 21 5 - 37 U/L [facility] Alanine Aminotransferase 15 0 - 40 U/L [facility] Total Protein 7.4 6.5 - 8.0 g/dL [facility] Albumin Level 4.2 3.5 - 5.0 g/dL [facility] Alkaline Phosphatase 107 39 - 117 U/L [facility] Blood Venous blood specimen / Unknown 01/19/2025 12:17 PM EDT 01/19/2025 1:22 PM EDT Srinivasan Willams ANP LAB BLOOD ORDERABLES Final Resul t Performing Organization Address City/State/[facility] Co de Phone Number [facility] [address] [place] [address] [phone] * CT Head w/o Contrast (01/07/2025 8:59 AM EDT) Anatomical Region Laterality Modality Head, Neck Computed Tomogra phy 01/07/2025 8:59 AM EDT Narrative 01/07/2025 9:01 AM EDT [place] [address] CT Scan Report Signed Patient: Tin Botello MR#: [id number] : 1970 Acct:[id number] Age/Sex: 54 / M ADM Date: 01/06/25 Loc: HO.CT Attending Dr: Srinivasan Willams NP Ordering Physician: SRINIVASAN WILLAMS NP Date of Service: 01/06/25 Procedure(s): CT head/brain wo IV con Accession Number(s): [id number] cc: SRINIVASAN WILLAMS NP Report Number: [id number]: Total DLP = 780.00 mGy-cm Reason for Exam: persistent WOODS CLINICAL HISTORY: persistent WOODS CT head without contrast Comparison: CT/REG/SR - CT HEAD WITHOUT IV CONTRAST - 11/20/22 13:01 EDT Findings: No acute hemorrhage, acute major vascular distribution infarct, intracranial mass, midline shift or hydrocephalus. No extra-axial fluid collection. Mucoperiosteal thickening of bilateral maxillary sinuses, other visualized paranasal sinuses and mastoid air cells clear. Orbits unremarkable. The cranium appears intact. Superficial soft tissue is unremarkable. Impression: 1. No acute intracranial finding. This document has been electronically signed by: Wendy Deshpande MD on 01/07/2025 08:59:29 Dictated By: Wendy Deshpande MD Signed By: <Electronically signed by Wendy Deshpande MD in OV> 01/07/25899 DD/ 8 TD/TT: 01/07/25858 Water Analyst: Procedure Note Donotuseinterpreter, Image - 01/07/[address] [place] [address] [address] Scan Report Signed Patient: Tin Botello RMR#: [id number] : 1970Acct:[id number] Age/Sex: 54 / MADM Date: 01/06/25 Loc: HO.CT Attending Dr: Srinivasan Willams NP Ordering Physician: SRINIVASAN WILLAMS NP Date of Service: 01/06/25 Procedure(s): CT head/brain wo IV con Accession Number(s): [id number] cc: SRINIVASAN WILLAMS NP Report Number: [id number]: Total DLP = 780.00 mGy-cm Reason for Exam: persistent WOODS CLINICAL HISTORY: persistent WOODS CT head without contrast Comparison: CT/REG/SR - CT HEAD WITHOUT IV CONTRAST - 11/20/22 13:01 EDT Findings: No acute hemorrhage, acute major vascular distribution infarct, intracranial mass, midline shift or hydrocephalus. No extra-axial fluid collection. Mucoperiosteal thickening of bilateral maxillary sinuses, other visualized paranasal sinuses and mastoid air cells clear. Orbits unremarkable. The cranium appears intact. Superficial soft tissue is unremarkable. Impression: 1. No acute intracranial finding. This document has been electronically signed by: Wendy Deshpande MD on 01/07/2025 08:59:29 Dictated By: Wendy Deshpande MD Signed By: <Electronically signed by Wendy Deshpande MD in OV> 01/07/25899 DD/ 8 TD/TT: 01/07/25858 Water Analyst: Srinivasan Willams ANP IMG CT PROCEDURES Edited Result - Final * OCT, Retina - OU - Both Eyes (01/01/2025 11:15 AM EDT) Narrative Nabila Radha, OD - 01/05/2025 10:23 AM EDT OCT [...] POCT HGB A1C (12/18/2024 10:09 AM EDT) Pathologist [facility] Hemoglobin A1C 7.5(A) 4.0 - 5.7 % QC Media Lot # [id number] Lot# Expiration Date [id number], Blood 12/18/2024 10:0 9 AM EDT Srinivasan Willams [facility] POINT OF CARE TEST ENTER/EDIT OR DERABLES Final Result * (ABNORMAL) POCT Glucose (12/18/2024 10:08 AM EDT) [facility] Glucose Blood, POC 232(A) 60 - 200 mg/dL QC Media Lot # [id number] Lot# Expiration Date [id number] Blood Capillary blood specimen / Unknown 12/18/2024 10:08 AM EDT Srinivasan Willams [facility] POINT OF CARE TEST ENTER/EDIT OR DERABLES Final Result * Hepatitis C Ab (12/05/2023 9:57 AM EDT) Hepatitis C Antibody Nonreactive Nonreactive [facility] Comment:Antibodies to HCV no t detected; does not exclude early acuteHCV infection. 12/05/2023 9:57 AM EDT 12/05/2023 9:58 AM EDT us Generic External Data Provider LAB BLOOD ORDERAB LES Final Result [facility] [address] [place] [phone] * (ABNORMAL) Hm Colonoscopy (10/18/2023) Pathologist [facility] Colonoscopy Abnormal(A ) Normal Kiel Daugherty MD HEALTH MAINTENANCE Fi nal Result * Lipid Panel, Standard (08/15/2022 11:42 AM EDT) Pathologist [facility] Cholesterol, Total 135 <200 mg/dL [facility] Comment: Verified by repeat analysis. HDL Cholesterol 40 > OR = 40 mg/dL [facility] Triglycerides 135 <150 mg/dL [facility] LDL Cholesterol 73 mg/dL (calc) [facility] Comment: Reference range: <100 Desirable range <100 mg/dL for primary prevention; <70 mg/dL for patients with CHD or diabetic patients with > or = 2 CHD risk factors. LDL-C is now calculated using the Rolando-Astrid calculation, which is a validated novel method providing better accuracy than the Friedewald equation in the estimation of LDL-C. Rolando DUEÑAS et al. HARVEY. 2013;310(19): 3183-1664 (http://education.Loftware.SphereUp/faq/XNB691) Chol/HDLC Ratio 3.4 <5.0 (calc) [employer] Non-HDL Cholesterol 95 <130 mg/dL (calc) [employer] [facility] Comment: For patients with diabetes plus 1 major ASCVD risk factor, treating to a non-HDL-C goal of <100 mg/dL (LDL-C of <70 mg/dL) is considered a therapeutic option. 08/15/2022 11:4 2 AM EDT 08/15/2022 11:43 AM EDT Narrative [facility] - 08/18/2022 7:52 PM EDT FASTING:YES FASTING: YES us Srinivasan Willams ANP LAB BLOOD ORDERABLES Final Resul t Performing Organization Address City/[facility] [address]/ZIP Co de Phone Number [facility] [address], [place] [address] [facility] [address] [place] [address] * HIV 1/2 ANTIGEN/ANTIBODY,FOURTH GENERATION W/RFL (08/31/2020 11:30 AM EDT) Pathologist [facility] HIV-1/2 ANTIGEN AND ANTIBODIES, 4TH GENERATION W/ REFLEX NON-REACT MALISSA NON-REACT MALISSA [facility] Comment: HIV-1 antigen and HIV-1/HIV-2 [...] purpose. For additional information please refer to http://education.TAXI5.pl.SphereUp/faq/RZN664 (This link is being provided for informational/ educational purposes only.) The performance of this assay has not been clinically validated in patients less than 2 years old. 08/31/2020 11:3 0 AM EDT us Srinivasan Willams ANP LAB BLOOD ORDERABLES Final Resul t [facility] [address] from Last 3 Months or Most Recently Relevant to Health Maintenance Insurance [facility] C3 Care Teams Director Of Medicare Relationship Specialty Start Date End Date Srinivasan Willams ANP [address] [place] [address] PCP - General Family Medicine 06/14/20 Maninder Warren FNP [address] [place] [address] Nurse Practitioner Family Medicine 04/09/23
--- OUTSIDE RECORDS SUMMARY | 2025-01-19 16:19 | XMS_ITS | Encounter Summary ---
Author Organization [employer] Address [address] [facility] 7t [place] [address] Care Team Providers Care Fire Observer Name Role Phone Gemma Dennison Primary Care Provider [phone] Maninder Warren Unavailable Unavailable Encounter Details Date Type Department Care Team (Late st Contact Info) Description 04/04/2022 Abstract [facility] [address] [place] [phone] Provider, MD Sorin Social History Tobacco Use [...] Description 01/21/2025 11:15 AM EDT Office Visit [facility] [address] [place] [address] Gemma Dennison ANP [address] [place] [address] 07/06/2025 10:00 AM EST Office Visit [facility] [address] [place] [address] Radha Dahl, OD [address] [place] [address] documented as of this encounter Visit Diagnoses Not on filedocumented in this encounter Care Teams Fire Observer Relationship Specialty Start Date End Date Gemma Dennison ANP [address] [place] [address] PCP - General Family Medicine 06/14/20 Maninder Warren FNP [address] [place] [address] Nurse Practitioner Family Medicine 04/09/23 documented as of this encounter
--- OUTSIDE RECORDS SUMMARY | 2025-01-19 16:19 | XMS_ITS | Encounter Summary ---
Author Organization [employer] Address [address] [facility] 7t [place] [address] Care Team Providers Care Tap Dancer Name Role Phone Gemma Dennison Primary Care Provider [phone] Maninder Warren Unavailable Unavailable Encounter Details Date Type Department Care Team (Latest Contact Info) Description 06/16/[address] [facility] Dental, Provider, DDS Social History [...] Description 01/21/2025 11:15 AM EDT Office Visit [facility] [address] [place] [address] Gemma Dennison ANP [address] [place] [address] 07/06/2025 10:00 AM EST Office Visit [facility] [address] [place] [address] Radha Dahl OD [address] [place] [address] documented as of this encounter Visit Diagnoses Not on filedocumented in this encounter Care Teams Tap Dancer Relationship Specialty Start Date End Date [place]ma Dennison ANP [address] [place] [address] PCP - General Family Medicine 06/14/20 Maninder Warren FNP [address] [place] [address] Nurse Practitioner Family Medicine 04/09/23 documented as of this encounter
--- OUTSIDE RECORDS SUMMARY | 2025-01-19 16:19 | XMS_ITS | Encounter Summary ---
Author Organization [employer] Address [address] [facility] 7t [place] [address] Care Team Providers Care Epoxy Coatings Installer Name Role Phone Juma Gemma ELMORE Primary Care Provider [phone] Maninder Warren Unavailable Unavailable Reason for Visit * Reason Comments Med Refill Encounter Details Date Type Department Care Team ([facility] st Contact Info) Description 02/25/2023 Refill [facility] [address] [place] [address] Maninder Warren FNP Bipolar disorder with psychotic [...] Description 01/21/2025 11:15 AM EDT Office Visit [facility] [address] [place] [address] Gemma Dennison ANP [address] [place] [address] 07/06/2025 10:00 AM EST Office Visit [facility] [address] [place] [address] Radha Dahl, OD [address] [place] [address] documented as of this encounter Visit Diagnoses Diagnosis Bipolar disorder with psychotic features (CMS/HCC) documented in this encounter Additional Health Concerns Assessment Noted Time PHQ-9 Depression Total Score: 13 023 3:05 PM EDT documented as of this encounter Care Teams Epoxy Coatings Installer Relationship Specialty Start Date End Date Gemma Dennison ANP [address] [place] [address] PCP - General Family Medicine 06/14/20 Maninder Warren FNP [address] [place] [address] Nurse Practitioner Family Medicine 04/09/23 documented as of this encounter
--- OUTSIDE RECORDS SUMMARY | 2025-01-19 16:19 | XMS_ITS | Encounter Summary ---
Author Organization [employer] Address [address] [facility] 7t [place] [address] Care Team Providers Care Biomedical Scientist Name Role Phone Juma Gemma ELMORE Primary Care Provider [phone] Maninder Warren Unavailable Unavailable Reason for Visit * Reason Comments Med Refill Encounter Details Date Type Department Care Team ([facility] st Contact Info) Description 04/14/2023 Refill [facility] [address] [place] [address] Maninder Warren FNP Bipolar disorder with psychotic [...] Description 01/21/2025 11:15 AM EDT Office Visit [facility] MEDICINE [address] [place] [address] Gemma Dennison ANP [address] [place] [address] 07/06/2025 10:00 AM EST Office Visit [facility] OPTOMETRY [address] [place] [address] TarRadha carias, OD [address] [place] [address] documented as of this encounter Visit Diagnoses Diagnosis Bipolar disorder with psychotic features (CMS/HCC) documented in this encounter Additional Health Concerns Assessment Noted Time PHQ-9 Depression Total Score: 13 023 3:05 PM EDT documented as of this encounter Care Teams Biomedical Scientist Relationship Specialty Start Date End Date Gemma Dennison ANP [address] [place] [address] PCP - General Family Medicine 06/14/20 Maninder Warren FNP [address] [place] [address] Nurse Practitioner Family Medicine 04/09/23 documented as of this encounter
--- OUTSIDE RECORDS SUMMARY | 2025-01-19 16:19 | XMS_ITS | Encounter Summary ---
Author Organization [employer] Address [address] [facility] 7t [place] [address] Care Team Providers Care Commercial Or Institutional Cleaner Name Role Phone Gemma Dennison Primary Care Provider [phone] Maninder Warren Unavailable Unavailable Reason for Visit * Reason Onset Date Comments Results 01/11/2025 Encounter Details Date Type Department Care Team ([facility] st Contact Info) Description 01/11/2025 Results Follow-Up [facility] [address] [place] [address] Gemma Dennison ANP [address] [place] [address] CT Head w/o Contrast Social History Tobacco Use Types Packs/Day Years [...] AM EST documented as of this encounter Miscellaneous Notes * Result Encounter Note - CATARINA Garcia - 01/11/2025 10:17 AM EDT Sent abx * Telephone Encounter - Kellee Jonas RN - 01/11/2025 10:08 AM EDT Telephone call placed to pt utilizing S #[id number] regarding below results and POC. Informed that CT looked good but show possible sinusitis. Pt reports ongoing headaches. Denies any other Sx. He is agreeable to Abx Tx. Informed Abx to be sent to pharmacy by the end of today. Advised to drink plenty of water and finish full course of Abx, even if Sx resolved. Confirmed preferred pharmacy on file. Advised to notify us if H/A persist after Tx. Pt verbalized understanding and denied having any further questions or concerns at this time. * Telephone Encounter - Kellee Jonas RN - 01/11/2025 9:59 AM EDT ----- Message from Gemma Dennison sent at 01/11/2025 9:30 AM EDT ----- Hi - please let pt know that CT was ok, did show possible sinusitis, so if he is cont to have WOODS orif he has facial pain/pressure or nasal congestion, would rec we treat w/ abx. thanks ----- Message ----- From: Thania Barragan Results In Sent: 01/07/2025 9:01 AM EDT To: CATARINA Garcia * Result Encounter Note - CATARINA Garcia - 01/11/2025 9:30 AM EDT Hi - please let pt know that CT was ok, did show possible sinusitis, so if he is cont to have WOODS orif he has facial pain/pressure or nasal congestion, would rec we treat w/ abx. thanks documented in this encounter Plan of Treatment Upcoming Encounters Date Type Department Care Team (Late st Contact Info) Description 01/21/2025 11:15 AM EDT Office Visit [facility] [address] [place] [address] Gemma Dennison ANP [address] [place] [address] 07/06/2025 10:00 AM EST Office Visit [facility] OPTOMETRY [address] [place] [address] Radha Dahl, OD [address] [place] [address] documented as of this encounter Visit Diagnoses Diagnosis Maxillary sinusitis, unspecified chronicity- Primary documented in this encounter Additional Health Concerns Assessment Noted Time PHQ-9 Depression Total Score: 19 025 11:45 AM EST documented as of this encounter Care Teams Commercial Or Institutional Cleaner Relationship Specialty Start Date End Date Gemma Dennison ANP [address] [place] [address] PCP - General Family Medicine 06/14/20 Maninder Warren FNP [address] [place] [address] Nurse Practitioner Family Medicine 04/09/23 documented as of this encounter
[2025-01-20 22:09] LABS: Anti Nuclear Antibody Screen NEGATIVE (NEGATIVE)
[2025-01-21 04:55] LABS: Syphilis Screen Nonreactive (Nonreactive)
[2025-01-21 20:53] LABS: Proteinase 3 PR3 Antibodies <1.0 AI
== END 2025-01-19 12:13 | disposition home or self-care (01) ==
LOC: HO.HHCL 12:12
PROVIDERS: PCP Nurse Practitioner Primary Care; Visit Provider Nurse Practitioner Primary Care
DX: Z01.84 Encounter for antibody response examination (principal); R21 Rash and other nonspecific skin eruption; E11.65 Type 2 diabetes mellitus with hyperglycemia; E11.69 Type 2 diabetes mellitus with other specified complication; E78.5 Hyperlipidemia, unspecified
CPT/HCPCS: 36415; 80053; 82043; 82570; 85025; 86021; 86038; 86200; 86780

== ENCOUNTER 2025-02-11 12:47 | Outpatient (REF) | payer MEDICAID, SELFPAY ==
--- NOTE | ~2025-02-11 | US_ITS ---
EXAMINATION: US SCROTUM CLINICAL INFORMATION: Testicular swelling, history of testicular CA with left orchiectomy. COMPARISON: None available. TECHNIQUE: A sonogram of the scrotum was performed assessing patterson-scale appearance and color Doppler flow. Spectral Doppler analysis of the arterial and venous flow were performed in the testes bilaterally. FINDINGS: RIGHT: Right testicle measures 5.3 x 2.2 x 3.4 cm, volume 20 mL. No focal testicular parenchymal lesions are visualized. Spectral Doppler analysis of the arterial and venous flow is normal in the right testis. Right epididymal head is normal in size. There is a 3 mm epididymal tail cyst. No right hydrocele or varicocele is seen. Right epididymal Doppler flow is LEFT: Left testicle is surgically absent. No abnormality noted in the left scrotum. US/US scrotum IMPRESSION: 1. Normal right testicle and epididymis. 2. Surgically absent left testicle. Electronically signed by: Case Simmons MD 02/11/2025 01:47 PM EDT
== END 2025-02-11 12:48 | disposition home or self-care (01) ==
LOC: HO.US 12:47
PROVIDERS: PCP Nurse Practitioner Primary Care; Visit Provider Nurse Practitioner Primary Care
DX: N50.89 Other specified disorders of the male genital organs (principal)
CPT/HCPCS: 76870

== ENCOUNTER → 2025-02-11 12:50 | Outpatient (BNV) | payer MEDICAID, SELFPAY | PROVIDERS: PCP Nurse Practitioner Primary Care; Visit Provider Radiology Diagnostic Radiology | DX: N50.89 Other specified disorders of the male genital organs (principal); Z90.79 Acquired absence of other genital organ(s) | CPT/HCPCS: 76870 ==

== ENCOUNTER 2025-02-12 08:27 | Outpatient (AMB) | payer MEDICAID, SELFPAY ==
--- OUTSIDE RECORDS SUMMARY | 2025-02-12 08:38 | XMS_ITS | Encounter Summary ---
Author Organization [employer] Address [address] [facility] 7t [place] [address] Care Team Providers Care Insurance Sales Representative Name Role Phone Gemma Dennison CATARINA Primary Care Provider [phone] Maninder Warren Unavailable Unavailable Reason for Visit * Reason Comments Med Refill Encounter Details Date Type Department Care Team (Late st Contact Info) Description 02/25/2023 Refill [facility] MED[facility]INE [address] [place] [address] Maninder Warren FNP Bipolar disorder with psychotic [...] -2 Score 4 02/25/2023 3:05 PM EDT Stefnaie Moraes MA * If you checked off any problems on this questionnaire so far, Question Answer Date of Assessment Author How difficult have these problems made it for you to do your work, take care of things at home, or get along with other people? Very difficult 02/25/2023 3:05 PM EDT Stefanie Moraes MA * Over the past [...] much Nearly every day 02/25/2023 3:05 PM YVANT Snow Moraes MA Feeling tired or having little energy More than half the days 02/25/2023 3:05 PM Snow Yang [place] Poor appetite or overeating Several days 02/25/2023 3:05 PM YVANT Snow Moraes MA Feeling bad about yourself - or [...] Care Team (Late st Contact Info) Description 07/06/2025 10:00 AM EST Office Visit [facility] OPTOMETRY [address] [place] [address] Radha Dahl, OD [address] [place] [address] documented as of this encounter Visit Diagnoses Diagnosis Bipolar disorder with psychotic features (CMS/HCC) (HCC) documented in this encounter Additional Health Concerns Assessment Noted Time PHQ-9 Depression Total Score: 13 02/25/ 023 3:05 PM EDT documented as of this encounter Care Teams Insurance Sales Representative Relationship Specialty Start Date End Date Gemma Dennison ANP [address] [place] [address] PCP - General Family Medicine 06/14/20 Maninder Warren FNP [address] [place] [address] Nurse Practitioner Family Medicine 04/09/23 documented as of this encounter
--- OUTSIDE RECORDS SUMMARY | 2025-02-12 08:38 | XMS_ITS | Encounter Summary ---
Author Organization [employer] Address [address] [facility] 7[address] [place] [address] Care Team Providers Care Medical Care Manager Name Role Phone Gemma Dennison Primary Care Provider [phone] Maninder Warren Unavailable Unavailable Encounter Details Date Type Department Care Team (Latest Contact Info) Description 06/16/2021 Abstract [facility] CONVERSIONS Dental, Provider, DDS Social History Tobacco [...] Description 07/06/2025 10:00 AM EST Office Visit [facility] OPTOMETRY [address] [place] [address] Radha Dahl, OD [address] [place] [address] documented as of this encounter Visit Diagnoses Not on filedocumented in this encounter Care Teams Medical Care Manager Relationship Specialty Start Date End Date Gemma Dennison ANP [address] [place] [address] PCP - General Family Medicine 06/14/20 Maninder Warren FNP [address] [place] [address] Nurse Practitioner Family Medicine 04/09/23 documented as of this encounter
--- OUTSIDE RECORDS SUMMARY | 2025-02-12 08:38 | XMS_ITS | Encounter Summary ---
Author Organization [employer] Address 75 [facility] 7t [place] [address] Care Team Providers Care Interstate Bus Dispatcher Name Role Phone Gemma Dennison Primary Care Provider [phone] Maninder Warren Unavailable Unavailable Reason for Visit * Reason Comments Med Refill Encounter Details Date Type Department Care Team ([facility] st Contact Info) Description 07/26/2023 Refill [facility] [address] [place], [place] [id number] Gemma Dennison ANP [address] [place] [address] Type 2 diabetes mellitus with diabetic neuropathy, unspecified whether oysterman insulin use ([facility]) Social History Tobacco Use Types Packs/Day Years [...] Description 07/06/2025 10:00 AM EST Office Visit [facility] OPTOMETRY [address] [place] [address] Radha Dahl, OD [address] [place] [address] documented as of this encounter Visit Diagnoses Diagnosis Type 2 diabetes mellitus with diabetic neuropathy, unspecified whether oysterman insulin use (HCC) documented in this encounter Additional Health Concerns Assessment Noted Time PHQ-9 Depression Total Score: 10 024 10:32 AM EDT documented as of this encounter Care Teams Interstate Bus Dispatcher Relationship Specialty Start Date End Date Gemma Dennison ANP [address] [place] [address] PCP - General Family Medicine 06/14/20 Maninder Warren FNP [address] [place] [address] Nurse Practitioner Family Medicine 04/09/23 documented as of this encounter
--- OUTSIDE RECORDS SUMMARY | 2025-02-12 08:38 | XMS_ITS | Encounter Summary ---
Author Organization [employer] Address [address] [facility] 7t [place] [address] Care Team Providers Care Starch Dumper Name Role Phone Gemma Dennison CATARINA Primary Care Provider [phone] Maninder Warren Unavailable Unavailable Reason for Visit * Reason Comments Med Refill Encounter Details Date Type Department Care Team (Late st Contact Info) Description 07/12/2022 Refill [facility] MEDICINE [address] [place] [address] Maninder Warren FNP Bipolar disorder with psychotic [...] Description 07/06/2025 10:00 AM EST Office Visit [facility] OPTOMETRY [address] [place] [address] Radha Dahl, OD [address] [place] [address] documented as of this encounter Visit Diagnoses Diagnosis Bipolar disorder with psychotic features (CMS/HCC) (HCC) documented in this encounter Additional Health Concerns Assessment Noted Time PHQ-9 Depression Total Score: 13 023 11:20 AM EST documented as of this encounter Care Teams Starch Dumper Relationship Specialty Start Date End Date Gemma Dennison ANP [address] [place] [address] PCP - General Family Medicine 06/14/20 Maninder Warren FNP [address] [place] [address] Nurse Practitioner Family Medicine 04/09/23 documented as of this encounter
--- OUTSIDE RECORDS SUMMARY | 2025-02-12 08:38 | XMS_ITS | Encounter Summary ---
Author Organization [employer] Address [address] [facility] 7t [place] [address] Care Team Providers Care Surg Physician Asst Name Role Phone Gemma Dennison Primary Care Provider Maninder Warren Unavailable Unavailable Reason for Visit * Reason Onset Date Comments Results 01/11/2025 Encounter Details Date Type Department Care Team ([facility] st Contact Info) Description 01/11/2025 Results Follow-Up [facility] MEDICINE [address] [place] [address] Gemma Dennison ANP [address] [place] [address] CT Head w/o Contrast Social History Tobacco [...] Telephone call placed to pt utilizing S #[id number] regarding below results and POC. Informed that [...] Description 07/06/2025 10:00 AM EST Office Visit [facility] OPTOMETRY [address] [place] [address] TarkaRadha, OD [address] [place] [address] documented as of this encounter Visit Diagnoses Diagnosis Maxillary sinusitis, unspecified chronicity- Primary documented in this encounter Additional Health Concerns Assessment Noted Time PHQ-9 Depression Total Score: 19 025 11:45 AM EST documented as of this encounter Care Teams Surg Physician Asst Relationship Specialty Start Date End Date Gemma Dennison ANP [address] [place] [address] PCP - General Family Medicine 06/14/20 Maninder Warren FNP [address] [place] [address] Nurse Practitioner Family Medicine 04/09/23 documented as of this encounter
--- OUTSIDE RECORDS SUMMARY | 2025-02-12 08:38 | XMS_ITS | Encounter Summary ---
Author Organization [employer] Address [address] [facility] 7t [place] [address] Care Team Providers Care Needle Control Cheniller Name Role Phone Gemma Dennison CATARINA Primary Care Provider [phone] Maninder Warren Unavailable Unavailable Reason for Visit * Reason Comments Med Refill Encounter Details Date Type Department Care Team (Late st Contact Info) Description 04/14/2023 Refill [facility] MEDICINE [address] [place] [address] Maninder Warren FNP Bipolar disorder with psychotic [...] Description 07/06/2025 10:00 AM EST Office Visit [facility] OPTOMETRY [address] [place] [address] Radha Dahl, OD [address] [place] [address] documented as of this encounter Visit Diagnoses Diagnosis Bipolar disorder with psychotic features (CMS/HCC) (HCC) documented in this encounter Additional Health Concerns Assessment Noted Time PHQ-9 Depression Total Score: 13 023 3:05 PM EDT documented as of this encounter Care Teams Needle Control Cheniller Relationship Specialty Start Date End Date Gemma Dennison ANP [address] [place] [address] PCP - General Family Medicine 06/14/20 Maninder Warren FNP [address] [place] [address] Nurse Practitioner Family Medicine 04/09/23 documented as of this encounter
--- OUTSIDE RECORDS SUMMARY | 2025-02-12 08:38 | XMS_ITS | Encounter Summary ---
Author Organization [employer] Address [address] [facility] 7t [place] [address] Care Team Providers Care Classification Counselor Name Role Phone Gemma Dennison Primary Care Provider [phone] Maninder Warren Unavailable Unavailable Encounter Details Date Type Department Care Team (Late st Contact Info) Description 04/04/2022 Abstract [facility] MEDICINE [address] [place] [address] Provider, MD Sorin Social History Tobacco Use [...] Description 07/06/2025 10:00 AM EST Office Visit [facility] OPTOMETRY [address] [place] [address] Radha Dahl, OD [address] [place] [address] documented as of this encounter Visit Diagnoses Not on filedocumented in this encounter Care Teams Classification Counselor Relationship Specialty Start Date End Date Gemma Dennison ANP [address] [place] [address] PCP - General Family Medicine 06/14/20 Maninder Warren FNP [address] [place] [address] Nurse Practitioner Family Medicine 04/09/23 documented as of this encounter
--- OUTSIDE RECORDS SUMMARY | 2025-02-12 08:38 | XMS_ITS | Clinical Summary ---
Author Organization [employer] Address [address] [place] [address] Care Team Providers Care Front End Software Engineer Name Role Phone Srinivasan Willams CATARINA Primary Care Provider [phone] Maninder Warren Unavailable Unavailable Allergies No known [...] 5 04/16/20 23 Active UltiCare Mini Pen Porter 31G X 6 MM miscIndications:T ype 2 diabetes mellitus with diabetic polyneuropathy, with long-term current use of insulin (HCC) USE DIRECTED DAILY 100 each 5 06/10/19 24 Active Continuous Blood Gluc [employer] Coordinator (FreeStyle Zaira 2 [place]) deviceIndications :Type 2 diabetes mellitus with hyperglycemia, without long-term current use of insulin (HCC) Scan sensor every 6 hours 1 each 07/08/19 24 Active carBAMazepine (TEGretol) 200 MG tabletIndications :Bipolar disorder with psychotic features (CMS/HCC) (HCC) TAKE 1 TABLET BY MOUTH TWICE DAILY IN THE MORNING AND AT BEDTIME 180 tablet 1 08/13/19 24 Active zolpidem (Ambien) 10 MG tabletIndications :Bipolar disorder with psychotic features (CMS/HCC) (HCC) Take 1 tablet (10 mg) by mouth at bedtime. for sleep 30 tablet 5 10/28/19 24 Active perphenazine 16 MG tabletIndications :Bipolar disorder with psychotic features (CMS/HCC) (HCC) Take 1 tablet orally in the morning and 1 tablet in the evening 180 tablet 1 06/08/19 25 Active atorvastatin (Lipitor) 10 MG tablet TAKE 1 TABLET BY MOUTH AT BEDTIME 90 tablet 1 06/11/19 25 Active metFORMIN (Glucophage) 1000 MG tabletIndications :Diabetic polyneuropathy associated with type 2 diabetes mellitus ([facility]) TAKE 1 TABLET BY MOUTH TWICE DAILY IN THE MORNING AND IN THE EVENING WITH MEALS 180 tablet 3 06/11/19 25 Active FreeStyle Precision Jewel Test test stripIndications: Type 2 diabetes mellitus with hyperglycemia ([facility]) USE DIRECTED TO TEST BLOOD SUGAR THREE TIMES DAILY OR MORE NEEDED 100 strip 10/09/19 25 Active Continuous Glucose Sensor (FreeStyle Zaira 2 Sensor) miscIndications:T ype 2 diabetes mellitus with hyperglycemia, without long-term current use of insulin ([facility]) USE DIRECTED TO TEST BLOOD SUGAR. CHANGE EVERY 14 DAYS . 2 each 11 10/09/19 25 Active enalapril (Vasotec) 10 MG tablet Take 1 tablet (10 mg) by mouth in the morning. 90 tablet 11/11/19 25 Active cyclobenzaprine (Flexeril) 10 MG tabletIndications :Tension headache One tab po at bedtime prn pain of muscles, do not drive with medicaion 10 tablet 12/04/19 25 Active glipiZIDE XL (Glucotrol XL) 10 MG 24 hr tabletIndications :Type 2 diabetes mellitus with diabetic polyneuropathy, without long-term current use of insulin ([facility]) TAKE 1 TABLET BY MOUTH TWICE DAILY [...] Apply topically 2 times daily. 80 g 12/19/19 25 Active Aspirin Low Dose 81 MG EC tablet TAKE 1 TABLET BY MOUTH AT BEDTIME 90 tablet 3 12/30/19 25 Active metoprolol succinate XL (Toprol-XL) 25 MG 24 hr tablet TAKE 1 TABLET BY MOUTH TWICE DAILY IN THE MORNING AND IN THE EVENING 180 tablet 1 12/30/19 25 Active amitriptyline (Elavil) 75 MG tabletIndications :Bipolar disorder with psychotic features (CMS/HCC) ([facility]) TAKE 1 TABLET BY MOUTH AT BEDTIME 90 tablet 3 12/30/19 25 Active amLODIPine (Norvasc) 10 MG tablet TAKE 1 TABLET BY MOUTH AT BEDTIME 90 tablet 1 01/06/20 25 Active traZODone (Desyrel) 50 MG tablet TAKE 1 TABLET BY MOUTH AT BEDTIME NEEDED FOR SLEEP 30 tablet 1 01/06/20 25 Active clonazePAM (KlonoPIN) 1 MG tabletIndications :Bipolar disorder with psychotic features (CMS/HCC) ([facility]) Take 1 tablet (1 mg) by mouth if needed in the morning and at bedtime for anxiety. 60 tablet 2 01/06/20 25 Active pregabalin (Lyrica) 150 MG capsule Take 1 capsule (150 mg) by mouth every 12 (twelve) hours. 60 capsule 3 01/06/20 25 Active escitalopram (Lexapro) 20 MG tablet TAKE 1 TABLET BY MOUTH AT BEDTIME 30 tablet 1 01/26/20 25 Active D3-1000 25 MCG (1000 UT) capsuleIndication s:Vitamin D deficiency TAKE 1 TABLET BY MOUTH EVERY MORNING 90 capsule 1 01/29/20 25 Active TRUEplus Lancets 33G miscIndications:T ype 2 diabetes mellitus with hyperglycemia, without long-term current use of insulin ([facility]) TEST BLOOD SUGAR THREE TIMES DAILY DIRECTED 100 each 5 01/29/20 25 Active TRUEplus Lancets 33G misc TEST BLOOD SUGAR THREE TIMES DAILY DIRECTED 100 each 5 04/20/20 24 025 Discontinued D3-1000 25 MCG (1000 UT) capsuleIndication s:Vitamin D deficiency TAKE 1 CAPSULE BY MOUTH EVERY MORNING 90 capsule 1 06/11/19 25 025 Discontinued escitalopram (Lexapro) 20 MG tablet TAKE 1 TABLET BY MOUTH AT BEDTIME 30 tablet 1 12/01/19 25 025 Discontinued amoxicillin-clavu lanate (Augmentin) 875-125 MG tabletIndications :Maxillary sinusitis, unspecified chronicity Take 1 tablet by mouth 2 times daily for 7 days. 14 tablet 01/12/20 25 025 Active Problems Problem Noted Date Diagnosed Date [...] L orchiectomy, 6 mos chemotherapy; tx in [place] Bipolar 2 disorder ([facility]) 04/10/2022 Assessment & Plan (10/28/2023 10:41 AM [...] He will continue with his therapist at [facility] and await intake with agency prescriber. He may also contact [facility] with any issues or concerns. All his [...] He will continue with his therapist at [facility] and await intake with agency prescriber. He may also contact [facility] with any issues or concerns. All his [...] He will continue with his therapist at [facility]. On 01/22/2023 Provider informed pt that I [...] He will continue with his therapist at [facility]. On 01/22/2023 Provider informed pt that I [...] He will continue with his therapist at [facility]. Today 01/22/2023 Provider informed pt that I [...] at bedtime prn. Continue with therapist through [facility]. If psychiatrist becomes available there, pt may [...] mg at bedtime. Continue with therapist through [facility]. If psychiatrist becomes available there, pt may [...] 07/07/2015 Essential hypertension 07/07/2015 Overweight 07/07/2015 Encounters Date Type Department Care Team Description 01/27/[address] [facility] [address] [place] [address] Srinivasan Willams ANP Vitamin D deficiency; Type 2 diabetes mellitus with hyperglycemia, without long-term current use of insulin ([facility]) 01/24/[address] [facility] [address] [place] [address] Srinivasan Willams ANP 01/20/[address] [facility] [address] [place] [address] Srinivasan Willams ANP chart prep 01/11/2025 Results Follow-Up [facility] [address] [place] [address] Head w/o Contrast 01/05/[address] [facility] [address] [place] [address] Srinivasan Willams ANP Bipolar disorder with psychotic features ([facility]/HCC) 01/01/2025 11:15 AM EDT Office Visit [facility] [address] [place] [address] Radha Dahl, OD Both eyes affected by mild nonproliferative diabetic retinopathy with macular edema, associated with type 2 diabetes mellitus ([facility]) (Primary Dx) 01/01/2025 Travel 01/01/[address] [facility] [address] [place] [phone] Srinivasan Willams ANP Bipolar disorder with psychotic features (CMS/HCC) 12/29/[address] [facility] [address] [place] [phone] Srinivasan Willams ANP Bipolar disorder with psychotic features (CMS/HCC) 12/27/[address] [facility] [address] [place] [phone] Srinivasan Willams ANP Bipolar disorder with psychotic features (CMS/HCC) 12/21/[address] [facility] [address] [place] [phone] Nam, Ana, OD Presbyopia of both eyes (Primary Dx) 12/18/2024 9:45 AM EDT Office Visit [facility] [address] [place] [phone] Srinivasan Willams ANP Type 2 diabetes mellitus with diabetic polyneuropathy, without long-term current use of insulin (CMS/HCC) (Primary Dx); Type 2 diabetes mellitus with hyperglycemia, without long-term current use of insulin (CMS/HCC); Rash; Acute intractable headache, unspecified headache type; Testicle swelling 12/18/2024 9:00 AM EDT Office Visit [facility] [address] [place] [phone] Nam, Ana, OD Hyperopia of both eyes (Primary Dx) 12/18/2024 Travel 12/17/[address] [facility] [address] [place] [phone] Srinivasan Willams ANP Chart Prep 12/11/2024 Patient Outreach [address] [address] Srinivasan Willams ANP Pre-visit Planning (Pre visit planning LVM ) 12/03/2024 1:00 PM EDT Office Visit [facility] [address] [place] [phone] Nury Palomo MD Tension headache (Primary Dx) 12/03/2024 Travel 11/28/[address] [facility] [address] [place] [phone] Srinivasan Willams ANP from Last 3 Months [...] Description 07/06/2025 10:00 AM EST Office Visit [facility] [address] [place] [address] Radha Dahl, OD [address] [place] [address] Health Maintenance Due Date Last Done Comments [...] Procedure Name Priority Date/Time Associated Diagnosis Comments US SCROTUM Urgent 02/11/2025 1:17 PM EDT Testicle swelling ANCA VASCULITIDES Routine 01/19/2025 12: 17 PM EDT Rash CYCLIC CITRULLINATED PEPTIDE (CCP) AB (IGG) Routine 01/19/2025 12:17 PM EDT Rash TORRES SCREEN, IFA, W/REFL TITER AND PATTERN Routine 01/19/2025 12:17 PM EDT Rash CBC WITH AUTO DIFFERENTIAL Routine 01/19/2025 12:17 PM EDT Rash SYPHILIS SCREEN Routine 01/19/2025 12:17 PM EDT Rash ALBUMIN, [...] Recently Relevant to Health Maintenance Results * US Scrotum (02/11/2025 1:17 PM EDT) Anatomical Region Laterality Modality Body Ultrasound 02/11/2025 1:17 PM EDT Narrative 02/11/2025 1:51 PM EDT [place] [address] Ultrasound Report Signed Patient: Tin Botello MR#: [id number] : 1970 Acct:[id number] Age/Sex: 54 / M ADM Date: 02/11/25 Loc: HO.US Attending Dr: Srinivasan Willams NP Ordering Physician: SRINIVASAN WILLAMS NP Date of Service: 02/11/25 Procedure(s): US scrotum Accession Number(s): [id number] cc: SRINIVASAN WILLAMS NP Reason for Exam: testicular swelling, h/o testicular ca EXAMINATION: US SCROTUM CLINICAL INFORMATION: Testicular swelling, history of testicular CA with left orchiectomy. COMPARISON: None available. TECHNIQUE: A sonogram of the scrotum was performed assessing patterson-scale appearance and color Doppler flow. Spectral Doppler analysis of the arterial and venous flow were performed in the testes bilaterally. FINDINGS: RIGHT: Right testicle measures 5.3 x 2.2 x 3.4 cm, volume 20 mL. No focal testicular parenchymal lesions are visualized. Spectral Doppler analysis of the arterial and venous flow is normal in the right testis. Right epididymal head is normal in size. There is a 3 mm epididymal tail cyst. No right hydrocele or varicocele is seen. Right epididymal Doppler flow is LEFT: Left testicle is surgically absent. No abnormality noted in the left scrotum. US/US scrotum IMPRESSION: 1. Normal right testicle and epididymis. 2. Surgically absent left testicle. Electronically signed by: Case Simmons MD 02/11/2025 01:47 PM EDT RP Dictated By: Case Simmons MD Signed By: <Electronically signed by Case Simmons MD in OV> 02/11/25 1347 DD/ 1317 TD/TT: 02/11/25 1321 Refrigeration Supervisor: Procedure Note Donotuseinterpreter, Image - 02/11/2025 [place] [address] Ultrasound Report Signed Patient: Tin Botello RMR#: [id number] : 1970Acct:[id number] Age/Sex: 54 / MADM Date: 02/11/25 Loc: . Attending Dr: Srinivasan Willams NP Ordering Physician: SRINIVASAN WILLAMS NP Date of Service: 02/11/25 Procedure(s): US scrotum Accession Number(s): [id number] cc: SRINIVASAN WILLAMS NP Reason for Exam: testicular swelling, h/o testicular ca EXAMINATION: US SCROTUM CLINICAL INFORMATION: Testicular swelling, history of testicular CA with left orchiectomy. COMPARISON: None available. TECHNIQUE: A sonogram of the scrotum was performed assessing patterson-scale appearance and color Doppler flow. Spectral Doppler analysis of the arterial and venous flow were performed in the testes bilaterally. FINDINGS: RIGHT: Right testicle measures 5.3 x 2.2 x 3.4 cm, volume 20 mL. No focal testicular parenchymal lesions are visualized. Spectral Doppler analysis of the arterial and venous flow is normal in the right testis. Right epididymal head is normal in size. There is a 3 mm epididymal tail cyst. No right hydrocele or varicocele is seen. Right epididymal Doppler flow is LEFT: Left testicle is surgically absent. No abnormality noted in the left scrotum. US/US scrotum IMPRESSION: 1. Normal right testicle and epididymis. 2. Surgically absent left testicle. Electronically signed by: Case Simmons MD 02/11/2025 01:47 PM EDT Dictated By: Case Simmons MD Signed By: <Electronically signed by Case Simmons MD in OV> 02/11/25 1347 DD/ 1317 TD/TT: 02/11/25 1321 Refrigeration Supervisor: us Srinivasan Willams [facility] IMG US PROCEDURES Final Result * ANCA Vasculitides (01/19/2025 12:17 PM EDT) Myeloperoxidase Antibody <1.0 [facility] Comment:Value Interpretation ----- <1.0 No Antibody Detected > or = 1.0 Antibody DetectedAutoantibodies to myeloperoxidase (MPO) are commonlyassociated with the following small-vesselvasculitides: microscopic polyangiitis,polyarteritis nodosa, Churg-Angela syndrome,necrotizing and crescentic glomerulonephritis andoccasionally granulomatosis with polyangiitis(GPA, Neha's). The perinuclear IFA pattern,(p-ANCA) is based largely on autoantibody tomyeloperoxidase which serves as the primary antigen.These autoantibodies are present in active disease. Proteinase-3 Antibody <1.0 [facility] Comment:Value Interpretatio n ----- <1.0 No Antibody Detected > or = 1.0 Antibody DetectedAutoantibodies to proteinase-3 (SC-3) are accepted ascharacteristic for granulomatosis with polyangiitis(GPA, Neha's), and are detectable in 95% of thehistologically proven cases. The cytoplasmic IFApattern, (c-ANCA), is based largely on autoantibody toPR-3 which serves as the primary antigen.These autoantibodies are present in active disease.THIS TEST WAS PERFORMED AT:[employer] [place] [phone] HERRERA MD Blood 01/19/2025 12:1 7 PM EDT 01/19/2025 1:22 PM EDT Srinivasan Willams [facility] BLOOD ORDERABLES Final Resul t Performing Organization Address [facility] de Phone Number [facility] [address] [place] [phone] * Syphilis Screen (01/19/2025 12:17 PM EDT) Syphilis Screen Nonreactive Nonreactive [facility] Blood Venous blood specimen / Unknown 01/19/2025 12:17 PM EDT 01/19/2025 1:22 PM EDT Srinivasan Willams [facility] BLOOD ORDERABLES Final Resul t Performing Organization Address [facility] Phone Number [facility] [address] [place] [phone] * Albumin, Random Urine W/Creatinine (01/19/2025 12:17 PM EDT) Creatinine, Urine 288.87 mg/dL [facility] Microalbumin Urine 35.0 mg/L [facility] Microalbum Creatinine Ratio Ur 12.1 <30 ug/mg cr [facility] Comment:Albumin/Creatinine R atio Reference Ranges: Normal: < 30 ug/mg creatinine Microalbuminuria: 30 - 300 ug/mg creatinineClinical Albuminuria: > 300 ug/mg creatinine Urine (Urine, Random) 01/19/2025 12:17 PM EDT 01/19/2025 1:08 PM EDT Srinivasan Willams [facility] URINE ORDERABLES Final Resul t Performing Organization Address [facility] Phone Number [facility] [address] [place] [address] [phone] * (ABNORMAL) CBC auto differential (01/19/2025 12:17 PM EDT) White Blood Count 8.6 4.8 - 10.8 X10*3/uL [facility] Red Blood Count 4.74 4.60 - 5.80 X10*6/uL [facility] Hemoglobin 13.5(L) 14.0 - 18.0 g/dl [facility] Hematocrit 39.6(L) 42.0 - 52.0 % [facility] Mean Corpuscular Volume 83.5 80.0 - 98.0 fL [facility] Mean Corpuscular Hemoglobin 28.5 27.0 - 33.0 pg [facility] Mean Corpuscular HGB Conc 34.1 31.0 - 36.0 g/dl [facility] Red Cell Distribution Width 12.7 11.0 - 16.0 % [facility] Platelet Count 211 160 - 400 X10*3/uL [facility] Mean Platelet Volume 10.5 9.4 - 12.4 fL [facility] Neutrophils Percent Auto 65.7 45 - 73 % [facility] Imm Gran Pct Auto 0.5(H) 0.0 - 0.4 % [facility] Lymphocytes Percent Auto 20.5 20 - 40 % [facility] Monocytes Percent Auto 7.9 2 - 11 % [facility] Eosinophils Percent Auto 5.1(H) 0 - 4 % [facility] Basophils Percent Auto 0.3 0 - 2 % [facility] NRBC Pct Auto 0.0 0.0 - 0.2 /100WBC [facility] Neutrophils Absolute Auto 5.6 2.0 - 8.3 x10*3/uL [facility] Imm Gran Abs Auto 0.04(H) 0.00 - 0.03 X10*3/uL [facility] Lymphocytes Absolute Auto 1.8 1.2 - 4.9 X10*3/uL [facility] Monocytes Absolute Auto 0.7 0.1 - 1.2 X10*3/uL [facility] Eosinophils Absolute Auto 0.4 0.0 - 0.4 X10*3/uL [facility] Basophils Absolute Auto 0.0 0.0 - 0.2 X10*3/uL [facility] NRBC Abs Auto 0.000 0.0 - 0.012 X10*3/uL [facility] Blood Venous blood specimen / Unknown 01/19/2025 12:17 PM EDT 01/19/2025 1:22 PM EDT Srinivasan [facility] BLOOD ORDERABLES Final Resul t Performing Organization Address [facility] de Phone Number [facility] [address] [place] [phone] * Cyclic Citrullinated Peptide (CCP) Antibody (IgG) (01/19/2025 12:17 PM EDT) Pathologist [facility] Cyclic Citrullinated Peptide <16 UNITS [facility] Comment:Reference RangeNegat malissa: <20Weak Positive: 20-39Moderate Positive: 40-59Strong Positive: >59THIS TEST WAS PERFORMED AT:[facility] [address] [phone] HERRERA MD Blood Venous blood specimen / Unknown 01/19/2025 12:17 PM EDT 01/19/2025 1:22 PM EDT Srinivasan Willams [facility] BLOOD ORDERABLES Final Resul t Performing Organization Address [facility] Co de Phone Number [facility] [address] [place] [phone] * TORRES Screen,IFA, with Reflex to Titer and Pattern (01/19/2025 12:17 PM EDT) Anti Nuclear Antibody Screen NEGATIVE NEGATIVE [facility] Comment:TORRES IFA is a first l ine screen for detecting thepresence of up to approximately 150 autoantibodies invarious autoimmune diseases. A negative TORRES IFA resultsuggests an TORRES-associated autoimmune disease is notpresent at this time, but is not definitive. If thereis high clinical suspicion for Sjogren's syndrome,testing for anti-SS-A/Ro antibody should be considered.Anti-Misa-1 antibody should be considered for clinicallysuspected inflammatory myopathies.AC-0: NegativeInternational Consensus on TORRES Patterns(https://doi.org/10.1515/jkzq-0663-1230)For additional information, please refer tohttp://education.NONO/faq/OAT035(This link is being provided for informational/educational purposes only.)THIS TEST WAS PERFORMED AT:[employer] [place] [phone] HERRERA MD TORRES Titer TNP [facility] TORRES Pattern [facility] TORRES TITER 2 (REF LAB) [facility] TORRES Pattern 2 [facility] TORRES TITER 3 [facility] TORRES PATTERN 3 [facility] Blood Venous blood specimen / Unknown 01/19/2025 12:17 PM EDT 01/19/2025 1:22 PM EDT [facility] BLOOD ORDERABLES Final Resul t [facility] [address] [place] [phone] [phone] * (ABNORMAL) Comprehensive Metabolic Panel (01/19/2025 12:17 PM EDT) Sodium 143 135 - 145 mmol/L [facility] Potassium 4.1 3.3 - 5.1 mmol/L [facility] Chloride 107 96 - 108 mmol/L [facility] Carbon Dioxide 30(H) 22 - 29 mmol/L [facility] Anion Gap 10(L) 12 - 20 [facility] Urea Nitrogen (BUN) 17(H) 9 - 16 mg/dL [facility] Creatinine, Serum 1.22 0.5 - 1.4 mg/dL [facility] Estimated Glomerular Filt Rate >60 [facility] Comment:Chronic Kidney Disea se: Estimated GFR < 60 mL/min/1.54y0Gemypt Kidney Disease: Estimated GFR < 15 mL/min/1.73m2 Glucose 132(H) 60 - 115 mg/dL [facility] Calcium 9.0 8.4 - 10.2 mg/dL [facility] Bilirubin, Total 0.4 0.0 - 1.0 mg/dL [facility] Aspartate Amino Transferase 21 5 - 37 U/L [facility] Alanine Aminotransferase 15 0 - 40 U/L [facility] Total Protein 7.4 6.5 - 8.0 g/dL [facility] Albumin Level 4.2 3.5 - 5.0 g/dL [facility] Alkaline Phosphatase 107 39 - 117 U/L [facility] Blood Venous blood specimen / Unknown 01/19/2025 12:17 PM EDT 01/19/2025 1:22 PM EDT Srinivasan Willams ANP LAB BLOOD ORDERABLES Final Resul t [facility] [address] [place] [phone] * CT Head w/o Contrast (01/07/2025 8:59 AM EDT) Anatomical Region Laterality Modality Head, Neck Computed Tomogra phy 01/07/2025 8:59 AM EDT Narrative 01/07/2025 9:01 AM EDT [address] [address] [address] Scan Report Signed Patient: Tin Botello MR#: [id number] : 1970 Acct:[id number] Age/Sex: 54 / M ADM Date: 01/06/25 Loc: HO.LUIS ARMANDO Attending Dr: Srinivasan Willams [employer] Ordering Physician: SRINIVASAN WILLAMS NP Date of Service: 01/06/25 Procedure(s): CT head/brain wo IV con Accession Number(s): [id number] cc: SRINIVASAN WILLAMS NP Report Number: [id number]: Total DLP = 780.00 mGy-cm Reason for [...] Wendy Deshpande MD in OV> 01/07/25899 DD/ 0859 TD/TT: 01/07/25 0859 Refrigeration Supervisor: Procedure Note Donotuseinterpreter, Image - 01/07/[address] [place] [address] [address] Scan Report Signed Patient: Tin Botello R#: [id number] : 1970Acct:[id number] Age/Sex: 54 / MADM Date: 01/06/25 Loc: HO.CT Attending Dr: Srinivasan Willams NP Ordering Physician: SRINIVASAN WILLAMS NP Date of Service: 01/06/25 Procedure(s): CT head/brain wo IV con Accession Number(s): [id number] cc: SRINIVASAN WILLAMS NP Report Number: [id number]: Total DLP = 780.00 mGy-cm Reason for [...] Wendy Deshpande MD in OV> 01/07/25899 DD/ 0859 TD/TT: 01/07/25 0859 Refrigeration Supervisor: us Srinivasan ELMORE IMG CT PROCEDURES Edited Result - Final [...] 3 months ago. Monitor in 6 months. Result [facility] Radha Dahl OD OPHTH TOMOGRAPHY Final Result * (ABNORMAL) POCT HGB A1C (12/18/2024 10:09 AM EDT) Pathologist [facility] Hemoglobin A1C 7.5(A) 4.0 - 5.7 % QC Media Lot # [id number] Lot# Expiration Date ,728,041 Blood 12/18/2024 10:0 9 AM EDT Result Counts Include [facility] us Srinivasan ELMORE POINT OF CARE TEST ENTER/EDIT OR DERABLES Final Result * (ABNORMAL) POCT Glucose (12/18/2024 10:08 AM EDT) Glucose Blood, POC 232(A) 60 - 200 mg/dL QC Media Lot # [id number] Lot# Expiration Date [id number] Blood Capillary blood specimen / Unknown 12/18/2024 10:08 AM EDT us Srinivasan [facility] POINT OF CARE TEST ENTER/EDIT OR DERABLES Final Result * Hepatitis C Ab (12/05/2023 9:57 AM EDT) Hepatitis C Antibody Nonreactive Nonreactive [facility] Comment:Antibodies to HCV no t detected; does not exclude early acuteHCV infection. 12/05/2023 9:57 AM EDT 12/05/2023 9:58 AM EDT Generic External Data Provider LAB BLOOD ORDERAB LES Final Result Performing Organization Address City/State/[facility] Co de Phone Number [facility] [address] [place] [phone] * (ABNORMAL) Colonoscopy (10/18/2023) Colonoscopy Abnormal(A ) Normal Kiel Daugherty MD HEALTH MAINTENANCE nal Result * Lipid Panel, Standard (08/15/2022 11:42 AM EDT) Cholesterol, Total 135 <200 mg/dL [facility] [place] [employer] Comment: Verified by repeat analysis. HDL Cholesterol 40 > OR = 40 mg/dL [facility] Triglycerides 135 <150 mg/dL [facility] LDL Cholesterol 73 mg/dL (calc) [facility] Comment: Reference range: <100 Desirable range <100 mg/dL for primary prevention; <70 mg/dL for patients with CHD or diabetic patients with > or = 2 CHD risk factors. LDL-C is now calculated using the Keenan calculation, which is a validated novel method providing better accuracy than the Friedewald equation in the estimation of LDL-C. Rolando DUEÑAS et al. HARVEY. 2013;310(19): 9100-7410 (http://Avosoft.NONO/faq/OIW330) Chol/HDLC Ratio 3.4 <5.0 (calc) [facility] Non-HDL Cholesterol 95 <130 mg/dL (calc) [facility] Comment: For patients with diabetes plus 1 major ASCVD risk factor, treating to a non-HDL-C goal of <100 mg/dL (LDL-C of <70 mg/dL) is considered a therapeutic option. 08/15/2022 11:4 2 AM EDT 08/15/2022 11:43 AM EDT Narrative [facility] - 08/18/2022 7:52 PM EDT FASTING:YES FASTING: YES [facility] LAB BLOOD ORDERABLES Final Resul t [facility] [address], [place] [address] [facility] [place] [employer] [facility] [address] [place] [address] * HIV 1/2 ANTIGEN/ANTIBODY,FOURTH GENERATION W/RFL (08/31/2020 11:30 AM EDT) [facility] HIV-1/2 ANTIGEN AND ANTIBODIES, 4TH GENERATION W/ REFLEX NON-REACT MALISSA NON-REACT MALISSA [facility] Comment: HIV-1 antigen and HIV-1/HIV-2 [...] purpose. For additional information please refer to http://Avosoft.[employer]/faq/JMU100 (This link is being provided for informational/ educational purposes only.) The performance of this assay has not been clinically validated in patients less than 2 years old. 08/31/2020 11:3 0 AM EDT us Srinivasan ELMORE LAB BLOOD ORDERABLES Final Resul t [facility] [address] [place] [phone], from Last 3 Months or Most Recently Relevant to Health Maintenance [facility] Care Teams Front End Software Engineer Relationship Specialty Start Date End Date Srinivasan Willams ANP [address] [place] [address] PCP - General Family Medicine 06/14/20 Maninder Warren FNP [address] [place] [address] Nurse Practitioner Family Medicine 04/09/23
--- OUTSIDE RECORDS SUMMARY | 2025-02-12 08:38 | XMS_ITS | Encounter Summary ---
Author Organization [employer] Address [address] [facility] [address] [place] [address] Care Team Providers Care Sample Selector Name Role Phone Gemma Dennison Primary Care Provider [phone] Maninder Warren Unavailable Unavailable Reason for Visit * Reason Comments Med Refill Encounter Details Date Type Department Care Team (Late st Contact Info) Description 12/27/2024 Refill [facility] MEDICINE [address] [place], [place] [phone] Gemma Dennison ANP [address] [place] [address] Bipolar disorder with psychotic features (CMS/HCC) Social [...] Description 07/06/2025 10:00 AM EST Office Visit [facility] OPTOMETRY [address] [place] [address] Radha Dahl, OD [address] [place] [address] documented as of this encounter Visit Diagnoses Diagnosis Bipolar disorder with psychotic features (CMS/HCC) (HCC) documented in this encounter Additional Health Concerns Assessment Noted Time PHQ-9 Depression Total Score: 19 025 11:45 AM EST documented as of this encounter Care Teams Sample Selector Relationship Specialty Start Date End Date Gemma Dennison ANP [address] [place] [address] PCP - General Family Medicine 06/14/20 Maninder Warren FNP [address] [place] [address] Nurse Practitioner Family Medicine 04/09/23 documented as of this encounter
--- NOTE | 2025-02-12 09:43 | MHC.OFFVIS ---
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 Name: #[id number] Allergies No Known Allergies (No Known Allergies*) Allergy (Verified 02/12/25 09:51) Medication List - Last Reconciled 02/12/25 by Radha Figueroa CNP acetaminophen (Tylenol Extra Strength) 500 mg PO Q6H PRN amitriptyline 1 tab PO BEDTIME amlodipine 1 tab PO BEDTIME aspirin 1 tab PO BEDTIME atorvastatin 1 tab PO BEDTIME benzonatate 100 mg PO TID PRN cholecalciferol (vitamin D3) (Vitamin D3) 1 cap PO QAM clonazepam 1 tab PO BID cyclobenzaprine 5 mg PO Q8H PRN 5 days doxepin 1 cap PO BEDTIME dulaglutide (Trulicity) 1.5 mg subcut MO glipizide ER 1 tab PO BID lidocaine 5% (Lidoderm) 1 patch topical DAILY PRN MDD remove after 12 hours metformin 1 tab PO BID metoprolol succinate ER 1 tab PO BID naproxen 500 mg PO BID PRN 10 days omeprazole 20 mg PO BID 90 days pregabalin 1 cap PO BID ropinirole 1 tab PO BEDTIME sumatriptan succinate take 1 tab at onset of headache; if no relief may repeat 1 tab after at least 2 hrs; max = 4 tabs/24 hr HPI Comments Details: 54-year-old man with diabetes, chronic back pain, depression/anxiety/panic attacks, forgetfulness, fibromyalgia, RLS, and neuropathic pain from neuropathy. He returns after about 14 months. He reports pain all over his body. He says he has been without pregabalin for about 2 months and pain is worse without medication. Pain is also worse with colder weather. He had some headaches and did not have any sumatriptan. Sleep was not so good. He had restless feeling in his legs. He was not sure if he was taking ropinirole as his medications came in bubble pack. Mood was not so good. He was working with psychiatrist and therapist. Blood sugar was okay. [facility] Medical History (Updated 02/12/25 @ 09:49 by Radha Figueroa CNP) Elevated cholesterol Chronic pain History of testicular cancer Diabetes mellitus, type 2 Fibromyalgia Hypertension Surgical History History of esophagogastroduodenoscopy (EGD) Hx of colonoscopy History of orchiectomy Social History Alcohol intake: never Patient Tobacco Use Status: Former Tobacco user service: No Current occupational status: disabled Review of Systems Const Denies chills, Denies daytime sleepiness, Reports difficulty sleeping, Denies fatigue, Denies fever(s), Denies frequent falls, Reports headache(s), Denies increased appetite, Denies poor appetite, Denies snoring, Denies weakness, Denies weight gain and Denies weight loss Eyes Denies loss of vision ENT Denies vertigo, Denies dizziness and Reports headache(s) Card Denies chest pain at rest, Denies chest pain with activity, Denies syncope, Denies leg edema and Denies palpitations Resp Denies snoring GI Denies constipation, Denies heartburn, Denies diarrhea and Denies nausea Denies urinary frequency, Denies urinary incontinence and Denies urinary urgency Musc Denies abnormal gait, Denies numbness and Denies tingling Skin/Breast Denies dry skin and Denies rash Neuro Denies abnormal gait, Denies vertigo, Denies dizziness, Denies syncope, Denies frequent falls, Reports headache(s), Denies lack of coordination, Denies loss of vision, Denies memory loss, Denies numbness, Reports restless legs, Denies seizure-like activity, Denies tingling, Denies paresthesias, Denies tremor(s) and Denies weakness Psych Denies anxiety, Reports depression, Denies auditory hallucinations, Denies memory loss, Denies visual hallucinations and Denies suicidal ideation Endo Denies fatigue and Denies palpitations Physical Exam Const Other: General Appearance:? normal, in no acute distress. Skin:? no rashes, no significant birthmarks. Heart:? S1, S2 normal, no murmurs. Lungs:? clear anteriorly and posteriorly. Extremities:? no edema. Psych:? alert, oriented, cognitive function intact, cooperative with exam. Neuro Other: Mental Status:?Normal attention, orientation, memory and somewhat flat affect.? Cranial Nerves:?Pupils are equal, round and reactive to light. External occular muscles are intact. Visual santos are full. Face is symmetrical. Facial sensations are normal. Tongue is midline. Palate elevates symmetrically. Shoulder shrugging is normal. Hearing to bedside conversation is normal. Motor Examination:?Periscapular muscles and biceps/triceps are slightly atrophied. Mild deltoid and biceps weakness bilaterally. DTRs trace to absent. Sensory Exam:?....? Coordination:?No ataxia,?no titubation.? Gait Exam: Slow and cautious. Extrapyramidal System:?No tremor, rigidity with normal facial expressions.? Pronator Drift:?Not present.? Involuntary Movements:?No tremors seen.? Speech:?Normal.? Results Reviewed Results Reviewed: XR R and L knee at [facility] in 2021: WNL MRI brain WO at [facility] in 2019: mild atrophy NCV/EMG UE 07/08/19 Mild to moderate bilateral median neuropathy across the Carpal tunnel. 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 Labs at [facility] in September 2019: CPK, Lyme, TORRES, IF, Glu, ESR, ok. Assessment & Plan Assessment & Plan (1) Fibromyalgia: Code(s): M79.7 - Fibromyalgia Category: Medical Plan: Continue pregabalin 150mg 1 capsule twice a day. (2) Diabetic neuropathy: Code(s): E11.40 - Type 2 diabetes mellitus with diabetic neuropathy, unspecified Category: Medical Qualifiers: Diabetes mellitus complication detail: diabetic polyneuropathy Diabetes mellitus type: type 2 Qualified Code(s): E11.42 - Type 2 diabetes mellitus with diabetic polyneuropathy (3) Insomnia: Code(s): G47.00 - Insomnia, unspecified Category: Medical Qualifiers: Insomnia type: unspecified Qualified Code(s): G47.00 - Insomnia, unspecified Plan: Amitriptyline 150mg 1 tablet at bedtime. (4) Migraine: Code(s): G43.909 - Migraine, unspecified, not intractable, without status migrainosus Category: Medical Qualifiers: Intractability: not intractable Migraine type: unspecified Status migrainosus presence: without status migrainosus Qualified Code(s): G43.909 - Migraine, unspecified, not intractable, without status migrainosus Plan: Continue sumatriptan 50mg 1 tablet as needed for migraine. (5) Restless leg syndrome: Code(s): G25.81 - Restless legs syndrome Category: Medical Plan: Continue ropinirole 2mg 1 tablet in the evening. Plan Meds tried: Lyrica, amitriptyline, carbamazepine (shaking) Medications: New sumatriptan succinate take 1 tab at onset of headache; if no relief may repeat 1 tab after at least 2 hrs; PO 10 tabs 5RF 30 days Changed From ropinirole 1 tab PO BEDTIME To ropinirole 2 mg PO QPM 90 tabs 1RF 90 days From amitriptyline 1 tab PO BEDTIME To amitriptyline 150 mg PO BEDTIME 90 tabs 1RF 90 days From pregabalin 1 cap PO BID To pregabalin 150 mg PO BID 60 caps 1RF 30 days Discontinued sumatriptan succinate Discontinued Reason: Order take 1 tab at onset of headache; if no relief may repeat 1 tab after at least 2 hrs; max = 4 tabs/24 hr 10 tabs 0RF Coding Level of Care Code Est Pt Level 4 (79187) Diagnoses Fibromyalgia M79.7 Diabetic polyneuropathy associated with type 2 diabetes mellitus E11.42 Diabetes mellitus complication detail: diabetic polyneuropathy Diabetes mellitus type: type 2 Insomnia, unspecified type G47.00 Insomnia type: unspecified Migraine without status migrainosus, not intractable, unspecified migraine type G43.909 Intractability: not intractable Migraine type: unspecified Status migrainosus presence: without status migrainosus Restless leg syndrome G25.81
== END 2025-02-12 10:08 | disposition home or self-care (01) ==
LOC: HO.HSM 08:28
PROVIDERS: PCP Nurse Practitioner Primary Care; Visit Provider Registered Nurse
DX: M79.7 Fibromyalgia (principal); E11.42 Type 2 diabetes mellitus with diabetic polyneuropathy; G47.00 Insomnia, unspecified; G43.909 Migraine, unspecified, not intractable, without status migrainosus; G25.81 Restless legs syndrome
CPT/HCPCS: 99214

== ENCOUNTER → 2025-02-12 08:27 | Outpatient (BNVA) | payer MEDICAID, SELFPAY | PROVIDERS: PCP Nurse Practitioner Primary Care; Visit Provider Registered Nurse | DX: M79.7 Fibromyalgia (principal); E11.42 Type 2 diabetes mellitus with diabetic polyneuropathy; G47.00 Insomnia, unspecified; G43.909 Migraine, unspecified, not intractable, without status migrainosus; G25.81 Restless legs syndrome | CPT/HCPCS: 99212 ==